=== PATIENT | female | born 1985 | race Caucasian/White ===

== ENCOUNTER → 2018-12-16 09:11 | Outpatient (CLI) | payer OTHER, SELFPAY ==
--- NOTE | 2018-12-16 09:18 | US_ITS ---
US thyroid HISTORY: ITS.REASON: FATIGUE,THYROID NODULE ORDERING PHYSICIAN: Andreea Mead MD PATIENT AGE: 33 years Comparison: None FINDINGS: The right lobe is 4.1 x 1.1 x 1.4 cm. There is a 2 mm hypoechoic nodule in the upper pole. This is nonspecific. There is some mild heterogeneous echogenicity of the right lobe. There is an 8 x 5 mm isoechoic nodule in the lower pole well-circumscribed. An additional 6 x 4 mm isoechoic nodule present in the mid polar region. The left lobe is 4.3 x 1.4 x 1.6 cm. There is a 1.6 x 0.9 cm isoechoic nodule with somewhat heterogeneous echogenicity in the mid polar region of the left lobe. The margins are well-circumscribed and hypoechoic. The isthmus is slightly thickened at 6 mm. IMPRESSION: There are bilateral thyroid nodules the largest in the mid polar region on the left at 1.6 x 0.9 cm. T RADS 3 mildly suspicious. Recommend 6 month follow-up.
--- NOTE | 2018-12-16 09:18 | FL_ITS ---
EXAM: Barium swallow/esophagram. INDICATION: ITS.REASON: DYSPHAGIA ORDERING PHYSICIAN: Andreea Mead MD PATIENT AGE: 33 years COMPARISON: None TECHNIQUE: In the upright position the patient was observed to swallow barium in both the AP and lateral view. The cervical esophagus was examined under fluoroscopy with images obtained. The patient was then placed prone in the right anterior oblique position and was observed to swallow barium with Valsalva technique . FLUOROSCOPY TIME: 37 seconds FINDINGS: There was no evidence of aspiration. There was normal peristalsis. No filling defects or mucosal abnormalities. No masses or strictures. No hiatal hernia. No reflux demonstrated during the exam. IMPRESSION: Negative barium swallow.
== END ==
PROVIDERS: PCP Emergency Medicine; Visit Provider Emergency Medicine
DX: R13.19 Other dysphagia (principal); R53.83 Other fatigue; E04.1 Nontoxic single thyroid nodule
CPT/HCPCS: 74220; 76536

== ENCOUNTER → 2019-03-04 12:58 | Outpatient (CLI) | payer OTHER, SELFPAY ==
--- NOTE | 2019-03-04 13:00 | US_ITS ---
PROCEDURE: US FNA THYROID CLINICAL INDICATION: Thyroid nodule, trouble swallowing, dominant nodule in the left COMPARISON: THY US thyroid from 12/16/2018 TECHNIQUE: Following obtaining informed consent, using aseptic technique and local anesthesia with buffered lidocaine, fine-needle aspiration was performed of the nodule of interest using sonographic guidance. 3 passes were made into the nodule with a 21-gauge needle. Specimen was given to cytology. FINDINGS: CYTOLOGY: Negative for malignancy, benign follicular nodule IMPRESSION: Uneventful ultrasound-guided fine needle aspiration of left lobe of the thyroid gland showing benign findings. The patient tolerated the procedure well without evidence of immediate complications and left the ultrasound suite in stable condition. Dictated by: Demetrius Blackman MD 03/14/2019 15:13 Electronically signed by Demetrius Blackman MD in [facility] 03/14/2019 15:13
== END ==
PROVIDERS: PCP Emergency Medicine; Visit Provider Otolaryngology
DX: E06.9 Thyroiditis, unspecified (principal)
CPT/HCPCS: 10005; 76942

== ENCOUNTER → 2021-01-26 11:49 | Outpatient (CLI) | payer OTHER, SELFPAY ==
--- NOTE | 2021-01-26 12:00 | XR_ITS ---
PROCEDURE: XR CHEST PORTABLE CLINICAL HISTORY: COVID OUTPATIENT COMPARISON: No exams were available for comparison FINDINGS: This is a poor inspiratory effort resulting in crowding of vascular markings at the lung bases. Cardiac size is likely normal considering the body habitus as this patient is rather obese. There are ill-defined opacities in the perihilar regions and peripheral lung dobbins likely representing pneumonic infiltrates and probably accentuated by the poor inspiration. There is no pleural fluid. IMPRESSION: Poor inspiration probable bilateral perihilar and lower lobe bronchi pneumonic infiltrates, suggest clinical correlation and follow-up PA and lateral chest with better inspiration for better overall evaluation. Dictated by: Dr. Adithya Hart MD 01/26/2021 12:45 Dr. Adithya Hart MD in [facility] 01/26/2021 12:45
[2021-01-26 12:51] LABS: Basophils % 0.5 % (0.1-2.0); Hemoglobin 14.7 g/dL (12.2-16.2); Lymphocytes # 1.1 K/mm3 (0.7-4.5); Lymphocytes % 25.6 % (10-50); Mean Corpuscular Hemoglobin 29.9 pg (27.0-31.2); Mean Corpuscular Volume 85.4 fl (81-99); Mean Platelet Volume 8.9 fl (7.4-10.4); Monocytes # 0.2 K/mm3 (0.1-1.0); Monocytes % 5.2 % (1.7-9.3); Neutrophils # 2.8 K/mm3 (1.8-7.8); Neutrophils % 68.6 % (37.0-80.0); Platelet Count 173 K/mm3 (142-424); Red Blood Count 4.92 M/mm3 (4.20-5.40); Red Cell Distribution Width 13.9 % (11.5-17.5); White Blood Count 4.1 K/mm3 (4.8-10.8)
[2021-01-26 12:55] LABS: Chloride 102 mmol/L (98-107)
[2021-01-26 12:56] LABS: Potassium 4.3 mmoL/L (3.5-5.1); Sodium 139 mmol/L (136-145)
[2021-01-26 12:58] LABS: Alanine Aminotransferase 73 U/L (12-78); Alkaline Phosphatase 66 U/L (38-126); Anion Gap 11.3 mEq/L (5-15); Aspartate Amino Transferase 72 U/L (14-36); Bilirubin,Total 0.6 mg/dl (0.2-1.3); Blood Urea Nitrogen 11 mg/dl (7-17); Carbon Dioxide 30 mmol/L (22.0-30.0); Estimated Glomerular Filt Rate 82 ml/min (>60); GFR (African American) 99 ML/MIN (>60)
[2021-01-26 12:59] LABS: Albumin Level 4.4 g/dl (3.5-5.0); Albumin/Globulin Ratio 1.4 (1.1-1.8); Calcium 8.6 mg/dl (8.4-10.2); Globulin 3.1 g/dL (1.3-3.2); Glucose 107 mg/dl (74-100); Total Protein,Serum 7.5 g/dl (6.3-8.2)
[2021-01-26 13:04] LABS: D-Dimer 0.61 ug/mL (0.0-0.5)
== END ==
PROVIDERS: Otolaryngology
DX: R06.00 Dyspnea, unspecified (principal); R00.0 Tachycardia, unspecified; U07.1 COVID-19
CPT/HCPCS: 36415; 71045; 80053; 85025; 85378

== ENCOUNTER → 2021-07-15 16:45 | Outpatient (CLI) | payer OTHER, SELFPAY ==
[2021-07-15 17:45] LABS: Basophils # 0.1 K/mm3 (0-0.2); Basophils % 0.9 % (0.1-2.0); Eosinophils # 0.2 K/mm3 (0.0-0.4); Eosinophils % 2.3 % (0.1-12.0); Hematocrit 47.1 % (37.0-47.0); Lymphocytes # 2.3 K/mm3 (0.7-4.5); Lymphocytes % 23.4 % (10-50); Mean Corpuscular HGB Conc 31.8 g/dL (31.8-35.4); Mean Corpuscular Hemoglobin 30.6 pg (27.0-31.2); Mean Corpuscular Volume 96.2 fl (81-99); Mean Platelet Volume 8.3 fl (7.4-10.4); Monocytes # 0.6 K/mm3 (0.1-1.0); Monocytes % 6.3 % (1.7-9.3); Neutrophils # 6.5 K/mm3 (1.8-7.8); Neutrophils % 67.1 % (37.0-80.0); Platelet Count 315 K/mm3 (142-424); Red Cell Distribution Width 13.1 % (11.5-17.5); White Blood Count 9.7 K/mm3 (4.8-10.8)
== END ==
PROVIDERS: Visit Provider Internal Medicine Interventional Cardiology
DX: E78.00 Pure hypercholesterolemia, unspecified (principal)
CPT/HCPCS: 36415; 85025

== ENCOUNTER 2022-05-02 19:28 | Emergency (ER) | payer SELFPAY ==
[2022-05-02] VITALS (8 sets, daily range): BP systolic 102–158; BP diastolic 53–94; PULSE 71–132; RESP 16–18; TEMP 36.6–37; O2SAT 96–100; BMI 36.6
--- NOTE | 2022-05-02 19:41 | ECG_ITS ---
APPROVED REPORT Exam: Resting ECG HR:110 bpm ECG Measurements Heart Rate 110 AXES WA 132 P 48 QRSd 92 QRS 76 QT 340 T 19 QTc 405 Conclusion SINUS TACHYCARDIA ABNORMAL RHYTHM ECG UNCONFIRMED REPORT Electronically signed by : Blanco Matthews MD 05/04/2022 21:11:46
--- NOTE | 2022-05-02 20:18 | CT_ITS ---
PROCEDURE INFORMATION: Exam: CT Head Without Contrast Exam date and time: 05/02/2022 9:06 PM Age: 36 years old Clinical indication: Patient HX: Seizure activity. TECHNIQUE: Imaging protocol: Computed tomography of the head without contrast. Radiation optimization: All CT scans at this facility use at least one of these dose optimization techniques: automated exposure control; mA and/or kV adjustment per patient size (includes targeted exams where dose is matched to clinical indication); or iterative reconstruction. COMPARISON: US FNA THYROID 03/04/2019 1:08 PM FINDINGS: Brain: No large territorial infarction. No hemorrhage. No mass effect or midline shift. Cerebral ventricles: No ventriculomegaly. Paranasal sinuses: No fluid levels. Mastoid air cells: Visualized mastoid air cells are well aerated. Bones/joints: No acute fracture. Soft tissues: No significant soft tissue abnormality. IMPRESSION: No acute intracranial abnormality.
[2022-05-02 20:36] LABS: Basophils # 0.1 K/mm3 (0-0.2); Basophils % 1.4 % (0.1-2.0); Eosinophils # 0.2 K/mm3 (0.0-0.4); Eosinophils % 1.5 % (0.1-12.0); Hematocrit 48.6 % (37.0-47.0); Lymphocytes # 3.2 K/mm3 (0.7-4.5); Lymphocytes % 31.5 % (10-50); Mean Corpuscular Hemoglobin 30.6 pg (27.0-31.2); Mean Corpuscular Volume 92.9 fl (81-99); Mean Platelet Volume 8.2 fl (7.4-10.4); Monocytes # 0.5 K/mm3 (0.1-1.0); Monocytes % 5.3 % (1.7-9.3); Neutrophils % 60.3 % (37.0-80.0); Platelet Count 325 K/mm3 (142-424); Red Blood Count 5.23 M/mm3 (4.20-5.40); Red Cell Distribution Width 13.1 % (11.5-17.5)
[2022-05-02 20:37] LABS: Potassium 3.8 mmoL/L (3.5-5.1); Sodium 139 mmol/L (136-145)
[2022-05-02 20:38] LABS: Chloride 100 mmol/L (98-107)
[2022-05-02 20:39] LABS: Alanine Aminotransferase 37 U/L (12-78); Aspartate Amino Transferase 40 U/L (14-36); Blood Urea Nitrogen 12 mg/dl (7-17); Creatinine Clearance Estimated 159 mL/min (50-200); Estimated Glomerular Filt Rate 95 ml/min (>60); GFR (African American) 115 ML/MIN (>60)
[2022-05-02 20:40] LABS: Albumin Level 4.8 g/dl (3.5-5.0); Albumin/Globulin Ratio 1.5 (1.1-1.8); Anion Gap 14.8 mEq/L (5-15); Carbon Dioxide 28 mmol/L (22.0-30.0); Globulin 3.1 g/dL (1.3-3.2); Total Protein,Serum 7.9 g/dl (6.3-8.2)
[2022-05-02 20:41] LABS: Alkaline Phosphatase 78 U/L (38-126); Bilirubin,Total 0.5 mg/dl (0.2-1.3); Calcium 9.4 mg/dl (8.4-10.2); Glucose 105 mg/dl (74-100)
[2022-05-02 20:43] LABS: Urine Pregnancy, HCG Qual. Negative (Negative)
[2022-05-02 20:51] LABS: Amphetamine/Metha Screen,Urine Negative ng/ml (<1000); Barbiturates Screen,Urine Negative ng/ml (<200)
[2022-05-02 20:52] LABS: Benzodiazepines Screen,Urine Negative ng/ml (<200); Cocaine Screen,Urine Negative ng/ml (<300)
[2022-05-02 20:53] LABS: Methadone Screen,Urine Negative ng/ml (<300)
[2022-05-02 20:54] LABS: Cannabinoid Screen,Urine Positive ng/ml (<50); Opiate Screen,Urine Negative ng/ml (<300)
[2022-05-02 20:55] LABS: Phencyclidine Screen,Urine Negative ng/ml (<25)
--- NOTE | 2022-05-02 21:25 | HMH.EDSEIZ ---
Discharge Plan Disposition Patient Disposition: Home, Self-Care Chief Complaint: Seizure Prescriptions Prescriptions: No Action No Known Home Medications Referrals Follow up/Referrals: Nitin Jerez MD [Primary Care Provider] - See instructions Clinical Impressions Clinical Impression: Generalized seizure Instructions Patient Instructions: DI for Seizure (Not Epilepsy/Seizure Disorder) Discharge ED Provider: Javed Ward Seizures HPI General Chief Complaint: Seizure Stated Complaint: seizure feels like head on fire Time Seen by Provider: 05/02/22 20:10 Mode of Arrival: Wheelchair Source of Information: Patient, Spouse and Medical Record Limitations: No Limitations Description of Symptoms (Recalled from ER Triage Doc. by RN): pt states 20 mins to arrival had a violent seizure and has several today. pt has history of seziure and see neurologist at [facility]. pt c/o chest heaviness, burning at the base of neck, and ACUNA History of Present Illness HPI Narrative: pt with acuna and has possible sz like activity and has seen neuro and stopped topamax - has pending eval - no fever/rash or trauma MD complaint: possible seizure Onset (ago): hour(s) Description of Episode: other (acuna and jerking ) Witnessed: yes - by bystander Trauma: No Seizure History: other (possible sz disorder ) Place: home Associated symptoms: denies other symptoms Treatments prior to arrival: none Related Data Home Medications Medication Instructions Recorded Confirmed No Known Home Medications 03/13/19 03/13/19 Allergies Allergy/AdvReac Type Severity Reaction Status Date / Time Penicillins Allergy Intermediate Rash Verified 03/13/19 16:03 PFSH PFS Social History Smoking Status: Never smoker alcohol intake: never substance use type: denies use current occupational status: employed Travel in the last 8 weeks: None household members: family housing: house ROS Obtained: Yes All systems reviewed & no additional complaints except as documented Physical Exam General General appearance: alert Head Head exam: normocephalic Eye Eye exam: Present PERRL and EOMI; Absent nystagmus ENT ENT exam: Present mucous membranes moist and other (no evid of tongue biting ) Neck Neck exam: Present trachea midline Respiratory Respiratory exam: Present normal lung sounds bilaterally Cardiovascular Cardiovascular exam: Present regular rate Abdominal Exam Abdominal exam: Present soft Extremities Exam Extremities exam: Present normal inspection Neurological Exam Neurological exam: Present alert, oriented X3 and CN II-XII intact; Absent motor sensory deficit Psychiatric Psychiatric exam: Present normal affect Skin Skin exam: Absent rash Medical Decision Making Medical Records Medical records reviewed: Yes I reviewed the patient's medical records. Ayad Inquiry Pt receiving controlled substance: No Vital Signs: 05/02/22 19:29 05/02/22 20:01 05/02/22 22:16 Temperature 98.6 F Temperature Source Oral Pulse Rate 83 87 Pulse Rate [Right] 132 H Respiratory Rate 16 18 18 Blood Pressure 131/78 107/63 L Blood Pressure [Right Arm] 158/94 H Blood Pressure Mean 99 77 Blood Pressure Mean [Right Arm] 115 02 Sat by Pulse Oximetry 100 100 96 05/02/22 22:30 05/02/22 23:02 Temperature Temperature Source Pulse Rate 80 71 Pulse Rate [Right] Respiratory Rate 18 18 Blood Pressure 112/56 L 106/53 L Blood Pressure [Right Arm] Blood Pressure Mean 70 61 Blood Pressure Mean [Right Arm] 02 Sat by Pulse Oximetry 96 96 Lab Data Lab results reviewed: Yes I reviewed the patient's lab results. Lab Results 05/02/22 19:53: WBC 10.0, RBC 5.23, Hgb 16.0, Hct 48.6 H, MCV 92.9, MCH 30.6, MCHC 33.0, RDW 13.1, Plt Count 325, MPV 8.2, Neut % (Auto) 60.3, Lymph % (Auto) 31.5, Sawyer % (Auto) 5.3, Eos % (Auto) 1.5, Baso % (Auto) 1.4, Neut # (Auto) 6.0, Lymph # (Auto) 3.2, Sawyer # (Auto) 0.5,
[2022-05-03 00:08] LABS: Microscopic, Urine URINE MICROSCOPIC (MICROSCOPIC)
[2022-05-03 00:25] LABS: Appearance,Urine Clear (Clear); Blood, Urine Negative (Negative); Color,Urine Yellow (Yellow); Glucose,Urine (UA) Negative (Negative); Ketones,Urine Negative (Negative); Nitrate,Urine Negative (Negative); Protein,Urine Negative (Negative); Specific Gravity, Urine 1.015 (1.005-1.030)
[2022-05-03 00:26] LABS: Bacteria,Urine Trace /lpf; Bilirubin,Urine Negative (Negative); Leukocyte Esterase,Urine Negative (Negative); RBC,Urine Occasional #/hpf (0-3); Urobilinogen,Urine 0.2 EU/dl (0.2)
== END 2022-05-03 00:28 | disposition home or self-care (01) ==
PROVIDERS: Emergency Provider Emergency Medicine; PCP Family Medicine
DX: R56.9 Unspecified convulsions (principal); Z88.0 Allergy status to penicillin; F12.90 Cannabis use, unspecified, uncomplicated
CPT/HCPCS: 70450; 80053; 80305; 81001; 81025; 83735; 85025; 93005; 99284

== ENCOUNTER 2023-11-05 21:13 | Emergency (ER) | payer MEDICAID, SELFPAY ==
[2023-11-05 21:14] VITALS: BP 165/97; PULSE 91; RESP 17; TEMP 36.8; O2SAT 99; BMI 36.6
--- OUTSIDE RECORDS SUMMARY | 2023-11-05 21:19 | XMS_ITS | Patient Health Record ---
Author Name Unknown Organization [facility] Address [address] [place] [id number] Support Name Relationship Address Phone LENNY ABAD Guarantor Unknown ALLERGIES Allergen (clinical drug ingredient) Drug/Non Drug Allergy documented on EMR Reaction Allergy Type Onset Date Status Penicillin hives Drug Allergy Active REASON FOR REFERRAL No Information MEDICATIONS Medication SIG (Take, Route, Frequency, Duration) Notes Start Date End Date Status Multivitamin - 1 tablet Orally Once a day Active Mirena Active Albuterol Sulfate HFA 108 (90 Base) MCG/ACT 1-2 puff as needed Inhalation every 4 hrs Active Probiotic - as directed Orally Active SOCIAL HISTORY Tobacco Use: Social History Observation Description Date Details (start date - stop date) Never Smoker NA - NA Sex Assigned At : Social History Observation Description Sex Assigned At Unknown Household Question Answer Notes Marital status: Number of adults in household: 2 Number of children in household: 3 Tobacco Use/Smoking Question Answer Notes Tobacco use: nonsmoker Additional Findings: Tobacco Non-User Aggressive non-smoker Alcohol Screen (Audit-C) Question Answer Notes Did you have a drink containing alcohol in the p ast year? 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 Metabolic Panel (14) 12/29/2020 Comp. Metabolic Panel (14) 01/26/2021 Ultrasound : Thyroid Sonography B-Scan 0 12/29/2020 Insurance Providers Payer Name Payer Address Payer Phone Subscriber Number Group Number Insured Name Patient Relationship to Insured Coverage Start Date Coverage End Date [employer] [address] [address] [place], [place] [id number] LENNY ABAD Self - patient is the insured MEDICAL (GENERAL) HISTORY Medical History History ICD Code thyroid nodule, non cancerous Surgical History Surgery Date(Month/Year) CARPAL TUNNEL SURGERY 2009 DELIVERY 2012 wisdom teeth extraction 2003
--- OUTSIDE RECORDS SUMMARY | 2023-11-05 21:19 | XMS_ITS | Patient Health Record ---
Author Name Unknown Organization [facility] Address [address] [place] [address] Care Team Providers Care Manager Brand Name Role Phone Martha Sanz Unavailable [phone] Tara Grey Unavailable [phone] Reason For Referral No Information Problems Problem Type SNOMED Code ICD Code Onset Dates Problem Status W/U Status Risk Notes Problem Surveillance of intrauterine device contraception (532833826) Checking of intrauterine device (Z30.431) 021 Active confirmed IUD surveillance Problem Removal of intrauterine contraceptive device (51692707) Awaiting removal of contraceptive intrauterine device (IUD) (Z30.432) 021 Active confirmed IUD removal Problem Gynecological examination normal (79551635485636 4) Cervical smear, as part of routine gynecological examination (Z01.419) 019 Active confirmed Annual without abnormal findings Problem Insertion of intrauterine contraceptive device (68510694) Encounter for initial insertion of intrauterine contraceptive device (Z30.430) 021 Active confirmed IUD insertion Vital Signs Heart Rate 87 /min 11/15/2022 Oximetry 96 % 11/15/2022 Blood pressure diastolic 72 mm Hg 11/15/2022 Height 62 in 11/15/2022 Blood pressure systolic 126 mm Hg 11/15/2022 Weight 207.2 lbs 11/15/2022 BMI 37.89 kg/m2 11/15/2022 Encounters Encounter Location Date Provider Diagnosis [facility] [address] [facility] [address] [place] [address] 11/15/2022 Tara Grey Encounter for IUD removal Z30.432 Assessments Encounter Date Diagnosis (ICD Code) Assessment Notes Treatment Notes Treatment Clinical Notes 11/15/2022 Encounter for IUD removal (ICD-10 - Z30.432) Plan Of Treatment No Information Medical (General) History Medical History History ICD Code abnormal paps HPV varicose veins yeast infections genital HSV Surgical History Surgery Date(Month/Year) C/S Carpal Tunnel Hospitalization History Reason Date(Month/Year) C/S
--- NOTE | 2023-11-05 21:25 | ECG_ITS ---
APPROVED REPORT Exam: Resting ECG HR:83 bpm ECG Measurements Heart Rate 83 AXES MI 153 P 38 QRSd 90 QRS 63 QT 371 T 32 QTc 410 Conclusion SINUS RHYTHM NORMAL ECG UNCONFIRMED REPORT Electronically signed by : NEW HOLGUIN, 11/06/2023 00:31:32
[2023-11-05 21:30] VITALS: BP 148/96; PULSE 85; RESP 20; O2SAT 98
[2023-11-05 22:00] VITALS: BP 155/88; PULSE 88; RESP 15; O2SAT 94
--- NOTE | 2023-11-05 22:21 | XR_ITS ---
PROCEDURE INFORMATION: Exam: XR Chest Exam date and time: 11/05/2023 10:21 PM Age: 38 years old Clinical indication: Pain; Other: Left arm; Additional info: Lt arm pain TECHNIQUE: Imaging protocol: Radiologic exam of the chest. Views: 2 views. COMPARISON: CR XR CHEST PORTABLE 01/26/2021 12:09 PM FINDINGS: Lungs: Normal. Pleural spaces: Normal. No pleural effusion. No pneumothorax. Heart/Mediastinum: Normal. No cardiomegaly. Bones/joints: Unremarkable. IMPRESSION: No acute findings.
[2023-11-05 22:28] LABS: Basophils # 0.1 K/mm3 (0-0.2); Basophils % 0.9 % (0.1-2.0); Eosinophils # 0.3 K/mm3 (0.0-0.4); Hematocrit 44.4 % (37.0-47.0); Hemoglobin 14.5 g/dL (12.2-16.2); Lymphocytes # 2.9 K/mm3 (0.7-4.5); Lymphocytes % 34.1 % (10-50); Mean Corpuscular HGB Conc 32.7 g/dL (31.8-35.4); Mean Corpuscular Hemoglobin 30.3 pg (27.0-31.2); Mean Corpuscular Volume 92.7 fl (81-99); Mean Platelet Volume 8.2 fl (7.4-10.4); Monocytes # 0.5 K/mm3 (0.1-1.0); Monocytes % 5.9 % (1.7-9.3); Neutrophils # 4.8 K/mm3 (1.8-7.8); Neutrophils % 56.1 % (37.0-80.0); Platelet Count 300 K/mm3 (142-424); Red Blood Count 4.79 M/mm3 (4.20-5.40); Red Cell Distribution Width 13.8 % (11.5-17.5); White Blood Count 8.5 K/mm3 (4.8-10.8)
[2023-11-05 22:32] LABS: Chloride 106 mmol/L (98-107)
[2023-11-05 22:33] LABS: Potassium 3.5 mmoL/L (3.5-5.1); Sodium 140 mmol/L (136-145)
[2023-11-05 22:35] LABS: Alanine Aminotransferase 48 U/L (12-78); Blood Urea Nitrogen 17 mg/dl (7-17); Creatinine Clearance Estimated 156 mL/min (50-200); Estimated Glomerular Filt Rate 94 ml/min (>60); GFR (African American) 113 ML/MIN (>60); Magnesium 1.9 mg/dl (1.6-2.3)
[2023-11-05 22:36] LABS: Albumin Level 4.4 g/dl (3.5-5.0); Albumin/Globulin Ratio 1.5 (1.1-1.8); Alkaline Phosphatase 73 U/L (38-126); Anion Gap 10.5 mEq/L (5-15); Aspartate Amino Transferase 41 U/L (14-36); Bilirubin,Total 0.5 mg/dl (0.2-1.3); Calcium 9.6 mg/dl (8.4-10.2); Carbon Dioxide 27 mmol/L (22.0-30.0); Globulin 2.9 g/dL (1.3-3.2); Glucose 111 mg/dl (74-100); Total Protein,Serum 7.3 g/dl (6.3-8.2)
[2023-11-05 22:50] LABS: Troponin I < 0.01 ng/ml (0.00-0.034)
--- NOTE | 2023-11-05 22:54 | PC.NURSE ---
Rounded on patient no complaints or needs at this time
[2023-11-05 23:00] VITALS: BP 143/87; RESP 16; O2SAT 98
--- NOTE | 2023-11-05 23:26 | XR_ITS ---
PROCEDURE INFORMATION: Exam: XR Left Shoulder Exam date and time: 11/05/2023 11:23 PM Age: 38 years old Clinical indication: Pain; Shoulder; Left; Additional info: Atraumatic anterior shoulder pain TECHNIQUE: Imaging protocol: Radiologic exam of the left shoulder. Views: 2 or more views. COMPARISON: CR XR CHEST 2V 11/05/2023 10:21 PM FINDINGS: Bones/joints: Normal. Soft tissues: Normal. IMPRESSION: No acute findings.
--- NOTE | 2023-11-05 23:27 | ED_ITS ---
Discharge Plan Disposition Patient Disposition: Home, Self-Care Prescriptions Prescriptions: New lidocaine 5 % adhesive patch,medicated 1 patch topical DAILY PRN (Reason: pain) Qty: 30 0RF Rx Instructions: leave on most painful area for up to 12 hrs Referrals Follow up/Referrals: Nitin Jerez MD [Primary Care Provider] - See instructions Activity Restrictions/Add. Instructions Additional Instructions/Restrictions: Please follow-up with your primary care provider. Please return to the emergency department if you develop any new or worsening symptoms or become concerned for your health. Please take Tylenol and ibuprofen as needed for pain. Please use lidocaine patches as needed. Clinical Impressions Clinical Impression: Acute pain of left shoulder Discharge ED Provider: Pedro Casiano Adult HPI General Chief complaint: Extremity Injury, Upper Stated complaint: Pain in left arm,no injury Time Seen by Provider: 11/05/23 23:13 Mode of Arrival: Ambulatory Source of Information: Patient Limitations: No Limitations Description of Symptoms (Recalled from ER Triage Doc. by RN): Patient reports pain between shoulder and collar bone that started about 830-900 this morning. Patient reports she has worked in her garden today, but reports no injury to her arm. Pain has increased throughout the day and patient reports that her hand feels swollen and has decreased sensation in the last 2-3 hours. Patient reports no other symptoms outside of her left arm and shoulder. History of Present Illness HPI narrative: 38-year-old female with no reported past medical history presents with multiple complaints. She reports that she woke up normal, around 8 AM while getting in and out of the car she noticed a twinge in her left shoulder. She reports pain then developed relatively quickly afterwards. It has been worsening. She reports pain is primarily with anterior movement/raising of the shoulder. She reports that she has had some radiating abnormal sensation in her left shoulder/arm diffusely. She reports that she has pain with movement but does not feel weak. She denies any history of immunocompromise, injection drug use, recent trauma, recent fever or infection. No history of prior surgery. She denies any chest pain or shortness of breath. She reports that her left hand feels swollen but she can tell that it does not look obviously swollen compared to the other side. Related Data Previous Rx's Medication Instructions Recorded lidocaine 5 % topical patch 1 patch topical DAILY PRN pain #30 11/06/23 ea Allergies Allergy/AdvReac Type Severity Reaction Status Date / Time Penicillins Allergy Intermediate Rash Verified 03/13/19 16:03 [facility] Disclaimer: The information contained in this section may have been updated after the patient was seen, as this information can be updated by other users. Social History Smoking Status: Never smoker alcohol intake: never substance use type: denies use current occupational status: employed Travel in the last 8 weeks: None household members: family housing: house ROS Obtained: Yes All systems reviewed & no additional complaints except as documented Physical Exam General General appearance: alert and in no apparent distress Head Head exam: atraumatic and normocephalic Eye Eye exam: Present normal appearance, PERRL and EOMI ENT ENT exam: Present normal oropharynx and normal external ear exam Neck Neck exam: Present normal inspection and full ROM Chest Chest inspection: Present normal inspection and symmetric chest wall rise; Absent tenderness Respiratory Respiratory exam: Present normal lung sounds bilaterally; Absent respiratory distress Cardiovascular Cardiovascular exam: Present regular rate and normal rhythm Abdominal Exam Abdominal exam: Present soft; Absent distention, tenderness or guarding Extremities Exam Extremities exam: Present normal inspection and other (Tenderness primarily over the left AC joint. No overlying cellulitis or swelling. Passive range of motion the shoulder is only painful when moving the arm anteriorly. normal distal perfusion, no swelling of the extremity, reports that she can feel her arm but it feels abnormal ) Back Exam Back exam: Present normal inspection; Absent tenderness Neurological Exam Neurological exam: Present alert and oriented X3; Absent motor sensory deficit Psychiatric Psychiatric exam: Present normal affect and normal mood Skin Skin exam: Present warm, dry and normal color Lymphatic Lymphatic Findings: no adenopathy Medical Decision Making Medical Records Medical records reviewed: Yes I reviewed the patient's medical records. Ayad Inquiry Pt receiving controlled substance: No Ayad was queried for this patient: No Vital Signs: 11/05/23 21:14 11/05/23 21:30 11/05/23 22:00 Temperature 98.2 F Temperature Source Oral Pulse Rate 85 88 Pulse Rate [Right Radial] 91 H Respiratory Rate 17 20 15 Blood Pressure 148/96 H 155/88 H Blood Pressure [Right Arm] 165/97 H Blood Pressure Mean [Right Arm] 119 Blood Pressure Source [Right Arm] Automatic Cuff Blood Pressure Position [Right Arm] Sitting 02 Sat by Pulse Oximetry 99 98 94 L Oxygen Delivery Method Room Air 11/05/23 23:00 11/05/23 23:30 Temperature Temperature Source Pulse Rate Pulse Rate [Right Radial] Respiratory Rate 16 17 Blood Pressure 143/87 H 154/105 H Blood Pressure [Right Arm] Blood Pressure Mean [Right Arm] Blood Pressure Source [Right Arm] Blood Pressure Position [Right Arm] 02 Sat by Pulse Oximetry 98 97 Oxygen Delivery Method Lab Data Lab results reviewed: Yes I reviewed the patient's lab results. Lab Results 11/05/23 21:30: WBC 8.5, RBC 4.79, Hgb 14.5, Hct 44.4, MCV 92.7, MCH 30.3, MCHC 32.7, RDW 13.8, Plt Count 300, MPV 8.2, Neut % (Auto) 56.1, Lymph % (Auto) 34.1, [place] % (Auto) 5.9, Eos % (Auto) 3.0, Baso % (Auto) 0.9, Neut # (Auto) 4.8, Lymph # (Auto) 2.9, [place] # (Auto) 0.5, Eos # (Auto) 0.3, Baso # (Auto) 0.1, Sodium 140, Potassium 3.5, Chloride 106, Carbon Dioxide 27, Anion Gap 10.5, BUN 17, Creatinine 0.70, Estimated Creat Clear 156, Estimated GFR 94, Est GFR ( Amer) 113, Glucose 111 H, Calcium 9.6, Magnesium 1.9, Total Bilirubin 0.5, AST 41 H, ALT 48, Alkaline Phosphatase 73, Troponin I < 0.01, Total Protein 7.3, Albumin 4.4, Globulin 2.9, Albumin/Globulin Ratio 1.5 11/05/23 21:30 11/05/23 21:30 Orders (Tests/Meds): ED MEDICATIONS Discontinued Medications Generic Name Dose Route Start Last Admin Trade Name Freq PRN Reason Stop Dose Admin Acetaminophen 1,000 mg 11/05/23 23:26 11/05/23 23:42 Acetaminophen 500mg Tab PO 11/05/23 23:27 1,000 mg ONCE ONE Administration Ketorolac Tromethamine 30 mg 11/05/23 23:26 11/05/23 23:42 Ketorolac 30mg/Ml Vial IV 11/05/23 23:27 30 mg ONCE ONE Administration Lidocaine 1 each 11/05/23 23:26 11/05/23 23:41 Lidocaine 5% Transdermal Patch TP 11/05/23 23:27 1 each ONCE ONE Administration ORDERS Category Date Time Status Shoulder XR left minimum 2 views [XR shoulder LT min 2V Exams 11/05/23 23:26 Completed ] Stat XR chest 2V Stat Exams 11/05/23 22:21 Completed Complete Blood Count Auto Diff Stat Lab 11/05/23 21:30 Completed Comprehensive Metabolic Panel Stat Lab 11/05/23 21:30 Completed MAG [Magnesium] Stat Lab 11/05/23 21:30 Completed Troponin I Q3H Lab 11/06/23 01:30 Ordered Troponin I Q3H Lab 11/06/23 04:30 Ordered Troponin I Stat Lab 11/05/23 21:30 Completed Medical Decision Narrative: 38-year-old female without significant past medical history presents with anterior left shoulder pain and some radiating abnormal sensation in the arm. History was obtained interactive discussion with patient. On arrival, patient is [afebrile, hemodynamically stable, satting appropriately, alert, oriented x4, GCS 15], moving all extremities spontaneously. Full physical exam performed and significant for findings as documented above Differential includes but is not limited to AC joint injury, rotator cuff injury, infection of the shoulder, DVT, arterial pathology, cervical radiculopathy,. Patient was given p.o. Tylenol, IV Toradol, lidocaine patch for symptomatic management and correction of underlying abnormalities. Workup initiated including radiographs of the chest and left shoulder, CBC CMP. On re-evaluation, patient [remains afebrile, HD stable.] Laboratory workup independently interpreted by me and significant for normal white count, otherwise nonactionable. Imaging independently interpreted by me and significant for no fracture or dislocation noted. See radiology read for full review of final results. Antibiotics, CT scan and joint aspiration was considered, but deemed unnecessary due to no fever, no overlying skin changes or underlying swelling, no fever, normal white count, no history of drug use or immunocompromise. Given patient history, exam and workup, patient's presentation most likely represents shoulder pain of uncertain etiology. Her presentation is not consistent with acute arterial injury, DVT, fracture, dislocation, infection, cervical radiculopathy. My best guess at this point is that patient has a AC strain or some sort of rotator cuff pathology given exacerbation of symptoms with range of motion. I had extensive and repeated discussion with patient regarding her presentation. I relayed to her that there is still diagnostic uncertainty and that she needs to monitor for development of new and/or worsening symptoms. Recommend she take Tylenol and ibuprofen and use lidocaine patches as needed for symptoms and recommend she follow-up with PCP or return to the ER with new concerns. Procedures Risk/Benefits of Procedure(s) Were Explained: Yes Critical Care Critical Care Time Critical Care Time: No
[2023-11-05 23:30] VITALS: BP 154/105; RESP 17; O2SAT 97
[2023-11-05] MEDS: LIDOCAINE 5% TRANSDERMAL PATCH 1 EACH TP (23:41)
[2023-11-05] MEDS: ACETAMINOPHEN 500MG TAB 1000 MG PO (23:42)
[2023-11-05] MEDS: KETOROLAC 30MG/ML VIAL 30 MG IV (23:42)
[2023-11-06 00:17] VITALS: BP 145/93; PULSE 83; RESP 15; TEMP 36.8; O2SAT 97
== END 2023-11-06 00:18 | disposition home or self-care (01) ==
PROVIDERS: Emergency Medicine; Emergency Provider Emergency Medicine; PCP Family Medicine
DX: M25.512 Pain in left shoulder (principal)
CPT/HCPCS: 71046; 73030; 80053; 83735; 84484; 85025; 93005; 96374; 99284

== ENCOUNTER 2023-11-28 11:00 | Outpatient (RCR) | payer MEDICAID, SELFPAY ==
--- NOTE | 2023-11-19 16:07 | HMH.OTOPEV ---
OT Inpatient Evaluation Rehab OT Outpatient Eval Start: 11/19/23 15:28 Freq: Status: Active Protocol: Document 11/19/23 15:28 MARLA (Rec: 11/19/23 15:40 [id number]) E-signed By Venecia Mendoza, OT Outpatient Therapy Subjective History Subjective History 38 year old female referred to skilled OP OT services for L shld pain. Patient stated that she has been having pain in the L shld for over 3 weeks with minimal relief. Patient reported lifting weights with L shld and noticed the pain. x -ray completed on 11/05/23 with no findings. f/u ~4 weeks for possbile MRI. New diagnosis of cancer in past 12 No months? Chief Complaint Pain,Weakness Symptom Type Ache Symptoms Relieved By Nothing Symptoms Aggravated By Physical Activity Prior Functional Limitations None Current Functional Limitations Reaching,Lifting,Housework, Dressing,Sleeping,Recreation Activity Symptom Description Constant and Continuous Level of pain today (0-10) 2 Pain scale - at its best (0-10) 2 Pain scale - at its worst (0-10) 9 Shoulder/Elbow Eval Shoulder Objective Measurements Shoulder MMT Left Shoulder Abduction Strength Grade 3 Fair Shoulder Extension Strength Grade 3 Fair Shoulder Flexion Strength Grade 3 Fair Shoulder Horizontal Abduction Strength 3 Fair Grade Shoulder Horizontal Adduction Strength 3 Fair Grade Infraspinatus/Teres Minor Strength Grade 3 Fair Shoulder External Rotation Strength 3 Fair Grade Shoulder Internal Rotation Strength 3 Fair Grade Elbow Objective Measurements QuickDASH Activities Please rate your ability to do the following activities in the last week by selecting the number below the appropriate response. 1. Open a tight or new jar. Moderate difficulty 2. Do heavy plc engineer (e.g., wash Moderate difficulty coelho, floors). 3. Carry a shopping bag or briefcase. Severe difficulty 4. Wash your back. Severe difficulty 5. Use a knife to cut food. No difficulty 6. Recreational activities in which you No difficulty take some force or impact through your arm, shoulder, or hand (e.g., golf, hammering, tennis, etc.). 7. During the past week, to what extent Quite a bit has your arm, shoulder or hand problem interfered with your normal social activities with family, friends, neighbors or groups? 8. During the past week, were you Very limited limited in your work or other regular daily activites as a result of your arm, shoulder or hand problem? 9. Arm, shoulder or hand pain. Moderate 10. Tingling (pins and needles) in your Mild arm, shoulder or hand. 11. During the past week, how much Mild difficulty difficulty have you had sleeping because of the pain in your arm, shoulder or hand? Quick DASH 31 OT Outpatient Assessment Impairments Problems/Impairments Impaired Range of Motion, Impaired Strength,Subjective C /O Pain Prognosis Rehab Potential Good Clinical Impression Consistent with Diagnosis Yes Short Term Goals Number of Weeks 2 Increase Strength Yes: Improve L UE shld strength to 3+ to 4-/5 throughout Decrease Subjective C/O Pain Yes: 7/10 pain at worst Patient to be Ind w/ Advanced HEP Yes: strengthening Improve Quick Dash Score Yes: 25 Mother Repairer Goals Number of Weeks 4 Increase Strength Yes: Improve L UE shld strength to 4-/5 to 4/5 throughout Decrease Subjective C/O Pain Yes: 5/10 pain at worst Patient to be Ind w/ Advanced HEP Yes: advance strengthening Improve Quick Dash Score Yes: 20 Outpatient Therapy Plan of Care Treatment Plan May Include Therapeutic Exercise Including Home Yes Exercise Program Manual Therapy Techniques Yes Therapeutic Activities to Return to Yes Previous Functional/Work Level Thermal Modalities Yes Electrical Stimulation Yes Ultrasound/Phonophoresis Yes Iontophoresis Yes Eval/Re-Eval Yes Aquatic Therapy Yes Frequency Times per week 2x/wk Duration Number of Weeks 4 weeks Addendums This patient is a candidate for social No or vocational rehab? Patient/Guardian verbally acknowledges Yes understanding of treatment program and consents to further treatment? Patient/Guardian verbally acknowledges Yes understanding of diagnosis, prognosis and goals for treatment? Eval Complexity OT Charge 91998 - Low Complexity PHYSICIAN CERTIFICATION: I certify the specified therapy services for Idalmis Frances are required, authorized, and reviewed every 30 days.
== END 2023-11-28 12:00 | disposition home or self-care (01) ==
LOC: OT 11:00
PROVIDERS: Visit Provider Orthopaedic Surgery
DX: M25.512 Pain in left shoulder (principal)
CPT/HCPCS: 97010; 97035; 97140; 97165; 97530

== ENCOUNTER 2023-12-19 09:54 | Outpatient (CLI) | payer MEDICAID, SELFPAY ==
--- NOTE | 2023-12-19 09:57 | FL_ITS ---
FINAL REPORT CLINICAL HISTORY: DYSPHAGIA FT: 1:14 DAP 824.07 50.63 MGY FINDINGS: ESOPHAGRAM HISTORY: . Dysphagia PROCEDURE: The patient ingested barium. Effervescent crystals were also administered. 17 fluoroscopic films were obtained. Fluoro time: 1 minute 14 seconds DAP: 824.07 uGy.m2 Radiation exposure in Reference air Kerma: 50.63 mGy. FINDINGS: No esophageal stricture is identified. There is a very small sliding-type hiatal hernia. No gastroesophageal reflux was demonstrated during the exam. No aspiration was demonstrated during the exam. A 13 mm barium tablet passes through the esophagus and into the stomach without delay. IMPRESSION: Small sliding-type hiatal hernia. Films reviewed , interpreted and dictated by Dr. Nieto. Transcribed by Dandy Tamayo PA-C. Reviewed, Interpreted and Dictated by Edi Nieto III, MD Transcribed by LESLEY Najera Authenticated and [facility]
[2023-12-19] MEDS: BARIUM SULFATE (E-Z-HD 340GM);135ML BOTTLE 135 ML PO (10:23)
[2023-12-19] MEDS: BARIUM SULFATE(LIQUID E-Z-PAQUE);355ML BOTTLE 355 ML PO (10:23)
[2023-12-19] MEDS: E-Z-GASII EFFERVESCENT GRANULES;1PK 1 EACH PO (10:23)
== END 2023-12-19 23:59 | disposition home or self-care (01) ==
LOC: RAD 09:54
PROVIDERS: PCP Internal Medicine Adolescent Medicine; Visit Provider Physician Assistant
DX: R13.10 Dysphagia, unspecified (principal)
CPT/HCPCS: 74220

== ENCOUNTER → 2023-12-31 20:15 | Outpatient (CLI) | payer MEDICAID, SELFPAY | PROVIDERS: PCP Physician Assistant; Visit Provider Physician Assistant | DX: G47.33 Obstructive sleep apnea (adult) (pediatric) (principal); G47.63 Sleep related bruxism; G47.10 Hypersomnia, unspecified; R06.83 Snoring; E66.9 Obesity, unspecified; Z68.36 Body mass index [BMI] 36.0-36.9, adult | CPT/HCPCS: 95811 ==

== ENCOUNTER 2024-02-25 07:35 | Outpatient (CLI) | payer MEDICAID, SELFPAY | END 2024-02-25 23:59 | disposition home or self-care (01) | PROVIDERS: PCP Physician Assistant; Visit Provider Physician Assistant | DX: R06.02 Shortness of breath (principal) | CPT/HCPCS: 94060; 94727; 94729 ==

== ENCOUNTER 2024-03-18 13:48 | Outpatient (CLI) | payer MEDICAID, SELFPAY ==
--- NOTE | 2024-03-18 13:49 | US_ITS ---
FINAL REPORT CLINICAL HISTORY: history of thyroid nodules COMPARISON: None FINDINGS: Sonographic images of the thyroid gland were obtained. The right thyroid lobe measures 47 mm. in length. The left thyroid lobe measures 47 mm. in length. The thyroid isthmus measures 7 mm. There is a heterogeneous echotexture. Multiple thyroid nodules are noted. The largest on the right measures 7 x 6 x 4 mm, solid and hypoechoic, TR 4 nodule. Largest on the left measures 13 x 13 x 9 mm, solid and isoechoic, TR 3 nodule. There are multiple other smaller nodules. IMPRESSION: Bilateral thyroid nodules as above. No follow-up required per TI-RADS criteria. Reviewed, Interpreted and Dictated by Edi Nieto III, MD Transcribed by Beverly Macdonald Authenticated and [facility]
[2024-03-18 16:18] LABS: Thyroid Stimulating Hormone 1.36 uIU/mL (0.465-4.68)
[2024-03-20 12:39] LABS: Thyroid Peroxidase Antibodies <9 IU/mL (0-34)
== END 2024-03-18 23:59 | disposition home or self-care (01) ==
LOC: RAD 13:49
PROVIDERS: PCP Physician Assistant; Visit Provider Nurse Practitioner
DX: E04.1 Nontoxic single thyroid nodule (principal)
CPT/HCPCS: 36415; 76536; 84439; 84443; 86376

== ENCOUNTER 2024-04-17 08:13 | Outpatient (CLI) | payer MEDICAID, SELFPAY ==
[2024-04-17 12:03] LABS: HCG,Quantitative 44351 mIU/ml (0-5.42)
[2024-04-18 12:14] LABS: Progesterone 11.9 ng/mL (.)
== END 2024-04-17 23:59 | disposition home or self-care (01) ==
LOC: LAB 08:14
PROVIDERS: PCP Physician Assistant; Visit Provider Obstetrics & Gynecology
DX: Z34.90 Encounter for supervision of normal pregnancy, unspecified, unspecified trimester (principal)
CPT/HCPCS: 36415; 84144; 84702

== ENCOUNTER 2024-04-24 18:03 | Outpatient (CLI) | payer MEDICAID, SELFPAY ==
[2024-04-28 00:08] LABS: Neisseria gonorrhoeae, NAA Negative (Negative)
== END 2024-04-24 23:59 | disposition home or self-care (01) ==
LOC: LAB.DROPOF 18:03
PROVIDERS: PCP Obstetrics & Gynecology; Visit Provider Obstetrics & Gynecology
DX: Z34.90 Encounter for supervision of normal pregnancy, unspecified, unspecified trimester (principal)
CPT/HCPCS: 87086; 87491; 87591

== ENCOUNTER 2024-05-06 08:07 | Outpatient (CLI) | payer MEDICAID, SELFPAY ==
[2024-05-06 08:48] LABS: Basophils # 0.1 K/mm3 (0-0.2); Basophils % 0.5 % (0.1-2.0); Eosinophils # 0.3 K/mm3 (0.0-0.4); Hematocrit 43.9 % (37.0-47.0); Hemoglobin 14.5 g/dL (12.2-16.2); Lymphocytes # 1.8 K/mm3 (0.7-4.5); Lymphocytes % 21.2 % (10-50); Mean Corpuscular HGB Conc 33.1 g/dL (31.8-35.4); Mean Corpuscular Hemoglobin 29.6 pg (27.0-31.2); Mean Corpuscular Volume 89.4 fl (81-99); Mean Platelet Volume 7.9 fl (7.4-10.4); Monocytes # 0.5 K/mm3 (0.1-1.0); Monocytes % 5.3 % (1.7-9.3); Platelet Count 291 K/mm3 (142-424); Red Blood Count 4.91 M/mm3 (4.20-5.40); Red Cell Distribution Width 13.7 % (11.5-17.5); White Blood Count 8.7 K/mm3 (4.8-10.8)
[2024-05-06 15:38] LABS: HIV (1&2) Antibody Rapid NONREACTIVE (NONREACTIVE)
[2024-05-07 08:25] LABS: HCV Ab Non Reactive (Non Reactive); Hepatitis B Surface Antigen Negative (Negative)
[2024-05-07 12:24] LABS: Rapid Plasma Reagin Ab Titer Non Reactive titer (NonRea<1:1)
== END 2024-05-06 23:59 | disposition home or self-care (01) ==
LOC: LAB 08:08
PROVIDERS: Visit Provider Obstetrics & Gynecology
DX: Z34.90 Encounter for supervision of normal pregnancy, unspecified, unspecified trimester (principal)
CPT/HCPCS: 36415; 85025; 86593; 86762; 86803; 86850; 87340; 87389

== ENCOUNTER 2024-05-08 07:52 | Outpatient (CLI) | payer MEDICAID, SELFPAY ==
--- NOTE | 2024-05-08 07:53 | US_ITS ---
PROCEDURE: US OB <= 14 WEEKS FETUS CLINICAL INDICATION: Viability/Dates for confirmation of COMPARISON: No exams were available for comparison FINDINGS: Transvaginal sonographic images of the pelvis were obtained. From her last menstrual period she is 9weeks 3days. An intrauterine gestational sac is present with a pole with a crown-rump length of 2.93cm This correlates to a gestational age of 9weeks 6days. DANIEL will remain 12/08/2024 heart tones are present with an FHR of 185bpm. Yolk sac is noted. The yolk sac measures 5.6mm. There is an anterior fibroid within the uterus that measures 3.0 cm x 2.6 cm x 3.2 cm. There is A scar seen. The right ovary is seen and appears normal. Seen transabdominally. The left ovary is seen and appears normal. There is a corpus luteum measuring 1.2 cm. There is no fluid in the cul-de-sac. IMPRESSION: 1. Viable fetus within the uterine cavity. Fetus measures 9 weeks 6 days. DANIEL will remain 12/08/2024. 2. Both ovaries are seen and appear normal. Within the left ovary is a corpus luteum. 3. There is a fibroid anteriorly that measures 3.2 cm. 4. No fluid in the cul-de-sac. Dictated by: Salvador Brito MD 05/08/2024 11:09 Salvador Brito MD in OV 05/08/2024 11:09
== END 2024-05-08 23:59 | disposition home or self-care (01) ==
LOC: RAD 07:53
PROVIDERS: PCP Physician Assistant; Visit Provider Obstetrics & Gynecology
DX: O36.80X0 Pregnancy with inconclusive fetal viability, not applicable or unspecified (principal)
CPT/HCPCS: 76801

== ENCOUNTER 2024-05-12 08:06 | Outpatient (CLI) | payer MEDICAID, SELFPAY ==
[2024-05-12 09:07] LABS: Total Volume,Urine 1700 mL (600-1600)
[2024-05-12 09:17] LABS: Total Protein 24 Hour,Urine 136 mg/24 hr (40-90)
== END 2024-05-12 23:59 | disposition home or self-care (01) ==
LOC: LAB.DROPOF 08:07
PROVIDERS: PCP Physician Assistant; Visit Provider Obstetrics & Gynecology
DX: Z34.90 Encounter for supervision of normal pregnancy, unspecified, unspecified trimester (principal)
CPT/HCPCS: 84155

== ENCOUNTER 2024-06-24 07:45 | Outpatient (CLI) | payer MEDICAID, SELFPAY ==
--- NOTE | 2024-06-24 07:47 | US_ITS ---
PROCEDURE: US OB FOLLOW UP CLINICAL INDICATION: 16 wk -Check Cervical Length-TRANSVAGINAL COMPARISON: No exams were available for comparison FINDINGS: Transabdominal sonographic images of the pelvis were obtained. The following parameters are obtained: From her established due date she is 16weeks 5days Viable fetus in the cephalic presentation with a posterior placenta grade 1. The cervix measures 5.04 cm There appears to be a fibroid posteriorly in the lower uterine segment. The placenta is overlying the fibroid. heart rate: 142bpm bpm. BPD: 16weeks 4days HC: 17weeks AC: 16weeks FL: 16weeks 4days HC/AC: 1.35 FL/BPD: 0.64 FL/AC: 0.22 Growth percentile: 20 Amniotic fluid: Appears normal No obvious anomalies evident. Three-vessel cord appears normal. IMPRESSION: 1. Viable fetus in the cephalic presentation with a posterior placenta grade 1. 2. The fluid is within normal limits. 3. The cervix measures 5.04 cm transabdominally. 4. There is a fibroid posteriorly that is in the lower uterine segment and the placenta seems to overlie the fibroid. 5. Very limited anatomical scan appears normal. 6. biometry is consistent with a dates. Dictated by: Salvador Brito MD 06/24/2024 09:19 Salvador Brito MD in OV 06/24/2024 09:19
--- NOTE | 2024-06-24 07:47 | US_ITS ---
PROCEDURE: US OB TRANSVAGINAL CLINICAL INDICATION: Check Cervical Lenth COMPARISON: US US OB <= 14 WEEKS FETUS from 05/08/2024 US US OB FOLLOW UP from 06/24/2024 FINDINGS: Transvaginal sonographic images of the pelvis were obtained. From her last menstrual period she is 16 weeks 5 days. Cervix is measured transvaginally and measures from 3.5 cm to 4.77 cm. The placenta is posterior and measures 1.56 cm from the internal cervical os. There appears to be a posterior fibroid but this also could be a contraction as well. IMPRESSION: 1. Transvaginally the cervix measures between 3.5 and 4.77 cm. 2. The placenta is posterior and low lying measuring 1.56 cm from the internal cervical os. 3. There appears to be a posterior fibroid but this could also be mistaken for a contraction. 4. Suggest repeat scan at 20 weeks for complete anatomy. Dictated by: Salvador Brito MD 06/24/2024 09:24 Salvador Brito MD in [facility] 06/24/2024 09:24
== END 2024-06-24 23:59 | disposition home or self-care (01) ==
LOC: RAD 07:47
PROVIDERS: PCP Physician Assistant; Referring Provider Obstetrics & Gynecology; Visit Provider Obstetrics & Gynecology
DX: O09.91 Supervision of high risk pregnancy, unspecified, first trimester (principal); O09.291 Supervision of pregnancy with other poor reproductive or obstetric history, first trimester; O10.911 Unspecified pre-existing hypertension complicating pregnancy, first trimester; Z36.86 Encounter for antenatal screening for cervical length; Z87.59 Personal history of other complications of pregnancy, childbirth and the puerperium; Z3A.16 16 weeks gestation of pregnancy
CPT/HCPCS: 76816; 76817

== ENCOUNTER 2024-06-24 19:33 | Emergency (ER) | payer MEDICAID, SELFPAY ==
[2024-06-24 19:34] VITALS: BP 155/88; PULSE 93; RESP 14; TEMP 36.8; O2SAT 100; BMI 40.2
--- NOTE | 2024-06-24 19:42 | ED_ITS ---
Discharge Plan Disposition Patient Disposition: Home, Self-Care Chief Complaint: OB/Uterine Contractions Prescriptions Prescriptions: No Action Classic 28 mg iron- 800 mcg tablet 1 tab PO DAILY omega-3 fatty acids-fish oil [Fish Oil] 360-1,200 mg capsule 1 cap PO DAILY vitamin B complex Tablet 1 tab PO DAILY aspirin 81 mg tablet,delayed release (DR/EC) 81 mg PO DAILY cholecalciferol (vitamin D3) 125 mcg (5,000 unit) capsule 10,000 unit PO DAILY Referrals Follow up/Referrals: Helen Womack PA [Primary Care Provider] - See instructions Activity Restrictions/Add. Instructions Additional Instructions/Restrictions: Call your family doctor to establish care for this visit to the emergency department and schedule follow-up within 48 hours to ensure improvement. If you have any worsening of your condition or any other concerning signs or symptoms, return to the emergency department or your primary care doctor for further evaluation. Continue following up with [employer] Clinical Impressions Clinical Impression: Abdominal cramping affecting Print Language Print Language: Finnish Discharge ED Provider: Beltran Suh General Adult HPI <LESLEY Luong - Last Filed: 06/24/24 19:43> General Chief complaint: OB/Uterine Contractions Stated complaint: 16 weeks cramping Time Seen by Provider: 06/24/24 19:36 Related Data Home Medications ?Medication ?Instructions ?Recorded ?Confirmed aspirin 81 mg tablet,delayed 81 mg PO DAILY 06/04/24 06/17/24 release cholecalciferol (vitamin D3) 125 10,000 unit PO DAILY 06/04/24 06/17/24 mcg (5,000 unit) capsule omega-3 fatty acids-fish oil 360 1 cap PO DAILY 06/04/24 06/17/24 mg-1,200 mg capsule (Fish Oil) vits no.126-ferrous fum 1 tab PO DAILY 06/04/24 06/17/24 28 mg iron-folic acid 800 mcg tablet (Classic ) vitamin B complex 1 tab PO DAILY 06/04/24 06/17/24 Allergies Allergy/AdvReac Type Severity Reaction Status Date / Time Penicillins Allergy Intermediate Rash Verified 06/17/24 08:31 <Beltran Suh MD - Last Filed: 06/24/24 21:17> History of Present Illness HPI narrative: Please note that above description of symptoms, in this electronic medical record under categorization of recalled from ER triage doctor by RN are reflective of an initial nursing assessment, however, is not reflective of my full history and physical exam that was personally taken and clarified. Consequentially, this preceding description of symptoms, which may include the patient's categorized chief complaint in the EMR, do not reflect my personal clinical impression, and the ultimate description of history of present illness and patient stated complaints should be deferred to this section of the note. Unless stated otherwise or congruent with this section of the note, additional signs, symptoms, or incongruence should be interpreted as inaccurate with my clinical impression. [facility] <LESLEY Luong - Last Filed: 06/24/24 19:43> [facility] Disclaimer: The information contained in this section may have been updated after the patient was seen, as this information can be updated by other users. Medical History (Updated 06/24/24 @ 21:17 by Beltran Suh MD) Breast cancer Hiatal hernia Choking in adult Dysphagia Multiple thyroid nodules Thyroid nodule Surgical History (Updated 06/17/24 @ 08:32 by MARINA Parker) H/O lumpectomy Hx of section H/O carpal tunnel repair Family History Other Diabetes Hypertension Social History Smoking Status: Never smoker alcohol intake: never substance use type: denies use current occupational status: employed Travel in the last 8 weeks: None household members: family housing: house Have you lived/traveled outside [place] in past 30 days?: No Contact w/someone who lives/traveled outside US past 30 days?: No Exposure to someone with infectious disease in past 14 days?: No Do you have a fever (greater than 100.4 F or 38 C)?: No Have you tested positive for COVID-19: No Exposed to someone with COVID-19 in past 14 days?: No Do you have a sore throat?: No Do you have a cough?: No Do you have any weakness?: No Do you have any diarrhea?: No Are you experiencing any unusual bleeding?: No Do you have any muscle aches/pain?: No Do you have any abdominal pain?: Yes Are you experiencing loss of taste or smell?: No Other Medical History Have you received the Pneumonia Vaccine: No <Beltran Suh MD - Last Filed: 06/24/24 21:17> ROS Obtained: Yes All systems reviewed & no additional complaints except as documented Physical Exam <Beltran Suh MD - Last Filed: 06/24/24 21:17> General General appearance: alert Head Head exam: atraumatic and normocephalic Eye Eye exam: Present normal appearance, PERRL and EOMI Neck Neck exam: Present normal inspection, full ROM and trachea midline Respiratory Respiratory exam: Absent respiratory distress, wheezes, stridor, accessory muscle use or prolonged expiratory phase Cardiovascular Cardiovascular exam: Present other (Pulses equal symmetric in upper and lower extremities) Abdominal Exam Abdominal exam: Present soft; Absent distention, tenderness or pulsatile mass Extremities Exam Extremities exam: Present edema (Minimal 1+ pitting) Neurological Exam Neurological exam: Present alert, oriented X3 and CN II-XII intact; Absent motor sensory deficit Skin Skin exam: Present warm and dry; Absent diaphoresis or erythema Medical Decision Making <LESLEY Luong - Last Filed: 06/24/24 19:43> Medical Records Screening: Per USPSTF and CDC recommendations, given the prevalence of disease in our region, it is our hospital?s policy to screen for HIV and viral Hepatitis for all patients aged 18 and over and those with ongoing risk factors. Vital Signs: 06/24/24 19:34 Temperature 98.3 F Temperature Source Oral Pulse Rate [Right Brachial] 93 H Respiratory Rate 14 Blood Pressure [Right Arm] 155/88 H Blood Pressure Mean [Right Arm] 110 Blood Pressure Source [Right Arm] Automatic Cuff Blood Pressure Position [Right Arm] Supine 02 Sat by Pulse Oximetry 100 Oxygen Delivery Method Room Air Lab Data Lab Results 06/24/24 19:39: Urine Color Yellow, Urine Appearance Clear, Urine pH 6.5, Ur Specific [place] 1.025, Urine Protein Negative, Urine Glucose (UA) Negative, Urine Ketones Negative, Urine Blood Negative, Urine Nitrate Negative, Urine Bilirubin Negative, Urine Urobilinogen 0.2, Ur Leukocyte Esterase Negative, Urine RBC 3-5, Urine WBC 3-5, Ur Squamous Epith Cells 3-5, Amorphous Sediment 2+, Urine Bacteria 1+, Urine Mucus 1+ 06/24/24 20:00: WBC 10.6, RBC 4.35, Hgb 13.1, Hct 38.2, MCV 87.8, MCH 30.1, MCHC 34.3, RDW 13.2, Plt Count 283, MPV 9.9, Neut % (Auto) 67.5, Lymph % (Auto) 21.3, [place] % (Auto) 8.5, Eos % (Auto) 1.9, Baso % (Auto) 0.3, Neut # (Auto) 7.1, Lymph # (Auto) 2.3, [place] # (Auto) 0.9, Eos # (Auto) 0.2, Baso # (Auto) 0.0, Sodium 132 L, Potassium 4.0, Chloride 107, Carbon Dioxide 22, Anion Gap 7.0, BUN 10, C reatinine 0.50 L, Estimated Creat Clear 238, Estimated GFR 137, Est GFR ( Amer) 166, Glucose 86, Calcium 9.3, Total Bilirubin 0.4, AST 35, ALT 26, Alkaline Phosphatase 59, Total Protein 6.9, Albumin 4.0, HCG, Quant 8586 H 06/24/24 20:00 06/24/24 20:00 Orders (Tests/Meds): ED MEDICATIONS Discontinued Medications Generic Name Dose Route Start Last Admin Trade Name Freq PRN Reason Stop Dose Admin Acetaminophen 1,000 mg 06/24/24 20:08 06/24/24 20:14 Acetaminophen 500mg Tab PO 06/24/24 20:09 500 mg ONCE ONE Administration ORDERS Category Date Time Status POCUS Point of Care (ER Only) Stat Exams 06/24/24 21:05 Ordered CBC w/Auto Diff [Complete Blood Count Auto Diff] Stat Lab 06/24/24 20:00 Completed CMP [Comprehensive Metabolic Panel] Stat Lab 06/24/24 20:00 Results HCG,Quantitative Stat Lab 06/24/24 20:00 Results UA [Urinalysis and Microscopic] Stat Lab 06/24/24 19:39 Completed <Beltran Suh MD - Last Filed: 06/24/24 21:17> Medical Records Medical records reviewed: Yes I reviewed the patient's medical records. Ayad Inquiry Pt receiving controlled substance: No Ayad was queried for this patient: No Vital Signs: 06/24/24 19:34 Temperature 98.3 F Temperature Source Oral Pulse Rate [Right Brachial] 93 H Respiratory Rate 14 Blood Pressure [Right Arm] 155/88 H Blood Pressure Mean [Right Arm] 110 Blood Pressure Source [Right Arm] Automatic Cuff Blood Pressure Position [Right Arm] Supine 02 Sat by Pulse Oximetry 100 Oxygen Delivery Method Room Air Lab Data Lab Results 06/24/24 19:39: Urine Color Yellow, Urine Appearance Clear, Urine pH 6.5, Ur Specific [place] 1.025, Urine Protein Negative, Urine Glucose (UA) Negative, Urine Ketones Negative, Urine Blood Negative, Urine Nitrate Negative, Urine Bilirubin Negative, Urine Urobilinogen 0.2, Ur Leukocyte Esterase Negative, Urine RBC 3-5, Urine WBC 3-5, Ur Squamous Epith Cells 3-5, Amorphous Sediment 2+, Urine Bacteria 1+, Urine Mucus 1+ 06/24/24 20:00: WBC 10.6, RBC 4.35, Hgb 13.1, Hct 38.2, MCV 87.8, MCH 30.1, MCHC 34.3, RDW 13.2, Plt Count 283, MPV 9.9, Neut % (Auto) 67.5, Lymph % (Auto) 21.3, [place] % (Auto) 8.5, Eos % (Auto) 1.9, Baso % (Auto) 0.3, Neut # (Auto) 7.1, Lymph # (Auto) 2.3, [place] # (Auto) 0.9, Eos # (Auto) 0.2, Baso # (Auto) 0.0, Sodium 132 L, Potassium 4.0, Chloride 107, Carbon Dioxide 22, Anion Gap 7.0, BUN 10, C reatinine 0.50 L, Estimated Creat Clear 238, Estimated GFR 137, Est GFR ( Amer) 166, Glucose 86, Calcium 9.3, Total Bilirubin 0.4, AST 35, ALT 26, Alkaline Phosphatase 59, Total Protein 6.9, Albumin 4.0, HCG, Quant 8586 H Orders (Tests/Meds): ED MEDICATIONS Discontinued Medications Generic Name Dose Route Start Last Admin Trade Name Freq PRN Reason Stop Dose Admin Acetaminophen 1,000 mg 06/24/24 20:08 06/24/24 20:14 Acetaminophen 500mg Tab PO 06/24/24 20:09 500 mg ONCE ONE Administration ORDERS Category Date Time Status POCUS Point of Care (ER Only) Stat Exams 06/24/24 21:05 Ordered CBC w/Auto Diff [Complete Blood Count Auto Diff] Stat Lab 06/24/24 20:00 Completed CMP [Comprehensive Metabolic Panel] Stat Lab 06/24/24 20:00 Results HCG,Quantitative Stat Lab 06/24/24 20:00 Results UA [Urinalysis and Microscopic] Stat Lab 06/24/24 19:39 Completed Medical Decision Narrative: 39-year-old female history of 2 previous presenting with abdominal cramping. She is currently 16 weeks . States that she started having abdominal cramping today, 06/24 after she had ultrasound for evaluating her cervix. No gushes of fluid, blood, discharge, etc., but she is having cramping that is just above her umbilicus traveling downward into her pelvis feeling like contractions. Still feeling good movement. History was obtained via conversation with patient. On arrival, patient hemodynamically stable, alert, oriented x4, appropriate, GCS 15, moving all extremities spontaneously, pupils equal and reactive to light. Full physical exam performed and significant for anxious being female no acute distress. She is moderately hypertensive, but well-appearing. 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 Abdomen soft, nontender, but she does have intermittent cramping pains subjectively. Differential includes labor, metabolic abnormality, endocrinologic abnormality, preeclampsia, help, among other. Patient placed on continuous cardiac monitoring and continuous pulse ox with initial blood pressure 155/88, heart rate 93, saturation 100% on room air. Independent interpretation of workup with nonactionable CBC or chemistry, hCG 8500. Urinalysis nonactionable. Bedside [id number] ultrasound performed, heart rate 152, good movements. Cervical ultrasound independently interpreted from today and cervix is closed, thick, high. On reevaluation, patient still resting at baseline states that she is having these intermittent pains versus contractions. I contacted [employer] on-call and they recommended acetaminophen, staying hydrated, following up in clinic. I feel this is appropriate. Given patient presentation, workup, history, this most likely represents abdominal pain during . Because patient at baseline without signs or symptoms of clinical decompensation, deemed appropriate for discharge. Results were relayed to patient who voiced understanding and were agreeable to outpatient management and follow up. I discussed my clinical impression with patient and answered all questions. At this time, the evidence for any other entities in the differential is insufficient to warrant any further testing or ED observation. This was explained as well. Advisory was given that persistent or worsening symptoms require further evaluation. I confirmed the understanding of this discussion. Biophysics Scientist disclaimer Much of this encounter note is an electronic aoc plans intelligence officer chief spoken language to printed text. Electronic aoc plans intelligence officer chief of the spoken language may permit errors. Although I have reviewed the note, some errors may still exist. Procedures <Beltran Suh MD - Last Filed: 06/24/24 21:17> Limited Ultrasound Indication:: Limited OB ultrasound Indication: , abdominal cramping Identified structures: -Uterus -Left adnexa -Right adnexa -Pouch of [place] Findings: Uterus: Definitive IUP with FHR 152 Right adnexa: -Normal Left adnexa: -Normal Cul de sac: -free fluid absent Impression: IUP with heart rate 152, normal ultrasound and posterior placenta Images were saved to permanent archive The study was technically adequate CPT Transabdominal: 16992-06 This study was performed by me, and I personally interpreted all images/videos. Based on my clinical judgement, these images were adequate and did not necessitate further imaging Critical Care <Beltran Suh MD - Last Filed: 06/24/24 21:17> Critical Care Time Critical Care Time: No
[2024-06-24 19:45] VITALS: BP 155/88; PULSE 98; O2SAT 100
[2024-06-24 20:00] VITALS: BP 149/85; PULSE 90; O2SAT 98
[2024-06-24 20:09] LABS: Microscopic, Urine URINE MICROSCOPIC (MICROSCOPIC)
[2024-06-24 20:13] LABS: Appearance,Urine CLEAR (Clear); Bilirubin,Urine Negative (Negative); Blood, Urine Negative (Negative); Color,Urine YELLOW (Yellow); Glucose,Urine (UA) Negative (Negative); Ketones,Urine Negative (Negative); Leukocyte Esterase,Urine Negative (Negative); Nitrate,Urine Negative (Negative); PH,Urine 6.5 (5.0-8.5); Protein,Urine Negative (Negative); Specific Gravity, Urine 1.025 (1.005-1.030); Urobilinogen,Urine 0.2 EU/dl (0.2)
[2024-06-24] MEDS: ACETAMINOPHEN 500MG TAB 1000 MG PO (20:14)
[2024-06-24 20:15] LABS: Chloride 107 mmol/L (98-107); Sodium 132 mmol/L (136-145)
[2024-06-24 20:18] LABS: Alanine Aminotransferase 26 U/L (12-78); Alkaline Phosphatase 59 U/L (38-126); Aspartate Amino Transferase 35 U/L (14-36); Bilirubin,Total 0.4 mg/dl (0.2-1.3); Blood Urea Nitrogen 10 mg/dl (7-17); Calcium 9.3 mg/dl (8.4-10.2); Carbon Dioxide 22 mmol/L (22.0-30.0); Creatinine Clearance Estimated 238 mL/min (50-200); Estimated Glomerular Filt Rate 137 ml/min (>60); GFR (African American) 166 ML/MIN (>60); Glucose 86 mg/dl (74-100); Total Protein,Serum 6.9 g/dl (6.3-8.2)
[2024-06-24 20:20] LABS: Hematocrit 38.2 % (37.0-47.0); Hemoglobin 13.1 g/dL (12.2-16.2); Mean Corpuscular HGB Conc 34.3 g/dL (31.8-35.4); Mean Corpuscular Hemoglobin 30.1 pg (27.0-31.2); Mean Corpuscular Volume 87.8 fl (81-99); Red Blood Count 4.35 M/mm3 (4.20-5.40); White Blood Count 10.6 K/mm3 (4.8-10.8)
[2024-06-24 20:21] LABS: Basophils % 0.3 % (0.1-2.0); Eosinophils % 1.9 % (0.1-12.0); Lymphocytes # 2.3 K/mm3 (0.7-4.5); Lymphocytes % 21.3 % (10-50); Mean Platelet Volume 9.9 fl (7.4-10.4); Monocytes # 0.9 K/mm3 (0.1-1.0); Monocytes % 8.5 % (1.7-9.3); Neutrophils # 7.1 K/mm3 (1.8-7.8); Neutrophils % 67.5 % (37.0-80.0); Platelet Count 283 K/mm3 (142-424); Red Cell Distribution Width 13.2 % (11.5-17.5)
[2024-06-24 20:22] LABS: Eosinophils # 0.2 K/mm3 (0.0-0.4)
[2024-06-24 20:30] VITALS: BP 151/92; PULSE 84; O2SAT 99
[2024-06-24 20:33] LABS: Bacteria,Urine 1+ /lpf; Mucus,Urine 1+ /lpf
[2024-06-24 20:34] LABS: Amorphous Sediment,Urine 2+ /lpf
[2024-06-24 20:35] LABS: HCG,Quantitative 8586 mIU/ml (0-5.42)
[2024-06-24 21:00] VITALS: BP 148/89; PULSE 79; O2SAT 100
[2024-06-24 21:18] LABS: Albumin/Globulin Ratio 1.4 (1.1-1.8); Globulin 2.9 g/dL (1.3-3.2)
[2024-06-24 21:33] VITALS: BP 147/90; PULSE 72; RESP 16; TEMP 36.6; O2SAT 98
== END 2024-06-24 21:53 | disposition home or self-care (01) ==
PROVIDERS: Emergency Provider Emergency Medicine; PCP Physician Assistant
DX: O26.899 Other specified pregnancy related conditions, unspecified trimester (principal); R10.9 Unspecified abdominal pain
CPT/HCPCS: 80053; 81001; 84702; 85025; 99283

== ENCOUNTER 2024-07-03 17:11 | Emergency (ER) | payer MEDICAID, SELFPAY ==
--- NOTE | 2024-07-03 17:25 | PC.NURSE ---
no needs at this time
[2024-07-03 17:30] LABS: Microscopic, Urine URINE MICROSCOPIC (MICROSCOPIC)
[2024-07-03 17:37] LABS: Bilirubin,Urine Negative (Negative); Blood, Urine Negative (Negative); Color,Urine YELLOW (Yellow); Glucose,Urine (UA) Negative (Negative); Ketones,Urine Negative (Negative); Leukocyte Esterase,Urine Negative (Negative); Nitrate,Urine Negative (Negative); Protein,Urine Negative (Negative)
[2024-07-03 17:41] LABS: Appearance,Urine Slightly Cloudy (Clear)
--- NOTE | 2024-07-03 18:12 | ED_ITS ---
<Statement entered by Claudia Castillo DO - 07/03/24 22:10> I was consulted by the STEFANY, and we discussed the complexity of the problems being addressed. I approved the treatment and management plan for this patient's care in the emergency department, thus performing a substantive portion of the medical decision making. Claudia Castillo DO Discharge Plan Disposition Patient Disposition: Home, Self-Care Condition: Good Prescriptions Prescriptions: New ondansetron 4 mg tablet,disintegrating 4 mg PO QID PRN (Reason: nausea and vomiting) Qty: 10 0RF No Action Classic 28 mg iron- 800 mcg tablet 1 tab PO DAILY omega-3 fatty acids-fish oil [Fish Oil] 360-1,200 mg capsule 1 cap PO DAILY vitamin B complex Tablet 1 tab PO DAILY aspirin 81 mg tablet,delayed release (DR/EC) 81 mg PO DAILY cholecalciferol (vitamin D3) 125 mcg (5,000 unit) capsule 10,000 unit PO DAILY Referrals Follow up/Referrals: Helen Womack PA [Primary Care Provider] - See instructions Activity Restrictions/Add. Instructions Additional Instructions/Restrictions: We discussed continue to push p.o. fluids. Take Tylenol for constitutional symptoms. Follow-up with your PCP if no improvement or worsening signs or symptoms or return to the ER as needed. Clinical Impressions Clinical Impression: Influenza A Print Language Print Language: Tunisian Discharge ED Provider: Claudia Castillo General Adult HPI General Chief complaint: Urogenital-Female Stated complaint: Urine [place] Time Seen by Provider: 07/03/24 18:12 History of Present Illness HPI narrative: Patient presents for evaluation of pink-tinged urine . Patient states that she began feeling actually ill with upper respiratory tract symptoms including fever myalgias malaise and dry cough. She denies any abdominal pain nausea or vomiting or diarrhea but noticed that her urine was pink-tinged today. She denies any abdominal cramping today she denies any vaginal discharge or bleeding. Related Data Home Medications ?Medication ?Instructions ?Recorded ?Confirmed aspirin 81 mg tablet,delayed 81 mg PO DAILY 06/04/24 06/17/24 release cholecalciferol (vitamin D3) 125 10,000 unit PO DAILY 06/04/24 06/17/24 mcg (5,000 unit) capsule omega-3 fatty acids-fish oil 360 1 cap PO DAILY 06/04/24 06/17/24 mg-1,200 mg capsule (Fish Oil) vits no.126-ferrous fum 1 tab PO DAILY 06/04/24 06/17/24 28 mg iron-folic acid 800 mcg tablet (Classic ) vitamin B complex 1 tab PO DAILY 06/04/24 06/17/24 Previous Rx's ?Medication ?Instructions ?Recorded ondansetron 4 mg disintegrating 4 mg PO QID PRN nausea and 07/03/24 tablet vomiting #10 tabs Allergies Allergy/AdvReac Type Severity Reaction Status Date / Time Penicillins Allergy Intermediate Rash Verified 06/17/24 08:31 [facility] Disclaimer: The information contained in this section may have been updated after the patient was seen, as this information can be updated by other users. Medical History (Updated 07/03/24 @ 20:04 by LESLEY Luong) Breast cancer Hiatal hernia Choking in adult Dysphagia Multiple thyroid nodules Thyroid nodule Surgical History (Updated 06/17/24 @ 08:32 by MARINA Parker) H/O lumpectomy Hx of section H/O carpal tunnel repair Family History Other Diabetes Hypertension Social History Smoking Status: Never smoker alcohol intake: never substance use type: denies use current occupational status: employed Travel in the last 8 weeks: None household members: family housing: house Have you lived/traveled outside US in past 30 days?: No Contact w/someone who lives/traveled outside US past 30 days?: No Exposure to someone with infectious disease in past 14 days?: No Do you have a fever (greater than 100.4 F or 38 C)?: No Have you tested positive for COVID-19: No Exposed to someone with COVID-19 in past 14 days?: No Do you have a sore throat?: No Do you have a cough?: No Do you have any weakness?: No Do you have any diarrhea?: No Are you experiencing any unusual bleeding?: No Do you have any muscle aches/pain?: No Do you have any abdominal pain?: No Are you experiencing loss of taste or smell?: No Other Medical History Have you received the Pneumonia Vaccine: No ROS Obtained: Yes Systems reviewed as appropriate & no additional complaints except as documented Physical Exam General General appearance: alert and in no apparent distress Eye Eye exam: Present EOMI Respiratory Respiratory exam: Present normal lung sounds bilaterally Cardiovascular Cardiovascular exam: Present regular rate Neurological Exam Neurological exam: Present alert and oriented X3 Medical Decision Making Medical Records Medical records reviewed: Yes I reviewed the patient's medical records. Screening: Per USPSTF and CDC recommendations, given the prevalence of disease in our region, it is our hospital?s policy to screen for HIV and viral Hepatitis for all patients aged 18 and over and those with ongoing risk factors. Ayad Inquiry Pt receiving controlled substance: No Vital Signs: 07/03/24 18:18 07/03/24 18:45 Temperature 98.1 F Temperature Source Oral Pulse Rate 93 H Pulse Rate [Bilateral Radial] 92 H Respiratory Rate 18 Blood Pressure 114/67 Blood Pressure [Right Arm] 123/75 Blood Pressure Mean [Right Arm] 91 02 Sat by Pulse Oximetry 99 98 Oxygen Delivery Method Room Air Room Air Lab Data Lab results reviewed: Yes I reviewed the patient's lab results. Lab Results 07/03/24 18:44: SARS-CoV-2 (PCR) Not detected, Influenza A Untype (PCR) Detected A, Influenza Type B (PCR) Not detected 07/03/24 : Urine Color Yellow, Urine Appearance Slightly cloudy, Urine pH 6.0, Ur Specific Drummond 1.010, Urine Protein Negative, Urine Glucose (UA) Negative, Urine Ketones Negative, Urine Blood Negative, Urine Nitrate Negative, Urine Bilirubin Negative, Urine Urobilinogen 2.0, Ur Leukocyte Esterase Negative, Urine RBC None, Urine WBC 3-5, Ur Squamous Epith Cells 3-5, Urine Bacteria Trace Orders (Tests/Meds): ED MEDICATIONS Discontinued Medications Generic Name Dose Route Start Last Admin Trade Name Freq PRN Reason Stop Dose Admin Ondansetron HCl 4 mg 07/03/24 18:32 07/03/24 18:41 Ondansetron 4mg Odt SL 07/03/24 18:33 4 mg ONCE ONE Administration ORDERS Category Date Time Status HCG Qualitative, Serum Stat Lab 07/03/24 19:53 Stop Req Rapid PCR Covid and Flu A/B Stat Lab 07/03/24 18:44 Completed UA [Urinalysis and Microscopic] Stat Lab 07/03/24 Completed Medical Decision Narrative: In summary patient is a 39-year-old female who presents to the emergency department for evaluation of pink-tinged urine and URI symptoms. Patient is hemodynamically stable upon arrival, afebrile. Zickel exam is remarkable for clear breath sounds no abdominal tenderness no suprapubic tenderness normal bowel sounds no CVA tenderness to percussion. Differential diagnosis includes URI versus UTI versus vaginitis and less likely but still possible kidney stone although patient has no other symptoms including frequency burning or urinary colic. Initial workup will be conducted with urinalysis hCG COVID and flu swab. Initial interventions was considered however patient has no specific complaints to treat currently so we will defer for now. Initial workup reviewed by me and her urinalysis is bland however her respiratory swabs are positive for influenza A.. Upon repeat evaluation patient did report improvement after administration of Zofran. Given this patient is appropriate for discharge with recommendations for symptomatic treatment, prescription sent for Zofran to her pharmacy and strict return precautions. Critical Care Critical Care Time Critical Care Time: No
[2024-07-03 18:18] VITALS: BP 123/75; PULSE 92; RESP 18; TEMP 36.7; O2SAT 99; BMI 29.2
[2024-07-03] MEDS: ONDANSETRON 4MG ODT 4 MG SL (18:41)
[2024-07-03 18:43] LABS: Bacteria,Urine Trace /lpf
[2024-07-03 18:45] VITALS: BP 114/67; PULSE 93; O2SAT 98
[2024-07-03 18:49] LABS: Coronavirus 19, PCR Not Detected (NotDetected); Influenza B, PCR Not Detected (NotDetected)
[2024-07-03 19:52] LABS: Influenza A, PCR Detected (NotDetected)
[2024-07-03 20:14] VITALS: BP 117/82; PULSE 83; RESP 20; TEMP 36.4; O2SAT 98
[2024-07-03 21:24] LABS: HCG Qualitative, Serum Positive (Negative)
== END 2024-07-03 20:15 | disposition home or self-care (01) ==
PROVIDERS: Physician Assistant; Emergency Provider Emergency Medicine; PCP Physician Assistant
DX: J10.1 Influenza due to other identified influenza virus with other respiratory manifestations (principal); R50.9 Fever, unspecified; M79.10 Myalgia, unspecified site; R05.9 Cough, unspecified
CPT/HCPCS: 81001; 84703; 87636; 99283; Q0162

== ENCOUNTER 2024-07-23 07:51 | Outpatient (CLI) | payer MEDICAID, SELFPAY ==
--- NOTE | 2024-07-23 07:52 | US_ITS ---
PROCEDURE: US OB /MATERNAL DETAIL CLINICAL INDICATION: 20 week+ Anatomy Scan-US OB Complete COMPARISON: US US OB <= 14 WEEKS FETUS from 05/08/2024 US US OB TRANSVAGINAL from 06/24/2024 FINDINGS: Transabdominal sonographic images of the pelvis were obtained. From her established due date she is 20 weeks 5 days. Single viable intrauterine gestation. Cephalic position. Placenta: Posteriorplacenta grade 1. There is an average amount of fluid. The cervix appears satisfactory. Closed and measuring 4.89 cm in length. Complete survey performed and was unremarkable on the submitted images as in PACS. No discrete anomalies identified on survey imaging by technologist. Active fetus. Three-vessel cord with satisfactory umbilical cord insertion. 4- chamber heart noted. Situs, aortic arch, LVOT, RVOT, three-vessel view appear normal. Survey of brain & ventricles Unremarkable. Cerebellum, thalamus, choroid plexus, cisterna magna appear normal. Face and neck survey unremarkable. Profile, nasion, lips and nose appeared normal. Diaphragm and chest views unremarkable. Abdomen: Both kidneys noted and unremarkable. Stomach and bladder noted and satisfactory. Spine: Survey of the spine satisfactory with no anomalies identified nor imaged. Cervical, thoracic, lower spine appear normal. Both arms and legs noted. Amniotic Fluid: Adequate. MVP 4.17 cm. Measurements: Average ultrasound age 20weeks 5days. Estimated due date by ultrasound age 0512/05/2024. Estimated weight 379g BPD = 20weeks 2days HC = 20weeks 2days AC = 20weeks 5days FL = 21weeks 2days Growth Percentile= 50 Heart Rate = 150bpm Cerebellum = 20weeks 3days Humerus = 20weeks 2days HC/AC is 1.15 FL/BPD is 0.75 FL/AC is 0.23 IMPRESSION: 1. Viable fetus in the cephalic presentation with posterior placenta grade 1. Somewhat difficult examination secondary to patient's body habitus. 2. The fluid is within normal limits with an MVP 4.17 cm. 3. Anatomical scan appears normal. 4. biometry is consistent with the dates. Dictated by: Salvador Brito MD 07/23/2024 10:42 Salvador Brito MD in [place] 07/23/2024 10:42
== END 2024-07-23 23:59 | disposition home or self-care (01) ==
LOC: RAD 07:52
PROVIDERS: PCP Physician Assistant; Visit Provider Obstetrics & Gynecology
DX: O09.92 Supervision of high risk pregnancy, unspecified, second trimester (principal); Z3A.20 20 weeks gestation of pregnancy; Z36.3 Encounter for antenatal screening for malformations
CPT/HCPCS: 76811

== ENCOUNTER 2024-08-26 01:14 | Outpatient (CLI) | payer MEDICAID, SELFPAY ==
[2024-08-26 01:18] VITALS: BP 143/75; PULSE 84; RESP 16; TEMP 36.8; BMI 42.0
[2024-08-26 01:20] VITALS: BMI 41.1
[2024-08-26 01:27] LABS: Microscopic, Urine URINE MICROSCOPIC (MICROSCOPIC)
[2024-08-26 01:28] LABS: Appearance,Urine CLEAR (Clear); Bilirubin,Urine Negative (Negative); Blood, Urine Negative (Negative); Color,Urine YELLOW (Yellow); Glucose,Urine (UA) Negative (Negative); Ketones,Urine Negative (Negative); Leukocyte Esterase,Urine Negative (Negative); Nitrate,Urine Negative (Negative); Protein,Urine Negative (Negative); Specific Gravity, Urine >= 1.030 (1.005-1.030)
[2024-08-26 01:36] LABS: Bacteria,Urine 1+ /lpf; Mucus,Urine Trace /lpf
[2024-08-26 01:51] LABS: Amphetamine/Metha Screen,Urine Negative ng/ml (<1000)
[2024-08-26 01:52] LABS: Barbiturates Screen,Urine Negative ng/ml (<200)
[2024-08-26 01:53] LABS: Benzodiazepines Screen,Urine Negative ng/ml (<200)
[2024-08-26 01:54] LABS: Cocaine Screen,Urine Negative ng/ml (<300); Methadone Screen,Urine Negative ng/ml (<300)
[2024-08-26 01:55] LABS: Cannabinoid Screen,Urine Negative ng/ml (<50)
[2024-08-26 01:56] LABS: Opiate Screen,Urine Negative ng/ml (<300)
[2024-08-26 01:57] LABS: Phencyclidine Screen,Urine Negative ng/ml (<25)
== END 2024-08-26 02:06 | disposition home or self-care (01) ==
LOC: OBOUT 01:15 → OB 01:16
PROVIDERS: PCP Obstetrics & Gynecology; Visit Provider Nurse Practitioner Obstetrics & Gynecology
DX: O36.8120 Decreased fetal movements, second trimester, not applicable or unspecified (principal); Z3A.25 25 weeks gestation of pregnancy
CPT/HCPCS: 80307; 81001; G0463

== ENCOUNTER 2024-09-17 07:56 | Outpatient (CLI) | payer MEDICAID, SELFPAY ==
[2024-09-17 09:25] LABS: Basophils % 0.1 % (0.1-2.0); Eosinophils # 0.2 K/mm3 (0.0-0.4); Eosinophils % 1.7 % (0.1-12.0); Hematocrit 37.2 % (37.0-47.0); Hemoglobin 12.3 g/dL (12.2-16.2); Lymphocytes # 1.7 K/mm3 (0.7-4.5); Mean Corpuscular HGB Conc 33.1 g/dL (31.8-35.4); Mean Corpuscular Hemoglobin 29.5 pg (27.0-31.2); Mean Corpuscular Volume 89.2 fl (81-99); Mean Platelet Volume 9.9 fl (7.4-10.4); Monocytes # 0.5 K/mm3 (0.1-1.0); Monocytes % 5.6 % (1.7-9.3); Neutrophils # 6.9 K/mm3 (1.8-7.8); Neutrophils % 73.2 % (37.0-80.0); Platelet Count 268 K/mm3 (142-424); Red Blood Count 4.17 M/mm3 (4.20-5.40); Red Cell Distribution Width 13.7 % (11.5-17.5); White Blood Count 9.4 K/mm3 (4.8-10.8)
[2024-09-17 09:40] LABS: Glucose 1 Hour 188 mg/dL (74-100)
[2024-09-17 14:59] LABS: RPR W/RFX Titers Nonreactive (Nonreactive)
== END 2024-09-17 23:59 | disposition home or self-care (01) ==
PROVIDERS: PCP Physician Assistant; Visit Provider Obstetrics & Gynecology
DX: O99.210 Obesity complicating pregnancy, unspecified trimester (principal); Z3A.28 28 weeks gestation of pregnancy
CPT/HCPCS: 36415; 82947; 85025; 86592

== ENCOUNTER 2024-09-19 08:06 | Outpatient (CLI) | payer MEDICAID, SELFPAY ==
[2024-09-19 08:39] LABS: Glucose,Fasting 92 mg/dl (74-100)
[2024-09-19 09:50] LABS: Glucose 1 Hour 169 mg/dL (74-100)
[2024-09-19 10:52] LABS: Glucose 2 Hour 141 mg/dL (74-100)
[2024-09-19 12:17] LABS: Glucose 3 Hour 98 mg/dL (74-100)
== END 2024-09-19 23:59 | disposition home or self-care (01) ==
LOC: LAB 08:07
PROVIDERS: PCP Physician Assistant; Visit Provider Obstetrics & Gynecology
DX: O99.210 Obesity complicating pregnancy, unspecified trimester (principal); E66.9 Obesity, unspecified; Z3A.28 28 weeks gestation of pregnancy
CPT/HCPCS: 36415; 82951

== ENCOUNTER 2024-09-25 20:10 | Outpatient (CLI) | payer MEDICAID, SELFPAY ==
[2024-09-25 20:15] VITALS: BP 133/69; PULSE 88; RESP 17; TEMP 36.7; O2SAT 98; BMI 42.2
[2024-09-25 20:20] VITALS: BMI 42.2
[2024-09-25 20:32] LABS: Microscopic, Urine URINE MICROSCOPIC (MICROSCOPIC)
[2024-09-25 20:34] LABS: Appearance,Urine CLEAR (Clear); Bilirubin,Urine Negative (Negative); Blood, Urine Negative (Negative); Color,Urine YELLOW (Yellow); Glucose,Urine (UA) Negative (Negative); Ketones,Urine Negative (Negative); Leukocyte Esterase,Urine Negative (Negative); Nitrate,Urine Negative (Negative); PH,Urine 6.5 (5.0-8.5); Protein,Urine Negative (Negative); Urobilinogen,Urine 0.2 EU/dl (0.2)
[2024-09-25 20:55] LABS: Amorphous Sediment,Urine 1+ /lpf; Bacteria,Urine 2+ /lpf; RBC,Urine Occasional #/hpf (0-3)
[2024-09-25] MEDS: LACTATED RINGERS 1000ML 1,000 ML 999 ML IV (21:09)
== END 2024-09-25 23:00 | disposition home or self-care (01) ==
LOC: OBOUT 20:12 → OB 20:14
PROVIDERS: PCP Physician Assistant; Visit Provider Nurse Practitioner Obstetrics & Gynecology
DX: O60.02 Preterm labor without delivery, second trimester (principal); Z3A.29 29 weeks gestation of pregnancy
CPT/HCPCS: 81001; 87086; G0463; J7120

== ENCOUNTER 2024-09-26 11:43 | Outpatient (CLI) | payer MEDICAID, SELFPAY ==
--- NOTE | 2024-09-26 11:46 | US_ITS ---
PROCEDURE: US OB FOLLOW UP CLINICAL INDICATION: LGA. Check cervix length, check placenta for abrup COMPARISON: US US OB <= 14 WEEKS FETUS from 05/08/2024 US US OB TRANSVAGINAL from 06/24/2024 US US OB FOLLOW UP from 06/24/2024 US US OB /MATERNAL DETAIL from 07/23/2024 US US TRANSVAGINAL from 09/26/2024 FINDINGS: Transabdominal sonographic images of the uterus were obtained. From her established due date she is 30weeks 0 days. The following parameters are obtained: Viable Fetus in the cephalic presentation with and anterior/lateral placenta grade 1. Careful scanning through the placenta reveals there is no evidence of an abruption today. There appears to be a contraction anteriorly. There is a large anterior fibroid measuring 8.3 cm x 4.2 cm x 6.2 cm. This was seen on her previous ultrasound. Measurements: heart Rate = 149bpm Amniotic fluid: Appears normal. No obvious anomalies evident.four-chamber heart, three-vessel cord appear normal. IMPRESSION: 1. Viable fetus in the cephalic presentation with an anterior lateral placenta grade 1. 2. The fluid appears to be within normal limits. 3. Careful scanning of the placenta reveals no evidence of abruption. 4. There is an 8.3 cm anterior fibroid on the uterus. 5. Limited anatomical scan appears normal. Dictated by: Salvador Brito MD 09/26/2024 21:33 Salvador Brito MD in [place] 09/26/2024 21:33
--- NOTE | 2024-09-26 11:47 | US_ITS ---
PROCEDURE: US TRANSVAGINAL CLINICAL INDICATION: Check cervial length COMPARISON: US US OB <= 14 WEEKS FETUS from 05/08/2024 US US OB TRANSVAGINAL from 06/24/2024 US US OB FOLLOW UP from 06/24/2024 US US OB /MATERNAL DETAIL from 07/23/2024 FINDINGS: Transvaginal sonographic images of the pelvis were obtained. From her established due date she is 30 weeks 0 days. Transvaginally the cervix measures cm 4.47cm-4.94 cm. There is no funneling of the cervix. The fetus is cephalic. IMPRESSION: 1. The cervix is measured transvaginally 4.47 cm-4.94 cm in length. 2. There is no funneling of the cervix. 3. The fetus is cephalic. Dictated by: Salvador Brito MD 09/26/2024 21:22 Salvador Brito MD in [place] 09/26/2024 21:22
== END 2024-09-26 23:59 | disposition home or self-care (01) ==
LOC: RAD 11:44
PROVIDERS: PCP Physician Assistant; Visit Provider Obstetrics & Gynecology
DX: Z36.86 Encounter for antenatal screening for cervical length (principal); O36.63X0 Maternal care for excessive fetal growth, third trimester, not applicable or unspecified; Z3A.30 30 weeks gestation of pregnancy
CPT/HCPCS: 76816; 76830

== ENCOUNTER 2024-09-29 13:47 | Outpatient (CLI) | payer MEDICAID, SELFPAY ==
[2024-09-29 14:23] VITALS: BMI 42.7
[2024-09-29 14:28] LABS: Microscopic, Urine URINE MICROSCOPIC (MICROSCOPIC)
[2024-09-29 14:37] VITALS: BP 143/80; PULSE 96; RESP 18; TEMP 36.8; O2SAT 100; BMI 42.7
[2024-09-29 14:39] LABS: Appearance,Urine CLEAR (Clear); Bilirubin,Urine Negative (Negative); Blood, Urine Negative (Negative); Color,Urine YELLOW (Yellow); Glucose,Urine (UA) Negative (Negative); Ketones,Urine Negative (Negative); Leukocyte Esterase,Urine Negative (Negative); Nitrate,Urine Negative (Negative); Protein,Urine Negative (Negative); Urobilinogen,Urine 0.2 EU/dl (0.2)
[2024-09-29 15:20] LABS: Specific Gravity, Urine 1.025 (1.005-1.030)
[2024-09-29 15:28] LABS: Bacteria,Urine Trace /lpf; RBC,Urine Occasional #/hpf (0-3)
== END 2024-09-29 15:39 | disposition home or self-care (01) ==
LOC: OBOUT 13:49 → OB 13:50
PROVIDERS: PCP Physician Assistant; Visit Provider Nurse Practitioner Obstetrics & Gynecology
DX: O26.53 Maternal hypotension syndrome, third trimester (principal); I95.89 Other hypotension
CPT/HCPCS: 81001; G0463

== ENCOUNTER 2024-10-07 10:38 | Outpatient (CLI) | payer MEDICAID, SELFPAY ==
[2024-10-07 11:27] LABS: Basophils % 0.1 % (0.1-2.0); Eosinophils # 0.1 K/mm3 (0.0-0.4); Eosinophils % 1.4 % (0.1-12.0); Hematocrit 38.8 % (37.0-47.0); Lymphocytes # 1.4 K/mm3 (0.7-4.5); Lymphocytes % 15.4 % (10-50); Mean Corpuscular HGB Conc 33.5 g/dL (31.8-35.4); Mean Corpuscular Hemoglobin 29.8 pg (27.0-31.2); Mean Platelet Volume 9.7 fl (7.4-10.4); Monocytes # 0.7 K/mm3 (0.1-1.0); Neutrophils # 6.7 K/mm3 (1.8-7.8); Neutrophils % 73.9 % (37.0-80.0); Platelet Count 269 K/mm3 (142-424); Red Blood Count 4.36 M/mm3 (4.20-5.40); Red Cell Distribution Width 13.7 % (11.5-17.5); White Blood Count 9.1 K/mm3 (4.8-10.8)
[2024-10-07 11:41] LABS: Activated Partial Thrombo Time 25.4 seconds (22.8-30.6); Fibrinogen 443 mg/dL (229.9-363.5); INR 0.86 (0.9-1.1); Prothrombin Time 9.8 seconds (10.1-12.5)
[2024-10-07 11:50] LABS: Albumin Level 3.9 g/dl (3.5-5.0); Chloride 105 mmol/L (98-107)
[2024-10-07 11:51] LABS: Potassium 4.2 mmoL/L (3.5-5.1); Sodium 135 mmol/L (136-145)
[2024-10-07 11:53] LABS: Alanine Aminotransferase 25 U/L (12-78); Aspartate Amino Transferase 25 U/L (14-36); Blood Urea Nitrogen 7 mg/dl (7-17); Estimated Glomerular Filt Rate 178 ml/min (>60); GFR (African American) 215 ML/MIN (>60)
[2024-10-07 11:54] LABS: Albumin/Globulin Ratio 1.8 (1.1-1.8); Alkaline Phosphatase 99 U/L (38-126); Anion Gap 11.2 mEq/L (5-15); Bilirubin,Total 0.3 mg/dl (0.2-1.3); Calcium 9.1 mg/dl (8.4-10.2); Carbon Dioxide 23 mmol/L (22.0-30.0); Globulin 2.2 g/dL (1.3-3.2); Glucose 111 mg/dl (74-100); Total Protein,Serum 6.1 g/dl (6.3-8.2)
[2024-10-07 12:30] LABS: Uric Acid 3.6 mg/dl (2.5-6.2)
== END 2024-10-07 23:59 | disposition home or self-care (01) ==
LOC: LAB 11:10
PROVIDERS: PCP Physician Assistant; Visit Provider Obstetrics & Gynecology
DX: O09.293 Supervision of pregnancy with other poor reproductive or obstetric history, third trimester (principal); Z3A.31 31 weeks gestation of pregnancy
CPT/HCPCS: 36415; 80053; 84550; 85025; 85384; 85610; 85730

== ENCOUNTER 2024-10-07 23:30 | Observation (INO) | payer MEDICAID, SELFPAY ==
[2024-10-07 17:12] VITALS: BMI 42.9
[2024-10-07 17:20] VITALS: BP 137/79; PULSE 97; RESP 18; TEMP 36.7; O2SAT 97; BMI 42.9
[2024-10-07 18:18] LABS: Lactate Dehydrogenase 168 U/L (313-618)
[2024-10-07 18:59] VITALS: BP 132/72
[2024-10-07] MEDS: MVI, ADULT NO.1 WITH VIT K 10 ML, THIAMINE HCL 100 MG, MAGNESIUM SULFATE 2 GM in LACTAT... 250 ML IV (19:59)
[2024-10-07 20:19] LABS: Creatinine,Urine Random 50 mg/dL (Not Estab.)
--- NOTE | 2024-10-08 07:21 | US_ITS ---
PROCEDURE: US OB BPP W/FET-MAT S/D CLINICAL INDICATION: GROWTH, BPP, PLACENTA EVAL COMPARISON: US US OB <= 14 WEEKS FETUS from 05/08/2024 US US OB TRANSVAGINAL from 06/24/2024 US US OB FOLLOW UP from 06/24/2024 US US OB /MATERNAL DETAIL from 07/23/2024 US US TRANSVAGINAL from 09/26/2024 US US OB FOLLOW UP from 09/26/2024 FINDINGS: Transabdominal sonographic images of the uterus were obtained. From her established due date she is 31weeks 5days. The following parameters are obtained: Viable Fetus in the cephalic presentation with an anterior laterally wrapped placenta grade 2. There is an anterior fibroid and the placenta is attached inferior to this. Average ultrasound age is 31weeks 5days Estimated weight 1,781g, 3 lb 15 oz The cervix measures 3.72 cm. Measurements: heart Rate = 143bpm BPD = 31weeks 1day, 22 percentile HC = 32weeks 0 days, 19 percentile AC = 31weeks 3days, 37 percent FL = 31weeks 6days, 38 percent HC/AC is 1.06 FL/BPD is 0.79 FL/AC is 0.22 32 percentile Amniotic fluid index: 6.59cm, MVP 5.83 cm Qualitative AFV:2 Breathing movements: 2 Gross Body Movements: 2 Tone: 2 Biophysical profile score: 8 Doppler evaluation of the umbilical artery: SD ratio: 2.59-3.07 Resistive index: 0.62 No obvious anomalies evident.Kidneys, bladder, stomach, three-vessel cord appear normal. IMPRESSION: 1. Viable fetus in the cephalic presentation with an anterior laterally wrapped placenta grade 2. There is an anterior fibroid and the distal placenta is attached inferior to this fibroid. 2. Fluid is within normal limits with amniotic fluid index 6.59 cm, MVP 5.83 cm. Although the SANDIE is somewhat low there subjectively appears to be adequate fluid. 3. Physical profile is 8/8 with good breathing movement and movement seen. 4. SD ratio is normal 2.59-3.07. 5. Limited anatomical scan appears normal. Dictated by: Salvador Brito MD 10/08/2024 16:58 Salvador Brito MD in [place] 10/08/2024 16:58
[2024-10-08] MEDS: ONDANSETRON 4MG/2ML VIAL 4 MG IV (07:42)
[2024-10-08] MEDS: ACETAMINOPHEN 500MG TAB 1000 MG PO (09:07)
[2024-10-08 09:09] VITALS: BP 140/70; PULSE 92; RESP 18; TEMP 36.8
[2024-10-08] MEDS: SENNA 8.6MG TABLET 8.6 MG PO (12:42)
[2024-10-08 16:00] VITALS: BP 128/59; PULSE 86; RESP 18
[2024-10-08 21:17] LABS: Total Protein 24 Hour,Urine 280 mg/24 hr (40-90); Total Volume,Urine 2800 mL (600-1600)
== END 2024-10-08 19:50 | disposition home or self-care (01) ==
LOC: OBOUT 23:30 → OB 23:30
PROVIDERS: Admitting Provider Obstetrics & Gynecology; PCP Physician Assistant; Visit Provider Obstetrics & Gynecology
DX: O60.03 Preterm labor without delivery, third trimester (principal); Z3A.31 31 weeks gestation of pregnancy
CPT/HCPCS: 59025; 76811; 76819; 76820; 82570; 83615; 84155; 84156; G0378; J2405; J3411; J7120

== ENCOUNTER 2024-10-09 10:58 | Outpatient (CLI) | payer MEDICAID, SELFPAY ==
[2024-10-09 11:20] VITALS: BMI 42.5
[2024-10-09 11:22] VITALS: BP 133/82; PULSE 84; RESP 18; TEMP 37; O2SAT 95; BMI 42.5
[2024-10-09] MEDS: BETAMETHASONE ACET/PHOS 6MG/ML 5ML MDV 12 MG IM (11:27)
[2024-10-09] MEDS: SUMAtriptan SUCCINATE 25MG TABLET 50 MG PO (11:28)
[2024-10-09] MEDS: BUTALB/ACETAMINOPHEN/CAFFEINE 50MG/325MG/40MG TAB 1 EACH PO (12:35)
--- NOTE | 2024-10-09 12:41 | EXP.HPDC ---
General Discharge date: 10/08/24 *Admission Date: 10/07/24 *Chief complaint: Headache *History of present illness: Patient was seen in the office on 10/07/2024 she had a reactive NST. She was having persistent contractions every other minute, per patient. NST is reactive and were not picking up contractions. She also endorses a persistent headache. After thorough discussion patient elected to go home. Later that afternoon she presented to labor and delivery with a persistent headache and contractions. Decision was made to ops her overnight and begin a 24-hour urine collection. Her [facility] labs are within normal limits. No contractions were detected on the monitor. Her urine protein to creatinine ratio was 0.36. At this time I called Druze who scheduled her for a appointment in the office in 2 weeks [facility] Disclaimer: The information contained in this section may have been updated after the patient was seen, as this information can be updated by other users. Medical History Breast cancer Hiatal hernia Choking in adult Dysphagia Multiple thyroid nodules Thyroid nodule Surgical History H/O lumpectomy Hx of section H/O carpal tunnel repair Family History Other Diabetes Hypertension Social History Smoking Status: Never smoker alcohol intake: never substance use type: denies use current occupational status: unemployed Travel in the last 8 weeks: None household members: family housing: house Other Medical History Have you received the Flu Vaccine for this season: No Have you received the Pneumonia Vaccine: No Review of Systems Review of Systems Review of systems (narrative): Review of Systems Constitutional: Denies fever, chills, and sweats Eyes: Denies vision change/ pain Respiratory: Denies cough and shortness of breath Cardiovascular: Denies chest pain and lightheadedness Gastrointestinal: Denies abdominal pain or contractions at discharge. Denies nausea, vomiting. Genitourinary: Denies dysuria and incontinence Musculoskeletal: Denies shoulder pain and back pain Neurological: Denies change in speech or headaches Exam Data for Last 24 hours Vital signs and Labs for Last 24 Hours: Temp Pulse Resp BP Pulse Ox O2 Del Method 98.6 F 84 18 133/82 95 Room Air 10/09/24 11:22 10/09/24 11:22 10/09/24 11:22 10/09/24 11:22 10/09/24 11:22 10/09/24 11:22 I & O for Last 24 hours: Intake & Output 10/06/24 10/07/24 10/08/24 10/09/24 23:59 23:59 23:59 23:59 Weight 248 lb Constitutional Constitutional: no acute distress and morbidly obese *Routine HEENT Exam Head: Present normocephalic Eye: Present EOMI and PERRL ENT: Present mucous membranes moist *Routine Neck Exam Neck: Present supple; Absent lymphadenopathy *Routine Respiratory Exam Respiratory: Present CTA bilaterally, normal respiratory effort, able to speak in complete sentences and symmetric chest movement; Absent diminished air movement *Routine Cardiovascular Exam Cardiovascular: Present RRR *Routine Abdominal Exam Abdominal: Present soft and normoactive bowel sounds; Absent tenderness *Routine Rectal Exam Rectal:: deferred *Routine Genitalia Exam Genitalia:: deferred *Routine Extremities Exam Extremities: Absent cyanosis, clubbing or edema Comments: DTRs appropriate *Routine Skin Exam Skin: Present warm; Absent rash *Routine Neurological Exam Neurological: Present alert and oriented X3 Meds Home Medications and Allergies Home Medications ?Medication ?Instructions ?Recorded ?Confirmed ?Type cholecalciferol (vitamin D3) 125 10,000 unit PO DAILY 06/04/24 10/09/24 History mcg (5,000 unit) capsule omega-3 fatty acids-fish oil 360 1 cap PO DAILY 06/04/24 10/09/24 History mg-1,200 mg capsule (Fish Oil) vits no.126-ferrous fum 1 tab PO DAILY 06/04/24 10/09/24 History 28 mg iron-folic acid 800 mcg tablet (Classic ) vitamin B complex 1 tab PO DAILY 06/04/24 10/09/24 History ondansetron 4 mg disintegrating 4 mg PO QID PRN nausea and 07/03/24 10/09/24 Rx tablet vomiting #10 tabs aspirin 81 mg tablet,delayed 162 mg PO DAILY 08/14/24 10/09/24 History release New Prescriptions to Start Prescriptions: Allergies Allergy/AdvReac Type Severity Reaction Status Date / Time Penicillins Allergy Intermediate Rash Verified 10/09/24 10:05 Hospital Course Hospital Course Hospital Course: Patient completed her 24-hour urine and it was 280 g of protein. Discussed that this did not meet the criteria for preeclampsia. At this time she did not have a headache and felt well. She declined steroids prior to discharge. All of her questions and concerns were addressed. I spent greater than 30 minutes setting and discussing the patient and significant other's questions and concerns. Both voiced understanding and desired discharge home Discharge Plan Disposition Patient Disposition: Home, Self-Care Patient Discharge Instructions Print Language: Luxembourger Providers Primary Care Provider: Helen Womack Attending Provider: Tara Griffin
== END 2024-10-09 13:10 | disposition home or self-care (01) ==
LOC: OBOUT 10:59 → OB 11:00
PROVIDERS: PCP Physician Assistant; Visit Provider Obstetrics & Gynecology
DX: O26.893 Other specified pregnancy related conditions, third trimester (principal); Z3A.31 31 weeks gestation of pregnancy; R51.9 Headache, unspecified
CPT/HCPCS: G0463; J0702

== ENCOUNTER 2024-10-09 13:11 | Emergency (ER) | payer MEDICAID, SELFPAY ==
[2024-10-09 13:25] VITALS: BP 148/91; PULSE 89; RESP 18; TEMP 35.5; O2SAT 96; BMI 45.3
[2024-10-09 14:00] VITALS: BP 176/89; PULSE 86; O2SAT 96
[2024-10-09] MEDS: MAGNESIUM SULFATE IN WATER 2 GM/50 ML PIGGYBACK IV (14:01)
[2024-10-09] MEDS: 0.9 % SODIUM CHLORIDE 1000ML 1,000 ML 999 ML IV (14:01)
--- NOTE | 2024-10-09 14:01 | HMH.EDGENADL ---
Discharge Plan Disposition Patient Disposition: Home, Self-Care Prescriptions Prescriptions: New metoclopramide HCl [Reglan] 10 mg tablet 10 mg PO Q6H PRN (Reason: nausea and vomiting) Qty: 14 0RF No Action Classic 28 mg iron- 800 mcg tablet 1 tab PO DAILY omega-3 fatty acids-fish oil [Fish Oil] 360-1,200 mg capsule 1 cap PO DAILY vitamin B complex Tablet 1 tab PO DAILY cholecalciferol (vitamin D3) 125 mcg (5,000 unit) capsule 10,000 unit PO DAILY aspirin 81 mg tablet,delayed release (DR/EC) 162 mg PO DAILY ondansetron 4 mg tablet,disintegrating 4 mg PO QID PRN (Reason: nausea and vomiting) Qty: 10 0RF Referrals Follow up/Referrals: Helen Womack PA [Primary Care Provider] - See instructions Activity Restrictions/Add. Instructions Additional Instructions/Restrictions: Call your family doctor to establish care for this visit to the emergency department and schedule follow-up within 48 hours to ensure improvement. If you have any worsening of your condition or any other concerning signs or symptoms, return to the emergency department or your primary care doctor for further evaluation. If you have severe, immediate onset headache associated with vomiting, vision changes, neck stiffness, passing out, return to the emergency department. If you have return of headache or migraine, take oral Reglan, oral Tylenol, oral magnesium, drink plenty of fluids and lay down and rest. Clinical Impressions Clinical Impression: Headache Print Language Print Language: Occitan Discharge ED Provider: Beltran Suh General Adult HPI General Chief complaint: Headache Stated complaint: Severe Headache Time Seen by Provider: 10/09/24 13:20 Mode of Arrival: Wheelchair Source of Information: Patient and Medical Record Description of Symptoms (Recalled from ER Triage Doc. by RN): c/o severe headache since this am,. reports that the pain is at the base of the back head with light sensitivity, nausea and some dizziness. LINDSAY have been daily for 2 weeks with this one more painful, was sent from OB after evaluation for eclampsia due to previous pregnancies and this issue. Reports that tylenol did help her headache some earlier. History of Present Illness HPI narrative: Please note that above description of symptoms, in this electronic medical record under categorization of recalled from ER triage doctor by RN are reflective of an initial nursing assessment, however, is not reflective of my full history and physical exam that was personally taken and clarified. Consequentially, this preceding description of symptoms, which may include the patient's categorized chief complaint in the EMR, do not reflect my personal clinical impression, and the ultimate description of history of present illness and patient stated complaints should be deferred to this section of the note. Unless stated otherwise or congruent with this section of the note, additional signs, symptoms, or incongruence should be interpreted as inaccurate with my clinical impression. Related Data Home Medications ?Medication ?Instructions ?Recorded ?Confirmed cholecalciferol (vitamin D3) 125 10,000 unit PO DAILY 06/04/24 10/09/24 mcg (5,000 unit) capsule omega-3 fatty acids-fish oil 360 1 cap PO DAILY 06/04/24 10/09/24 mg-1,200 mg capsule (Fish Oil) vits no.126-ferrous fum 1 tab PO DAILY 06/04/24 10/09/24 28 mg iron-folic acid 800 mcg tablet (Classic ) vitamin B complex 1 tab PO DAILY 06/04/24 10/09/24 aspirin 81 mg tablet,delayed 162 mg PO DAILY 08/14/24 10/09/24 release Previous Rx's ?Medication ?Instructions ?Recorded ondansetron 4 mg disintegrating 4 mg PO QID PRN nausea and 07/03/24 tablet vomiting #10 tabs metoclopramide HCl 10 mg tablet 10 mg PO Q6H PRN nausea and 10/09/24 (Reglan) vomiting #14 tabs Allergies Allergy/AdvReac Type Severity Reaction Status Date / Time Penicillins Allergy Intermediate Rash Verified 10/09/24 10:05 [facility] Disclaimer: The information contained in this section may have been updated after the patient was seen, as this information can be updated by other users. Medical History Breast cancer Hiatal hernia Choking in adult Dysphagia Multiple thyroid nodules Thyroid nodule Surgical History H/O lumpectomy Hx of section H/O carpal tunnel repair Family History Other Diabetes Hypertension Social History Smoking Status: Never smoker alcohol intake: never substance use type: denies use current occupational status: unemployed Travel in the last 8 weeks: None household members: family housing: house Have you lived/traveled outside US in past 30 days?: No Contact w/someone who lives/traveled outside US past 30 days?: No Exposure to someone with infectious disease in past 14 days?: No Do you have a fever (greater than 100.4 F or 38 C)?: No Have you tested positive for COVID-19: No Exposed to someone with COVID-19 in past 14 days?: No Do you have a sore throat?: No Do you have a cough?: No Do you have any weakness?: No Do you have any diarrhea?: No Are you experiencing any unusual bleeding?: No Do you have any muscle aches/pain?: No Do you have any abdominal pain?: No Are you experiencing loss of taste or smell?: No Other Medical History Have you received the Flu Vaccine for this season: No Have you received the Pneumonia Vaccine: No ROS Obtained: Yes All systems reviewed & no additional complaints except as documented Physical Exam General General appearance: alert Head Head exam: atraumatic and normocephalic Eye Eye exam: Present normal appearance, PERRL and EOMI Neck Neck exam: Present normal inspection, full ROM and trachea midline Respiratory Respiratory exam: Absent respiratory distress, wheezes, stridor, accessory muscle use or prolonged expiratory phase Cardiovascular Cardiovascular exam: Present other (Pulses equal symmetric in upper and lower extremities) Abdominal Exam Abdominal exam: Present soft; Absent distention, tenderness or pulsatile mass Extremities Exam Extremities exam: Absent edema Neurological Exam Neurological exam: Present alert, oriented X3 and CN II-XII intact; Absent motor sensory deficit Skin Skin exam: Present warm and dry; Absent diaphoresis or erythema Medical Decision Making Medical Records Medical records reviewed: Yes I reviewed the patient's medical records. Screening: Per USPSTF and CDC recommendations, given the prevalence of disease in our region, it is our hospital?s policy to screen for HIV and viral Hepatitis for all patients aged 18 and over and those with ongoing risk factors. Ayad Inquiry Pt receiving controlled substance: No Ayad was queried for this patient: No Vital Signs: 10/09/24 13:25 Temperature 96 F L Temperature Source Oral Pulse Rate [Left Radial] 89 Respiratory Rate 18 Blood Pressure [Right Arm] 148/91 H Blood Pressure Mean [Right Arm] 110 02 Sat by Pulse Oximetry 96 Oxygen Delivery Method Room Air Lab Data Lab Results 10/09/24 13:54: WBC 11.7 H D, RBC 4.56, Hgb 13.6, Hct 40.4, MCV 88.6, MCH 29.8, MCHC 33.7, RDW 13.7, Plt Count 253, MPV 9.8, Neut % (Auto) 86.6 H, Lymph % (Auto) 9.2 L, [place] % (Auto) 2.7, Eos % (Auto) 0.6, Baso % (Auto) 0.1, Neut # (Auto) 10.1 H, Lymph # (Auto) 1.1, [place] # (Auto) 0.3, Eos # (Auto) 0.1, Baso # (Auto) 0.0, Sodium 137, Potassium 3.9, Chloride 106, Carbon Dioxide 22, Anion Gap 12.9, BUN 7, Creatinine 0.40 L, Estimated Creat Clear 149, Estimated GFR 178, Est GFR ( Amer) 215, Glucose 135 H, Calcium 10.1, Total Bilirubin 0.5, AST 27, ALT 29, Alkaline Phosphatase 115, Total Protein 7.0, Albumin 3.9, Globulin 3.1, Albumin/Globulin Ratio 1.3 10/09/24 13:54 10/09/24 13:54 Orders (Tests/Meds): ED MEDICATIONS Discontinued Medications Generic Name Dose Route Start Last Admin Trade Name Freq PRN Reason Stop Dose Admin Sodium Chloride 1,000 mls @ 999 mls/hr 10/09/24 13:21 10/09/24 14:01 Sod Chlor 0.9% 1000ml Bag IV 10/09/24 14:21 999 mls/hr .Q1H1M ONE Administration Magnesium Sulfate 2 gm in 50 mls @ 50 mls/hr 10/09/24 13:21 10/09/24 14:01 Magnesium Sulfate 2gm/50ml Premix IV 10/09/24 14:20 50 mls/hr ONCE ONE Administration Metoclopramide HCl 10 mg 10/09/24 13:21 10/09/24 14:02 Metoclopramide Hcl 10mg/2ml Vial IVP 10/09/24 13:22 10 mg ONCE ONE Administration ORDERS Category Date Time Status CBC w/Auto Diff [Complete Blood Count Auto Diff] Stat Lab 10/09/24 13:54 Completed CMP [Comprehensive Metabolic Panel] Stat Lab 10/09/24 13:54 Completed Medical Decision Narrative: This is a 39-year-old female presenting with headache. She is currently 31 weeks , woke up today, 4/3 and felt okay, shortly after waking up, started having headache. She states it was initially not awful, but quickly ramped up to 10 out of 10. Was not thunderclap or immediate, acute onset. No vomiting, neurologic deficits, fevers, chills, neck stiffness, or any other concerns. She does not typically get headaches, however. States that she went to her [facility] today and was given Imitrex and Fioricet, these did not work. Also given steroid injection for development. Patient states her headache is currently 6 out of 10, does not radiate, photophobic and all over. History was obtained via conversation with patient. On arrival, patient hemodynamically stable, alert, oriented x4, appropriate, GCS 15, moving all extremities spontaneously, pupils equal and reactive to light. Full physical exam performed and significant for very clinically well-appearing female no acute distress. Sitting cool, dark room. Speaking in full sentences, opening eyes, and does not appear terribly uncomfortable. Neurologically intact grossly. Denies any vision changes. No evidence of facial swelling, range of motion of neck difficulties etc. differential includes migraine, headache, subarachnoid hemorrhage, cerebral DVT, among others. Patient placed on continuous cardiac monitoring and continuous pulse ox with initial blood pressure 148/91, heart rate 99, saturation 96% on room air. Patient was given IV fluids, IV magnesium, Reglan IV for symptomatic management and correction of underlying abnormalities. Workup independently interpreted and significant for nonactionable hematologic labs. CT head as well as CTV of the head and neck was considered. Shared decision making between myself and patient landed on patient trialing migraine cocktail prior to this given radiation effects possibly on fetus. On reevaluation after meds, patient actually snoring, needed to be woken up. Upon being woken up states that her headache is completely gone and she feels much better. Given this, I do not feel CT is deemed necessary at this time. Given patient presentation, workup, history, this most likely represents acute migraine disorder in . Because patient having recurrent headaches and migraines that she does not usually have outside of , Reglan was sent to pharmacy. Recommended patient take oral Reglan, oral Tylenol, oral magnesium, drink plenty of fluids and lay down and rest if headaches recur prior to return to family doctor or [facility]/emergency department. Close return precautions and thunderclap headache precautions were discussed, patient voiced understanding. Because patient at baseline without signs or symptoms of clinical decompensation, deemed appropriate for discharge. Results were relayed to patient who voiced understanding and were agreeable to outpatient management and follow up. I discussed my clinical impression with patient and answered all questions. At this time, the evidence for any other entities in the differential is insufficient to warrant any further testing or ED observation. This was explained as well. Advisory was given that persistent or worsening symptoms require further evaluation. I confirmed the understanding of this discussion. Office Aide disclaimer Much of this encounter note is an electronic surgery scheduler spoken language to printed text. Electronic surgery scheduler of the spoken language may permit errors. Although I have reviewed the note, some errors may still exist. Critical Care Critical Care Time Critical Care Time: No
[2024-10-09] MEDS: METOCLOPRAMIDE HCL 10MG/2ML VIAL 10 MG IVP (14:02)
[2024-10-09 14:05] LABS: Basophils % 0.1 % (0.1-2.0); Eosinophils # 0.1 K/mm3 (0.0-0.4); Eosinophils % 0.6 % (0.1-12.0); Hematocrit 40.4 % (37.0-47.0); Hemoglobin 13.6 g/dL (12.2-16.2); Lymphocytes # 1.1 K/mm3 (0.7-4.5); Lymphocytes % 9.2 % (10-50); Mean Corpuscular HGB Conc 33.7 g/dL (31.8-35.4); Mean Corpuscular Hemoglobin 29.8 pg (27.0-31.2); Mean Corpuscular Volume 88.6 fl (81-99); Mean Platelet Volume 9.8 fl (7.4-10.4); Monocytes # 0.3 K/mm3 (0.1-1.0); Monocytes % 2.7 % (1.7-9.3); Neutrophils # 10.1 K/mm3 (1.8-7.8); Neutrophils % 86.6 % (37.0-80.0); Platelet Count 253 K/mm3 (142-424); Red Blood Count 4.56 M/mm3 (4.20-5.40); Red Cell Distribution Width 13.7 % (11.5-17.5); White Blood Count 11.7 K/mm3 (4.8-10.8)
[2024-10-09 14:08] LABS: Albumin Level 3.9 g/dl (3.5-5.0); Chloride 106 mmol/L (98-107); Potassium 3.9 mmoL/L (3.5-5.1); Sodium 137 mmol/L (136-145)
[2024-10-09 14:11] LABS: Alanine Aminotransferase 29 U/L (12-78); Albumin/Globulin Ratio 1.3 (1.1-1.8); Alkaline Phosphatase 115 U/L (38-126); Anion Gap 12.9 mEq/L (5-15); Aspartate Amino Transferase 27 U/L (14-36); Bilirubin,Total 0.5 mg/dl (0.2-1.3); Blood Urea Nitrogen 7 mg/dl (7-17); Carbon Dioxide 22 mmol/L (22.0-30.0); Creatinine Clearance Estimated 149 mL/min (50-200); Estimated Glomerular Filt Rate 178 ml/min (>60); GFR (African American) 215 ML/MIN (>60); Globulin 3.1 g/dL (1.3-3.2)
[2024-10-09 14:12] LABS: Calcium 10.1 mg/dl (8.4-10.2); Glucose 135 mg/dl (74-100)
[2024-10-09 14:58] VITALS: BP 133/77; PULSE 88; RESP 19; TEMP 36.4; O2SAT 100
== END 2024-10-09 14:58 | disposition home or self-care (01) ==
PROVIDERS: Emergency Provider Emergency Medicine; PCP Physician Assistant
DX: R51.9 Headache, unspecified (principal); H53.149 Visual discomfort, unspecified; R11.0 Nausea; R42 Dizziness and giddiness
CPT/HCPCS: 80053; 85025; 96361; 96365; 96374; 99284; J2765; J3475; J7030

== ENCOUNTER 2024-10-10 13:35 | Outpatient (CLI) | payer MEDICAID, SELFPAY ==
[2024-10-10 13:50] VITALS: BMI 45.3
[2024-10-10] MEDS: BETAMETHASONE ACET/PHOS 6MG/ML 5ML MDV 12 MG IM (13:52)
[2024-10-10 13:57] VITALS: BP 125/69; PULSE 93; RESP 16; O2SAT 97; BMI 42.5
--- OUTSIDE RECORDS SUMMARY | 2024-10-16 19:39 | XMS_ITS | Data Portability ---
Author Organization [facility] Address [address] [place] [address] Care Team Providers Care Mailing Machine Assistant Name Role Phone REBECCA ANIA Primary Care Provider Assessment No assessment recorded. Plan of Treatment Reminders Order Date Submit Date Provider Last Modified By Organization Details Last Modified Time Details Appointments None recorded. Lab TSH, serum or plasma 2020 021 [email or web address] [facility], [address] [place] [address], [id number], 08:08:53 T3, total, serum 2020 021 [facility], [address] [place] [address], [id number], 08:08:54 T4, total, serum 2020 021 [email or web address] [facility], [address] [place] [address], [id number], 08:08:54 thyroid panel, serum 2020 021 [email or web address] [facility], [address] [place] [address], [id number], 08:08:54 GEORGES (antinuclea r antibodies) panel, serum 2020 021 SULY [facility], [address] [place] [address], [phone], 22:18:36 Referral None recorded. Procedures None recorded. Surgeries None recorded. Imaging None recorded. Medication Orders omeprazole 20 mg capsule,del ayed release 2020 021 [email or web address] [facility] [phone], [address], 15:17:05 Patient TargetsNo targets recorded. Patient Instructions Encounter Date Encounter Id Patient Instructions Last Modified By Organization Details Last Modified Time 05/10/2021 [id number] 1. Flexible laryngoscopy performed today - Full risks, complications, and benefits of operative versus non-operative intervention have been thoroughly discussed. Understanding was expressed, informed consent given, and we will proceed with the in office treatment plan. There were no questions for me at the end of the office visit. 2. Recommended taking TUMS at night. 3. RX: Omeprazole 20mg - take 1 tablet 30 minutes before morning meals 4. Thyroid ultrasound discussed and ordered. 5. EGD discussed and ordered. 6. TSH, T3, T4 and thyroid antibodies ordered. 7. Follow up visit with ultrasound, EGD and lab results or sooner if concerns arise. [facility] Not available 05/10/2021 09:27:49 06/16/2021 [id number] 1. Reviewed patients labwork, FNA and EGD biopsy. 2. Recommended the patient follow up with endocrinology; patient will set this up herself. 3. Follow up visit PRN or sooner if concerns arise. [facility] 06/16/2021 15:40:40 Reason for Referral None Reported. Results Created Date Observation Date Name Description Value Unit Range Abnormal Flag Note LastModifiedBy Organization Detail LastModifiedTime 05/26/20 21 05/26/2021 CYTOL OGY cytology SEE BELOW Depar tment of Patho logy Medic al Cytol ogy Repor t NAME: SARI SON, MAXINE IE PATH. :FC-2 33 Copie s to: JORGE ALBERTO BAGLEYR A SOURC E OF SPECI MEN: FINE NEEDL E ASPIR ATE, LEFT THYRO ID NODUL E/ US-DI RECTE D Volum e: 5 mL Color : Red Fixed : Y Blood y: N Clott ed: N Clear : Y Other : FIXED IN CYTOL YT 2 MONICA DE SLIDE S IN DQ 2 MONICA DE SLIDE S IN SPRAY FIXAT LISETH 3 PASSE S PERFO RMED - 2 PASSE S FOR SMEAR S, 1 PASS FOR AFIRM A CLINI ALL INFOR FAWN N: E04.1 SIZE AND LOCAT ION OF FALGUNI N: LEFT 1.3 X 1.1 X 1.8 cm DURAT ION OF FALGUNI N: ABOUT 7 YRS AGO PREVI OUS SIMIL AR LESIO NS: LONG HISTO RY OF NODUL ES OTHER PRIMA RY TUMOR S: NONE X-RAY RESUL TS: INCRE ASE IN SIZE FROM O/S IMAGE . HYPOE CHOIC WITH INTER NAL VASCU LARIT Y MEDIC ATION : NO THYRO ID MEDS PREVI OUS HISTO RY: NON SMOKE R, NO MALIG NANT HX FAMIL Y HISTO RY: THYRO ID DYSFU NCTIO N, BREAS T, CERVI ALL, BRAIN AND PROST ATE CANCE R, LEUKE DEYA AFIRM A COLLE CTED [id number] Diagn osis: Left thyro id nodul e, ultra sound direc moo fine needl e aspir ate, ThinP rep and smear s: Benig n (Ambika esda categ ory II). Benkonstantin n folli cular cells , collo id and lymph ocyte s are seen consi stent with chron ic thyro iditi s. Immed iate Evalu ation : Passe s #1-2: Adequ ate. Comme nt: All cytol ogic mater ial has been revie wed. MARQUEZ TALBOTL-P MD CASTRO Iwona d Out Date: 05/27 , 14:25 Page 1 of 1 Not Available [facility] [address] [facility], [place], [address], 05/27/2021 14:26:47 06/06/20 21 06/06/2021 SURGI ALL surgical SEE BELOW Depar tment of Patho logy Surgi all Patho logy Repor t NAME: SARI HARRIS, IE PATH. :ST-2 [id number] Copy to: Diagn osis: Esoph ageal biops y: -Esse ntial ly withi n ella l limit s. -No evide nce of activ e infla mmati on or react liseth epith elial fuentes es. SOURC E OF SPECI MEN: ESOPH AGEAL BIOPS Y CLINI ALL INFOR MATIO N: DYSPH AGIA Gross Descr iptio n: Recei serafin in forma liliane label ed with the patie nt's name and desig nated as esop hagea l biops y are two fragm ents of pale frye tissu e measu ring 0.4 cm each. Entir naomie submi tted in one casse tte. MT 06/06 11:34 AM Micro scopi c Descr iptio n: A micro scopi c exami natio n was perfo rmed with findi ngs as indic ated in the diagn osis. WAN MYERS MD Iwona d Out Date: 06/07 14:54 Page 1 of 1 Not Available [facility] [address] [place] [address], [phone], 06/07/2021 14:55:20 05/13/20 21 03/04/2019 fine needl e aspir ation , ultra sound guide d, thyro id (PROC ) No observ ation record ed. [email or web address] Not Available 2020 11:46:50 05/13/20 21 12/16/2018 FL, modif ied grecia nsah ow study No observ ation record ed. [email or web address] Not Available 2020 11:47:37 05/13/20 21 12/16/2018 US, thyro id No observ ation record ed. [email or web address] [facility] [address] [facility], [place], [address], 05/17/2021 11:48:32 05/26/20 21 05/26/2021 US thyro id nodul e fna only [facility] [address] [place] [address] Patien t Name: FRANCISCO JAVIER DYSON ON Patien t : 1984 Patien t 15 Orderi ng Provid er: ISIDORO Y V OSETIN SHELL EXAM DATE: 2020 EXAM: US THYROI D NODULE FNA ONLY SITE: Thyroi d nodule in the left lobe CLINIC AL INDICA TION: Size and sonogr aphic appear ance of the abnorm ality. OPERAT OR: Agatha Stone M.D. MRCP., FRCR. TECHNI QUE AND FINDIN GS: Prelim inary sonogr aphic examin ation showed a left lobe nodule . Inform ed writte n consen t was obtain ed. Under sonogr aphic guidan ce, asepti c techni que and local anesth etic, 3 passes were made with 27-gau ge hypode rmic needle s throug h this area. IMMEDI ATE COMPLI CATION S: None. DISPOS AL AND ADEQUA CY OF SPECIM EN: Specim ens were given to the Cytopa tholog ist on site. IMPRES KIKA: Uneven tful left lobe thyroi d nodule FNA. No FNA was perfor med on the right lobe nodule becaus e of its subcen timete r size and proxim ity to the right caroti d vessel s. Howeve r, follow -up of this nodule is strong ly sugges moo with ultras ound in one years time to ascert ain stabil ity. Interp reted By: Agatha Stone MD Electr onical ly Signed By: Agatha Stone MD on 2020 5:03 PM [facility] [address], [address], 06/08/2021 08:46:21 05/26/20 21 05/26/2021 US, neck[facility] [address] [place] [address] Patien t Name: FRANCISCO JAVIER DYSON ON Patien t : 1984 Patien t 15 Orderi ng Provid er: ISIDORO DUARTE SHELL EXAM DATE: 2020 EXAM: US ECHO THYROI D OR PAROTI D CLINIC AL INFORM ATION: Histor y of nodule s. TECHNI QUE: Multip le sonogr aphic images of the thyroi d gland were obtain ed. COMPAR MITCH: None. FINDIN GS: Isthmu s measur es 0.7 cm in thickn ess. Right lobe measur es 4.6 x 1.5 x 1.2 cm. Left lobe measur es 5 x 2.1 x 2 cm. The gland is normal in size and homoge neous in echote xture. Isthmu s is thicke tk but shows no nodule . In the right lobe, nodule s are seen. The domina nt nodule measur es 7 x 6 x 9 mm in width, height and length . It is locate d adjace nt to the caroti d bulb. The nodule is solid - 2; hypoec hoic - 2; wider than tall - 0; shows smooth margin - 0; and no echoge diomedes foci - 0. Total TI-RAD S POINTS = 4. ACR TI-RAD S Catego ry = TR4 - Modera tely suspic ious. In the left lobe, a nodule is seen. Measur ement = 1.3 x 1.1 x 1.8 cm in width, height and length . The nodule is solid - 2; hypoec hoic - 2; wider than tall - 0; shows ill-de fined margin - 0; and no echoge diomedes foci - 0. Total TI-RAD S POINTS = 4. ACR TI-RAD S Catego ry = TR4 - Modera tely suspic ious. IMPRES KIKA: Bilate ral thyroi d nodule s. Becaus e of its size, the left lobe nodule was subjec moo to ultras ound-g uided FNA. Please see separa te report . Interp reted By: Agatha Stone MD Electr onical ly Signed By: Agatha Stone MD on 2020 5:21 PM [facility] [address] [place], [address], 06/08/2021 08:46:20 Result Notes None recorded. Problems No Known Problems Procedures Surgical History Date Name Laterality Status Provider Name and Address Organization Details Recorded Time 05/10/20 21 Laryngoscopy Flex completed Kitty Matias [facility] 05/10/2021 09:25:22 07/09/19 13 section completed [facility] [place]/10/2021 08:32:02 07/09/19 10 Carpal tunnel surgery [place] [facility] [place]/10[place]2021 08:32:17 07/09/19 04 Oral Surgery completed Odalis Barbour [facility] 05/10/2021 08:32:27 Imaging Results Imaging Date Name Status LastModified by Organiz ation Details LastModified Time 03/04/2019 fine needle aspiration, ultrasound guided, thyroid (PROC) completed Information not available 05/17/2021 11:46:50 12/16/2018 FL, modified barium swallow study completed Information not available 05/17/2021 11:47:37 12/16/2018 US, thyroid completed [email or web address] [facility] [address], [place], [address], 05/17/2021 11:48:32 05/26/2021 US thyroid nodule fna only completed [facility] [address] [place], [address], 06/08/2021 08:46:21 05/26/2021 US, neck, soft tissue completed [facility] [address] [place], [address], 06/08/2021 08:46:20 Procedure Notes None recorded. Medical Equipment None Reported. Allergies Allergen ID Allergen Name Allergen Category Reaction Reaction Severity Criticality Documentation Date Start Date Code Code System Note Provider Name and Address Organization Details Recorded Time 300690 Product containin g penicilli n (product) medicatio n rash Not available Not available 05/10/2021 05860 8001 SNOMED Odalis mathis [facility] 08:31:01 Medications Name Sig Start Date Stop Date Status Note LastModified by Organization Details LastModified Time azithromycin 250 mg tablet 06/16 completed Not Available Not Available Not Available triamcinolon e acetonide 0.1 % topical cream 06/16 completed Not Available Not Available Not Available omeprazole 20 mg capsule,jade yed release take 1 tablet 30 minutes before morning meals 06/16 completed Not Available Not Available Not Available albuterol sulfate HFA 90 mcg/actuatio n aerosol inhaler 06/16 completed Not Available Not Available Not Available brompheniram ine-pseudoep hedrine-DM 2 mg-30 mg-10 mg/5 mL oral syrup 06/16 completed Not Available Not Available Not Available Vitals Date Recorded Body height Oxygen saturation Oxygen saturation in Arterial blood by Pulse oximetry Heart rate Body temperature Systolic blood pressure Diastolic blood pressure Provider Name and Address Organization Details Last Updated DateTime 160.02 cm 98 % 98 % 85 /min 98.4 [degF] 141 mm[Hg] 103 mm[Hg] Odalis Barbour [facility] 08:36:34 Date Recorded Body height Body mass index (BMI) Body weight Body temperature Heart rate Systolic blood pressure Diastolic blood pressure Provider Name and Address Organization Details Last Updated DateTime 160.02 cm 36.9 kg/m2 36819.3 1 g 98.7 [degF] 81 /min 137 mm[Hg] 86 mm[Hg] Tara Khan [facility] 15:20:57 Social History Question Answer Notes LastModified by Organizat ion Details LastModified Time Tobacco Smoking Status Never Smoker Odalis Barbour [facility] 05/10/2021 08:31:47 What Is Your Level Of Alcohol Consumption? None [email or web address] Information not available 05/10/2021 Do You Use Any Illicit Or Recreational Drugs? No Information not available 05/10/2021 Has Tobacco Cessation Counseling Been Provided? No [email or web address] Information not available 05/10/2021 Have You Recently Traveled Abroad? No Information not available 05/10/2021 Do You Or Have You Ever Used Any Other Forms Of Tobacco Or Nicotine? No [email or web address] Information not available 05/10/2021 Sex: Unknown Functional Status None recorded. Mental Status None recorded. Family History Relationship Description Onset Age of this Age Resolved Age Notes LastModified by Organization Details LastModified Time Mother Family history of malignant neoplasm [email or web address] Not available 2020 08:31:27 Father Hypertensive disorder abdi Not available 2020 08:31:37 Medical History Condition Response Depression N Cancer N Heart Problems N Bleeding Disorder N Asthma N Hepatitis N Anesthesia Complications N Diabetes N Heart Disease N Hypertension N Gynecological HistoryNo gynecological history recorded. Obstetrics History GPAL:G 0 P 0 0 0 0 Past Encounters Encounter ID Performer Location Encounter Start Date Encounter Closed Date Diagnosis/Indication Diagnosis SNOMED-CT Code Diagnosis ICD10 Code Diagnosis Note [id number] JESÚS POST MD [facility] [address] [place] [address] 05/10/2021 08:13:18 05/10/2021 10:21:22 Thyroid nodule 909726219 E04.1 Choking sensation 665046 009 R09.89 Difficulty swallowing 28 1004017 R13.10 Chronic hoarseness 20756 68459 105 R49.0 Weight gain 9876322 R63. 5 Laryngopha ryngeal reflux 256326938 K21.9 R > L Laryngeal spasm 81104714 2 J38.5 [id number] MARTHA ROJAS MD SURGERY SCHEDULE [address] [place] [address] 06/06/2021 07:10:09 06/06/2021 07:11:28 [id number] JESÚS POST MD [facility] [address] [place] [id number] 06/16/2021 15:06:03 06/16/2021 16:03:06 Thyroid nodule 585333044 E04.1 Choking sensation 541782 009 R09.89 Difficulty swallowing 28 9307073 R13.10 Chronic hoarseness 57246 57636 105 R49.0 Weight gain 0662824 R63. 5 Laryngopha ryngeal reflux 642563973 K21.9 R > L Laryngeal spasm 17174722 2 J38.5 Marylin thyroiditis 21 066740 E06.3 Health Concerns Section Related Observation LastModified by Organization Detai ls LastModified Time None Recorded Concern Status LastModified by Organization Details LastModified Time None Recorded Advance Directives Directive None Recorded Payers Encounter Date Sequence Insurance Name Policy Number Policy Yang Covered Member ID Yang Member ID Guarantor Name 05/10/2021 1 [employer] - OPEN ACCESS - NATIONAL (POS) Dk Frances [id number] Idalmis Frances 06/06/2021 1 [employer] - OPEN ACCESS - NATIONAL (POS) Dk Frances [id number] Idalmis Frances 06/16/2021 1 [employer] - OPEN ACCESS - NATIONAL (POS) Dk Frances [id number] Idalmis Frances Notes Date Note Type Note Provider Name and Address Organization Details Recorded Time 05/10/2021 text/html Idalmis is a 35 year old female who comes in today for consultation at the request of Ania SUTTON for an evaluation of a thyroid nodule. Idalmis complains of having pressure and grinding when she lifts her head and turns. She does have problems with choking and can choke even if she is not eating or drinking. She has been diagnosed with laryngeal spasms. She has noticed that she has issues with singing and she will completely lose her voice suddenly. She does have pain when she hits certain notes while singing. Her last thyroid ultrasound was in 2019 and showed a suspicious nodule measuring 1.6cm. She reports that she has had several biopsies done which were inconclusive and benign. Idalmis has noticed that she has had significant weight gain and hair loss in the last year. She had a barium swallow performed in 2019 which was normal. There is a family history of thyroid dysfunction with her grandmother and uncle. Additionally, her twin has an autoimmune disorder. JESÚS POST MD [address] [place] [address], [phone], [facility] 05/11/2021 13:22:07 06/16/2021 text/html Idalmis is a 36 year old female here today for a follow up of her FNA, esophageal biopsy and labwork. Idalmis's FNA and esophageal biopsy were both negative. Her GEORGES and thyroid antibodies were both elevated. She continues to have pain under her chin. There are times when she cramps up and she is not able to breathe well. She continues to lose hair and reports that she lost a toe nail a few weeks ago. JESÚS POST MD [address] [place] [address], [phone], [facility] 06/16/2021 17:00:04 OBGyn Episode No OBEpisode recorded.
== END 2024-10-10 14:00 | disposition home or self-care (01) ==
LOC: OBOUT 13:36 → OB 13:37
PROVIDERS: PCP Physician Assistant; Visit Provider Obstetrics & Gynecology
DX: O26.893 Other specified pregnancy related conditions, third trimester (principal); Z3A.32 32 weeks gestation of pregnancy
CPT/HCPCS: G0463; J0702

== ENCOUNTER 2024-10-17 15:12 | Outpatient (CLI) | payer MEDICAID, SELFPAY ==
--- NOTE | 2024-10-17 15:16 | US_ITS ---
PROCEDURE: US OB BIOPHYSICAL PROFILE CLINICAL INDICATION: Needs 10/17/24 for hx of preclampsia and AMA COMPARISON: US US OB /MATERNAL DETAIL from 07/23/2024 US US TRANSVAGINAL from 09/26/2024 US US OB FOLLOW UP from 09/26/2024 US US OB BPP W/FET-MAT S/D from 10/08/2024 FINDINGS: Transabdominal sonographic images of the uterus were obtained. From her established due date she is 33weeks 0 days. The following parameters are obtained: Viable Fetus in the cephalic presentation with a right laterally wrapped placenta grade 2. There appears to be an anterior fibroid measuring up to 9.1 cm in size. Is located adjacent to the placenta and more anterior. The cervix measures 3.08 cm Measurements: heart Rate = 160bpm Amniotic fluid index: 9.83cm, MVP 3.53 cm Qualitative AFV:2 Breathing movements: 2 Gross Body Movements: 2 Tone: 2 Biophysical profile score: 8 No obvious anomalies evident.Kidneys, profile, stomach, bladder, four-chamber heart, three-vessel cord appear normal. There appears to be unilateral dilation of the renal pelvis measuring 10.9 mm. Suggest follow-up. IMPRESSION: 1. Viable fetus in the cephalic presentation with a right laterally wrapped placenta grade 2. 2. There is an anterior fibroid measuring 9.1 cm. 3. The fluid is within normal limits with an amniotic fluid index 9.83 cm, MVP 3.53 cm. 4. Biophysical profile is 8/8 with good breathing movement and movement seen. 5. There is unilateral renal pelvis dilation measuring 10.9 mm and suggest follow-up with inside sales executive. 6. The rest of the limited anatomical scan appears normal. Dictated by: Salvador Brito MD 10/18/2024 09:53 Salvador Brito MD in [place] 10/18/2024 09:53
== END 2024-10-17 23:59 | disposition home or self-care (01) ==
LOC: RAD 15:12
PROVIDERS: PCP Physician Assistant; Visit Provider Obstetrics & Gynecology
DX: O09.293 Supervision of pregnancy with other poor reproductive or obstetric history, third trimester (principal); Z87.59 Personal history of other complications of pregnancy, childbirth and the puerperium; O10.913 Unspecified pre-existing hypertension complicating pregnancy, third trimester; Z3A.33 33 weeks gestation of pregnancy
CPT/HCPCS: 76819

== ENCOUNTER 2024-10-21 12:42 | Outpatient (CLI) | payer MEDICAID, SELFPAY ==
--- OUTSIDE RECORDS SUMMARY | 2024-10-21 12:44 | XMS_ITS | Data Portability ---
Author Organization [facility] Address [address] [facility] [address] [place] [address] Care Team Providers Care Alternative Energy Technician Name Role Phone REBECCA ANIA Primary Care Provider Assessment No assessment recorded. Plan of Treatment Reminders Order Date Submit Date Provider Last Modified By Organization Details Last Modified Time Details Appointments None recorded. Lab TSH, serum or plasma 2020 021 [facility], [address] [place] [address], [phone], 08:08:53 T3, total, serum 2020 021 [email or web address] [facility], [address] [place] [address], [address], 08:08:54 T4, total, serum 2020 021 [facility], [address] [place] [address], [phone], 08:08:54 thyroid panel, serum 2020 021 [email or web address] [facility], [address] [place] [address], [address], 08:08:54 GEORGES (antinuclea r antibodies) panel, serum 2020 021 SULY [facility], [address] [place] [address], [phone], 22:18:36 Referral None recorded. Procedures None recorded. Surgeries None recorded. Imaging None recorded. Medication Orders omeprazole 20 mg capsule,del ayed release 2020 021 asoper1 [facility] [phone], [address], 15:17:05 Patient TargetsNo targets recorded. Patient Instructions Encounter Date Encounter Id Patient Instructions Last Modified By Organization Details Last Modified Time 05/10/2021 [id number] 1. Flexible laryngoscopy performed today - Full [...] lab results or sooner if concerns arise. [facility] Not available 05/10/2021 09:27:49 06/16/2021 [id number] 1. Reviewed patients labwork, FNA and EGD biopsy. 2. Recommended the patient follow up with endocrinology; patient will set this up herself. 3. Follow up visit PRN or sooner if concerns arise. [facility] Not available 06/16/2021 15:40:40 Reason for [...] 14:25 Page 1 of 1 Not Available [facility] [address] [facility], [place], [address], 05/27/2021 14:26:47 06/06/20 21 06/06/2021 SURGI ALL [...] y are two fragm ents of pale frey tissu e measu ring 0.4 cm each. Entir naomie submi tted in one casse tte. [place] 06/06 11:34 AM Micro scopi c Descr iptio n: A micro scopi c exami natio n was perfo rmed with findi ngs as indic ated in the diagn osis. WAN MYERS MD Iwona d Out Date: 06/07 14:54 Page 1 of 1 Not Available [facility] [address] [place] [address], [phone], 06/07/2021 14:55:20 05/13/20 21 03/04/2019 fine needl e aspir ation , ultra sound guide d, thyro id (PROC ) No observ ation record ed. [email or web address] Not Available 2020 11:46:50 05/13/20 21 12/16/2018 FL, modif ied grecia nash ow study No observ ation record ed. [email or web address] Not Available 2020 11:47:37 05/13/20 21 12/16/2018 US, thyro id No observ ation record ed. [email or web address] [facility] [address] [facility], [place], [address], 05/17/2021 11:48:32 05/26/20 21 05/26/2021 US thyro id nodul e fna only [facility] [address] [place] [address] Patien t Name: FRANCISCO JAVIER DYSON ON [...] Agatha Stone MD on 2020 5:03 PM [facility] [address], [address], 06/08/2021 08:46:21 05/26/20 21 05/26/2021 [facility], [facility] [address] [place] [address] Patien t Name: FRANCISCO JAVIER DYSON ON [...] Agatha Stone MD on 2020 5:21 PM [facility] [address] [place], [address], 06/08/2021 08:46:20 Result Notes None recorded. Problems No Known Problems Procedures Surgical History Date Name Laterality Status Provider Name and Address Organization Details Recorded Time 05/10/20 21 Laryngoscopy Flex completed Kitty Matias [facility] 05/10/2021 09:25:22 07/09/[address] [facility] 05/10/2021 08:32:02 07/09/19 [address] surgery completed [facility] 05/10/2021 08:32:17 07/09/19 04 Oral Surgery completed Odalis Barbour [facility] 05/10/2021 08:32:27 Imaging Results Imaging Date Name Status LastModified by Organiz ation Details LastModified Time 03/04/2019 fine needle aspiration, ultrasound guided, thyroid (PROC) completed Information not available 05/17/2021 11:46:50 12/16/2018 FL, modified barium swallow study completed Information not available 05/17/2021 11:47:37 12/16/2018 US, thyroid completed [email or web address] [facility] [address], [place], [address], 05/17/2021 11:48:32 05/26/2021 US thyroid nodule fna only completed [facility] [address] [place], [address], 06/08/2021 08:46:21 05/26/2021 US, neck, soft tissue completed [facility] [address] [place], [address], 06/08/2021 08:46:20 Procedure Notes None recorded. Medical Equipment None Reported. Allergies Allergen ID Allergen Name Allergen Category Reaction Reaction Severity Criticality Documentation Date Start Date Code Code System Note Provider Name and Address Organization Details Recorded Time 748534 Product containin g penicilli n (product) medicatio n rash Not available Not available 05/10/2021 75967 8001 SNOMED Odalis mathis [facility] 08:31:01 Medications Name Sig Start Date Stop [...] [degF] 141 mm[Hg] 103 mm[Hg] Odalis Barbour [facility] 08:36:34 Date Recorded Body height Body mass index (BMI) Body weight Body temperature Heart rate Systolic blood pressure Diastolic blood pressure Provider Name and Address Organization Details Last Updated DateTime 160.02 cm 36.9 kg/m2 51198.3 1 g 98.7 [degF] 81 /min 137 mm[Hg] 86 mm[Hg] Tara Khan [facility] 15:20:57 Social History Question Answer Notes LastModified by Organizat ion Details LastModified Time Tobacco Smoking Status Never Smoker Odalis Barbour [facility] 05/10/2021 08:31:47 What Is Your Level Of Alcohol Consumption? None Information not available 05/10/2021 Do You Use Any Illicit Or Recreational Drugs? No [email or web address] Information not available 05/10/2021 Has Tobacco Cessation Counseling Been Provided? No [email or web address] Information not available 05/10/2021 Have You Recently Traveled Abroad? No [email or web address] Information not available 05/10/2021 Do You Or Have You Ever Used Any Other Forms Of Tobacco Or Nicotine? No [email or web address] Information not available 05/10/2021 Sex: Unknown Functional Status None recorded. Mental Status None recorded. Family History Relationship Description Onset Age of this Age Resolved Age Notes LastModified by Organization Details LastModified Time Mother Family history of malignant neoplasm [email or web address] Not available 2020 08:31:27 Father Hypertensive disorder abdi Not available 2020 08:31:37 Medical History Condition Response Diabetes N Heart Problems N Bleeding Disorder N Anesthesia Complications N Hepatitis N Heart Disease N Cancer N Hypertension N Asthma N Depression N Gynecological HistoryNo gynecological history recorded. Obstetrics History GPAL:G 0 P 0 0 0 0 Past Encounters Encounter ID Performer Location Encounter Start Date Encounter Closed Date Diagnosis/Indication Diagnosis SNOMED-CT Code Diagnosis ICD10 Code Diagnosis Note [id number] JESÚS POST MD [place] [facility] [address] [place] [address] 05/10/2021 08:13:18 05/10/2021 10:21:22 Thyroid nodule 195153936 E04.1 Choking sensation 827989 009 R09.89 Difficulty swallowing 28 8347856 R13.10 Chronic hoarseness 01632 23121 105 R49.0 Weight gain 4938079 R63. 5 Laryngopha ryngeal reflux 414278318 K21.9 R > L Laryngeal spasm 61533108 2 J38.5 [id number] MARTHA ROJAS MD SURGERY SCHEDULE [address] [place] [phone] 06/06/2021 07:10:09 06/06/2021 07:11:28 [id number] JESÚS POST MD [place] [facility] [address] [place] [phone] 06/16/2021 15:06:03 06/16/2021 16:03:06 Thyroid nodule 482087485 E04.1 Choking sensation 901556 009 R09.89 Difficulty swallowing 28 7110792 R13.10 Chronic hoarseness 39915 58348 105 R49.0 Weight gain 5298776 R63. 5 Laryngopha ryngeal reflux 944598570 K21.9 R > L Laryngeal spasm 00315485 2 J38.5 Marylin thyroiditis 21 136206 E06.3 Health Concerns Section Related Observation LastModified by Organization Detai ls LastModified Time None Recorded Concern Status LastModified by Organization Details LastModified Time None Recorded Advance Directives Directive None Recorded Payers Encounter Date Sequence Insurance Name Policy Number Policy Yang Covered Member ID Yang Member ID Guarantor Name 05/10/2021 1 [employer] - OPEN ACCESS - NATIONAL (POS) Dk Frances [id number] Idalmis Frances 06/06/2021 1 [employer] - OPEN ACCESS - NATIONAL (POS) Dk Frances [id number] Idalmis Frances 06/16/2021 1 [employer] - OPEN ACCESS - NATIONAL (POS) Dk Frances [id number] Idalmis Frances Notes Date Note Type Note [...] has an autoimmune disorder. JESÚS POST MD [address] [place] [address], [phone], [facility] 05/11/2021 13:22:07 06/16/2021 text/html Idalmis is a [...] a few weeks ago. JESÚS POST MD [address] [place] [address], [phone], [facility] 06/16/2021 17:00:04 OBGyn Episode No OBEpisode recorded.
--- NOTE | 2024-10-21 13:00 | US_ITS ---
PROCEDURE: US OB BIOPHYSICAL PROFILE CLINICAL INDICATION: LGA Needs 10/21/24 COMPARISON: US US OB TRANSVAGINAL from 06/24/2024 US US OB /MATERNAL DETAIL from 07/23/2024 US TRANSVAGINAL from 09/26/2024 US OB FOLLOW UP from 09/26/2024 US OB BPP W/FET-MAT S/D from 10/08/2024 US OB BIOPHYSICAL PROFILE from 10/17/2024 FINDINGS: Transabdominal sonographic images of the uterus were obtained. From her established due date she is 33weeks 4days. The following parameters are obtained: Viable Fetus in the cephalic presentation with an anterior placenta grade 2. The cervix measures 3.12 cm Measurements: heart Rate = 149bpm Amniotic fluid index: 9.13cm, MVP 5.56 cm Qualitative AFV:2 Breathing movements: 2 Gross Body Movements: 2 Tone: 2 Biophysical profile score: 8 No obvious anomalies evident.Kidneys, bladder, stomach, four-chamber heart, three-vessel cord appear normal. She has what appears to be a fibroid on the anterior uterus underlying the tip of the placenta. It measures 7.6 cm x 3.0 cm. It was seen at the beginning of the exam but was not apparent at the end of the exam. I suspect this may just be a uterine contraction. IMPRESSION: 1. Viable fetus in the cephalic presentation with an anterior placenta grade 2. 2. The fluid is within normal limits with an amniotic fluid index 9.13 cm, MVP 5.56 cm. 3. Biophysical profile is 8/8 with good breathing movement and movement seen. 4. Limited anatomical scan appears normal. 5. She had what appeared to be a fibroid at the start of the exam posterior to the placenta but this was not seen at the end of the exam and I suspect she may have just been having a uterine contraction. Dictated by: Salvador Brito MD 10/21/2024 15:54 Salvador Brito MD in [place] 10/21/2024 15:54
== END 2024-10-21 23:59 | disposition home or self-care (01) ==
LOC: RAD 12:43
PROVIDERS: PCP Physician Assistant; Visit Provider Obstetrics & Gynecology
DX: O36.63X0 Maternal care for excessive fetal growth, third trimester, not applicable or unspecified (principal); Z3A.33 33 weeks gestation of pregnancy
CPT/HCPCS: 76819

== ENCOUNTER 2024-10-28 13:24 | Outpatient (CLI) | payer MEDICAID, SELFPAY ==
--- NOTE | 2024-10-28 14:00 | US_ITS ---
PROCEDURE: US OB BIOPHYSICAL PROFILE CLINICAL INDICATION: Needs 10/28/24 for LGA COMPARISON: US US OB <= 14 WEEKS FETUS from 05/08/2024 US US OB TRANSVAGINAL from 06/24/2024 US OB FOLLOW UP from 06/24/2024 US OB /MATERNAL DETAIL from 07/23/2024 US OB FOLLOW UP from 09/26/2024 US OB BPP W/FET-MAT S/D from 10/08/2024 US OB BIOPHYSICAL PROFILE from 10/17/2024 US OB BIOPHYSICAL PROFILE from 10/21/2024 FINDINGS: Transabdominal sonographic images of the uterus were obtained. From her established due date she is 34weeks 4days. The following parameters are obtained: Viable Fetus in the cephalic presentation with a right lateral placenta grade 2. Fibroid is seen on the anterior uterine wall measuring up to 7 cm in size. Average ultrasound age is 33weeks 3days Estimated weight 2,049g, 4 lb 8 oz The cervix measures 3.44 cm Measurements: heart Rate = 147bpm BPD = 33weeks 4days, 21 percentile HC = 34weeks 1day, 9 percentile AC = 32weeks 2days, 4 percentile FL = 33weeks 2days, 11 percentile HC/AC is 1.09 FL/BPD is 0.77 FL/AC is 0.23 8 percentile Amniotic fluid index: 8.33cm, MVP 3.20 cm Qualitative AFV:2 Breathing movements: 2 Gross Body Movements: 2 Tone: 2 Biophysical profile score: 8 No obvious anomalies evident.Kidneys, profile, bladder, three-vessel cord appear normal. IMPRESSION: 1. Viable fetus in the cephalic presentation with a right lateral placenta grade 2. 2. There continues to be what appears to be a fibroid on the anterior uterine wall that measures up to 7 cm in size. 3. The fluid is within normal limits with an amniotic fluid index 8.33 cm, MVP 3.20 cm. 4. Biophysical profile is 8/8 with good breathing movement and movement seen. 5. There has been a falling off of the growth which is now 8th percentile. Previously the fetus was 32nd percentile. Would suggest continued close follow-up. 6. Limited anatomical scan appears normal. Dictated by: Salvador Brito MD 10/28/2024 19:57 Salvador Brito MD in [place] 10/28/2024 19:57
== END 2024-10-28 23:59 | disposition home or self-care (01) ==
LOC: RAD 13:25
PROVIDERS: PCP Obstetrics & Gynecology; Visit Provider Obstetrics & Gynecology
DX: O09.293 Supervision of pregnancy with other poor reproductive or obstetric history, third trimester (principal); O10.913 Unspecified pre-existing hypertension complicating pregnancy, third trimester; O99.213 Obesity complicating pregnancy, third trimester; Z98.891 History of uterine scar from previous surgery; Z87.59 Personal history of other complications of pregnancy, childbirth and the puerperium; Z3A.34 34 weeks gestation of pregnancy
CPT/HCPCS: 76816; 76819

== ENCOUNTER 2024-10-31 23:01 | Outpatient (CLI) | payer MEDICAID, SELFPAY ==
--- OUTSIDE RECORDS SUMMARY | 2024-10-31 23:04 | XMS_ITS | Data Portability ---
Author Organization [facility] Address [address] [facility] [address] [place] [address] Care Team Providers Care Stars Analytical Lead Name Role Phone ANIA FERNANDEZ Primary Care Provider Assessment No assessment recorded. Plan of Treatment Reminders Order Date Submit Date Provider Last Modified By Organization Details Last Modified Time Details Appointments None recorded. Lab TSH, serum or plasma 2020 021 [facility], [address] [place] [address], [address], 08:08:53 T3, total, serum 2020 021 [email or web address] [facility], [address] [place] [address], [address], 08:08:54 T4, total, serum 2020 021 [email or web address] [facility], [address] [place] [address], [address], 08:08:54 thyroid panel, serum 2020 021 [email or web address] [facility], [address] [place] [address], [address], 08:08:54 GEORGES (antinuclea r antibodies) panel, serum 2020 021 SULY [facility], [address] [place] [address], [address], 22:18:36 Referral None recorded. Procedures None recorded. Surgeries None recorded. Imaging None recorded. Medication Orders omeprazole 20 mg capsule,del ayed release 2020 021 asoper1 [facility] [phone], [address], 15:17:05 Patient TargetsNo targets recorded. Patient Instructions Encounter Date Encounter Id Patient Instructions Last Modified By Organization Details Last Modified Time 05/10/2021 [id number] 1. Flexible laryngoscopy performed today - Full [...] lab results or sooner if concerns arise. [facility] Not available 05/10/2021 09:27:49 06/16/2021 [id number] 1. Reviewed patients labwork, FNA and EGD biopsy. 2. Recommended the patient follow up with endocrinology; patient will set this up herself. 3. Follow up visit PRN or sooner if concerns arise. [facility] 06/16/2021 15:40:40 Reason for [...] 14:25 Page 1 of 1 Not Available [facility] [address] [facility], [place], [address], 05/27/2021 14:26:47 06/06/20 21 06/06/2021 SURGI ALL [...] 14:54 Page 1 of 1 Not Available [facility] [address] [place] [address], [address], 06/07/2021 14:55:20 05/13/20 21 03/04/2019 fine needl [...] [email or web address] [facility] [address] [facility], [place], [address], 05/17/2021 11:48:32 05/26/20 21 05/26/2021 US thyro id nodul e fna only [facility] [address] [place] [address] Patien t Name: FRANCISCO JAVIER DYSON ON [...] Agatha Stone MD on 2020 5:03 PM [facility] [address], [address], 06/08/2021 08:46:21 05/26/20 21 05/26/2021 [facility], [facility]u [facility] [address] [place] [address] Patien t Name: FRANCISCO JAVIER DYSON ON [...] Agatha Stone MD on 2020 5:21 PM [facility] [address] [place], [address], 06/08/2021 08:46:20 Result Notes None recorded. Problems No Known Problems Procedures Surgical History Date Name Laterality Status Provider Name and Address Organization Details Recorded Time 05/10/20 21 Laryngoscopy Flex completed Kitty Matias [facility] 05/10/2021 09:25:22 07/09/19 13 section completed [facility] 05/10/2021 08:32:02 07/09/19 10 Carpal tunnel surgery completed [facility] 05/10/2021 08:32:17 07/09/19 04 Oral Surgery completed Odalis Barbour [facility] 05/10/2021 08:32:27 Imaging Results Imaging Date Name Status LastModified by Organiz ation Details LastModified Time 03/04/2019 fine needle aspiration, ultrasound guided, thyroid (PROC) completed Information not available 05/17/2021 11:46:50 12/16/2018 [place], modified barium swallow study completed Information not available 05/17/2021 11:47:37 12/16/2018 US, thyroid completed [email or web address] [facility] [address], [place], [address], 05/17/2021 11:48:32 05/26/2021 US thyroid nodule fna only completed [facility] [address] [place], [address], 06/08/2021 08:46:21 05/26/2021 US, neck, soft tissue completed [facility] [address] [place], [address], 06/08/2021 08:46:20 Procedure Notes None recorded. Medical Equipment None Reported. Allergies Allergen ID Allergen Name Allergen Category Reaction Reaction Severity Criticality Documentation Date Start Date Code Code System Note Provider Name and Address Organization Details Recorded Time 954749 Product containin g penicilli n (product) medicatio n rash Not available Not available 05/10/2021 94918 8001 SNOMED Odalis mathis [facility] 08:31:01 Medications Name Sig Start Date Stop [...] [degF] 141 mm[Hg] 103 mm[Hg] Odalis Barbour [facility] 08:36:34 Date Recorded Body height Body mass index (BMI) Body weight Body temperature Heart rate Systolic blood pressure Diastolic blood pressure Provider Name and Address Organization Details Last Updated DateTime 160.02 cm 36.9 kg/m2 49098.3 1 g 98.7 [degF] 81 /min 137 mm[Hg] 86 mm[Hg] Tara Khan [facility] 15:20:57 Social History Question Answer Notes LastModified by Organizat ion Details LastModified Time Tobacco Smoking Status Never Smoker Odalis Barbour [facility] 05/10/2021 08:31:47 What Is Your Level Of Alcohol Consumption? None [email or web address] Information not available 05/10/2021 Do You Use Any Illicit Or Recreational Drugs? No Information not available 05/10/2021 Has Tobacco Cessation Counseling Been Provided? No Information not available 05/10/2021 Have You Recently Traveled Abroad? No [email or web address] Information not available 05/10/2021 Do You Or Have You Ever Used Any Other Forms Of Tobacco Or Nicotine? No [email or web address] Information not available 05/10/2021 Sex: Unknown Functional Status None recorded. Mental Status None recorded. Family History Relationship Description Onset Age of this Age Resolved Age Notes LastModified by Organization Details LastModified Time Mother Family history of malignant neoplasm [email or web address] Not available 2020 08:31:27 Father Hypertensive disorder abdi Not available 2020 08:31:37 Medical History Condition Response Heart Problems N Depression N Anesthesia Complications N Diabetes N Bleeding Disorder N Cancer N Asthma N Hepatitis N Heart Disease N Hypertension N Gynecological HistoryNo gynecological history recorded. Obstetrics History GPAL:G 0 P 0 0 0 0 Past Encounters Encounter ID Performer Location Encounter Start Date Encounter Closed Date Diagnosis/Indication Diagnosis SNOMED-CT Code Diagnosis ICD10 Code Diagnosis Note [id number] JESÚS POST MD [place] [facility] [address] [place] [address] 05/10/2021 08:13:18 05/10/2021 10:21:22 Thyroid nodule 242792347 E04.1 Choking sensation 035538 009 R09.89 Difficulty swallowing 28 3537589 R13.10 Chronic hoarseness 30605 00717 105 R49.0 Weight gain 1052385 R63. 5 Laryngopha ryngeal reflux 607071563 K21.9 R > L Laryngeal spasm 14926995 2 J38.5 [id number] MARTHA ROJAS MD SURGERY SCHEDULE [address] [place] [id number] 06/06/2021 07:10:09 06/06/2021 07:11:28 [id number] JESÚS PSOT MD [place] [facility] [address] [place] [id number] 06/16/2021 15:06:03 06/16/2021 16:03:06 Thyroid nodule 349332839 E04.1 Choking sensation 979402 009 R09.89 Difficulty swallowing 28 7993713 R13.10 Chronic hoarseness 13016 51097 105 R49.0 Weight gain 4133975 R63. 5 Laryngopha ryngeal reflux 557877291 K21.9 R > L Laryngeal spasm 20758260 2 J38.5 Marylin thyroiditis 21 300094 E06.3 Health Concerns Section Related Observation LastModified by Organization Detai ls LastModified Time None Recorded Concern Status LastModified by Organization Details LastModified Time None Recorded Advance Directives Directive None Recorded Payers Encounter Date Sequence Insurance Name Policy Number Policy Yang Covered Member ID Yang Member ID Guarantor Name 05/10/2021 1 [employer] - OPEN ACCESS - NATIONAL (POS) Dk Frances [id number] Idalmis Frances 06/06/2021 1 [employer] - OPEN ACCESS - NATIONAL (POS) Dk Frances [id number] Idalmis Frances 06/16/2021 1 [employer] - OPEN ACCESS - NATIONAL (POS) Dk Frances [id number] Idalmis rFances Notes Date Note Type Note Provider Name [...] has an autoimmune disorder. JESÚS POST MD [address] [place] [address], [phone], [facility] 05/11/2021 13:22:07 06/16/2021 text/html Idalmis is a [...] a few weeks ago. JESÚS POST MD [address] [place] [address], [phone], [facility] 06/16/2021 17:00:04 OBGyn Episode No OBEpisode recorded.
[2024-10-31 23:06] VITALS: BMI 42.9
[2024-10-31 23:10] VITALS: BP 142/79; PULSE 98; RESP 18; TEMP 36.6; O2SAT 96; BMI 42.9
[2024-10-31 23:15] LABS: Microscopic, Urine URINE MICROSCOPIC (MICROSCOPIC)
[2024-10-31 23:17] LABS: Appearance,Urine CLEAR (Clear); Bilirubin,Urine Negative (Negative); Blood, Urine Negative (Negative); Color,Urine YELLOW (Yellow); Glucose,Urine (UA) 1+ (Negative); Ketones,Urine TRACE (Negative); Leukocyte Esterase,Urine Negative (Negative); Nitrate,Urine Negative (Negative); Protein,Urine Negative (Negative); Specific Gravity, Urine >= 1.030 (1.005-1.030); Urobilinogen,Urine 0.2 EU/dl (0.2)
[2024-10-31 23:32] LABS: Bacteria,Urine Trace /lpf; WBC,Urine Occasional #/hpf (0-3)
[2024-10-31 23:48] VITALS: BP 138/78
== END 2024-11-01 00:09 | disposition home or self-care (01) ==
LOC: OBOUT 23:03 → OB 23:03
PROVIDERS: PCP Physician Assistant; Visit Provider Obstetrics & Gynecology
DX: O36.8130 Decreased fetal movements, third trimester, not applicable or unspecified (principal); Z3A.35 35 weeks gestation of pregnancy
CPT/HCPCS: 81001; G0463

== ENCOUNTER 2024-11-04 10:51 | Outpatient (CLI) | payer MEDICAID, SELFPAY ==
--- OUTSIDE RECORDS SUMMARY | 2024-11-04 10:55 | XMS_ITS | Data Portability ---
Author Organization [facility] [place] [facility] Address [address] [facility] [address] [place] [address] Care Team Providers Care Dental Scheduler Name Role Phone REBECCA ANIA Primary Care Provider Assessment No assessment recorded. Plan of Treatment Reminders Order Date Submit Date Provider Last Modified By Organization Details Last Modified Time Details Appointments None recorded. Lab TSH, serum or plasma 2020 021 [email or web address] [facility], [address] [place] [address], [id number], 08:08:53 T3, total, serum 2020 021 [email or web address] [facility], [address] [place] [address], [phone], 08:08:54 T4, total, serum 2020 021 [email or web address] [facility], [address] [place] [address], [id number], 08:08:54 thyroid panel, serum 2020 021 [email or web address] [facility], [address] [place] [address], [id number], 08:08:54 GEORGES (antinuclea r antibodies) panel, serum 2020 021 SULY [facility], [address] [place] [address], [id number], 22:18:36 Referral None recorded. Procedures None recorded. Surgeries None recorded. Imaging None recorded. Medication Orders omeprazole 20 mg capsule,del ayed release 2020 021 asoper1 [facility] [address], [address], 15:17:05 Patient TargetsNo targets recorded. Patient Instructions Encounter Date Encounter Id Patient Instructions Last Modified By Organization Details Last Modified Time 05/10/2021 [id number] 1. Flexible laryngoscopy performed today - Full [...] lab results or sooner if concerns arise. [facility] Not available 05/10/2021 09:27:49 06/16/2021 [id number] 1. Reviewed patients labwork, FNA and EGD biopsy. 2. Recommended the patient follow up with endocrinology; patient will set this up herself. 3. Follow up visit PRN or sooner if concerns arise. [facility] Not available 06/16/2021 15:40:40 Reason for Referral [...] 14:25 Page 1 of 1 Not Available [facility] [address] [facility], [place], [address], 05/27/2021 14:26:47 06/06/20 21 06/06/2021 SURGI ALL [...] 14:54 Page 1 of 1 Not Available [facility] [address] [place] [address], [phone], 06/07/2021 14:55:20 05/13/20 21 03/04/2019 fine needl [...] [email or web address] [address] [facility], [place], [address], 05/17/2021 11:48:32 05/26/20 21 05/26/2021 US thyro id nodul e fna only [facility] [address] [place] [address] Patien t Name: FRANCISCO JAVIER DYSON ON [...] Agatha Stone MD on 2020 5:03 PM [facility] [address], [address], 06/08/2021 08:46:21 05/26/20 21 05/26/2021 [facility] [address] [place] [address] Patien t Name: FRANCISCO JAVIER DYSON ON [...] Agatha Stone MD on 2020 5:21 PM [facility] [address] [place], [address], 06/08/2021 08:46:20 Result Notes None recorded. Problems No Known Problems Procedures Surgical History Date Name Laterality Status Provider Name and Address Organization Details Recorded Time 05/10/20 21 Laryngoscopy Flex completed Kitty Matias [facility] 05/10/2021 09:25:22 07/09/19 13 section completed [facility] 05/10/2021 08:32:02 07/09/19 10 Carpal tunnel surgery completed [facility] 05/10/2021 08:32:17 07/09/19 04 Oral Surgery completed Odalis Barbour [facility] 05/10/2021 08:32:27 Imaging Results Imaging Date Name Status LastModified by Organiz ation Details LastModified Time 03/04/2019 fine needle aspiration, ultrasound guided, thyroid (PROC) completed Information not available 05/17/2021 11:46:50 12/16/2018 [place], modified barium swallow study completed Information not available 05/17/2021 11:47:37 12/16/2018 US, thyroid completed [email or web address] [address], [place], [address], 05/17/2021 11:48:32 05/26/2021 US thyroid nodule fna only completed [facility] [address] [place], [address], 06/08/2021 08:46:21 05/26/2021 US, neck, soft tissue completed [facility] [address] [place], [address], 06/08/2021 08:46:20 Procedure Notes None recorded. Medical Equipment None Reported. Allergies Allergen ID Allergen Name Allergen Category Reaction Reaction Severity Criticality Documentation Date Start Date Code Code System Note Provider Name and Address Organization Details Recorded Time 108455 Product containin g penicilli n (product) medicatio n rash Not available Not available 05/10/2021 85995 8001 SNOMED Odalis mathis [facility] 08:31:01 Medications Name Sig Start Date [...] [degF] 141 mm[Hg] 103 mm[Hg] Odalis Barbour [facility] 08:36:34 Date Recorded Body height Body mass index (BMI) Body weight Body temperature Heart rate Systolic blood pressure Diastolic blood pressure Provider Name and Address Organization Details Last Updated DateTime 160.02 cm 36.9 kg/m2 92280.3 1 g 98.7 [degF] 81 /min 137 mm[Hg] 86 mm[Hg] Tara Khan [facility] 15:20:57 Social History Question Answer Notes LastModified by Organizat ion Details LastModified Time Tobacco Smoking Status Never Smoker Odalis Barbour [facility] 05/10/2021 08:31:47 What Is Your Level Of Alcohol Consumption? None [email or web address] Information not available 05/10/2021 Do You Use Any Illicit Or Recreational Drugs? No [email or web address] Information not available 05/10/2021 Has Tobacco Cessation Counseling Been Provided? No Information not available 05/10/2021 Have You Recently Traveled Abroad? No [email or web address] Information not available 05/10/2021 Do You Or Have You Ever Used Any Other Forms Of Tobacco Or Nicotine? No [email or web address] Information not available 05/10/2021 Sex: Unknown Functional Status None recorded. Mental Status None recorded. Family History Relationship Description Onset Age of this Age Resolved Age Notes LastModified by Organization Details LastModified Time Mother Family history of malignant neoplasm [email or web address] Not available 2020 08:31:27 Father Hypertensive disorder abdi Not available 2020 08:31:37 Medical History Condition Response Diabetes N Heart Problems N Bleeding Disorder N Anesthesia Complications N Hepatitis N Heart Disease N Cancer N Hypertension N Depression N Asthma N Gynecological HistoryNo gynecological history recorded. Obstetrics History GPAL:G 0 P 0 0 0 0 Past Encounters Encounter ID Performer Location Encounter Start Date Encounter Closed Date Diagnosis/Indication Diagnosis SNOMED-CT Code Diagnosis ICD10 Code Diagnosis Note [id number] JESÚS POST MD [facility] [address] [place] [address] 05/10/2021 08:13:18 05/10/2021 10:21:22 Thyroid nodule 585389760 E04.1 Choking sensation 034382 009 R09.89 Difficulty swallowing 28 5677226 R13.10 Chronic hoarseness 26054 60501 105 R49.0 Weight gain 0006792 R63. 5 Laryngopha ryngeal reflux 085981795 K21.9 R > L Laryngeal spasm 10701283 2 J38.5 [id number] MARTHA ROJAS MD SURGERY SCHEDULE [address] [place] [phone] 06/06/2021 07:10:09 06/06/2021 07:11:28 [id number] JESÚS POST MD [place] [facility] [address] [place] [address] 06/16/2021 15:06:03 06/16/2021 16:03:06 Thyroid nodule 562041859 E04.1 Choking sensation 838511 009 R09.89 Difficulty swallowing 28 0019286 R13.10 Chronic hoarseness 14735 05414 105 R49.0 Weight gain 3951632 R63. 5 Laryngopha ryngeal reflux 933698215 K21.9 R > L Laryngeal spasm 93885265 2 J38.5 Marylin thyroiditis 21 887480 E06.3 Health Concerns Section Related Observation LastModified by Organization Detai ls LastModified Time None Recorded Concern Status LastModified by Organization Details LastModified Time None Recorded Advance Directives Directive None Recorded Payers Encounter Date Sequence Insurance Name Policy Number Policy Yang Covered Member ID Yang Member ID Guarantor Name 05/10/2021 1 [employer] - OPEN ACCESS - NATIONAL (POS) Dk Frances [id number] Idalmis Frances 06/06/2021 1 [employer] - OPEN ACCESS - NATIONAL (POS) Dk Frances [id number] Idalmis Frances 06/16/2021 1 [employer] - OPEN ACCESS - NATIONAL (POS) Dk Frances [id number] Idalmis Frances Notes Date Note Type Note [...] has an autoimmune disorder. JESÚS POST MD [address] [place] [address], [phone], [facility] 05/11/2021 13:22:07 06/16/2021 text/html Idalmis is [...] a few weeks ago. JESÚS POST MD [address] [place] [address], [phone], [facility] 06/16/2021 17:00:04 OBGyn Episode No OBEpisode recorded.
[2024-11-04 10:59] VITALS: BMI 25.6
[2024-11-04 11:59] LABS: Microscopic, Urine URINE MICROSCOPIC (MICROSCOPIC)
[2024-11-04 12:17] LABS: Appearance,Urine CLEAR (Clear); Bilirubin,Urine Negative (Negative); Blood, Urine Negative (Negative); Color,Urine YELLOW (Yellow); Glucose,Urine (UA) Negative (Negative); Ketones,Urine Negative (Negative); Leukocyte Esterase,Urine Negative (Negative); Nitrate,Urine Negative (Negative); Protein,Urine Negative (Negative); Urobilinogen,Urine 0.2 EU/dl (0.2)
[2024-11-04 12:22] VITALS: BP 142/81; PULSE 93; RESP 18; TEMP 37.7; O2SAT 97; BMI 43.0
[2024-11-04 12:30] LABS: Basophils % 0.2 % (0.1-2.0); Eosinophils # 0.1 Kmm3 (0.0-0.4); Eosinophils % 1.2 % (0.1-12.0); Hematocrit 38.9 % (37.0-47.0); Lymphocytes # 1.6 K/mm3 (0.7-4.5); Lymphocytes % 17.2 % (10-50); Mean Corpuscular HGB Conc 33.4 g/dL (31.8-35.4); Mean Corpuscular Hemoglobin 29.5 pg (27.0-31.2); Mean Corpuscular Volume 88.2 fl (81-99); Mean Platelet Volume 9.6 fl (7.4-10.4); Monocytes # 0.7 K/mm3 (0.1-1.0); Monocytes % 7.8 % (1.7-9.3); Neutrophils # 6.9 K/mm3 (1.8-7.8); Neutrophils % 72.8 % (37.0-80.0); Nucleated Red Blood Cells # 0 10^3/uL; Nucleated Red Blood Cells % 0 %; Platelet Count 269 K/mm3 (142-424); Red Blood Count 4.41 M/mm3 (4.20-5.40); Red Cell Distribution Width 13.8 % (11.5-17.5); Red Cell Distribution Width-SD 44.5 fL; White Blood Count 9.5 K/mm3 (4.8-10.8)
[2024-11-04 12:30] LABS: Creatinine,Urine Random 44 mg/dL (Not Estab.)
[2024-11-04 12:36] LABS: Bacteria,Urine Trace /lpf; Squamous Epithelial Cell,Urine Occasional #/hpf (0-5)
[2024-11-04 12:36] LABS: Albumin Level 3.6 g/dl (3.5-5.0); Chloride 109 mmol/L (98-107); Potassium 3.7 mmoL/L (3.5-5.1); Sodium 137 mmol/L (136-145)
[2024-11-04 12:39] LABS: Alanine Aminotransferase 24 U/L (12-78); Albumin/Globulin Ratio 1.2 (1.1-1.8); Alkaline Phosphatase 134 U/L (38-126); Anion Gap 9.7 mEq/L (5-15); Aspartate Amino Transferase 23 U/L (14-36); Bilirubin,Total 0.2 mg/dl (0.2-1.3); Blood Urea Nitrogen 7 mg/dl (7-17); Carbon Dioxide 22 mmol/L (22.0-30.0); Creatinine Clearance Estimated 163 mL/min (50-200); Estimated Glomerular Filt Rate 178 ml/min (>60); GFR (African American) 215 ML/MIN (>60); Globulin 3.1 g/dL (1.3-3.2); Total Protein,Serum 6.7 g/dl (6.3-8.2)
[2024-11-04 12:40] LABS: Calcium 9.5 mg/dl (8.4-10.2); Glucose 91 mg/dl (74-100)
[2024-11-04 12:48] LABS: Uric Acid 3.2 mg/dl (2.5-6.2)
[2024-11-04 12:52] LABS: Activated Partial Thrombo Time 26.4 seconds (22.8-30.6); Fibrinogen 483 mg/dL (229.9-363.5); INR 0.89 (0.9-1.1); Prothrombin Time 10.1 seconds (10.1-12.5)
== END 2024-11-04 13:50 | disposition home or self-care (01) ==
LOC: OBOUT 10:53 → OB 10:53
PROVIDERS: Obstetrics & Gynecology; PCP Physician Assistant; Visit Provider Obstetrics & Gynecology
DX: O13.3 Gestational [pregnancy-induced] hypertension without significant proteinuria, third trimester (principal); Z3A.35 35 weeks gestation of pregnancy
CPT/HCPCS: 36415; 80053; 81001; 82570; 84156; 84550; 85025; 85384; 85610; 85730; G0463

== ENCOUNTER 2024-11-11 12:09 | Outpatient (CLI) | payer MEDICAID, SELFPAY ==
[2024-11-11 12:26] LABS: Basophils % 0.1 % (0.1-2.0); Eosinophils # 0.1 Kmm3 (0.0-0.4); Eosinophils % 1.1 % (0.1-12.0); Hematocrit 39.9 % (37.0-47.0); Hemoglobin 13.4 g/dL (12.2-16.2); Immature Granulocytes # 0.08 10^3uL; Immature Granulocytes % 0.8 %; Lymphocytes # 1.5 K/mm3 (0.7-4.5); Lymphocytes % 16.1 % (10-50); Mean Corpuscular HGB Conc 33.6 g/dL (31.8-35.4); Mean Corpuscular Hemoglobin 29.6 pg (27.0-31.2); Mean Corpuscular Volume 88.3 fl (81-99); Mean Platelet Volume 9.8 fl (7.4-10.4); Monocytes # 0.7 K/mm3 (0.1-1.0); Monocytes % 7.4 % (1.7-9.3); Neutrophils # 7.1 K/mm3 (1.8-7.8); Neutrophils % 74.5 % (37.0-80.0); Nucleated Red Blood Cells # 0 10^3/uL; Nucleated Red Blood Cells % 0 %; Platelet Count 272 K/mm3 (142-424); Red Blood Count 4.52 M/mm3 (4.20-5.40); Red Cell Distribution Width 13.9 % (11.5-17.5); White Blood Count 9.5 K/mm3 (4.8-10.8)
[2024-11-11 12:58] LABS: Activated Partial Thrombo Time 26.2 seconds (22.8-30.6); Fibrinogen 428 mg/dL (229.9-363.5); INR 0.86 (0.9-1.1); Prothrombin Time 9.8 seconds (10.1-12.5)
[2024-11-11 13:06] LABS: Alanine Aminotransferase 22 U/L (12-78); Anion Gap 7.2 mEq/L (5-15); Aspartate Amino Transferase 22 U/L (14-36); Blood Urea Nitrogen 5 mg/dl (7-17); Calcium 9.7 mg/dl (8.4-10.2); Carbon Dioxide 23 mmol/L (22.0-30.0); Chloride 107 mmol/L (98-107); Estimated Glomerular Filt Rate 178 ml/min (>60); GFR (African American) 215 ML/MIN (>60); Glucose 106 mg/dl (74-100); Potassium 4.2 mmoL/L (3.5-5.1); Sodium 133 mmol/L (136-145); Uric Acid 3.5 mg/dl (2.5-6.2)
[2024-11-11 13:07] LABS: Alanine Aminotransferase 22 U/L (12-78); Albumin Level 3.7 g/dl (3.5-5.0); Albumin/Globulin Ratio 1.4 (1.1-1.8); Alkaline Phosphatase 123 U/L (38-126); Anion Gap 7.2 mEq/L (5-15); Aspartate Amino Transferase 22 U/L (14-36); Bilirubin,Total 0.4 mg/dl (0.2-1.3); Blood Urea Nitrogen 5 mg/dl (7-17); Calcium 9.8 mg/dl (8.4-10.2); Carbon Dioxide 23 mmol/L (22.0-30.0); Chloride 108 mmol/L (98-107); Estimated Glomerular Filt Rate 178 ml/min (>60); GFR (African American) 215 ML/MIN (>60); Globulin 2.6 g/dL (1.3-3.2); Glucose 105 mg/dl (74-100); Potassium 4.2 mmoL/L (3.5-5.1); Sodium 134 mmol/L (136-145); Total Protein,Serum 6.3 g/dl (6.3-8.2)
== END 2024-11-11 23:59 | disposition home or self-care (01) ==
LOC: LAB 12:09
PROVIDERS: Obstetrics & Gynecology; PCP Physician Assistant; Visit Provider Obstetrics & Gynecology
DX: O10.912 Unspecified pre-existing hypertension complicating pregnancy, second trimester (principal); O09.292 Supervision of pregnancy with other poor reproductive or obstetric history, second trimester; G43.909 Migraine, unspecified, not intractable, without status migrainosus; Z3A.24 24 weeks gestation of pregnancy
CPT/HCPCS: 36415; 80048; 80053; 84450; 84460; 84550; 85025; 85384; 85610; 85730; 86403

== ENCOUNTER 2024-11-14 04:02 | Inpatient (IN) | payer MEDICAID, SELFPAY ==
[2024-11-14 04:05] VITALS: BMI 43.2
--- OUTSIDE RECORDS SUMMARY | 2024-11-14 04:05 | XMS_ITS | Data Portability ---
Author Organization [facility] [place] [facility] Address [address] [facility] [address] [place] [address] Care Team Providers Care Linesperson Name Role Phone ANIA FERNANDEZ Primary Care Provider [phone] Assessment No assessment recorded. Plan of Treatment Reminders Order Date Submit Date Provider Last Modified By Organization Details Last Modified Time Details Appointments None recorded. Lab TSH, serum or plasma 2020 021 [email or web address] [facility], [address] [place] [address], [address], 08:08:53 T3, total, serum 2020 021 [email or web address] [facility], [address] [place] [address], [address], 08:08:54 T4, total, serum 2020 021 [email or web address] [facility], [address] [place] [address], [address], 08:08:54 thyroid panel, serum 2020 021 [email or web address] [facility], [address] [place] [address], [address], 08:08:54 GEORGES (antinuclea r antibodies) panel, serum 2020 021 SULY [facility], [address] [place] [address], [phone], 22:18:36 Referral None recorded. Procedures None recorded. Surgeries None recorded. Imaging None recorded. Medication Orders omeprazole 20 mg capsule,del ayed release 2020 021 [email or web address] [facility] [address], [address], 15:17:05 Patient TargetsNo targets recorded. Patient Instructions Encounter Date Encounter Id Patient Instructions Last Modified By Organization Details Last Modified Time 05/10/2021 [id number] 1. Flexible laryngoscopy performed today - Full [...] lab results or sooner if concerns arise. [facility] Not available 05/10/2021 09:27:49 06/16/2021 [id number] 1. Reviewed patients labwork, FNA and EGD biopsy. 2. Recommended the patient follow up with endocrinology; patient will set this up herself. 3. Follow up visit PRN or sooner if concerns arise. [facility] Not available 06/16/2021 15:40:40 Reason for [...] 14:25 Page 1 of 1 Not Available [facility] [address] [facility], [place], [address], 05/27/2021 14:26:47 06/06/20 21 06/06/2021 SURGI ALL [...] 14:54 Page 1 of 1 Not Available [facility] [address] [place] [address], [address], 06/07/2021 14:55:20 05/13/20 21 03/04/2019 fine needl [...] [email or web address] [address] [facility], [place], [address], 05/17/2021 11:48:32 05/26/20 21 05/26/2021 US thyro id nodul e fna only [facility] [address] [place] [address] Patien t Name: FRANCISCO JAVIER DYSON ON [...] Agatha Stone MD on 2020 5:03 PM [facility] [address], [address], 06/08/2021 08:46:21 05/26/20 21 05/26/2021 [facility] [address] [place] [address] Patien t Name: FRANCISCO JAVIER DYSON ON [...] Agatha Stone MD on 2020 5:21 PM [facility] [address] [place], [address], 06/08/2021 08:46:20 Result Notes None recorded. Problems No Known Problems Procedures Surgical History Date Name Laterality Status Provider Name and Address Organization Details Recorded Time 05/10/20 21 Laryngoscopy Flex completed Kitty Matias [facility] 05/10/2021 09:25:22 07/09/19 13 section completed [facility] 05/10/2021 08:32:02 07/09/19 10 Carpal tunnel surgery completed [facility] 05/10/2021 08:32:17 07/09/19 04 Oral Surgery completed Odalis Barbour [facility] 05/10/2021 08:32:27 Imaging Results Imaging Date Name Status LastModified by Organiz ation Details LastModified Time 03/04/2019 fine needle aspiration, ultrasound guided, thyroid (PROC) completed Information not available 05/17/2021 11:46:50 12/16/2018 [place], modified barium swallow study completed Information not available 05/17/2021 11:47:37 12/16/2018 US, thyroid completed [facility] [address], [place], [address], 05/17/2021 11:48:32 05/26/2021 US thyroid nodule fna only completed [facility] [address] [place], [address], 06/08/2021 08:46:21 05/26/2021 US, neck, soft tissue completed [facility] [address] [place], [address], 06/08/2021 08:46:20 Procedure Notes None recorded. Medical Equipment None Reported. Allergies Allergen ID Allergen Name Allergen Category Reaction Reaction Severity Criticality Documentation Date Start Date Code Code System Note Provider Name and Address Organization Details Recorded Time 845793 Product containin g penicilli n (product) medicatio n rash Not available Not available 05/10/2021 96675 8001 SNOMED Odalis mathis [facility] 08:31:01 Medications Name Sig Start Date Stop [...] [degF] 141 mm[Hg] 103 mm[Hg] Odalis Barbour [facility] 08:36:34 Date Recorded Body height Body mass index (BMI) Body weight Body temperature Heart rate Systolic blood pressure Diastolic blood pressure Provider Name and Address Organization Details Last Updated DateTime 160.02 cm 36.9 kg/m2 72837.3 1 g 98.7 [degF] 81 /min 137 mm[Hg] 86 mm[Hg] Tara Khan [facility] 15:20:57 Social History Question Answer Notes LastModified by Organizat ion Details LastModified Time Tobacco Smoking Status Never Smoker Odalis Barbour [facility] 05/10/2021 08:31:47 What Is Your Level Of Alcohol Consumption? None [email or web address] Information not available 05/10/2021 Do You Use Any Illicit Or Recreational Drugs? No [email or web address] Information not available 05/10/2021 Has Tobacco Cessation Counseling Been Provided? No [email or web address] Information not available 05/10/2021 Have You Recently Traveled Abroad? No [email or web address] Information not available 05/10/2021 Do You Or Have You Ever Used Any Other Forms Of Tobacco Or Nicotine? No [email or web address] Information not available 05/10/2021 Sex: Unknown Functional Status None recorded. Mental Status None recorded. Family History Relationship Description Onset Age of this Age Resolved Age Notes LastModified by Organization Details LastModified Time Mother Family history of malignant neoplasm [email or web address] Not available 2020 08:31:27 Father Hypertensive disorder [...] SNOMED-CT Code Diagnosis ICD10 Code Diagnosis Note [id number] JESSÚ POST MD [place] [facility] [address] [place] [address] 05/10/2021 08:13:18 05/10/2021 10:21:22 Thyroid nodule 576514899 E04.1 Choking sensation 009403 009 R09.89 Difficulty swallowing 28 1458724 R13.10 Chronic hoarseness 12116 33887 105 R49.0 Weight gain 4239058 R63. 5 Laryngopha ryngeal reflux 528051149 K21.9 R > L Laryngeal spasm 37286762 2 J38.5 [id number] MARTHA ROJAS MD SURGERY SCHEDULE [address] [place] [address] 06/06/2021 07:10:09 06/06/2021 07:11:28 [id number] JESÚS POST MD [place] [facility] [address] [place] [address] 06/16/2021 15:06:03 06/16/2021 16:03:06 Thyroid nodule 834972593 E04.1 Choking sensation 514275 009 R09.89 Difficulty swallowing 28 6542271 R13.10 Chronic hoarseness 87695 00074 105 R49.0 Weight gain 2436957 R63. 5 Laryngopha ryngeal reflux 624048543 K21.9 R > L Laryngeal spasm 41068664 2 J38.5 Marylin thyroiditis 21 519004 E06.3 Health Concerns Section Related Observation LastModified by Organization Detai ls LastModified Time None Recorded Concern Status LastModified by Organization Details LastModified Time None Recorded Advance Directives Directive None Recorded Payers Insurance Date Sequence Insurance Name Policy Number Policy Yang Covered Member ID Yang Member ID Guarantor Name 06/22/2021 1 [employer] - OPEN ACCESS - NATIONAL (POS) Dk Frances [id number] Idalmis Frances Notes Date Note Type Note [...] has an autoimmune disorder. JESÚS POST MD [facility] [place], [address], [facility] 05/11/2021 13:22:07 06/16/2021 text/html Idalmis [...] a few weeks ago. JESÚS POST MD [facility] [place], [address], [facility] 06/16/2021 17:00:04 OBGyn Episode No OBEpisode recorded.
[2024-11-14 04:52] VITALS: BMI 95.3
[2024-11-14 05:04] LABS: Basophils % 0.1 % (0.1-2.0); Eosinophils # 0.1 Kmm3 (0.0-0.4); Eosinophils % 1.5 % (0.1-12.0); Hematocrit 36.1 % (37.0-47.0); Hemoglobin 12.1 g/dL (12.2-16.2); Immature Granulocytes # 0.07 10^3uL; Immature Granulocytes % 0.8 %; Lymphocytes # 1.8 K/mm3 (0.7-4.5); Lymphocytes % 19.4 % (10-50); Mean Corpuscular HGB Conc 33.5 g/dL (31.8-35.4); Mean Corpuscular Hemoglobin 29.5 pg (27.0-31.2); Mean Platelet Volume 10.1 fl (7.4-10.4); Monocytes % 10.7 % (1.7-9.3); Neutrophils # 6.1 K/mm3 (1.8-7.8); Neutrophils % 67.5 % (37.0-80.0); Nucleated Red Blood Cells # 0 10^3/uL; Nucleated Red Blood Cells % 0 %; Platelet Count 240 K/mm3 (142-424); Red Cell Distribution Width 13.8 % (11.5-17.5); Red Cell Distribution Width-SD 44.3 fL; White Blood Count 9.1 K/mm3 (4.8-10.8)
[2024-11-14 05:18] VITALS: BP 137/73; PULSE 86; RESP 18; TEMP 36.7; O2SAT 100
[2024-11-14 05:19] VITALS: BP 137/73; PULSE 86; RESP 18; TEMP 36.6; O2SAT 100
[2024-11-14 05:24] LABS: Alanine Aminotransferase 21 U/L (12-78); Albumin Level 3.5 g/dl (3.5-5.0); Albumin/Globulin Ratio 1.3 (1.1-1.8); Alkaline Phosphatase 129 U/L (38-126); Anion Gap 5.6 mEq/L (5-15); Aspartate Amino Transferase 22 U/L (14-36); Bilirubin,Total 0.3 mg/dl (0.2-1.3); Blood Urea Nitrogen 8 mg/dl (7-17); Calcium 8.8 mg/dl (8.4-10.2); Carbon Dioxide 23 mmol/L (22.0-30.0); Chloride 109 mmol/L (98-107); Creatinine Clearance Estimated 163 mL/min (50-200); Estimated Glomerular Filt Rate 178 ml/min (>60); GFR (African American) 215 ML/MIN (>60); Globulin 2.6 g/dL (1.3-3.2); Glucose 105 mg/dl (74-100); Potassium 3.6 mmoL/L (3.5-5.1); Sodium 134 mmol/L (136-145); Total Protein,Serum 6.1 g/dl (6.3-8.2)
[2024-11-14 06:56] LABS: Microscopic, Urine URINE MICROSCOPIC (MICROSCOPIC)
[2024-11-14 07:49] LABS: Appearance,Urine SL CLOUDY (Clear); Bilirubin,Urine Negative (Negative); Blood, Urine TRACE-I (Negative); Color,Urine YELLOW (Yellow); Glucose,Urine (UA) Negative (Negative); Ketones,Urine Negative (Negative); Leukocyte Esterase,Urine Negative (Negative); Nitrate,Urine Negative (Negative); Protein,Urine Negative (Negative); Specific Gravity, Urine >= 1.030 (1.005-1.030); Urobilinogen,Urine 0.2 EU/dl (0.2)
[2024-11-14] MEDS: OXYTOCIN/RINGERS LACTATE 30 UNITS/500 ML BAG IV (10:06)
[2024-11-14] MEDS: LACTATED RINGERS 1000ML 1,000 ML 500 ML IV (10:07)
[2024-11-14 10:13] LABS: WBC,Urine Occasional #/hpf (0-3)
[2024-11-14 10:14] LABS: Bacteria,Urine 2+ /lpf; Calcium Oxalate Crystals,Urine 1+ /lpf
--- NOTE | 2024-11-14 10:23 | P.HP_ITS ---
History of Present Illness *Admission Date: 11/14/24 *Reason for visit:: Induction *History of present illness: Idalmis Frances is a 39-year-old -0-0-3 at 37 weeks and 0 days gestation who presented to labor and delivery this morning with regular painful contractions and was noted to make slight cervical change. She has an DANIEL of 12/05/2024 based on 9-week ultrasound. She was scheduled for repeat delivery this morning but in light of contractions with some cervical change elected for a trial of labor. Her has been complicated by chronic hypertension, advanced maternal age, obesity, and intrauterine growth restriction. Most recent ultrasound showed that the growth restriction have resolved, see ultrasound report below. [facility] recommended a 37-week delivery and gave approval for trial of labor. See their notes scanned into the chart her blood pressure has been well-controlled without proteinuria. She has had some elevated pressures throughout but they have all resolved. Did she on any antihypertensive medication. On presentation patient endorsed good movement and denies any leakage of fluid or vaginal bleeding. OBHx: G3, P2 -G1: 2009. . delivery at 32 weeks gestation. Female infant. 4 pounds 3 ounces. Reports she went into labor at 28 weeks and 31 weeks gestation, received magnesium, was diagnosed with an abruption -G2: 2012. delivery. delivery of twin infants at 34 week s gestation after PPROM. 2 male infants weighing 5 pound 6 ounces and 5 pounds 10 ounces. With this reports she had mag toxicity and went into labor several times. Was placed on bedrest. Developed preeclampsia. Complicated by a spinal tap, received a blood patch -G3: Current . O+, antibody negative, rubella immune, hepatitis B negative, hepatitis C negative, RPR negative, HIV negative 1 hour GTT: 188 3-hour GTT: 92/169/141/98 Review of ultrasound/growth - Ultrasound on 11/06/2024 at 35 weeks and 6 days gestation, completed at [facility] Patient shows improved interval growth. Cephalic presentation with overall EFW in the 15th percentile and the AC at the 10th percentile. BPP: 8/8. Placenta is posterior. Reports patient is a reasonable candidate for TOLAC - Ultrasound on 10/28/2024 at 34 weeks and 4 days gestation, completed at [facility] Viable fetus in cephalic presentation with a right lateral grade 2 placenta. 7 cm fibroid noted in the anterior wall. EFW: 2049 g, 4 pounds 8 ounces. BPD: 21%, HC: 9%, AC: 4%, FL: 11%. 8th percentile. SANDIE appropriate. BPP: 02/13. - Ultrasound on 10/23/2024 at 33 weeks and 6 days gestation, completed at [facility] Viable fetus in cephalic presentation with a posterior placenta, three- vessel cord. Fibroid not mentioned. EFW: 1788 g, 14th percentile. BPD: 25%, HC: 4%, AC: 1%, FL: 4%. MVP: 4.7 cm. BPP: Normal PFSH PFSH Disclaimer: The information contained in this section may have been updated after the patient was seen, as this information can be updated by other users. Medical History Breast cancer Hiatal hernia Choking in adult Dysphagia Multiple thyroid nodules Thyroid nodule Surgical History H/O lumpectomy Hx of section H/O carpal tunnel repair Family History Other Diabetes Hypertension Social History Smoking Status: Never smoker alcohol intake: never substance use type: denies use current occupational status: unemployed Travel in the last 8 weeks?: None household members: family housing: house Have you lived/traveled outside US in past 30 days?: No Contact w/someone who lives/traveled outside US past 30 days?: No Exposure to someone with infectious disease in past 14 days?: No Do you have a fever (greater than 100.4 F or 38 C)?: No Have you tested positive for COVID-19?: No Exposed to someone with COVID-19 in past 14 days?: No Do you have a sore throat?: No Do you have a cough?: No Do you have any weakness?: No Do you have any diarrhea?: No Are you experiencing any unusual bleeding?: No Do you have any muscle aches/pain?: No Do you have any abdominal pain?: No Are you experiencing loss of taste or smell?: No Other Medical History Have you received the Flu Vaccine for this season: No Have you received the Pneumonia Vaccine: No Review of Systems Review of Systems Review of systems (narrative): Review of Systems Constitutional: Denies fever, chills, and sweats Eyes: Denies vision change/ pain Respiratory: Denies cough and shortness of breath Cardiovascular: Denies chest pain and lightheadedness Gastrointestinal: Admits abdominal pain with contractions. Denies nausea, vomiting. Genitourinary: Denies dysuria and incontinence Musculoskeletal: Denies shoulder pain and back pain Neurological: Denies change in speech or headaches Meds Home Medications and Allergies Home Medications ?Medication ?Instructions ?Recorded ?Confirmed ?Type cholecalciferol (vitamin D3) 125 10,000 unit PO DAILY 06/04/24 11/14/24 History mcg (5,000 unit) capsule omega-3 fatty acids-fish oil 360 1 cap PO DAILY 06/04/24 11/14/24 History mg-1,200 mg capsule (Fish Oil) vits no.126-ferrous fum 1 tab PO DAILY 06/04/24 11/14/24 History 28 mg iron-folic acid 800 mcg tablet (Classic ) aspirin 81 mg tablet,delayed 162 mg PO DAILY 08/14/24 11/14/24 History release magnesium 250 mg tablet 250 mg PO DAILY 11/14/24 11/14/24 History New Prescriptions to Start Prescriptions: Allergies Allergy/AdvReac Type Severity Reaction Status Date / Time Penicillins Allergy Intermediate Rash Verified 11/13/24 10:44 Exam Data for Last 24 hours Vital signs and Labs for Last 24 Hours: Temp Pulse Resp BP Pulse Ox O2 Del Method 98 F 86 18 137/73 100 Room Air 11/14/24 05:19 11/14/24 05:19 11/14/24 05:19 11/14/24 05:19 11/14/24 05:19 11/14/24 05:19 Laboratory Results - last 24 hr 11/14/24 04:44: WBC 9.1, RBC 4.10 L, Hgb 12.1 L, Hct 36.1 L, MCV 88.0, MCH 29.5, MCHC 33.5, RDW 13.8, Plt Count 240, MPV 10.1, Neut % (Auto) 67.5, Lymph % (Auto) 19.4, [place] % (Auto) 10.7 H, Eos % (Auto) 1.5, Baso % (Auto) 0.1, Neut # (Auto) 6.1, Lymph # (Auto) 1.8, [place] # (Auto) 1.0, Eos # (Auto) 0.1, Baso # (Auto) 0.0, Sodium 134 L, Potassium 3.6, Chloride 109 H, Carbon Dioxide 23, Anion Gap 5.6, BUN 8 D, Creatinine 0.40 L, Estimated Creat Clear 163, Estimated GFR 178, Est GFR ( Amer) 215, Glucose 105 H, Calcium 8.8, Total Bilirubin 0.3, AST 22, ALT 21, Alkaline Phosphatase 129 H, Total Protein 6.1 L, Albumin 3.5, Globulin 2.6, Albumin/Globulin Ratio 1.3, Blood Type O Positive, Antibody Screen Negative, Crossmatch (AHG) See Detail 11/14/24 05:30: Urine Color Yellow, Urine Appearance Sl cloudy, Urine pH 6.0, Ur Specific [place] >= 1.030, Urine Protein Negative, Urine Glucose (UA) Negative, Urine Ketones Negative, Urine Blood Trace-i, Urine Nitrate Negative, Urine Bilirubin Negative, Urine Urobilinogen 0.2, Ur Leukocyte Esterase Negative, Urine RBC 5-10, Urine WBC Occasional, Ur Squamous Epith Cells 3-5, Calcium Oxalate Crystal 1+, Urine Bacteria 2+ I & O for Last 24 hours: Intake & Output 11/11/24 11/12/24 11/13/24 11/14/24 23:59 23:59 23:59 23:59 Weight 555 lb 9.038 oz Narrative: General: patient is alert oriented in no acute distress and responds appropriately to questions. HEENT: NCAT, EOMI, moist mucous membranes, neck supple with full ROM Cardiovascular: RRR +S1/S2, no murmurs or rubs Pulmonary: Clear to auscultation bilaterally, nonlabored breathing, symmetric chest rise Abdominal: Gravid abdomen appropriate for gestation. No guarding, rebound, or tenderness noted. Extremities: trace edema, no tenderness or cyanosis noted Skin: Normal turgor, intact, warm. Negative for erythema, pallor, petechia, or lesions Neurologic: Negative for sensory or motor deficit Psychiatric: Normal affect, normal thought process, good judgment and insight, no depression or anxious mood appreciated. *Routine HEENT Exam Head: Present normocephalic and atraumatic Eye: Present EOMI, PERRL and normal accommodation; Absent conjunctival icterus, scleral injection, nystagmus or exophthalmos ENT: Present mucous membranes moist *Routine Respiratory Exam Respiratory: Present CTA bilaterally, normal respiratory effort, able to speak in complete sentences and symmetric chest movement; Absent accessory muscle use, decreased breath sounds, rales, respiratory distress, wheezes, distant breath sounds or diminished air movement *Routine Cardiovascular Exam Cardiovascular: Present RRR, Normal S1 and Normal S2; Absent murmur or gallop *Routine Abdominal Exam Abdominal: Present soft and normoactive bowel sounds; Absent tenderness, distended, rebound or guarding *Routine Rectal Exam Rectal:: deferred *Routine Genitalia Exam Genitalia:: normal female Assessment and Plan *Assessment and plan (1) Asymmetric IUGR affecting , antepartum: Status: Acute Category: Medical Code(s): O36.5990 - Maternal care for other known or suspected poor growth, unspecified trimester, not applicable or unspecified (2) Hx of section: Status: Acute Category: Surgical Code(s): Z98.891 - History of uterine scar from previous surgery (3) BMI greater than 30: Status: Chronic Category: Medical (4) : Status: Acute Qualifiers: Weeks of gestation: 24 weeks Qualified Code(s): Z3A.24 - 24 weeks gestation of Category: Medical Code(s): Z34.90 - Encounter for supervision of normal , unspecified, unspecified trimester (5) Migraine: Status: Acute Qualifiers: Migraine type: unspecified Intractability: intractable Category: Medical Code(s): G43.909 - Migraine, unspecified, not intractable, without status migrainosus (6) Obesity affecting : Status: Acute Category: Medical Code(s): O99.210 - Obesity complicating , unspecified trimester (7) History of placenta abruption: Status: Acute Category: Medical Code(s): Z87.59 - Personal history of other complications of , childbirth and the puerperium (8) Hx of pre-eclampsia in prior , currently : Status: Acute Category: Medical Code(s): O09.299 - Supervision of with other poor reproductive or obstetric history, unspecified trimester (9) Chronic hypertension affecting : Status: Acute Category: Medical Code(s): O10.919 - Unspecified pre-existing hypertension complicating , unspecified trimester (10) Advanced maternal age (AMA) in : Status: Acute Category: Medical (11) Hiatal hernia: Status: Acute Category: Medical Code(s): K44.9 - Diaphragmatic hernia without obstruction or gangrene (12) Encounter for trial of labor: Status: Acute Category: Medical Plan #History of delivery #37 weeks gestation - Admit to L&D for induction of labor - León balloon placed at 8 AM with 80 mL of sterile saline in the uterine balloon and 50 mL of sterile saline in the vaginal balloon. Will monitor and consider low-dose Pitocin in 2 to 3 hours - External FHR and TOCO monitor - Exam on admission: Fingertip/30/-3/soft/midposition - GBS unknown/ Blood type: O+ - Continue GBS prophylaxis with penicillin G [id number] - Hemoglobin: 12.1, Plt: 240 - Plan for epidural anesthesia - Anticipate vaginal delivery of infant: [place] gender #Chronic hypertension - PIH labs obtained - Monitor vitals closely - Most recent urine protein to creatinine ratio on 11/04/2024 was 0.2 - 24-hour urine collected on 10/07/2024: 280 #Advanced maternal age - Low risk , surprise gender #Obesity - BMI: 43 - Complicates all aspects of care #Trial of labor - The patient was counseled extensively on the risk of trial of labor. Specifically I discussed the risk of uterine rupture with induction which is what she would require at this point. I discussed that if this risk were to occur the infant mortality is high. I reviewed the risk of hemorrhage, blood transfusion, and surgical risk to include injury to the surrounding structures including but not limited to the bowel, bladder, ureters, and ovaries. I discussed the risk of hysterectomy. At multiple points during the we have reviewed the risk of extensively. I discussed that the safest delivery would be a successful followed by a scheduled repeat delivery. I discussed with her that the most risky route would be a long trial of labor that ended in delivery with an increased risk of surgical injury, hemorrhage, and and/or maternal . While the patient and I had discussed these several times in the office I extensively reviewed these risks with the patient and her this morning with nursing staff present. Nursing staff signed the consent form with the patient. Patient elected to proceed with trial of labor
[2024-11-14 10:48] LABS: RPR W/RFX Titers Nonreactive (Nonreactive)
--- NOTE | 2024-11-14 11:42 | P.PNANES_ITS ---
[facility] Disclaimer: The information contained in this section may have been updated after the patient was seen, as this information can be updated by other users. Medical History Breast cancer Hiatal hernia Choking in adult Dysphagia Multiple thyroid nodules Thyroid nodule Surgical History H/O lumpectomy Hx of section H/O carpal tunnel repair Family History Other Diabetes Hypertension Social History Smoking Status: Never smoker alcohol intake: never substance use type: denies use current occupational status: unemployed Travel in the last 8 weeks?: None household members: family housing: house Have you lived/traveled outside US in past 30 days?: No Contact w/someone who lives/traveled outside US past 30 days?: No Exposure to someone with infectious disease in past 14 days?: No Do you have a fever (greater than 100.4 F or 38 C)?: No Have you tested positive for COVID-19?: No Exposed to someone with COVID-19 in past 14 days?: No Do you have a sore throat?: No Do you have a cough?: No Do you have any weakness?: No Do you have any diarrhea?: No Are you experiencing any unusual bleeding?: No Do you have any muscle aches/pain?: No Do you have any abdominal pain?: No Are you experiencing loss of taste or smell?: No [facility] Anesthesia Checklist Patient Identification Patient Identification: Arm Band and Verbal (Name & ) Structural Data Admitted From: Home Planned Operative Procedure/s: STEPHANIE Consent for Planned Operative Procedure(s) Verified: Yes Verified Documents: Surgical Consent NPO Status Verified Time NPO: 00:00 Chart Verification Results Verified: CBC and BMP Additional verifications Patient : Yes Anesthesia Reactions: No Hx Blood Transfusions: No Blood Transfusion Reaction: No Airway Assessment Mallampati Score:: Class II C-Spine Mobility Assessed: No TMJ Mobility Assessed: No Dentition: Good Dentition Neurological Assessment Level of Consciousness: Awake, Alert and Appropriate Anesthesia Plan Anesthesia Risk discussed: Yes Anesthesia Plan: Verified ASA Class: II Anesthesia Type: Epidural
--- NOTE | 2024-11-14 13:09 | EXP.LABOR.NO ---
Labor Note Subjective: Date: 11/14/24 Time: 13:09 irregular contractions Objective: NST:: Reactive Contractions:: infrequent Cervical Dilation:: 4 Effacement:: 50% Station: -3 Membranes: intact Fetus: Monitoring?: Yes monitoring type:: External Assessment: Labor progressing?: Yes Plan: Anesthesia for epidural?: Yes Plan for ?: No Continue to monitor?: Yes Comment:: In patients room at bedside for >30 minutes fowllowing a 2 min decel to the 90s. following decel tachycardia noted. temp normal. Cervical ripening balloon removed and cervical exam as stated above. Pitocin is off. monitoring x1hour and then restart low dose pitocin. Will consider AROM and internals conmfortable iwth epidural.
[2024-11-14] MEDS: DEXTROSE 5%-LACTATED RINGERS 1,000 ML 125 ML IV ×2 (13:24→18:08)
[2024-11-14] MEDS: CEFAZOLIN SODIUM 2 GM in 0.9 % SODIUM CHLORIDE 100 ML IV (13:24)
--- NOTE | 2024-11-14 18:34 | EXP.LABOR.NO ---
Labor Note Subjective: Date: 11/14/24 Time: 18:34 irregular contractions Objective: NST:: Reactive Contractions:: every 2-3 minutes Cervical Dilation:: 4 Membranes: ruptured Fetus: Monitoring?: Yes monitoring type:: External Plan: Anesthesia for epidural?: Yes Comment:: Doing well No cervical change AROM completed successfully, clear fluid, tolerated well Epidural working well Category 1 tracing
--- NOTE | 2024-11-14 22:34 | EXP.LABOR.NO ---
Labor Note Subjective: Date: 11/14/24 Time: 22:34 irregular contractions Objective: Contractions:: every 2-3 minutes Cervical Dilation:: 4 Effacement:: 50% Membranes: ruptured Fetus: Monitoring?: Yes monitoring type:: External Assessment: Labor progressing?: No Plan: Anesthesia for epidural?: Yes Plan for ?: Yes Comment:: Cervical ripening balloon 8-12. 4 cm at removal Pitocin started around 10 AM AROM around 2 PM No cervical change noted at 10 PM. Patient with significant increase in her back pain and hip pain. Given no cervical change and increasing pain patient elects to proceed with repeat delivery Reviewed the risks benefits and alternatives to Repeat delivery. Discussed the risk of bleeding, infection injury to the surrounding structures. Patient consented to blood transfusion if medically necessary. Reviewed the rare risk of hysterectomy if bleeding is unable to be controlled. 2 units of blood, TXA, uterotonic's, and a jaded device will be taken to the OR. Discussed risk of infection, the patient has no allergies and will receive 3 g of Ancef preoperatively as well as 500 mg of IV azithromycin. She will have a vaginal prep. Reviewed the risk of injury to surrounding structures including the bowel, bladder, reproductive organs, and neurovascular bundles. Patient voiced understanding. Discussed the increased risk with prior surgery and scarring. Discussed the risk of VTE, anesthesia, and . Discussed that if complication occurred it could prolong surgery, require additional surgeries or require transfer to a tertiary care center. Patient and significant other voiced understanding desire to proceed
--- NOTE | 2024-11-15 00:13 | EXP.OP.NOTE ---
Date of procedure: 11/15/24 Pre-op Diagnosis:: 1. 37 weeks 1days gestation, [place] 2. Chronic hypertension 3. Hx of hemorrhage 4. History of placental abruption 5. History of delivery 6. GBS unknown 7. Attempted trial of labor 8. Intrauterine growth restriction 9. Obesity 10. Advanced maternal age Post-op Diagnosis:: 1. 37 weeks 1days gestation, [place] 2. Chronic hypertension 3. Hx of hemorrhage 4. History of placental abruption 5. History of delivery 6. GBS unknown 7. Attempted trial of labor 8. Intrauterine growth restriction 9. Obesity 10. Advanced maternal age Procedure performed:: Repeat Delivery Surgeon:: Tara Griffin DO Computer Programming Supervisor(s):: Edi Nelson MD SUGAR CHIPPER MACHINE OPERATOR:: Balaji Rivers ([place]) Anesthesia: epidural Estimated blood loss (mL): 350 Clinical Note:: Idalmis Frances presented this morning for an induction trial of labor after delivery. She had a cervical ripening balloon with Pitocin, followed by AROM. Induction started at 8 AM. When the balloon came out she was 4 cm and at 1030 she had not made any change. Decision was made to proceed with repeat delivery Operative findings:: 1. Live viable male : Undecided. Weight: 6pounds 5ounces. 2873g. Apgars 8 and 9 at 1 and 5 minutes respectively 2. Normal-appearing fallopian tubes and ovaries bilaterally 3. was positioned in the OP presentation with a nuchal cord Operative note:: Medications: 3 g of Ancef, 500mg IV Azithromycin Summary: Procedure explained in its entirety. The patient was counseled on the risks and benefits of section including bleeding, vascular injury, infection, and injury to the surrounding structures. Hemorrhage requiring life saving blood transfusion resulting in blood born viral infection or allergic reaction was explained and the patient consented to blood transfusion. Possible need for further operative measures prolonging recovery time and hospitalization reviewed to include hysterectomy. Procedure explained in its entirety and patient had no further questions. Consented to procedure. The patient was taken back to the operating room where adequate epidural anesthesia was obtained. Pneumatic compression stockings applied to lower extremities. Above antibiotics were administered for infection prophylaxis. She was placed in the dorsal supine position Urinary catheter was placed and found to be draining clear urine. The patient was prepped and draped in sterile fashion. Anesthesia was tested and and found to be adequate. A Pfannenstiel skin incision was made with the scalpel. Subcutaneous bleeding vessels were cauterized with the bovie. The incision was taken down to the fascia with the bovie. The fascia was knicked in the midline and sharply extended laterally. The superior aspect of the fascia was grasped with Melba clamps and the rectus muscle was taken down with the Bovie. The rectus muscle was sharply dissected from the midline with Mayos. This process was repeated inferiorly. The rectus muscles were in the midline, peritoneum was identified and entered bluntly. Sb O retractor was placed and the bladder was noted to be out of the operative field. A bladder flap was created with Metzenbaum scissors and [place] pickups. The lower uterine segment was easily identified, sharply incised, and entered bluntly with the surgeon's index finger. Incision was then extended in a superior and inferior fashion by blunt separation. Membranes were revealed clear fluid. The fetus was in cephalic OP presentation. The head was carefully elevated out of the pelvis. Fundal pressure was applied when head was brought into incision. The infants head was delivered without difficulty. The shoulder and body followed without complication. Delivery occurred at 2326. The mouth and nose were suctioned with a bulb. The umbilical cord was clamped and cut. Infant was taken to warmer for evaluation by the sheriff's sergeant. Cord blood was collected. The placenta was delivered via fundal massage. IV Pitocin was initiated. Inside of the uterus was gently cleared of blood and clots with lap sponge. The hysterotomy was closed with 0 Vicryl in a running locked fashion. The lower uterine segment was visualized and noted to be hemostatic. The posterior aspect of the uterus was cleared of blood clot with a damp lap sponge. The gutters were inspected bilaterally and cleared of blood and clots with lap sponges. The uterine incision was reinspected and hemostasis noted. Sb O retractor was removed. The peritoneum was reapproximated using a 2-0 Monocryl in a nonlocked running fashion. The fascia was closed in a running nonlocked fashion using 0 PDS x2 meeting right of midline. Fascia was noted as not having gaps or defects. The subcutaneous fat was closed with 2-0 Monocryl interrupted sutures x3. Skin was closed with the INSORB suture in a subcuticular fashion. Patient tolerated the procedure well and all counts were correct x3, per nursing. Patient will receive tap blocks and then be transported to the OB PACU for recovery and infant bonding. Condition: stable Disposition: PACU Specimens:: 1. Cord blood 2. Placenta Complications:: None
[2024-11-15] MEDS: OXYTOCIN/RINGERS LACTATE 30 UNITS/500 ML BAG 40 UNITS IV (00:40)
[2024-11-15] MEDS: CEFAZOLIN SODIUM 2 GM in 0.9 % SODIUM CHLORIDE 100 ML IV (01:09)
[2024-11-15] MEDS: KETOROLAC 30MG/ML VIAL 30 MG IV (01:10)
[2024-11-15] MEDS: ACETAMINOPHEN 500MG TAB 1000 MG PO ×3 (01:10→14:06)
--- NOTE | 2024-11-15 01:49 | EXP.ANES.I ---
[facility] Anesthesia Record Part I Anesthesia Record I Intake, IV Amount: 1,000 Hydration: Adequate Estimated blood loss (mL): 350 Urine output (mL): 500 Blood Products used (#): none Blood Pressure: 159/85 SaO2: 98 Pulse Rate: 90 Airway Patency: Patent Respiratory Rate: 16 Temperature: 98 F Patient is:: Awake and Stable Stable to PACU at:: 00:20
[2024-11-15 01:50] VITALS: BP 159/85; PULSE 90; RESP 16; TEMP 36.6; O2SAT 98
[2024-11-15] MEDS: SIMETHICONE 80MG CHEWABLE TABLET 160 MG PO ×3 (03:23→20:46)
[2024-11-15] MEDS: OXYCODONE 5MG IMMEDIATE RELEASE TABLET 5 MG PO ×4 (03:23→11:07)
[2024-11-15] MEDS: SENNA 8.6MG TABLET 8.6 MG PO ×3 (03:24→20:46)
[2024-11-15 07:56] VITALS: BP 134/81; PULSE 78; RESP 16; TEMP 36.7; O2SAT 96
--- NOTE | 2024-11-15 07:57 | P.PN_ITS ---
Subjective *Date: 11/15/24 *Time: 07:57 Interval history: Idalmis Frances is a G3, P4 day #1 following a RLTCS after trial of labor at 37 weeks and 1 days gestation. was complicated by CHTN, FRANKIE, obesity, prev CD, AMA, and a period of IUGR which resovled. Routine delivery and course. She is doing well, sitting up in bed. catheter has been removed but she has not voided yet -Reports pain is well-controlled -Reports she is tolerating p.o. without nausea or vomiting. -Reports her lochia is scant. -Partner plans for a vasectomy -She is breast-feeding her male infant -Denies chest pain shortness of breath or pain in her legs. No further complaints at this time. Exam Data for Last 24 hours Vital signs and Labs for Last 24 Hours: Temp Pulse Resp BP Pulse Ox O2 Del Method 98 F 90 16 159/85 H 100 Room Air 11/15/24 01:50 11/15/24 01:50 11/15/24 01:50 11/15/24 01:50 11/14/24 05:19 11/14/24 05:19 Laboratory Results - last 24 hr 11/14/24 04:44: RPR w/Rflx to Titer Nonreactive 11/14/24 05:30: Urine Color Yellow, Urine Appearance Sl cloudy, Urine pH 6.0, Ur Specific [place] >= 1.030, Urine Protein Negative, Urine Glucose (UA) Negative, Urine Ketones Negative, Urine Blood Trace-i, Urine Nitrate Negative, Urine Bilirubin Negative, Urine Urobilinogen 0.2, Ur Leukocyte Esterase Negative, Urine RBC 5-10, Urine WBC Occasional, Ur Squamous Epith Cells 3-5, Calcium Oxalate Crystal 1+, Urine Bacteria 2+ I & O for Last 24 hours: Intake & Output 11/12/24 11/13/24 11/14/24 11/15/24 23:59 23:59 23:59 23:59 Intake Total 1000 / 1000 Output Total 1400 / 1400 Balance -400 / -400 Weight 555 lb 9.038 oz Narrative: General: patient is alert oriented in no acute distress and responds appropriately to questions. Appears to be in minimal pain. Sitting up in the bed and doing well HEENT: NCAT, EOMI, moist mucous membranes, neck supple with full ROM Cardiovascular: RRR +S1/S2, no murmurs or rubs Pulmonary: Clear to auscultation bilaterally, nonlabored breathing, symmetric chest rise Abdominal: Fundus at the umbilicus, firm, and tenderness appropriate for the period. Extremities: trace edema, no tenderness or cyanosis noted Skin: Normal turgor, intact, warm. Negative for erythema, pallor, petechia, or lesions Neurologic: Negative for sensory or motor deficit Psychiatric: Normal affect, normal thought process, good judgment and insight, no depression or anxious mood appreciated. Assessment and Plan *Assessment and plan (1) Encounter for trial of labor: Status: Acute Category: Medical (2) Asymmetric IUGR affecting , antepartum: Status: Acute Category: Medical Code(s): O36.5990 - Maternal care for other known or suspected poor growth, unspecified trimester, not applicable or unspecified (3) Hx of section: Status: Acute Category: Surgical Code(s): Z98.891 - History of uterine scar from previous surgery (4) BMI greater than 30: Status: Chronic Category: Medical (5) Obesity affecting : Status: Acute Category: Medical Code(s): O99.210 - Obesity complicating , unspecified trimester (6) History of placenta abruption: Status: Acute Category: Medical Code(s): Z87.59 - Personal history of other complications of , childbirth and the puerperium (7) Hx of pre-eclampsia in prior , currently : Status: Acute Category: Medical Code(s): O09.299 - Supervision of with other poor reproductive or obstetric history, unspecified trimester (8) Chronic hypertension affecting : Status: Acute Category: Medical Code(s): O10.919 - Unspecified pre-existing hypertension complicating , unspecified trimester (9) Advanced maternal age (AMA) in : Status: Acute Category: Medical (10) delivery delivered: Status: Acute Category: Medical Code(s): O82 - Encounter for delivery without indication Plan Stable. POD#1 s/p RLTCS -Doing well. VSS. Serial lochia and fundal checks. -Continue with perineal ice packs for discomfort -Hemoglobin: 12.1--> pending -O+/antibody negative -, male -Contraception: Vasectomy -Follow-up 1-2 weeks for routine visit -Dispo: home in 1-3 days pending mother/ status #Chronic hypertension - PIH labs obtained - Monitor vitals closely - Most recent urine protein to creatinine ratio on 11/04/2024 was 0.2 - 24-hour urine collected on 10/07/2024: 280 - BP has remained stable #Advanced maternal age - Low risk infant, surprise gender #Obesity - BMI: 43 - Complicates all aspects of care
[2024-11-15] MEDS: IBUPROFEN 400 MG TABLET 800 MG PO ×2 (08:35→18:05)
[2024-11-15 08:57] LABS: Basophils % 0.1 % (0.1-2.0); Eosinophils % 0.1 % (0.1-12.0); Hematocrit 36.6 % (37.0-47.0); Hemoglobin 12.2 g/dL (12.2-16.2); Immature Granulocytes # 0.11 10^3uL; Immature Granulocytes % 0.7 %; Lymphocytes # 1.7 K/mm3 (0.7-4.5); Mean Corpuscular HGB Conc 33.3 g/dL (31.8-35.4); Mean Corpuscular Hemoglobin 30.1 pg (27.0-31.2); Mean Corpuscular Volume 90.4 fl (81-99); Mean Platelet Volume 10.4 fl (7.4-10.4); Monocytes # 0.8 K/mm3 (0.1-1.0); Monocytes % 5.1 % (1.7-9.3); Nucleated Red Blood Cells # 0 10^3/uL; Nucleated Red Blood Cells % 0 %; Platelet Count 236 K/mm3 (142-424); Red Blood Count 4.05 M/mm3 (4.20-5.40); Red Cell Distribution Width 13.8 % (11.5-17.5); Red Cell Distribution Width-SD 45.2 fL; White Blood Count 16.6 K/mm3 (4.8-10.8)
[2024-11-15 09:13] LABS: Alanine Aminotransferase 21 U/L (12-78); Albumin Level 3.1 g/dl (3.5-5.0); Albumin/Globulin Ratio 1.1 (1.1-1.8); Alkaline Phosphatase 119 U/L (38-126); Aspartate Amino Transferase 28 U/L (14-36); Bilirubin,Total 0.6 mg/dl (0.2-1.3); Blood Urea Nitrogen 4 mg/dl (7-17); Calcium 8.7 mg/dl (8.4-10.2); Carbon Dioxide 25 mmol/L (22.0-30.0); Chloride 107 mmol/L (98-107); Creatinine Clearance Estimated 130 mL/min (50-200); Estimated Glomerular Filt Rate 137 ml/min (>60); GFR (African American) 166 ML/MIN (>60); Globulin 2.7 g/dL (1.3-3.2); Glucose 97 mg/dl (74-100); Sodium 133 mmol/L (136-145); Total Protein,Serum 5.8 g/dl (6.3-8.2)
[2024-11-15] MEDS: OXYCODONE 5MG IMMEDIATE RELEASE TABLET 10 MG PO ×2 (11:07→14:52)
[2024-11-15] MEDS: MAGNESIUM OXIDE 400MG TABLET 400 MG PO (12:32)
[2024-11-15 13:31] VITALS: BP 131/75; PULSE 83; RESP 16; TEMP 36.7; O2SAT 96
[2024-11-15 15:17] LABS: Basophils % 0.2 % (0.1-2.0); Eosinophils # 0.1 Kmm3 (0.0-0.4); Eosinophils % 0.5 % (0.1-12.0); Hematocrit 37.3 % (37.0-47.0); Hemoglobin 12.4 g/dL (12.2-16.2); Immature Granulocytes % 0.7 %; Lymphocytes # 2.4 K/mm3 (0.7-4.5); Lymphocytes % 15.7 % (10-50); Mean Corpuscular HGB Conc 33.2 g/dL (31.8-35.4); Mean Corpuscular Hemoglobin 29.7 pg (27.0-31.2); Mean Corpuscular Volume 89.4 fl (81-99); Mean Platelet Volume 9.9 fl (7.4-10.4); Monocytes # 1.1 K/mm3 (0.1-1.0); Monocytes % 7.4 % (1.7-9.3); Neutrophils # 11.6 K/mm3 (1.8-7.8); Neutrophils % 75.5 % (37.0-80.0); Nucleated Red Blood Cells # 0 10^3/uL; Nucleated Red Blood Cells % 0 %; Platelet Count 245 K/mm3 (142-424); Red Blood Count 4.17 M/mm3 (4.20-5.40); Red Cell Distribution Width 14.1 % (11.5-17.5); Red Cell Distribution Width-SD 45.6 fL; White Blood Count 15.3 K/mm3 (4.8-10.8)
[2024-11-15] MEDS: GABAPENTIN 300MG CAPSULE 300 MG PO ×2 (15:18→22:01)
--- NOTE | 2024-11-15 15:56 | CT_ITS ---
PROCEDURE INFORMATION: Exam: CT Abdomen And Pelvis Without And With Contrast Exam date and time: 11/15/2024 4:26 PM Age: 39 years old Clinical indication: Abdominal pain; Additional info: Normal bs, normal wbc, normal h/h, post-op pain TECHNIQUE: Imaging protocol: Computed tomography of the abdomen and pelvis without and with contrast. Radiation optimization: All CT scans at this facility use at least one of these dose optimization techniques: automated exposure control; mA and/or kV adjustment per patient size (includes targeted exams where dose is matched to clinical indication); or iterative reconstruction. Contrast material: ISO 370; Contrast volume: 75 ml; Contrast route: INTRAVENOUS (IV); COMPARISON: US OB BIOPHYSICAL PROFILE 10/28/2024 1:50 PM FINDINGS: Lungs: Lung bases are clear. Liver: Normal. No mass. Gallbladder and biliary ducts: Normal. No calcified stones. No ductal dilation. Pancreas: Normal. No ductal dilation. Spleen: Normal. No splenomegaly. Adrenal glands: Normal. No mass. Kidneys and ureters: 11 mm indeterminate low-density lesion in the lateral midpole the right kidney. Kidneys and ureters otherwise unremarkable with no obstructing stones or uropathy. Stomach and bowel: Unremarkable. No obstruction. No mucosal thickening. Appendix: No evidence of appendicitis. Intraperitoneal space: Unremarkable. No free air. No significant fluid collection. Vasculature: Unremarkable. No abdominal aortic aneurysm. Lymph nodes: Unremarkable. No enlarged lymph nodes. Urinary bladder: Small amount of air noted in the bladder compatible with recent catheterization. Reproductive: Enlarged recent uterus. Air noted within the anterior lower uterine segment and the adjacent endometrial cavity compatible with recent . Considerable air noted within the anterior pelvic wall in the area of the consistent with the recent surgery. Bones/joints: Unremarkable. No acute fracture. Soft tissues: Unremarkable. IMPRESSION: 1. Enlarged uterus with recent changes. 2. Soft tissue air noted within the anterior lower pelvic wall tissues compatible with recent surgery. 3. 11 mm indeterminate low-density lesion in the lateral midpole the right kidney. Recommend non-emergent MRI without and with contrast or non-emergent CT without and with contrast. MRI is preferred for masses under 1.5 cm. COMMENTS: Consistent with the [employer]'s Incidental Findings Committee white paper (J Am Jose Radiol 2018): Any incidental renal lesion less than 1 cm or classified as too small to characterize, or any incidental cystic renal lesion characterized as simple-appearing, is likely benign. No follow-up imaging is recommended for these lesions per consensus recommendations based on imaging criteria.
[2024-11-15] MEDS: SODIUM CHLORIDE 0.9% 10ML SYR (RAD ONLY) 10 ML IV (16:30)
[2024-11-15] MEDS: IOPAMIDOL-370 (76%);100ML BOTTLE 75 ML IV (16:30)
[2024-11-15 16:50] VITALS: BP 150/79; PULSE 100; RESP 18; TEMP 36.7; O2SAT 96
[2024-11-15 17:27] VITALS: BMI 43.2
[2024-11-15] MEDS: PROMETHAZINE HCL 25MG/ML 1ML VIAL 12.5 MG IV (18:07)
[2024-11-15] MEDS: SODIUM CHLORIDE 0.9% 25ML BAG 25 ML IV (18:08)
[2024-11-15] MEDS: HYDROMORPHONE 2MG/ML SYRINGE 2 MG IV (18:09)
[2024-11-15] MEDS: PRENATAL MULTIVITAMIN W/IRON 1 EACH PO (20:46)
[2024-11-16] VITALS (20 sets, daily range): BP systolic 119–184; BP diastolic 59–84; PULSE 81–100; RESP 16–20; TEMP 36.5–36.9; O2SAT 93–99
[2024-11-16] MEDS: ACETAMINOPHEN 500MG TAB 1000 MG PO ×4 (01:45→23:33)
[2024-11-16] MEDS: IBUPROFEN 400 MG TABLET 800 MG PO ×3 (01:46→16:43)
[2024-11-16 08:01] LABS: Basophils % 0.2 % (0.1-2.0); Eosinophils # 0.2 Kmm3 (0.0-0.4); Eosinophils % 1.6 % (0.1-12.0); Hematocrit 31.7 % (37.0-47.0); Immature Granulocytes % 0.9 %; Lymphocytes # 1.9 K/mm3 (0.7-4.5); Lymphocytes % 16.7 % (10-50); Mean Corpuscular HGB Conc 32.5 g/dL (31.8-35.4); Mean Corpuscular Hemoglobin 30.1 pg (27.0-31.2); Mean Corpuscular Volume 92.7 fl (81-99); Mean Platelet Volume 10.2 fl (7.4-10.4); Monocytes # 1.2 K/mm3 (0.1-1.0); Monocytes % 10.6 % (1.7-9.3); Neutrophils # 7.8 K/mm3 (1.8-7.8); Nucleated Red Blood Cells # 0 10^3/uL; Nucleated Red Blood Cells % 0 %; Platelet Count 203 K/mm3 (142-424); Red Blood Count 3.42 M/mm3 (4.20-5.40); Red Cell Distribution Width 14.5 % (11.5-17.5); Red Cell Distribution Width-SD 48.7 fL; White Blood Count 11.1 K/mm3 (4.8-10.8)
[2024-11-16 08:23] LABS: Hemoglobin 10.4 g/dL (12.2-16.2)
[2024-11-16] MEDS: MAGNESIUM OXIDE 400MG TABLET 400 MG PO (08:45)
[2024-11-16] MEDS: GABAPENTIN 300MG CAPSULE 300 MG PO ×2 (08:45→21:28)
[2024-11-16] MEDS: ALUMINUM/MAGNESIUM/SIMETHICONE 30ML UDC 30 ML PO (09:07)
--- NOTE | 2024-11-16 12:38 | EXP.PN ---
Subjective *Date: 11/16/24 *Time: 12:38 Interval history: Idalmis Frances is a G3, P4 day #1 following a RLTCS at 37 weeks and 0 days gestation. was uncomplicated. Routine delivery and course. She is doing well, sitting up in bed, and visiting with family this morning. -Reports pain is well-controlled -Reports she is tolerating p.o. without nausea or vomiting. -Reports her lochia is scant. -undecided contraception -She is breast-feeding her male -Ambulating, voiding difficulty or dysuria. Denies chest pain shortness of breath or pain in her legs. No further complaints at this time. Exam Data for Last 24 hours Vital signs and Labs for Last 24 Hours: Temp Pulse Resp BP Pulse Ox O2 Del Method 98.5 F 96 H 18 142/75 H 96 Room Air 11/16/24 08:43 11/16/24 08:43 11/16/24 08:43 11/16/24 08:43 11/16/24 08:43 11/16/24 08:43 Laboratory Results - last 24 hr 11/15/24 15:09: WBC 15.3 H, RBC 4.17 L, Hgb 12.4, Hct 37.3, MCV 89.4, MCH 29.7, MCHC 33.2, RDW 14.1, Plt Count 245, MPV 9.9, Neut % (Auto) 75.5, Lymph % (Auto) 15.7, [place] % (Auto) 7.4, Eos % (Auto) 0.5, Baso % (Auto) 0.2, Neut # (Auto) 11.6 H, Lymph # (Auto) 2.4, [place] # (Auto) 1.1 H, Eos # (Auto) 0.1, Baso # (Auto) 0.0 11/16/24 07:42: WBC 11.1 H D, RBC 3.42 L, Hgb 10.4 L D, Hct 31.7 L, MCV 92.7, MCH 30.1, MCHC 32.5, RDW 14.5, Plt Count 203, MPV 10.2, Neut % (Auto) 70.0, Lymph % (Auto) 16.7, [place] % (Auto) 10.6 H, Eos % (Auto) 1.6, Baso % (Auto) 0.2, Neut # (Auto) 7.8, Lymph # (Auto) 1.9, [place] # (Auto) 1.2 H, Eos # (Auto) 0.2, Baso # (Auto) 0.0 I & O for Last 24 hours: Intake & Output 11/13/24 11/14/24 11/15/24 11/16/24 23:59 23:59 23:59 23:59 Intake Total 1000 / 1000 Output Total 1400 / 1400 Balance -400 / -400 Weight 555 lb 9.038 oz 252 lb Narrative: General: patient is alert oriented in no acute distress and responds appropriately to questions. Appears to be in minimal pain. Sitting up in the bed and doing well HEENT: NCAT, EOMI, moist mucous membranes, neck supple with full ROM Cardiovascular: RRR +S1/S2, no murmurs or rubs Pulmonary: Clear to auscultation bilaterally, nonlabored breathing, symmetric chest rise Abdominal: Fundus at the umbilicus, firm, and tenderness appropriate for the period. Extremities: trace edema, no tenderness or cyanosis noted Skin: Normal turgor, intact, warm. Negative for erythema, pallor, petechia, or lesions Neurologic: Negative for sensory or motor deficit Psychiatric: Normal affect, normal thought process, good judgment and insight, no depression or anxious mood appreciated. Assessment and Plan *Assessment and plan (1) delivery delivered: Status: Acute Category: Medical Code(s): O82 - Encounter for delivery without indication (2) Encounter for trial of labor: Status: Acute Category: Medical (3) Asymmetric IUGR affecting , antepartum: Status: Acute Category: Medical Code(s): O36.5990 - Maternal care for other known or suspected poor growth, unspecified trimester, not applicable or unspecified (4) Hx of section: Status: Acute Category: Surgical Code(s): Z98.891 - History of uterine scar from previous surgery (5) BMI greater than 30: Status: Chronic Category: Medical (6) : Status: Acute Qualifiers: Weeks of gestation: 24 weeks Qualified Code(s): Z3A.24 - 24 weeks gestation of Category: Medical Code(s): Z34.90 - Encounter for supervision of normal , unspecified, unspecified trimester (7) Obesity affecting : Status: Acute Category: Medical Code(s): O99.210 - Obesity complicating , unspecified trimester (8) History of placenta abruption: Status: Acute Category: Medical Code(s): Z87.59 - Personal history of other complications of , childbirth and the puerperium (9) Hx of pre-eclampsia in prior , currently : Status: Acute Category: Medical Code(s): O09.299 - Supervision of with other poor reproductive or obstetric history, unspecified trimester (10) Chronic hypertension affecting : Status: Acute Category: Medical Code(s): O10.919 - Unspecified pre-existing hypertension complicating , unspecified trimester (11) Advanced maternal age (AMA) in : Status: Acute Category: Medical Plan Stable. POD#1 s/p RLTCS -Doing well. VSS. Serial lochia and fundal checks. -Hemoglobin: 12.4--> 10.4 -O+/antibody negative -both breast and bottle feeding, male -Desires circumcision, consents signed and risks reviewed -Contraception: undecided -Follow-up 1 weeks for routine visit -Dispo: home in 1-3 days pending mother/infant status #Chronic hypertension - PIH labs obtained - Monitor vitals closely. BP has been well controlled - Most recent urine protein to creatinine ratio on 11/04/2024 was 0.2 - 24-hour urine collected on 10/07/2024: 280 #Advanced maternal age - Low risk infant, surprise gender #Obesity - BMI: 43 - Complicates all aspects of care
[2024-11-16] MEDS: ONDANSETRON 4MG ODT 4 MG SL (13:31)
[2024-11-16] MEDS: LABETALOL 5MG/ML 20ML MDV 20 MG IV (14:52)
[2024-11-16] MEDS: MAGNESIUM SULFATE IN WATER 4 GM/50 ML PIGGYBACK IV (14:58)
[2024-11-16] MEDS: LACTATED RINGERS 1000ML 1,000 ML 75 ML IV (14:58)
[2024-11-16 15:08] LABS: Basophils % 0.3 % (0.1-2.0); Eosinophils # 0.2 Kmm3 (0.0-0.4); Eosinophils % 1.4 % (0.1-12.0); Hematocrit 33.7 % (37.0-47.0); Immature Granulocytes # 0.09 10^3uL; Immature Granulocytes % 0.8 %; Lymphocytes % 17.8 % (10-50); Mean Corpuscular HGB Conc 32.6 g/dL (31.8-35.4); Mean Corpuscular Volume 91.8 fl (81-99); Mean Platelet Volume 10.1 fl (7.4-10.4); Monocytes # 0.9 K/mm3 (0.1-1.0); Monocytes % 7.9 % (1.7-9.3); Neutrophils # 7.9 K/mm3 (1.8-7.8); Neutrophils % 71.8 % (37.0-80.0); Nucleated Red Blood Cells # 0 10^3/uL; Nucleated Red Blood Cells % 0 %; Platelet Count 216 K/mm3 (142-424); Red Blood Count 3.67 M/mm3 (4.20-5.40); Red Cell Distribution Width 14.2 % (11.5-17.5); Red Cell Distribution Width-SD 47.8 fL
[2024-11-16 15:12] LABS: Albumin Level 3.2 g/dl (3.5-5.0); Chloride 108 mmol/L (98-107); Sodium 137 mmol/L (136-145)
[2024-11-16 15:13] LABS: Potassium 3.6 mmoL/L (3.5-5.1)
[2024-11-16 15:15] LABS: Anion Gap 7.6 mEq/L (5-15); Blood Urea Nitrogen 9 mg/dl (7-17); Carbon Dioxide 25 mmol/L (22.0-30.0); Creatinine Clearance Estimated 109 mL/min (50-200); Estimated Glomerular Filt Rate 111 ml/min (>60); GFR (African American) 135 ML/MIN (>60)
[2024-11-16 15:16] LABS: Alanine Aminotransferase 22 U/L (12-78); Albumin/Globulin Ratio 1.2 (1.1-1.8); Alkaline Phosphatase 101 U/L (38-126); Aspartate Amino Transferase 26 U/L (14-36); Bilirubin,Total 0.2 mg/dl (0.2-1.3); Calcium 8.6 mg/dl (8.4-10.2); Globulin 2.7 g/dL (1.3-3.2); Glucose 118 mg/dl (74-100); Total Protein,Serum 5.9 g/dl (6.3-8.2)
[2024-11-16] MEDS: MAGNESIUM SULFATE IN WATER 20 GM/500 ML IV.SOLN IV (15:23)
[2024-11-16] MEDS: OXYCODONE 5MG IMMEDIATE RELEASE TABLET 5 MG PO (16:43)
[2024-11-16] MEDS: PRENATAL MULTIVITAMIN W/IRON 1 EACH PO (16:43)
[2024-11-16] MEDS: SENNA 8.6MG TABLET 8.6 MG PO (16:44)
[2024-11-16 19:35] LABS: Magnesium 3.5 mg/dl (1.6-2.3)
[2024-11-16] MEDS: SIMETHICONE 80MG CHEWABLE TABLET 160 MG PO (23:42)
[2024-11-17] VITALS (21 sets, daily range): BP systolic 128–160; BP diastolic 60–82; PULSE 71–92; RESP 10–18; TEMP 36.6–37.2; O2SAT 95–99
[2024-11-17] MEDS: IBUPROFEN 400 MG TABLET 800 MG PO ×3 (00:47→16:21)
[2024-11-17] MEDS: OXYCODONE 5MG IMMEDIATE RELEASE TABLET 5 MG PO (03:07)
[2024-11-17] MEDS: MAGNESIUM SULFATE IN WATER 20 GM/500 ML IV.SOLN IV ×2 (03:10→08:58)
[2024-11-17 06:45] LABS: Microscopic, Urine URINE MICROSCOPIC (MICROSCOPIC)
[2024-11-17 07:02] LABS: Appearance,Urine SL CLOUDY (Clear); Bilirubin,Urine Negative (Negative); Blood, Urine 3+ (Negative); Color,Urine YELLOW (Yellow); Glucose,Urine (UA) Negative (Negative); Ketones,Urine Negative (Negative); Leukocyte Esterase,Urine Negative (Negative); Nitrate,Urine Negative (Negative); Protein,Urine TRACE (Negative); Specific Gravity, Urine >= 1.030 (1.005-1.030); Urobilinogen,Urine 0.2 EU/dl (0.2)
[2024-11-17] MEDS: ACETAMINOPHEN 500MG TAB 1000 MG PO ×3 (07:20→20:39)
[2024-11-17 07:50] LABS: Bacteria,Urine Trace /lpf; RBC,Urine 20-50 #/hpf (0-3)
[2024-11-17] MEDS: GABAPENTIN 300MG CAPSULE 300 MG PO ×2 (08:02→20:39)
[2024-11-17] MEDS: SIMETHICONE 80MG CHEWABLE TABLET 160 MG PO (08:05)
[2024-11-17] MEDS: SENNA 8.6MG TABLET 8.6 MG PO (08:05)
[2024-11-17] MEDS: MAGNESIUM OXIDE 400MG TABLET 400 MG PO (08:05)
[2024-11-17 08:26] LABS: Magnesium 4.1 mg/dl (1.6-2.3)
--- NOTE | 2024-11-17 11:05 | P.PN_ITS ---
Subjective *Date: 11/17/24 *Time: 11:05 Interval history: POD # 3 s/p RLTCS after TOLAC Feeling well overall. Pain controlled. Breast and formula feeding. Lochia is appropriate. She reports burning with urination. She is passing flatus and had a few BMs. Tolerating regular diet. Denies fever/chills, chest pain and shortness of breath. No headaches, vision changes, lightheadedness/dizziness. She admits to lower extremity swelling. No calf pain. She is on mag sulfate. Mag sulfate was started around 1600 11/16/24. Medical Exam Vital signs and Labs for Last 24 Hours: Vital Signs Temp Pulse Resp BP BP Pulse Ox O2 Del Method 11/17/24 10:14 88 16 144/66 H 95 Room Air 11/17/24 09:30 88 17 146/74 H 98 Room Air 11/17/24 08:00 98.5 F 92 H 17 144/69 H 98 Room Air 11/17/24 06:45 77 16 137/70 99 Room Air 11/17/24 05:47 98.3 F 81 16 135/70 99 Room Air 11/17/24 04:21 97.9 F 75 16 136/65 96 Room Air 11/17/24 03:43 74 18 150/82 H 99 Room Air 11/17/24 02:45 75 16 133/72 98 Room Air 11/17/24 01:55 79 18 128/60 98 Room Air 11/17/24 00:44 98.1 F 84 18 148/70 H 96 Room Air 11/16/24 23:36 83 18 138/68 96 Room Air 11/16/24 22:32 81 18 119/59 L 97 Room Air 11/16/24 21:20 83 16 145/78 H 99 Room Air 11/16/24 20:39 86 16 140/69 98 Room Air 11/16/24 19:36 97.7 F 93 H 16 145/71 H 99 Room Air 11/16/24 18:30 100 H 16 136/76 97 Room Air 11/16/24 17:35 96 H 18 148/77 H 98 Room Air 11/16/24 16:28 98.5 F 88 18 140/69 99 Room Air 11/16/24 15:23 93 H 20 141/74 H 94 L Room Air 11/16/24 15:22 141/74 H 11/16/24 15:18 92 H 16 150/78 H 93 L Room Air 11/16/24 15:13 88 16 147/81 H 94 L Room Air 11/16/24 15:08 88 20 140/75 98 Room Air 11/16/24 15:03 90 16 137/72 99 Room Air 11/16/24 14:58 90 16 144/75 H 11/16/24 14:52 168/82 H 11/16/24 14:40 168/62 H 11/16/24 14:33 171/84 H 11/16/24 14:17 184/83 H Intake and Output 11/16/24 11/17/24 11/17/24 23:59 07:59 15:59 Intake Total 556 / 556 Output Total 1050 / 1050 800 / 1250 450 / 1250 Balance -1050 / -1050 -800 / -694 106 / -694 Intake: Intake, Total IV Amount 556 / 556 Lactated Ringers 1000ML 1,000 389 / 389 ml @ 75 mls/hr IV .[id number] [facility] Rx#:[id number] Magnesium Sulfate in Water 20 167 / 167 gm In 500 ml @ 2 GM/HR 50 mls/ hr IV .Q10H [facility] Rx#:[id number] Output: Output, Urine Amount 1050 / 1050 800 / 1250 450 / 1250 Other: Number of Voids 1 Number of Unmeasured Voids 1 Laboratory Results - last 24 hr 11/14/24 04:44: Crossmatch (AHG) See Detail 11/16/24 15:00: WBC 11.0 H, RBC 3.67 L, Hgb 11.0 L, Hct 33.7 L, MCV 91.8, MCH 30.0, MCHC 32.6, RDW 14.2, Plt Count 216, MPV 10.1, Neut % (Auto) 71.8, Lymph % (Auto) 17.8, [place] % (Auto) 7.9, Eos % (Auto) 1.4, Baso % (Auto) 0.3, Neut # (Auto) 7.9 H, Lymph # (Auto) 2.0, [place] # (Auto) 0.9, Eos # (Auto) 0.2, Baso # (Auto) 0.0, Sodium 137, Potassium 3.6, Chloride 108 H, Carbon Dioxide 25, Anion Gap 7.6, BUN 9 D, Creatinine 0.60, Estimated Creat Clear 109, Estimated GFR 111, Est GFR ( Amer) 135, Glucose 118 H, Calcium 8.6, Total Bilirubin 0.2, AST 26, ALT 22, Alkaline Phosphatase 101, Total Protein 5.9 L, Albumin 3.2 L, Globulin 2.7, Albumin/Globulin Ratio 1.2 11/16/24 19:20: Magnesium 3.5 H 11/17/24 05:50: Urine Color Yellow, Urine Appearance Sl cloudy, Urine pH 6.0, Ur Specific [place] >= 1.030, Urine Protein Trace, Urine Glucose (UA) Negative, Urine Ketones Negative, Urine Blood 3+ A, Urine Nitrate Negative, Urine Bilirubin Negative, Urine Urobilinogen 0.2, Ur Leukocyte Esterase Negative, Urine RBC 20-50, Urine WBC 5-10, Ur Squamous Epith Cells 10-20, Urine Bacteria Trace 11/17/24 07:55: Magnesium 4.1 H D I & O for Labs for Last 24 Hours: Intake & Output 11/14/24 11/15/24 11/16/24 11/17/24 23:59 23:59 23:59 23:59 Intake Total 1000 / 1000 556 / 556 Output Total 1400 / 1400 1050 / 1050 1250 / 1250 Balance -400 / -400 -1050 / -1050 -694 / -694 Weight 555 lb 9.038 oz 252 lb Head: Present atraumatic and normocephalic ENT: Present mucous membranes moist Neck: Present normal inspection and full ROM Respiratory: Present CTA bilaterally and normal respiratory effort Cardiac: Present Reg Rate and Rhythm GI: Present soft and normal bowel sounds Comments:: Uterine fundus firm and below umbilicus, Pfannenstiel incision clean/dry/intact Rectal (female): Present deferred (female): Present deferred Extremities: Present full ROM and edema (+2 bilateral lower extremity edema); Absent calf tenderness Neuro: Present alert, awake and moves all extremities Assessment and Plan *Assessment and plan (1) delivery delivered: Status: Acute Category: Medical Code(s): O82 - Encounter for delivery without indication (2) Encounter for trial of labor: Status: Acute Category: Medical (3) Asymmetric IUGR affecting , antepartum: Status: Acute Category: Medical Code(s): O36.5990 - Maternal care for other known or suspected poor growth, unspecified trimester, not applicable or unspecified (4) Chronic hypertension affecting : Status: Acute Category: Medical Code(s): O10.919 - Unspecified pre-existing hypertension complicating , unspecified trimester (5) Hx of section: Status: Acute Category: Surgical Code(s): Z98.891 - History of uterine scar from previous surgery (6) Advanced maternal age (AMA) in : Status: Acute Category: Medical (7) Hx of pre-eclampsia in prior , currently : Status: Acute Category: Medical Code(s): O09.299 - Supervision of with other poor reproductive or obstetric history, unspecified trimester (8) BMI greater than 30: Status: Chronic Category: Medical Plan Continue routine /postop care Mag level subtherapeutic at 4.1 this AM. Increase mag sulfate to 3 gm/hr x 2 hours and repeat mag level Continue mag sulfate for 24 hours Monitor BP Plan d/c home tomorrow
[2024-11-17] MEDS: CALCIUM GLUCONATE 1000 MG IVP (11:23)
[2024-11-17 11:38] LABS: Magnesium 4.8 mg/dl (1.6-2.3)
[2024-11-17] MEDS: LABETALOL 100MG TABLET 100 MG PO ×2 (13:02→21:50)
[2024-11-17] MEDS: PRENATAL MULTIVITAMIN W/IRON 1 EACH PO (16:21)
--- NOTE | 2024-11-17 16:28 | EXP.ANES.II ---
[facility] Anesthesia Record Part II Anesthesia Record Part II Discharge Time: 00:50 Destination: Obstetric PACU nurse assessment reviewed?: Yes Patient Condition:: Good Anesthesia Complications:: None Swallowing reflex intact?: Yes Airway Patency: Patent Cyanosis?: No Blood Pressure: 134/81 SaO2: 96 Respiratory Rate: 16 Pulse Rate: 78 Temperature: 98.1 F Mental Status: Alert & Oriented Pain level:: 0 Nausea and/or vomitting:: None Intake, IV Amount: 0 Hydration: Adequate
[2024-11-17] MEDS: ALUMINUM/MAGNESIUM/SIMETHICONE 30ML UDC 30 ML PO (18:34)
[2024-11-17] MEDS: OXYCODONE 5MG IMMEDIATE RELEASE TABLET 10 MG PO (21:50)
[2024-11-18] MEDS: IBUPROFEN 400 MG TABLET 800 MG PO ×2 (00:11→08:45)
[2024-11-18] MEDS: ACETAMINOPHEN 500MG TAB 1000 MG PO ×2 (03:06→09:06)
[2024-11-18 03:48] VITALS: BP 147/78; PULSE 76; RESP 18; TEMP 36.9; O2SAT 98
[2024-11-18 08:44] VITALS: BP 143/72; PULSE 91; RESP 17; TEMP 36.6; O2SAT 95
[2024-11-18] MEDS: MAGNESIUM OXIDE 400MG TABLET 400 MG PO (08:45)
[2024-11-18] MEDS: GABAPENTIN 300MG CAPSULE 300 MG PO (08:45)
[2024-11-18] MEDS: LABETALOL 100MG TABLET 200 MG PO (09:56)
--- NOTE | 2024-11-18 11:42 | EXP.DC.SUM ---
General Admission date:: 11/14/24 Discharge date: 11/18/24 HPI HPI HPI: Idalmis Frances is a 39-year-old -0-0-3 at 37 weeks and 0 days gestation who presented to labor and delivery this morning with regular painful contractions and was noted to make slight cervical change. She has an DANIEL of 12/05/2024 based on 9-week ultrasound. She was scheduled for repeat delivery this morning but in light of contractions with some cervical change elected for a trial of labor. Her has been complicated by chronic hypertension, advanced maternal age, obesity, and intrauterine growth restriction. Most recent ultrasound showed that the growth restriction have resolved, see ultrasound report below. [facility] recommended a 37-week delivery and gave approval for trial of labor. See their notes scanned into the chart her blood pressure has been well-controlled without proteinuria. She has had some elevated pressures throughout but they have all resolved. Did she on any antihypertensive medication. On presentation patient endorsed good movement and denies any leakage of fluid or vaginal bleeding. OBHx: G3, P2 -G1: 2009. . delivery at 32 weeks gestation. Female infant. 4 pounds 3 ounces. Reports she went into labor at 28 weeks and 31 weeks gestation, received magnesium, was diagnosed with an abruption -G2: 2012. delivery. delivery of twin infants at 34 weeks gestation after PPROM. 2 male infants weighing 5 pound 6 ounces and 5 pounds 10 ounces. With this reports she had mag toxicity and went into labor several times. Was placed on bedrest. Developed preeclampsia. Complicated by a spinal tap, received a blood patch -G3: Current . O+, antibody negative, rubella immune, hepatitis B negative, hepatitis C negative, RPR negative, HIV negative 1 hour GTT: 188 3-hour GTT: 92/169/141/98 Review of ultrasound/growth - Ultrasound on 11/06/2024 at 35 weeks and 6 days gestation, completed at [facility] Patient shows improved interval growth. Cephalic presentation with overall EFW in the 15th percentile and the AC at the 10th percentile. BPP: 8/8. Placenta is posterior. Reports patient is a reasonable candidate for TOLAC - Ultrasound on 10/28/2024 at 34 weeks and 4 days gestation, completed at [facility] Viable fetus in cephalic presentation with a right lateral grade 2 placenta. 7 cm fibroid noted in the anterior wall. EFW: 2049 g, 4 pounds 8 ounces. BPD: 21%, HC: 9%, AC: 4%, FL: 11%. 8th percentile. SANDIE appropriate. BPP: 8/8. - Ultrasound on 10/23/2024 at 33 weeks and 6 days gestation, completed at [facility] Viable fetus in cephalic presentation with a posterior placenta, three-vessel cord. Fibroid not mentioned. EFW: 1788 g, 14th percentile. BPD: 25%, HC: 4%, AC: 1%, FL: 4%. MVP: 4.7 cm. BPP: Normal Hospital Course Hospital Course Hospital Course: Idalmis Frances is a 39-year-old postop day #4 from a repeat low-transverse delivery after attempted trial of labor. She had severe range blood pressures on postop day 2 and magnesium was started. On postop day 3 she had respiratory depression and difficulty breathing, magnesium was discontinued but mag level was noted to be therapeutic at 4.8. 24-hour magnesium course was not completed, discontinued 1 to 2 hours early. She was started on labetalol 100 mg twice daily at that time. She continued to have blood pressures at 130s to 150s over 70. Her labetalol was increased to 200 mg twice daily prior to discharge home on day 4. Her bleeding and pain have been appropriate. She is passing flatus and has had a bowel movement. She is breast and bottlefeeding. Her was complicated by chronic hypertension with superimposed preeclampsia, GBS unknown, attempted trial of labor, IUGR which resolved prior to delivery, obesity, advanced maternal age. She had a cervical ripening balloon followed by AROM and Pitocin. She made cervical dilation of 4 cm with the cervical ripening balloon but did not progress past this with approximately 12 hours of Pitocin and AROM. She had an uncomplicated repeat delivery. She delivered a live viable male , all of her on 11/14/2024 at 2326. Infant weighed 6 pounds 5 ounces, 2873 g. She had Apgars of 8/9 at 1 minute and 5 minutes. She has done well and has remained afebrile with her at her hospitalization. She is eating and drinking and ambulating. Her lochia is normal. She has O Rh+ blood, she is rubella immune and was group B streptococcus negative. She will be discharged home to follow-up with Dr. Griffin in 1 weeks time. She will continue with her vitamins. She has a prescription for Percocet and will continue these at home. She will take ibuprofen as well. She was given the usual instructions with respect to limiting her activity, driving and sexual activity. She was given instructions with respect to wound care. Her condition on discharge is stable and improved. Exam Data for Last 24 hours Vital signs and Labs for Last 24 Hours: Temp Pulse Resp BP Pulse Ox O2 Del Method 97.8 F 91 H 17 143/72 H 95 Room Air 11/18/24 08:44 11/18/24 08:44 11/18/24 08:44 11/18/24 08:44 11/18/24 08:44 11/18/24 08:44 Laboratory Results - last 24 hr 11/17/24 11:08: Magnesium 4.8 H D I & O for Last 24 hours: Intake & Output 11/15/24 11/16/24 11/17/24 11/18/24 23:59 23:59 23:59 23:59 Intake Total 1000 / 1000 556 / 556 Output Total 1400 / 1400 1050 / 1050 1850 / 1850 Balance -400 / -400 -1050 / -1050 -1294 / -1294 Weight 252 lb Narrative: General: patient is alert oriented in no acute distress and responds appropriately to questions. Appears to be in minimal pain. Sitting up in the bed and doing well HEENT: NCAT, EOMI, moist mucous membranes, neck supple with full ROM Cardiovascular: RRR +S1/S2, no murmurs or rubs Pulmonary: Clear to auscultation bilaterally, nonlabored breathing, symmetric chest rise Abdominal: Fundus at the umbilicus, firm, and tenderness appropriate for the period. Extremities: +2 pitting edema to the knees bilaterally. pitting abdominal edema as well, no tenderness or cyanosis noted Skin: Normal turgor, intact, warm. Negative for erythema, pallor, petechia, or lesions Neurologic: Negative for sensory or motor deficit Psychiatric: Normal affect, normal thought process, good judgment and insight. Pt is concerned for PPD, she is tearful on exam today Results Data Completed and Pending Labs on day of discharge: Labs from last 24 hours 11/17/24 11:08 Magnesium 4.8 H D DS: Diagnosis Discharge Diagnosis (1) delivery delivered: Status: Acute Code(s): O82 - Encounter for delivery without indication (2) Encounter for trial of labor: Status: Acute (3) Asymmetric IUGR affecting , antepartum: Status: Acute Code(s): O36.5990 - Maternal care for other known or suspected poor growth, unspecified trimester, not applicable or unspecified (4) Chronic hypertension affecting : Status: Acute Code(s): O10.919 - Unspecified pre-existing hypertension complicating , unspecified trimester (5) Hx of section: Status: Acute Code(s): Z98.891 - History of uterine scar from previous surgery (6) Advanced maternal age (AMA) in : Status: Acute (7) Hx of pre-eclampsia in prior , currently : Status: Acute Code(s): O09.299 - Supervision of with other poor reproductive or obstetric history, unspecified trimester (8) BMI greater than 30: Status: Chronic Meds Home Medications and Allergies Home Medications ?Medication ?Instructions ?Recorded ?Confirmed ?Type cholecalciferol (vitamin D3) 125 10,000 unit PO WEEKLY 06/04/24 11/15/24 History mcg (5,000 unit) capsule omega-3 fatty acids-fish oil 360 1 cap PO DAILY 06/04/24 11/14/24 History mg-1,200 mg capsule (Fish Oil) vits no.126-ferrous fum 1 tab PO DAILY 06/04/24 11/14/24 History 28 mg iron-folic acid 800 mcg tablet (Classic ) aspirin 81 mg tablet,delayed 162 mg PO DAILY 08/14/24 11/14/24 History release magnesium 250 mg tablet 250 mg PO DAILY 11/14/24 11/14/24 History acetaminophen 500 mg tablet 500 mg PO Q6H PRN fever or pain 11/18/24 Rx #30 tabs ibuprofen 800 mg tablet 800 mg PO Q8H PRN pain #60 tabs 11/18/24 Rx labetalol 200 mg tablet 200 mg PO BID #60 tabs 11/18/24 Rx oxycodone 5 mg tablet 5 mg PO Q8H PRN pain #20 tabs 11/18/24 Rx sennosides 8.6 mg tablet (Senna 8.6 mg PO BIDP PRN Constipation 11/18/24 Rx Lax) #60 tabs New Prescriptions to Start Prescriptions: acetaminophen Tara Griffin ibuprofen Tara Griffin labetalol Tara Griffin oxycodone Tara Griffin sennosides [Senna Lax] Tara Griffin Allergies Allergy/AdvReac Type Severity Reaction Status Date / Time Penicillins Allergy Intermediate Rash Verified 11/13/24 10:44 Discharge Plan Disposition Patient Disposition: Home, Self-Care Discharge Order Discharge Orders: Discharge Order (Routine); Ordered 11/18/24 Ordered By: Tara Griffin Follow up Plan Follow up with: Tara Griffin DO [Staff Physician] - 11/25/24 11:00 am Prescriptions/Medication Reconciliation: New labetalol 200 mg tablet 200 mg PO BID Qty: 60 1RF sennosides [Senna Lax] 8.6 mg Tablet 8.6 mg PO BIDP PRN (Reason: Constipation) Qty: 60 2RF ibuprofen 800 mg tablet 800 mg PO Q8H PRN (Reason: pain) Qty: 60 2RF acetaminophen 500 mg tablet 500 mg PO Q6H PRN (Reason: fever or pain) Qty: 30 3RF oxycodone 5 mg tablet 5 mg PO Q8H PRN (Reason: pain) Qty: 20 0RF Continued Classic 28 mg iron- 800 mcg tablet 1 tab PO DAILY omega-3 fatty acids-fish oil [Fish Oil] 360-1,200 mg capsule 1 cap PO DAILY cholecalciferol (vitamin D3) 125 mcg (5,000 unit) capsule 10,000 unit PO WEEKLY aspirin 81 mg tablet,delayed release (DR/EC) 162 mg PO DAILY magnesium 250 mg Tablet 250 mg PO DAILY Problem Reconciliation Problems Reviewed?: Yes Patient Discharge Instructions ACTIVITY: Continue current activity DIET: regular diet Additional Instructions: Congratulations on the delivery of your sweet baby boy. It is my privilege to be your doctor and I am so thankful I could be a part of your special day. Discharge: 1. Take 800 mg Ibuprofen every 8 hours as needed for pain. You can also take 500-1000mg of Tylenol in between doses, every 6-8 hours. Use prescription pain medicine for pain you feel in between 8 hour interval. -No driving while taking narcotic pain medications. In order to drive you should be able to slam on the brakes without significant abdominal pain. 2. Wean from prescription pain medicine first. Do not drive while taking it. 3. Prescription pain medicine can make you constipated. Colace can be taken 1-2 times per day as you need. Make sure to drink at least 8 cups of water per day. 4. Iron supplements can make you constipated. Colace can be taken 1-2 times per day as you need. You can take iron tablets every other day if constipation is too bad. 5. Nothing in the vagina for 6 weeks - no intercourse, douching, tampons. No tub baths or swimming pools 6. Do not lift greater than 15 pounds for 6 weeks, this is the equivalent of 2 gallons of milk. 7. Reasons to return to L&D or call On-Call doctor - fever (greater than 100.4) - heavy vaginal bleeding (soaking through 1 pad in less than 2 hours or passing clots that are egg sized) - vaginal discharge (malodorous and/or purulent) - bleeding or discharge from her incision - severe headaches, leg tenderness/edema, or any other symptoms that warrant immediate medical attention. 8. depression/blues - Normal to feel anxious/overwhelmed for first 2 weeks - Talk to your doctor if: anxiety lasts over 2 weeks, trouble bonding with baby, withdrawing from other family members, thoughts of harming yourself or others Blood pressure and preeclampsia instructions 1. Please take your blood pressure twice daily. 2. Please call if greater than 2 values are higher than: 150 systolic (the top number) or 100 diastolic (the bottom number). 3. Please go to the emergency room or labor and delivery triage if any value is higher than: 160 systolic (the top number) or 110 diastolic (the bottom number). 4. Please call if unrelenting headache (does not go away with rest or Tylenol or ibuprofen), changes in vision (spots, floaters, flashes of light), chest pain, shortness of breath, or right upper quadrant (liver) abdominal pain. Tara Griffin DO [facility] [phone] *Nothing in the Vagina for 6 weeks* *No strenuous activity* *No heavy lifting* *No tub baths until okay's by MD* Patient Instructions: Depression, Hemorrhage, DI for , DI for Pre-eclampsia, [facility] Post Discharge Instructions Print Language: Kittitian Providers Primary Care Provider: Helen Womack Admit Provider: Tara Griffin Attending Provider: Tara Griffin
== END 2024-11-18 13:50 | disposition home or self-care (01) | DRG 787 ==
PROVIDERS: Obstetrics & Gynecology; Admitting Provider Obstetrics & Gynecology; PCP Physician Assistant; Visit Provider Obstetrics & Gynecology
PROC: 10D00Z1 Extraction of Products of Conception, Low, Open Approach (ICD-10-PCS; CPT 59514; principal; 2024-11-14 07:30)
PROC: (CPT 59514; principal; 2024-11-15 10:50)
DX: O36.5930 Maternal care for other known or suspected poor fetal growth, third trimester, not applicable or unspecified (principal); O10.92 Unspecified pre-existing hypertension complicating childbirth; Z3A.37 37 weeks gestation of pregnancy; Z37.0 Single live birth; O66.41 Failed attempted vaginal birth after previous cesarean delivery; O34.211 Maternal care for low transverse scar from previous cesarean delivery; N85.8 Other specified noninflammatory disorders of uterus; O99.214 Obesity complicating childbirth; E66.9 Obesity, unspecified
CPT/HCPCS: 36415; 59025; 74178; 80053; 81001; 83735; 85025; 86592; 86850; 87086; 94761; G0283; J1100; J1171; J1885; J1920; J2405; J2550; J3010; J7120; Q0162; Q9967

== ENCOUNTER 2024-12-29 07:56 | Outpatient (CLI) | payer MEDICAID, SELFPAY ==
--- OUTSIDE RECORDS SUMMARY | 2024-03-27 06:30 | XMS_ITS ---
Author Organization [facility] Address [address] [facility] [address] [place] [address] Care Team Providers Care Archeologist Classical Name Role Phone Mp Sanza Unavailable [phone] Emperatriz Garcia Unavailable [phone] REASON FOR VISIT NOB Social History Sex Assigned At : Social History Observation Description Sex Assigned At Female Encounters Encounter Location Date Provider Diagnosis [facility] [facility] [address] [place] [address] 03/27/2024 Emperatriz Garcia Plan Of Treatment No Information Progress Notes * JENNIFFERIdalmis HARRIS PDOB:[birth year] (39 yo F)Acc No.[id number]:03/27/2024 Patient: Idalmis Aguirre Provider: Aaron Garcia CNM :1985 A ge:38 Y S ex:Female Date:03/27/2024 Address:[address] [place], [place] [id number] Subjective: * Chief Complaints: * N OB * Electronic signature of Jeanette Garcia CNM on 12/29/2024 at 08:01 AM EDT Sign off status: Pending Visit Status: C ANC-PNF (Cancelled Patient No Fault) * Provider: Aaron Garcia CNM Date: 0 03/27/2024 Generated for Printi ng/Faxing/eTransmitting on: 0 12/29/2024 08:01 AM EDT
--- OUTSIDE RECORDS SUMMARY | 2024-10-11 17:30 | XMS_ITS ---
Author Organization [facility] Address [address] [facility] [address] [place] [address] Care Team Providers Care Real Estate Portfolio Manager Name Role Phone Helen Nj Primary Care Provider HELEN NJ Unavailable Unavaila ble Migration, Provider Unavailable Unavailable Allergies Allergen (clinical drug ingredient) Drug/Non Drug Allergy documented on EMR Reaction Allergy Type Onset Date Status Penicillin rash Drug Allergy Active REASON FOR VISIT [facility] To [facility] Conversion Encounter Medications Medication SIG (Take, Route, Frequency, Duration) Notes Start Date End Date Status Gentamicin Sulfate 0.3 % 1 gtt in each e ye 4 times a day for 7 days 08/19/2024 Active Cetirizine HCl 10 MG 1 tab(s) orally at bedtime for 30 days 12/13/2023 Active Cefdinir 300 MG 1 cap(s) orally ever y 12 hours for 7 days 04/10/2024 Active Famotidine 20 MG 1 tab(s) orally 2 ti mes a day for 30 days 12/19/2023 Active Encounters Encounter Location Date Provider Diagnosis [facility] [address] [place] [address] 10/11/2024 Provider Migration Plan Of Treatment Medication Medication Name Sig Start Date Stop Date Notes Gentamicin Sulfate 0.3 % 1 gtt in each e ye 4 times a day for 7 days 08/19/2024 Cefdinir 300 MG 1 cap(s) orally ever y 12 hours for 7 days 04/10/2024 Progress Notes * Roberto Carlos ABADOB: [birth year] (39 yo F)Acc No.[id number]:10/11/2024 Patient: Idalmis ACOSTA Provider: Mounika Jones :1985 A ge:39 Y S ex:Female Date:10/11/2024 Address:[address] [place] [address] [place], [id number] Pcp:Helen Nj Subjective: * Chief Complaints: * 1 . [facility] To [facility] Conversion Encounter. * Medical History: * Medications: T aking Famotidine 20 MG Tablet 1 tab(s) orally 2 times a day , Taking Cetirizine HCl 10 MG Tablet 1 tab(s) orally at bedtime * Allergies: P enicillin: rash - Allergy. Objective: * Vitals: Assessment: Plan: * Treatment: * * Electronic signature of Prov ider Migration on 12/29/2024 at 08:01 AM EDT Sign off status: Pending * Provider: Mounika Jones Date: 0 10/11/2024 Generated for Hector hernandez/Aman/Nadeensmitting on: 12/29/2024 08:01 AM EDT
--- OUTSIDE RECORDS SUMMARY | 2024-12-26 11:20 | XMS_ITS ---
Author Organization [facility] Address [address] [place] [address] Care Team Providers Care Commercial Solar Sales Consultant Name Role Phone Helen Nj Primary Care Provider [phone] HELEN [place] Unavailable Unavaila ble REASON FOR VISIT breast MRI Encounters Encounter Location Date Provider Diagnosis [facility] [address] [place] [address] 12/26/2024 Helen Nj Breast mass, left N63.20 Assessments Encounter Date Diagnosis (ICD Code) Assessment Notes Treatment Notes Treatment Clinical Notes Section Notes 12/26/2024 Breast mass, left (ICD-10 - N63.20) Plan Of Treatment Pending Test Test Name Order Date MRI : Breast 12/26/2024 Mammogram : Diagnostic, Left 12/26/2024 Progress Notes * JENNIFFER, Roberto CarlosOB: [birth year] (39 yo F)Acc No.[id number]:12/26/2024 Patient: Idalmis ACOSTA :1985 A ge:39 Y S ex:Female Address:[address] [place] [address] [place], [place] [address] Subjective: * Chief Complaints: * b reast MRI * Medical History: * Surgical History: * Hospitalization/Major Diagno stic Procedure: * Medications: Objective: * Vitals: * Physical Examination: Assessment: * Assessment: 1. B reast mass, left - N63.20 Plan: * Treatment: * ?Imaging: Mammogram : Diagnostic, Left* * Procedure Codes: * * Date:
--- OUTSIDE RECORDS SUMMARY | 2024-12-29 07:59 | XMS_ITS | Data Portability ---
Author Organization [facility] Address [address] [place] [address] Care Team Providers Care Ready Mix Truck Driver Name Role Phone ANIA FERNANDEZ Primary Care Provider Assessment No assessment recorded. Plan of Treatment Reminders Order Date Submit Date Provider Last Modified By Organization Details Last Modified Time Details Appointments None recorded. Lab TSH, serum or plasma 2020 [email or web address] [facility], [address] [place] [address], [phone], 08:08:53 T3, total, serum 2020 021 [facility], [address] [place] [address], [phone], 08:08:54 T4, total, serum 2020 021 [email or web address] [facility], [address] [place] [address], [phone], 08:08:54 thyroid panel, serum 2020 021 [email or web address] [facility], [address] [place] [address], [address], 08:08:54 GEORGES (antinuclea r antibodies) panel, serum 2020 021 SULY [facility], [address] [place] [address], [address], 22:18:36 Referral None recorded. Procedures None recorded. Surgeries None recorded. Imaging None recorded. Medication Orders omeprazole 20 mg capsule,del ayed release 2020 021 [email or web address], [address], [address], 15:17:05 Patient TargetsNo targets recorded. Patient Instructions Encounter Date Encounter Id Patient Instructions Last Modified By Organization Details Last Modified Time 05/10/2021 [id number] 1. Flexible laryngoscopy performed today - Full [...] or sooner if concerns arise. [facility] Not available 05/10/2021 09:27:49 06/16/2021 [id number] 1. Reviewed patients labwork, FNA and EGD [...] al Cytol ogy Repor t NAME: SARI HARRIS, MAXINE IE PATH. :FC-2 33 Copie s to: JORGE ALBERTO VALLE A SOURC E OF SPECI MEN: FINE [...] 1.1 X 1.8 cm DURAT ION OF JONATHANIO N: ABOUT 7 YRS AGO PREVI OUS [...] Benig n (Ambika esda categ ory II). Benig n folli cular cells , collo id and lymph ocyte s are seen consi stent with chron ic thyro iditi s. Immed iate Evalu ation : Passe s #1-2: Adequ ate. Comme nt: All cytol ogic mater ial has been revie wed. MARQUEZ COTTON IEL-P MD CASTRO Iwona d Out Date: 05/27 , 14:25 Page 1 of 1 Not Available [facility] [address], [place], [address], 05/27/2021 14:26:47 06/06/20 21 06/06/2021 SURGI ALL surgical SEE BELOW Depar tment of Patho logy Surgi all Patho logy Repor t NAME: SARI HARRIS, MAXINE IE PATH. :ST-2 [id number] Copy to: [...] 1 of 1 Not Available [facility] [address] [place] [address], [phone], 06/07/2021 14:55:20 05/13/20 21 03/04/2019 fine needl [...] [email or web address] [address] [facility] [facility], [place], [address], 05/17/2021 11:48:32 05/26/20 21 05/26/2021 US thyro id nodul e fna only [address] [address] Patiiva t Name: FRANCISCO JAVIER DYSON ON Patiiva t : 1984 Patien t 15 Orderi [...] Stone MD on 2020 5:03 PM [facility] [address], [place], [address], 06/08/2021 08:46:21 05/26/20 21 05/26/2021 US, neck, soft tissu e [address] [place] [address] Patien t Name: FRANCISCO JAVIER DYSON ON Patien t : 1984 Patien t 15 Orderi ng Provid er: ISIDORO ELLERY EXAM DATE: 2020 EXAM: US ECHO THYROI [...] Stone MD on 2020 5:21 PM [facility] [address] [place], [address], 06/08/2021 08:46:20 Result Notes None recorded. Problems No Known Problems Procedures Surgical History Date Name Laterality Status Provider Name and Address Organization Details Recorded Time 05/10/20 21 Laryngoscopy Flex completed Kitty Matias [facility] 05/10/2021 09:25:22 07/09/19 13 section completed Odalis Barbour [facility] 05/10/2021 08:32:02 01/01/20 10 Carpal tunnel surgery completed Odalis Reichn [facility] 05/10/2021 08:32:17 07/09/19 04 Oral Surgery completed Odalis Reichn [facility] 05/10/2021 08:32:27 Imaging Results None recorded. Procedure Notes None recorded. Medical Equipment None Reported. Allergies Allergen ID Allergen Name Allergen Category Reaction Reaction Severity Criticality Documentation Date Start Date Code Code System Note Provider Name and Address Organization Details Recorded Time 910407 Product containin g penicilli n (product) medicatio n rash Not available Not available 05/10/2021 16750 8001 SNOMED Odalisphilly Barbour [facility] 08:31:01 Medications Name Sig [...] and Address Organization Details Last Updated DateTime 1 160.02 cm 98 % 98 % 85 /min 98.4 [degF] 141 mm[Hg] 103 mm[Hg] Odalis Barbour [facility] 08:36:34 Date Recorded Body height Body mass index (BMI) Body weight Body temperature Heart rate Systolic blood pressure Diastolic blood pressure Provider Name and Address Organization Details Last Updated DateTime 1 160.02 cm 36.9 kg/m2 30813.3 1 g 98.7 [degF] 81 /min 137 mm[Hg] 86 mm[Hg] Tara Khan [facility] 15:20:57 Social History Question Answer Notes LastModified by Organizat ion Details LastModified Time Tobacco Smoking Status Never Smoker Odalis Reichn [facility] 05/10/2021 08:31:47 Has Tobacco Cessation Counseling Been Provided? No [email or web address] Information not available 05/10/2021 Have You Recently Traveled Abroad? No [email or web address] Information not available 05/10/2021 Sex: Unknown Functional Status Question Answer Note LastModified by Organizat ion Details LastModified Time Do you use any illicit or recreational drugs? No [email or web address] Information not available 05/10/2021 Do you or have you ever used any other forms of tobacco or nicotine? No [email or web address] Information not available 05/10/2021 What is your level of alcohol consumption? None Information not available 05/10/2021 Mental Status None recorded. Family History Relationship Description Onset Age of this Age Resolved Age Notes LastModified by Organization Details LastModified Time Mother Family history of malignant neoplasm [email or web address] Not available 2020 08:31:27 Father Hypertensive disorder [email or web address] Not available 2020 08:31:37 Medical History Condition [...] SNOMED-CT Code Diagnosis ICD10 Code Diagnosis Note [id number] JESÚS POST MD [place] [facility] [address] [place] [address] 05/10/2021 08:13:18 05/10/2021 10:21:22 Thyroid nodule 802115723 E04.1 Choking sensation 060997 009 R09.89 Difficulty swallowing 28 6867527 R13.10 Chronic hoarseness 55308 62556 105 R49.0 Weight gain 5414621 R63. 5 Laryngopha ryngeal reflux 075427790 K21.9 R > L Laryngeal spasm 82906502 2 J38.5 [id number] MARTHA ROJAS MD SURGERY SCHEDULE [address] [place] [address] 06/06/2021 07:10:09 06/06/2021 07:11:28 [id number] JESÚS POST MD [place] [facility] [address] [place] [address] 06/16/2021 15:06:03 06/16/2021 16:03:06 Thyroid nodule 176942598 E04.1 Choking sensation 722594 009 R09.89 Difficulty swallowing 28 5181522 R13.10 Chronic hoarseness 18948 48424 105 R49.0 Weight gain 6681066 R63. 5 Laryngopha ryngeal reflux 926880715 K21.9 R > L Laryngeal spasm 88111936 2 J38.5 Marylin thyroiditis 21 483512 E06.3 Health Concerns Section Related Observation LastModified by Organization Detai ls LastModified Time None Recorded Concern Status LastModified by Organization Details LastModified Time None Recorded Advance Directives Directive None Recorded Payers Insurance Date Sequence Insurance Name Policy Number Policy Yang Covered Member ID Yang Member ID Guarantor Name 06/22/2021 1 [employer] (POS) Dk Frances [id number] Idalmis Frances Notes Date Note Type Note [...] Additionally, her twin has an autoimmune disorder. MD [address] [place], [address], [facility] 05/11/2021 13:22:07 06/16/2021 text/html Idalmis is [...] a toe nail a few weeks ago. [place] [address] [place], [address], [facility] 06/16/2021 17:00:04 OBGyn Episode No OBEpisode recorded.
--- NOTE | 2024-12-29 08:00 | MR_ITS ---
FINAL REPORT CLINICAL HISTORY: low density lesion in the right kidney 6 weeks post COMPARISON: CT of the abdomen and pelvis 11/15/2024 FINDINGS: MRI PELVIS WITH AND WITHOUT CONTRAST: The uterus is unremarkable, without evidence of adnexal mass. No pelvic fluid collections are identified. No enlarged lymph nodes are noted in the pelvis. The inguinal regions are unremarkable. There is minimal enhancement in the abdominal wall anteriorly that may reflect postoperative changes if the patient has undergone a recent section. The bone marrow signal is unremarkable. IMPRESSION: Unremarkable MRI of the pelvis with and without contrast. Reviewed, Interpreted and Dictated by Leighton Boyd MD Transcribed by Johana Magana Authenticated and [facility]
--- OUTSIDE RECORDS SUMMARY | 2024-12-29 08:00 | XMS_ITS | Encounter Summary ---
Author Organization [employer] Address [address] [place] [address] Care Team Providers Care Creative Engagement Director Name Role Phone Nitin Jerez MD Primary Care Provider [phone]- [phone] Encounter Details Date Type Department Care Team (Late st Contact Info) Description 07/29/2021 Transcribed Document [facility] [place] [facility] [place] [address] ProviderYamila MD [address] [place] [id number] Social History Tobacco Use Types Packs/Day Years Used Date Smoking Tobacco: Never Assessed Comments Unknown Sex and Gender Information Value Date Recorded Sex Assigned at Female 01/03/2022 9:01 PM CDT Legal Sex Female 9:01 PM CDT Gender Identity Female 01/03/2022 9:01 PM CDT Sexual Orientation Not on file documented as of this encounter Miscellaneous Notes * Cerner Conversion Note - Yamila ProviderMD - 07/29/2021 9:41 AM LITHOGRAPHIC GENERAL WORKER Nursing Discharge Summary Entered On: 07/29/2021 9:42 EST Performed On: 07/29/2021 9:41 EST by Madison Wynne Rn Discharge Documentation Discharge Date/Time : 07/29/2021 10:00 EST Patient Disposition, General : Discharge Discharge To : Home with ambulatory/outpatient follow-up Mode Of Departure, General Discharge : Ambulatory Accompanied By, Discharge : Spouse IV Discontinued : Yes Personal Belongings With Patient : Yes Pt's Own Supply of Medications Returned : No patient supply of medications to return Prescriptions Given to Patient : No Medications Given to Patient : No Discharge Instructions Reviewed With, Opportunity For Questions Given : Patient, Spouse Patient Education Completed : Yes Teaching Method : Explanation, Printed materials Teaching Evaluation : Verbalizes understanding Madison Wynne Rn - 07/29/2021 9:41 EST Electronically signed by Olimpia, [facility] Conversion Individual Pension Adviser Cerner at 10/24/2022 1:38 PM CDT documented in this encounter Plan of Treatment Not on file documented as of this encounter Visit Diagnoses Not on filedocumented in this encounter Care Teams Creative Engagement Director Relationship Specialty Start Date End Date Nitin Jerez MD [address] [place] [id number] PCP - General Family Medicine 10/06/22 documented as of this encounter
--- OUTSIDE RECORDS SUMMARY | 2024-12-29 08:00 | XMS_ITS | Encounter Summary ---
Author Organization [employer] Address [address] [facility] [place] [address] Care Team Providers Care Wash And Greaser Name Role Phone Nitin Jerez MD Primary Care Provider [phone]- [phone] Encounter Details Date Type Department Care Team (Late st Contact Info) Description 07/29/2021 Transcribed Document [facility] [place] [address] ProviderYamila MD [address] [place] [address] Social History Tobacco Use Types Packs/Day Years Used Date Smoking Tobacco: Never Assessed Comments Unknown Sex and Gender Information Value Date Recorded Sex Assigned at Female 01/03/2022 9:01 PM CDT Legal Sex Female 9:01 PM CDT Gender Identity Female 01/03/2022 9:01 PM CDT Sexual Orientation Not on file documented as of this encounter Miscellaneous Notes * Cerner Conversion Note - Historical ProviderMD - 07/29/2021 9:39 AM EXPLOSIVE ORDNANCE HANDLER Patient Education Materials Follows: It???s Cold and Flu Season ??? How are you protecting yourself? The start of each year is often met with the peak of cold and flu season. This year is no different except that we are facing the new strain of coronavirus, COVID-19, and the widespread media attention this public health outbreak is causing. It is understandable that many are feeling overwhelmed by the thought of catching coronavirus and are concerned about how to best care for ourselves and our loved ones during this challenging time. Take comfort in knowing there are simple things you can do each and every day to help ensure your health is protected. Scrub a dub! Wash your hands! As simple as this sounds, it truly is the most effective way to stop the spread of germs. Be sure to use soap, and to make sure you are being thorough enough, sing the ???Happy Birthday?? song which is just the right length to ensure a thorough cleaning of your hands. Wash all parts of your hands, including the ???webs?? between your fingers and thumbs. When without, use a squeeze! If you are unable to get to a sink for soap and water to thoroughly wash your hands, use hand cardiovascular technologist. While handwashing is best, hand cardiovascular technologist helps to reduce the spread of germs when you are out and about. Have hand cardiovascular technologist in several locations so you can always have some on hand ??? think about placing some bottles in your car, your purse, your suitcase, the diaper bag, or even in your coat pocket. Don???t rub, don???t touch! As tempting as it is to rub those scratchy eyes during allergy season or to rub a runny nose, don???t. In fact, if you can, try to avoid touching your face as much as possible, especially with unclean hands. Our eyes, nose, and mouth are easy access points for germs to enter our bodies. When in doubt, don???t go out! If you are feeling under the weather, stay home. If your child is feeling sick, keep them home. It is so important to not only rest when you are starting to get sick or are already under the weather, but also staying home and away from others helps to keep people from also getting sick. Don???t [place] It! Sneezing this time of year is part of life, especially if you suffer from allergies or do have the cold or flu. To help minimize the spread of germs from sneezing or coughing, use a Kleenex or your elbow to protect against rogue spray and to help keep your hands clean. And remember, most people will have a runny nose, coughs and sneezes these days either from seasonal allergies, the cold or the flu, but if you do feel ill or feel like you need some help to feel better, please contact your Primary Care Provider to determine the best course of treatment for you which may include home care for mild cases or making an appointment to be seen to address more moderate needs. To find a PCP near you, please visit [facility] [email or web address]. September 12, 2019 Neurology Syncope Syncope is when you pass out (faint) for a short time. It is caused by a sudden decrease in blood flow to the brain. Signs that you may be about to pass out include: ??? Feeling dizzy or light-headed. ??? Feeling sick to your stomach (nauseous). ??? Seeing all white or all black. ??? Having cold, clammy skin. If you pass out, get help right away. Call your local emergency services (911 in the [place] Do not drive yourself to the hospital. Follow these instructions at home: Watch for any changes in your symptoms. Take these actions to stay safe and help with your symptoms: Lifestyle ??? Do not drive, use machinery, or play sports until your doctor says it is okay. ??? Do not drink alcohol. ??? Do not use any products that contain nicotine or tobacco, such as cigarettes and e-cigarettes. If you need help quitting, ask your doctor. ??? Drink enough fluid to keep your pee (urine) pale yellow. General instructions ??? Take ewea-mbe-jdiccdo and prescription medicines only as told by your doctor. ??? If you are taking blood pressure or heart medicine, sit up and stand up slowly. Spend a few minutes getting ready to sit and then stand. This can help you feel less dizzy. ??? Have someone stay with you until you feel stable. ??? If you start to feel like you might pass out, lie down right away and raise (elevate) your feet above the level of your heart. Breathe deeply and steadily. Wait until all of the symptoms are gone. ??? Keep all follow-up visits as told by your doctor. This is important. Get help right away if: ??? You have a very bad headache. ??? You pass out once or more than once. ??? You have pain in your chest, belly, or back. ??? You have a very fast or uneven heartbeat (palpitations). ??? It hurts to breathe. ??? You are bleeding from your mouth or your bottom (rectum). ??? You have black or tarry poop (stool). ??? You have jerky movements that you cannot control (seizure). ??? You are confused. ??? You have trouble walking. ??? You are very weak. ??? You have vision problems. These symptoms may be an emergency. Do not wait to see if the symptoms will go away. Get medical help right away. Call your local emergency services (911 in the [place] Do not drive yourself to the hospital. Summary ??? Syncope is when you pass out (faint) for a short time. It is caused by a sudden decrease in blood flow to the brain. ??? Signs that you may be about to faint include feeling dizzy, light-headed, or sick to your stomach, seeing all white or all black, or having cold, clammy skin. ??? If you start to feel like you might pass out, lie down right away and raise (elevate) your feet above the level of your heart. Breathe deeply and steadily. Wait until all of the symptoms are gone. This information is not intended to replace advice given to you by your health care provider. Make sure you discuss any questions you have with your health care provider. Document Revised: 08/04/2020 Document Reviewed: 08/07/2018 [employer] Patient Education ? 2020 [employer]. Near-Syncope Near-syncope is when you suddenly get weak or dizzy, or you feel like you might pass out (faint). This may also be called presyncope. This is due to a lack of blood flow to the brain. During an episode of near-syncope, you may: ??? Feel dizzy, weak, or light-headed. ??? Feel sick to your stomach (nauseous). ??? See all white or all black. ??? See spots. ??? Have cold, clammy skin. This condition is caused by a sudden decrease in blood flow to the brain. This decrease can result from various causes, but most of those causes are not dangerous. However, near-syncope may be a sign of a serious medical problem, so it is important to seek medical care. Follow these instructions at home: Medicines ??? Take mlgt-rxo-cibkyzk and prescription medicines only as told by your doctor. ??? If you are taking blood pressure or heart medicine, get up slowly and spend many minutes getting ready to sit and then stand. This can help with dizziness. General instructions ??? Be aware of any changes in your symptoms. ??? Talk with your doctor about your symptoms. You may need to have testing to find the cause of your near-syncope. ??? If you start to feel like you might pass out, lie down right away. Raise (elevate) your feet above the level of your heart. Breathe deeply and steadily. Wait until all of the symptoms are gone. ??? Have someone stay with you until you feel stable. ??? Do not drive, use machinery, or play sports until your doctor says it is okay. ??? Drink enough fluid to keep your pee (urine) pale yellow. ??? Keep all follow-up visits as told by your doctor. This is important. Get help right away if you: ??? Have a seizure. ??? Have pain in your: ? Chest. ? Belly (abdomen). ? Back. ??? Faint once or more than once. ??? Have a very bad headache. ??? Are bleeding from your mouth or butt. ??? Have black or tarry poop (stool). ??? Have a very fast or uneven heartbeat (palpitations). ??? Are mixed up (confused). ??? Have trouble walking. ??? Are very weak. ??? Have trouble seeing. These symptoms may be an emergency. Do not wait to see if the symptoms will go away. Get medical help right away. Call your local emergency services (911 in the [place] Do not drive yourself to the hospital. Summary ??? Near-syncope is when you suddenly get weak or dizzy, or you feel like you might pass out (faint). ??? This condition is caused by a lack of blood flow to the brain. ??? Near-syncope may be a sign of a serious medical problem, so it is important to seek medical care. This information is not intended to replace advice given to you by your health care provider. Make sure you discuss any questions you have with your health care provider. Document Revised: 10/17/2019 Document Reviewed: 05/14/2019 Elsevier Patient Education ? 2020 [employer] Procedures Tilt Table Test A tilt table test is a test to find the cause of unexplained problems, such as: ??? Fainting. ??? Dizziness. ??? Falls. ??? A drop in blood pressure when standing up (orthostatic hypotension). For this test, you will be safely secured to a table that moves you from a lying position to an upright position. Your heart rhythm and blood pressure will be monitored during the test. During and for a short time after the test, it is normal to: ??? Feel light-headed or dizzy. ??? Faint. ??? Feel nauseous or vomit. ??? Have blurry vision. ??? Feel cold or clammy. Tell a health care provider about: ??? All medicines you are taking, including vitamins, herbs, eye drops, creams, and kpod-oqr-cjearka medicines. ??? Any surgeries you have had. ??? Any medical conditions you have or have had. ??? Whether you are or may be . What are the risks? Generally, this is a safe test with few risks or complications. A heart attack or stroke can occur in people with significant coronary or carotid artery stenosis, but this is very rare. What happens before the test? Follow instructions from your health care provider about eating or drinking restrictions. ??? Ask your health care provider about changing or stopping your regular medicines. This is especially important if you are taking diabetes medicines or blood thinners. ??? Let your primary health care provider know that you are having this test. ??? Plan to have someone take you home after the test. What happens during the test? You will lie down on a table. The table will have a footboard and safety straps to keep you in place. There are two parts to this test. ??? An IV will be inserted into one of your veins. ??? Your blood pressure, heart rate, breathing rate, and blood oxygen level will be monitored throughout the test. ??? Your heart rhythm will be monitored with a electrocardiograph (ECG). Part one of the test ??? You will be placed in an upright position by tilting the table. You will need to tell your health care provider right away if you feel dizzy or feel like you are going to faint. ??? If you feel dizzy, your blood pressure drops, or your heart rate drops, you will be placed in a flat or head-down position. ??? If your heart rate or blood pressure does not return to normal after that, you may be given medicine to help with symptoms of low blood pressure or a slow heart rate. The medicine may be given under your tongue or through the IV. Part two of the test ??? If you do not have symptoms when placed in an upright position, medicine may be given to cause your heart to beat faster and stronger. You may feel as if you are exercising. The medicine may be given under your tongue or through the IV. ??? You will be placed in an upright position again by tilting the table. Tell your health care provider right away if you feel dizzy or feel like you are going to faint. ??? If you feel dizzy, your blood pressure drops, or your heart rate drops, you will be placed in a flat or head-down position. ??? If your blood pressure does not drop after 15 minutes. The table will be lowered and the test is complete. This test may vary among health care providers and hospitals. What happens after the test? You will be monitored for up to an hour after the test is finished. ??? If you fainted or lost consciousness during the test, you may need to stay for additional testing. ??? Your health care provider will tell you when you can go home. ??? Do not drive yourself home if you fainted during the test. ??? It is up to you to get your test results. Ask your health care provider, or the department that is doing the test, when your results will be ready. Summary ??? A tilt table test is a test to find the cause of unexplained problems such as dizziness or fainting. ??? Follow instructions from your health care provider about eating or drinking restrictions before the test. ??? Follow instructions from your health care provider about changing or stopping your regular medicines. This is especially important if you are taking diabetes medicines or blood thinners. ??? Your blood pressure, heart rate, breathing rate, and blood oxygen level will be monitored throughout the test. ??? Plan to have someone take you home after the test. This information is not intended to replace advice given to you by your health care provider. Make sure you discuss any questions you have with your health care provider. Document Revised: 02/28/2019 Document Reviewed: 02/28/2019 [employer] Patient Education ? 2020 [place]. Electronically signed by Olimpia, [facility] Conversion Food Service Associate Cerner at 10/24/2022 1:23 PM CDT documented in this encounter Plan of Treatment Not on file documented as of this encounter Visit Diagnoses Not on filedocumented in this encounter Care Teams Wash And Greaser Relationship Specialty Start Date End Date Nitin Jerez MD [address] [place] [phone] PCP - General Family Medicine 10/06/22 documented as of this encounter
--- OUTSIDE RECORDS SUMMARY | 2024-12-29 08:00 | XMS_ITS | Encounter Summary ---
Author Organization [employer] Address [address] [place] [place] [address] Care Team Providers Care Gas Treater Name Role Phone Nitin Jerez MD Primary Care Provider [phone]- [phone] Encounter Details Date Type Department Care Team (Late st Contact Info) Description 08/03/2021 Transcribed Document [facility] [place] [facility] [place] [address] ProviderYamila MD [address] [place] [id number] Social History Tobacco Use Types Packs/Day [...] Cerner Conversion Note - Yamila ProviderMD - 08/03/2021 4:32 PM ORNAMENTAL IRONWORKING SUPERVISOR DATE OF SERVICE: 07/29/2021 DESCRIPTION OF PROCEDURE: The patient was brought to the tilt-table lab, where she was placed supine. Heart rate, blood pressure, and oxygen saturation were monitored. Blood pressure 148/75, heart rate 77, saturation 100%. After 30 minutes, blood pressure was 133/74, heart rate 71, and saturation 98%. The patient was placed at 70-degree tilt. Blood pressure was 133/86, heart rate 80, and saturation 100%. The patient was evaluated further for another 30 minutes and she remained stable. She was given sublingual nitroglycerin and the blood pressure, heart rate, and oxygen saturation remained stable. FINAL IMPRESSION: This study is negative for orthostatic, vasodepressor, and cardioinhibitory syncope. /[id number] Ronald Betancourt MD MAQ/AQ / MAQ / MODL /[id number] Electronically signed by Olimpia, [facility] Conversion Manufacturing Chief Engineer Cerner at 10/24/2022 1:31 PM CDT documented in this encounter Plan of Treatment Not on file documented as of this encounter Visit Diagnoses Not on filedocumented in this encounter Care Teams Gas Treater Relationship Specialty Start Date End Date Nitin Jerez MD [address] [place] [id number] PCP - General Family Medicine 10/06/22 documented as of this encounter
--- OUTSIDE RECORDS SUMMARY | 2024-12-29 08:01 | XMS_ITS | Clinical Summary ---
Author Organization [employer] [facility] [employer] Address [address] [place] [address] Care Team Providers Care Cobol Programmer Name Role Phone Nitin Jerez MD Primary Care Provider [phone] Allergies Active Allergy Reactions Criticality Noted Date Comments Cephalosporins Rash Low 02/17/2013 Penicillin Rash Low 06/26/2022 Medications multivitamin per tablet Take 1 tablet by mouth in the morning. Active Saccharomyces boulardii (FLORASTOR) 250 mg capsule Take 1 capsule (250 mg total) by mouth in the morning. 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 10/06/2022 Joint pain 06/26/2022 Leg pain, bilateral 06/26/2022 Seizure disorder, focal motor 06/26/2022 Goiter 06/26/2022 Thyroid nodule 06/26/2022 Chronic fatigue 10/15/2019 Class 1 obesity due to exces s calories without serious comorbidity with body mass index (BMI) of 31.0 to 31.9 in adult 10/15/2019 Other dysphagia 10/15/2019 Solitary thyroid nodule 10/15/2019 Thyroid antibody positive 10/15/2019 Goiter 10/15/2019 Slow transit constipation 06/24/2015 Thyroid cyst 02/15/2015 Globus sensation 05/14/2014 Anemia 01/23/2014 Family history of breast cancer in first degree relative 01/23/2014 History of cervical dysplasia 01/23/2014 Overview (09/27/2022): Per ISOTOPE TECHNOLOGIST Per ISOTOPE TECHNOLOGIST Neurological dysfunction 01/23/2014 Overview (09/27/2022): Gag and throat with noxious stimul Gag and throat with noxious stimul Plantar fasciitis, bilateral 01/23/2014 Bacterial vaginosis 12/31/2012 Overview (09/27/2022): 12/31: Flagyl HSV (herpes simplex virus) infection 12/31/2012 Overview (09/27/2022): Needs suppression at 36wks 01/22 admitted for labor, no obvious lesions on SSE Exam, acyclovir started Low grade squamous intraepit helial lesion (LGSIL) on cervicovaginal cytologic smear 12/31/2012 Overview (09/27/2022): 2013: LGSIL. Colpo at [place] nml. PP colpo with ECC and Bx pending (03/04) Immunizations Name Administration Dates Next Due Tdap 09/06/2021 Family History Medical History Relation Name Comments Heart disease Father Cancer Mother Diabetes Other Drug abuse Other Hyperlipidemia Other Relation Name Status Comments Father Mother Other Social History Tobacco Use Types Packs/Day Years Used Date Smoking Tobacco: Never Smokeless Tobacco: Never Tobacco Cessation:Counseling Given: Not Answered Interpersonal Safety Answer Date Record ed Family or friends hurt you Not on file 07/27 Family or friends insult you Not on file Family or friends threaten you Not on file 0 07/27/2023 Family or friends scream or curse at you Not on file 07/27/2023 Housing Stability Answer Date Recorded Living situation today Not on file Living situation problems Not on file 2023 Family and Community Support Answer Lalo e Recorded Help with Day to Day Activities Not on file 07/27/2023 Feeling Lonely or Isolated Not on file 07/27 Educational Attainment Answer Date Marcos rded Speak language other than [place] Timorese at home Not on file 07/27/2023 Want help with school or training Not on file 07/27/2023 Depression Answer Date Recorded PHQ-2 Risk Not on file 07/27/2023 Disabilities Answer Date Recorded Difficulty concentrating Not on file 024 Difficulty doing errands alone Not on file 0 07/27/2023 Substance Use Answer Date Recorded Used prescription meds for non-medical reasons N ot on file 07/27/2023 Used illegal drugs past 12 months Not on file 07/27/2023 Comments Unknown Sex and Gender Information Value Date Recorded Sex Assigned at Female 01/03/2022 9:01 PM CDT Legal Sex Female 9:01 PM CDT Gender Identity Female 01/03/2022 9:01 PM CDT Sexual Orientation Not on file Last Filed Vital Signs Vital Sign Reading Time Taken Comments Blood Pressure 129/83 10/08/2022 6:19 AM EDT Pulse 65 10/08/2022 6:19 AM EDT Temperature 36.9 C (98.4 F) 10/08/2022 6:30 AM EDT Respiratory Rate 16 10/07/2022 5:55 AM EDT Oxygen Saturation 95% 10/07/2022 5:55 AM EDT Inhaled Oxygen Concentration - - Weight 95.3 kg (210 lb) 09/27/2022 9:20 AM EDT Height 157.5 cm (5' 2 ) 09/27/2022 9:20 AM EDT Body Mass Index 38.41 09/27/2022 9:20 AM EDT Plan of Treatment Health Maintenance Due Date Last Done Comments Depression Screening (12+) 1997 HIV Screening 2000 Hepatitis C Screening 2003 Lipid Panel 2005 Pap Smear 2006 Tobacco Cessation Counseling and Screening (12+) 09/28/2023 09/27/2022 COVID-19 VACCINE (2023-2 5 season) 2024 Influenza Vaccine (Season Ended) 2025 DTAP/TDAP/TD VACCINES (2 - T d or Tdap) 09/07/2031 09/06/2021 Pneumococcal Vaccine: 0-49 Years Aged Out No longer eligible based on patient's age to complete this topic Insurance [place] [id number] [facility] MGD OOS Member Subscriber Plan / Payer (Ef fective for All Dates) Name:Idalmis Frances Relation to Subscriber:Self Name:Idalmis Frances Payer ID:[id number] Group ID:Not on file Type:Not on file Address: [facility] [address] [place] [address] Advance Directives For more information, please contact: [phone] * Full Code (Latest Code Status on File) Date Activated Date Inactivated Comments 10/06/2022 10:00 AM 10/08/2022 3:01 PM Care Teams Cobol Programmer Relationship Specialty Start Date End Date Nitin Jerez MD [address] [place] [address] PCP - General Family Medicine 10/06/22
--- OUTSIDE RECORDS SUMMARY | 2024-12-29 08:01 | XMS_ITS | Encounter Summary ---
Author Organization [facility] Address [address] [place] [address] Care Team Providers Care Client Customer Manager Name Role Phone Carolina Ahuja MD Primary Care Provider [phone] Encounter Details Date Type Department Care Team (Late st Contact Info) Description 06/01/2014 PAT Telephone [facility] Pre-Admit Testing [address] [place] [address] Jia Rhoades, RN Social History Tobacco Use Types Packs/Day Years Used Date Smoking Tobacco: Never Smokeless Tobacco: Never Comments:congrats, advised n ot to start Alcohol Use Standard Drinks/Week Comments Yes 0.8 (1 standard drink = 0.6 oz p ure alcohol) socially Comments Unknown Sex and Gender Information Value Date Recorded Sex Assigned at Not on file Legal Sex Female 11:39 PM EST Gender Identity Not on file Sexual Orientation Not on file documented as of this encounter Progress Notes * Jia Rhoades, RN - 06/01/2014 10:04 AM EST Attempted to contact patient. No answer. Message left at 10:04 AM on 06/01/2014. documented in this encounter Plan of Treatment Not on file documented as of this encounter Visit Diagnoses Not on filedocumented in this encounter Care Teams Client Customer Manager Relationship Specialty Start Date End Date Carolina Ahuja MD [address] [place] [address] PCP - General Family Medicine 05/19/14 documented as of this encounter
--- OUTSIDE RECORDS SUMMARY | 2024-12-29 08:01 | XMS_ITS | Patient Health Record ---
Author Organization [facility] [place] Address [address] [place] [address] Care Team Providers Care Production Control Supervisor Name Role Phone Martha Sanz Unavailable [phone] Bre Marroquin Unavailable [phone] Emperatriz Garcia Unavailable [phone] Allergies Allergen (clinical drug ingredient) Drug/Non Drug Allergy documented on EMR Reaction Allergy Type Onset Date Status PENICILLIN V POTASSIUM (PENICILLIN V POTASSIUM TAB Unspecified Drug Allergy 08/21/2018 Active Results Component Value Reference Range Flag Notes Pap w/HPV Reviewed date:04/02/2024 10:50:51 AM Interpretation:Pap normal, HPV negative Performing Lab: Notes/Report: [email or web address] Testing performed at: [WB] [address], [address], , Signal Helper: Juliana Coughlin MD Testing performed at: [=G] [address], [address], , Signal Helper: Juliana Coughlin MD Source.............Cervix;Endocervix No. of containers..01 ThinPrep Vial DIAGNOSIS: Comment N NEGATIVE FOR I NTRAEPITHELIAL LESION OR MALIGNANCY. Specimen adequacy: Comment N Satisf actory for evaluation. No endocervical component is identified. Clinician provided ICD10: Comment N Z01.419 Performed by: Comment N Ha Church, Repairer Recreational Vehicle (ASCP) . . N Note: Comment N The Pap smear is a screening test designed to aid in the detection of premalignant and malignant conditions of the uterine cervix. It is not a diagnostic procedure and should not be used as the sole means of detecting cervical cancer. Both false-positive and false-negative reports do occur. Test Methodology: Comment N This liquid based ThinPrep(R) pap test was screened with the use of an image guided system. HPV Aptima Negative Negative N This nucleic acid amplification test detects fourteen high- risk HPV types (16,18,31,33,35,39,45,51,52,56 ,58,59,66,68) without differentiation. HPV Genotype Reflex Comment N Crite ralf not met, HPV Genotype not performed. Lead Project Manager Report Reviewed date:03/27/2024 09:34:09 AM Interpretation: Performing Lab: Notes/Report: [facility] performed at: [WB] [facility], [address] [place], [address], , Signal Helper: Juliana Coughlin MD No. of containers..01 ThinPrep Vial DIAGNOSIS: Comment N SPECIMEN REJEC PAULA AND/OR NOT PROCESSED. Specimen adequacy: Comment N Specimen adequacy is not performed due to this being a problem specimen. TWO NAMES ON THIN PREP VIAL. RETURNING SAMPLE VIA FED EX FOR CORRECTION. ADVISED FATIMAH RAYO, 03/25/2024. Clinician provided ICD10: Comment N Z01.419 Performed by: Comment N Eben Love [facility] Specimen [address] [place] [address] . . N Reason For Referral No Information Social History Sex Assigned At : Social History Observation Description Sex Assigned At Female Problems Problem Type SNOMED Code ICD Code Onset Dates Problem Status W/U Status Risk Notes Problem Surveillance of intrauterine device contraception (313346054) Checking of intrauterine device (Z30.431) 021 Active confirmed IUD surveillance Problem Awaiting removal of contraceptive intrauterine device (IUD) (Z30.432) 021 Active confirmed IUD removal Problem Gynecological examination normal (10117754848423 4) Cervical smear, as part of routine gynecological examination (Z01.419) 019 Active confirmed Annual without abnormal findings Problem Insertion of intrauterine contraceptive device (97307633) Encounter for initial insertion of intrauterine contraceptive device (Z30.430) 021 Active confirmed IUD insertion Vital Signs Blood pressure diastolic 82 mm Hg 03/20/2024 Height 62 in 03/20/2024 Blood pressure systolic 130 mm Hg 03/20/2024 Weight 213.4 lbs 03/20/2024 BMI 39.03 kg/m2 03/20/2024 Encounters Encounter Location Date Provider Diagnosis [facility] [address] [place] [address] 03/28/2024 Bre Marroquin [facility] [address] [place] [address] 03/20/2024 Bre Marroquin Lead Project Manager exam without abnormal findings Z01.419 Assessments Encounter Date Diagnosis (ICD Code) Assessment Notes Treatment Notes Treatment Clinical Notes Section Notes 03/20/2024 Lead Project Manager exam without abnormal findings (ICD-10 - Z01.419) Normal annual exam Pap obtained BSE encouraged Follow up annual exam or PRN Plan Of Treatment No Information Insurance Providers Payer Name Payer Address Payer Phone Subscriber Number Group Number Insured Name Patient Relationship to Insured Coverage Start Date Coverage End Date [facility] Medicaid [address] [address] [place], [place] [id number] [phone] [id number] Idalmis Frances Self - patient is the insured Medical (General) History Medical History History ICD Code abnormal paps HPV varicose veins yeast infections genital HSV Breast Issues Autoimmune Disorder Surgical History Surgery Date(Month/Year) Carpal Tunnel C/S Thyroid Biopsy Breast Biopsy Hospitalization History Reason Date(Month/Year) C/S
--- OUTSIDE RECORDS SUMMARY | 2024-12-29 08:01 | XMS_ITS | Clinical Summary ---
Author Organization [facility] Address [address] [place] [address] Care Team Providers Care C Consultant Name Role Phone Carolina Ahuja MD Primary Care Provider [phone] Allergies Active Allergy Reactions Criticality Noted Date Comments Cephalosporins 06/24/2014 Penicillins Rash Low 01/23/2014 Avoid cephalosporins Medications levonorgestrel (MIRENA) 20 MCG/24HR IUD 1 each by Intrauterine route once. CHIP LOFT WORKER 4 Active lactobacillus (CULTURELLE) capsuleIndicati ons:Generalized abdominal pain Take 1 capsule by mouth daily 30 capsule 11 6 Active omeprazole (PRILOSEC) 10 MG delayed release capsule Take 40 mg by mouth daily Active Active Problems Problem Noted Date Diagnosed Date Slow transit constipation 06/24/2015 Thyroid cyst 02/15/2015 Globus sensation 05/14/2014 Family history of breast cancer in first degree relative 01/23/2014 History of cervical dysplasia- pos HPV 4 Overview (01/23/2014): Per OIL EXTRACTOR Plantar fasciitis, bilateral 01/23/2014 Anemia 01/23/2014 Neurological dysfunction 01/23/2014 Overview (01/23/2014): Gag and throat with noxious stimul Family History Medical History Relation Name Comments Heart Disease Father Cancer Maternal Aunt breast Cancer Maternal Uncle ? Cancer Mother breast Cancer Paternal Aunt cervical Cancer Paternal Grandfather prostat e Cancer Paternal Uncle brain Relation Name Status Comments Father Alive Maternal Aunt Maternal Uncle Mother Alive Paternal Aunt Paternal Grandfather Paternal Uncle Social History Tobacco Use Types Packs/Day Years Used Date Smoking Tobacco: Never Smokeless Tobacco: Never Tobacco Cessation:Counseling Given: Yes Comments:congrats, advised not to start Alcohol Use Standard Drinks/Week Comments Yes 0.8 (1 standard drink = 0.6 oz p ure alcohol) socially PHQ-2 Answer Date Recorded PHQ-2 Score 2 10/08/2018 Comments No Sex and Gender Information Value Date Recorded Sex Assigned at Not on file Legal Sex Female 11:39 PM EST Gender Identity Not on file Sexual Orientation Not on file Last Filed Vital Signs Vital Sign Reading Time Taken Comments Blood Pressure 113/66 11/26/2017 2:30 PM EDT Pulse 67 11/26/2017 2:30 PM EDT Temperature 36.9 C (98.5 F) 11/26/2017 2:11 PM EDT Respiratory Rate 16 11/26/2017 2:30 PM EDT Oxygen Saturation 100% 11/26/2017 2:30 PM EDT Inhaled Oxygen Concentration - - Weight 72.6 kg (160 lb) 11/26/2017 1:32 PM EDT Height 160 cm (5' 3 ) 11/26/2017 1:32 PM EDT Body Mass Index 28.34 11/26/2017 1:32 PM EDT Plan of Treatment Not on file Medical Devices Implanted Type Area Community Worker Device Identifier Shelf Expiration Date Model / Serial / Lot Iud Care Teams C Consultant Relationship Specialty Start Date End Date Carolina Ahuja MD [address] [place] [address] [address] [place] [address] PCP - General Family Medicine 05/19/14
--- OUTSIDE RECORDS SUMMARY | 2024-12-29 08:01 | XMS_ITS | Encounter Summary ---
Author Organization [facility] Address [address] [place] [address] Care Team Providers Care Polygraph Examiner Name Role Phone Carolina Ahuja MD Primary Care Provider [phone] Encounter Details Date Type Department Care Team (Late st Contact Info) Description 11/27/2017 FollowUp Telephone Encounter [facility] [address] [facility] [place] [address] Jordyn Love RN Social History Tobacco Use Types Packs/Day Years Used Date Smoking Tobacco: Never Smokeless Tobacco: Never Comments:congrats, advised n ot to start Alcohol Use Standard Drinks/Week Comments Yes 0.8 (1 standard drink = 0.6 oz p ure alcohol) socially Comments No Sex and Gender Information Value Date Recorded Sex Assigned at Not on file Legal Sex Female 11:39 PM EST Gender Identity Not on file Sexual Orientation Not on file documented as of this encounter Plan of Treatment Not on file documented as of this encounter Visit Diagnoses Not on filedocumented in this encounter Care Teams Polygraph Examiner Relationship Specialty Start Date End Date Carolina Ahuja MD [address] [facility] [address] [place] [address] PCP - General Family Medicine 05/19/14 documented as of this encounter
--- OUTSIDE RECORDS SUMMARY | 2024-12-29 08:01 | XMS_ITS | Encounter Summary ---
Author Organization [employer] [facility] [employer] Address [address] [place] [address] Care Team Providers Care Acupuncture Physician Name Role Phone Nitin Jerez MD Primary Care Provider [phone] Encounter Details Date Type Department Care Team (Late st Contact Info) Description 07/29/2021 Transcribed Document [facility] Family [place] [address] ProviderYamila MD [address] [place] [address] Social History Tobacco Use Types Packs/Day [...] Conversion Note - Historical ProviderMD - 07/29/2021 9:41 AM SENIOR SQL DATABASE DEVELOPER Stroke/Warfarin Instructions Entered On: 07/29/2021 9:41 EST Performed On: 07/29/2021 9:41 EST by Madison Wynne Rn Stroke/Warfarin Instructions Stroke/TIA Discharge Ins : N/A Warfarin Discharge Ins : N/A [place] Wynne Rn - 07/29/2021 9:41 EST Electronically signed by Olimpia [facility] Conversion Colliery Clerk Cerner at 10/24/2022 1:38 PM CDT documented in this encounter Plan of Treatment Not on file documented as of this encounter Visit Diagnoses Not on filedocumented in this encounter Care Teams Acupuncture Physician Relationship Specialty Start Date End Date Meri, Nitin H, MD [address] [place] [address] PCP - General Family Medicine 10/06/22 documented as of this encounter
--- OUTSIDE RECORDS SUMMARY | 2024-12-29 08:02 | XMS_ITS | Encounter Summary ---
Author Organization [employer] Address [address] [place] [address] Care Team Providers Care Stock Crane Operator Name Role Phone Nitin Jerez MD Primary Care Provider +1- [phone] Encounter Details Date Type Department Care Team (Late st Contact Info) Description 07/29/2021 Transcribed Document [facility] [place] Family Medicine [facility] [place] [address] ProviderYamila MD [address] [place] [address] Social History Tobacco Use Types Packs/Day [...] Conversion Note - Yamila ProviderMD - 07/29/2021 9:42 [place] [address] LENNY ABAD :1985 Visit Time:07/29/2021 Your Visit Summary Your Care Team Primary Care Physician - IQRA BAIN DR These Are Your Goals No qualifying data available. Discharge Vitals Temperature 36.1 ??C Respiratory Rate 20 Blood Pressure 135/76 What to do next Follow-Up Appointments Follow Up with GARRY BRUCE MD-CAR When Within 2 to 3 days Comments Call for follow up appointment Where: [address] [place] [address]- Medications Take your medications faithfully. Do NOT skip medication. Do NOT stop taking medications without the direction of a physician. Carry a list of your medications with you at all times, and take this medication list with you to your first follow up visit. Report any side effects. Avoid herbal remedies unless discussed with your physician. As part of your treatment plan, your physician may have prescribed a limited course of a controlled substance. This medication may be given to help people with moderate or severe pain or for other medical conditions, but there are risks involved with treatment. Common side effects may include nausea, constipation, drowsiness, sweating, itching, dry mouth, and rash. More serious side effects may include cognitive and motor impairment, like problems with thinking, concentrating, alertness, and movement (e.g. slowed reflexes), and driving and operating heavy machinery can be dangerous. It is important for you to talk to your physician if you have these side effects or questions. These controlled substances can produce physical dependence and be habit-forming if taken for an extended period of time, which means that the body has gotten used to them and may experience withdrawal symptoms if they are abruptly stopped. Withdrawal symptoms can include runny nose, sweating, goose bumps, diarrhea, abdominal cramping, rapid heartbeat, difficulty sleeping, and nervousness. Please dispose of unused and medications per your retail pharmacy guidance. Allergies penicillin (rash) Immunizations This Visit No Immunizations Found Education Materials Tilt Table Test A tilt table test [...] including vitamins, herbs, eye drops, creams, and giwn-pdo-hplinep medicines. ??? Any surgeries you have had. [...] provider. Document Revised: 02/28/2019 Document Reviewed: 02/28/2019 [employer] Patient Education ?? 2021 [employer]. Syncope Syncope is when you pass out [...] (urine) pale yellow. General instructions ??? Take zskv-vgz-xkscxtx and prescription medicines only as told by [...] provider. Document Revised: 08/04/2020 Document Reviewed: 08/07/2018 [employer] Patient Education ?? 2020 [employer]. Near-Syncope Near-syncope is when you suddenly get [...] these instructions at home: Medicines ??? Take plmn-bkr-xemhiux and prescription medicines only as told by [...] provider. Document Revised: 10/17/2019 Document Reviewed: 05/14/2019 [employer]pon Patient Education ?? 2020 [employer] It???s Cold and Flu Season ??? How [...] to thoroughly wash your hands, use hand gift shop clerk. While handwashing is best, hand gift shop clerk helps to reduce the spread of germs when you are out and about. Have hand gift shop clerk in several locations so you can always [...] keep people from also getting sick. Don???t Mohawk It! Sneezing this time of year is [...] visit HYPERLINK http://www.catholichealthinitiatives.org/ www.catholichealthinitiatives.org. September 12, 2019 Emergency Awareness and Preventative Care STROKE is an EMERGENCY Every Minute Counts Act FAST and Check for these signs: FACE Does the face look uneven? ARM Does one arm drift down? SPEECH Does their speech sound strange? TIME Call at any sign of stroke Stroke Risk Factors Atrial Fibrillation (irregular heartbeat) Diabetes Family history of stroke Heart Disease Heavy alcohol use High Blood Pressure High Cholesterol Physical inactivity and obesity Smoking Cigarette Smoking The facts are clear, cigarette smoking will shorten your life. Smoking can cause many illnesses along the way. As a healthcare provider, we recommend that you stop smoking. Assistance with quitting is available by contacting 4-104-XMVL-NOW. This is a free resource providing counseling, support, and referral. Or you may contact your personal physician. [employer] Suicide Prevention Lifeline: The National Suicide Prevention Lifeline is a national network of local crisis centers that provides free and confidential emotional support to people in suicidal crisis or emotional distress 24 hours a day, 7 days a week. Don't Wait! Stop a Heart Attack Before it Starts What is a heart attack? A heart attack is damage or to a part of the heart from severely decreased or lack of blood flow to the heart. Over time, arteries can become narrow from the buildup of fat and cholesterol, which is called plaque. The plaque can rupture causing a blood clot to form. When the blood clot forms, the artery can become severely narrowed or completely blocked, causing a heart attack. Heart attack is the leading cause of in the [place]. 85% of muscle damage occurs within the first 2 hours. Delay in the recognition of heart attack symptoms increases the chances of . Know the early symptoms of a heart attack: Nausea Feeling of fullness in chest Jaw Pain Pain that travels down one or both arms Fatigue/being tired Anxiety Back Pain Chest pressure, squeezing, or discomfort Shortness of breath Sweating, or a cold sweat Feeling of impending doom There are unusual signs of a heart attack, too! Women, the elderly, and diabetics may present with atypical symptoms: Fainting/dizziness Weakness Confusion Risk Factors for a Heart Attack Some heart disease risk factors, such as age and family history, cannot be changed. Others, like smoking and lack of exercise, can be changed. Smoking High Cholesterol High Blood Pressure Family History Obesity Age Gender (Males are at higher risk) Lack of Exercise Diabetes Diet Stress Excessive Alcohol Intake If you or someone you know is experiencing the signs and symptoms of a heart attack, DON???T DELAY. Call immediately and seek help. If someone collapses, perform CPR! Do not attempt to drive if you are having symptoms of heart attack. Hands-Only CPR Why Hands-Only CPR? Hands-Only CPR has been shown to be as effective as conventional CPR for cardiac arrests that occur outside of a hospital. Survival depends on immediately receiving CPR from someone nearby. How do you perform Hands-Only CPR? There are two easy steps: Call if you see a teen or adult collapse Push hard and fast in the center of the chest at a beat of 100 beats per minute. Save a life! 4 WAYS TO GET AHEAD OF SEPSIS SEPSIS is a MEDICAL EMERGENCY. Time matters! Infections put you and your family at risk for a life-threatening condition called sepsis. Sepsis is the body's extreme response to an infection. It is life-threatening, and without timely treatment, sepsis can rapidly lead to tissue damage, organ failure, and . Sepsis happens when an infection you already have-in your skin, lungs, urinary tract or somewhere else-triggers a chain reaction throughout your body. 1 PREVENT INFECTIONS Take good care of chronic conditions. Talk to your doctor about getting the recommended vaccines. 2 PRACTICE GOOD HYGIENE Wash your hands frequently. Keep cuts or open sores clean and covered until they are healed. 3 KNOW THE SYMPTOMS Confusion or disorientation Shortness of breath High heart rate Fever, shivering, or feeling very cold Extreme pain or discomfort Clammy or sweaty skin 4 ACT FAST Get medical care IMMEDIATELY if you suspect sepsis or if you have an infection that is not getting better or is getting worse. To learn more about sepsis and how to prevent infections, visit www.cdc.gov/sepsis. Test Results Laboratory or Other Results This Visit (last charted value for your 07/29/2021 visit) No Laboratory or Other Results This Visit Patient Name:LENNY ABAD I have received and understand this information and was given the opportunity to ask questions. Patient/Landscape Account Manager Name: Patient/Landscape Account Manager Signature: Relationship to Patient: Clinician/Hospital Landscape Account Manager Signature: Date: Electronically signed by Olimpia, [facility] Conversion Firewall Security Engineer Cerner at 10/24/2022 1:21 PM CDT documented in this encounter Plan of Treatment Not on file documented as of this encounter Visit Diagnoses Not on filedocumented in this encounter Care Teams Stock Crane Operator Relationship Specialty Start Date End Date Nitin Jerez MD [address] [place] [id number] PCP - General Family Medicine 10/06/22 documented as of this encounter
--- OUTSIDE RECORDS SUMMARY | 2024-12-29 08:02 | XMS_ITS | Encounter Summary ---
Author Organization [employer] Address [address] [place] [address] Care Team Providers Care Papeterie Table Assembler Name Role Phone Nitin Jerez MD Primary Care Provider +1- [phone] Encounter Details Date Type Department Care Team (Late st Contact Info) Description 07/12/2021 Transcribed Document [facility] [place] Family Medicine [facility] [place] [address] ProviderYamila MD [address] [place] [address] Social History Tobacco Use Types Packs/Day [...] Cerner Conversion Note - Historical ProviderMD - 07/12/2021 4:10 PM PHOTOGRAPHER AERIAL Broset Violence Assessment Entered On: 07/12/2021 16:27 EST Performed On: 07/12/2021 16:27 EST by MARQUEZ CASTANEDA RN Broset Violence Assessment Broset Violence Checklist of Symptoms : None Broset Violence Symptoms Subtotal : 0 Broset Violence Symptoms Indicator : Low risk (0) MARQUEZ CASTANEDA RN - 07/12/2021 16:27 EST Electronically signed by Olimpia [facility] Conversion Brickmason Supervisor Cerner at 10/24/2022 1:26 PM CDT documented in this encounter Plan of Treatment Not on file documented as of this encounter Visit Diagnoses Not on filedocumented in this encounter Care Teams Papeterie Table Assembler Relationship Specialty Start Date End Date Nitin Jerez MD [address] [place] [id number] PCP - General Family Medicine 10/06/22 documented as of this encounter
--- OUTSIDE RECORDS SUMMARY | 2024-12-29 08:02 | XMS_ITS | Encounter Summary ---
Author Organization [employer] Address [address] [place] [address] Care Team Providers Care Dental Laboratory Technician Apprentice Name Role Phone Nitin Jerez MD Primary Care Provider +1- [phone] Encounter Details Date Type Department Care Team (Late st Contact Info) Description 07/14/2021 Transcribed Document [facility] [place] [address] ProviderYamila MD [address] [place] [address] Social History Tobacco Use Types Packs/Day [...] Cerner Conversion Note - Historical ProviderMD - 07/14/2021 11:05 AM COGNOS LEAD CR Chest 1 Vw Portable Ordered: 07/12/2021 Modified Reason for Exam: dizziness 07/13/2021 10:23 07/14/2021 11:05 (LOLA CALDERÓN PA-C) Reviewed by Provider, No further action required documented in this encounter Plan of Treatment Not on file documented as of this encounter Visit Diagnoses Not on filedocumented in this encounter Care Teams Dental Laboratory Technician Apprentice Relationship Specialty Start Date End Date Nitin Jerez MD [address] [place] [id number] PCP - General Family Medicine 10/06/22 documented as of this encounter
--- OUTSIDE RECORDS SUMMARY | 2024-12-29 08:02 | XMS_ITS | Encounter Summary ---
Author Organization [employer] Address [address] [place] [address] Care Team Providers Care Proof Plate Maker Name Role Phone Nitin Jerez MD Primary Care Provider +1- [phone] Encounter Details Date Type Department Care Team (Late st Contact Info) Description 07/12/2021 Transcribed Document [facility] [place] [facility] [place] [address] ProviderYamila MD [address] [place] [address] Social History Tobacco Use Types Packs/Day [...] Cerner Conversion Note - Yamila ProviderMD - 07/12/2021 9:30 PM DIRECT SUPPORT PROFESSIONAL CAREGIVER ED Discharge Entered On: 07/12/2021 21:30 EST Performed On: 07/12/2021 21:30 EST by Melba Baptiste RN Discharge Process Patient Disposition : Discharge Personal Belongings With Patient : Yes Patient Education Completed : Yes Teaching Evaluation : Verbalizes understanding IV Discontinued : Yes Nursing Documentation Completed : Yes Melba Baptiste RN - 07/12/2021 21:30 EST ED Discharge Discharge To : Home with ambulatory/outpatient follow-up Mode Of Departure : Ambulatory Accompanied By : Spouse Discharge Instructions Reviewed With, Opportunity For Questions Given : Patient, Spouse Prescriptions Given to Patient : No Medications Given to Patient : No Adithya Baptistena, RN - 07/12/2021 21:30 EST Electronically signed by [facility], [facility] Conversion Technical Implementation Lead Cerner at 10/24/2022 1:31 PM CDT documented in this encounter Plan of Treatment Not on file documented as of this encounter Visit Diagnoses Not on filedocumented in this encounter Care Teams Proof Plate Maker Relationship Specialty Start Date End Date Nitin Jerez MD [address] [place] [id number] PCP - General Family Medicine 10/06/22 documented as of this encounter
--- OUTSIDE RECORDS SUMMARY | 2024-12-29 08:02 | XMS_ITS | Encounter Summary ---
Author Organization [employer] Address [address] [place] [id number] Care Team Providers Care Cattle Feeder Name Role Phone Nitin Jerez MD Primary Care Provider [phone] Encounter Details Date Type Department Care Team (Late st Contact Info) Description 07/12/[address] [facility] Medicine [facility] [place] [address] ProviderYamila MD [address] [place] [id number] Social History Tobacco Use Types Packs/Day [...] Conversion Note - Yamila ProviderMD - 07/12/2021 9:17 [place] [address] LENNY ABAD :1985 Visit Time:07/12/2021 Your Visit Summary Your Care Team Primary Provider: CAROLYN DONOHUE Secondary Provider: Your Diagnosis Dizziness Dizziness Near syncope Medical Information You may obtain a copy of your Emergency Department visit from Medical Records by calling the hospital phone number listed above and asking to be directed to the Medical Records Department. If you had special tests, such as EKG???s or X-rays, the interpretation of your tests given to you by the Emergency Department Physician is a preliminary report. Some fractures and illnesses fail to show up on preliminary tests. These will be reviewed again and we will call you if there are any new suggestions. If your symptoms continue notify your physician. After you leave, you should follow the instructions provided. What to do next Follow-Up Appointments Follow Up with ALHAJI DINH When Within 2 to 3 days Comments Call in the AM to follow-up with cardiology for your dizziness and near syncope Turn to ER for worsening of symptoms: Chest pain, fainting, shortness of breath Where: [address] [place], [place] [id number]- Business (1) Follow Up with IQRA BAIN When Within 2 to 3 days Allergies No Known Medication Allergies Immunizations This Visit No Immunizations Found Medications The home medications listed are only as accurate as the information you provided. Please continue taking all of your medications prescribed by your Primary Care Provider unless specifically told to change or discontinue the medication. Please direct any questions regarding your home medications to your Primary Care Provider. Take your medications faithfully. Do NOT skip [...] Please dispose of unused and medications per pharmacy guidance. Test Results Laboratory or Other Results This Visit (last charted value for your 07/12/2021 visit) Hematology 07/12/2021 4:29 PM WBC: 8.8 K/uL -- Normal range between ( 3.9 and 10.0 ) RBC: 5.05 Million/uL -- Normal range between ( 3.93 and 5.22 ) Hct: 46.3 % -- Normal range between ( 34.1 and 44.9 ) Hgb: 15.3 Gram/dL -- Normal range between ( 11.2 and 15.7 ) Platelet Count: 281 K/uL -- Normal range between ( 163 and 369 ) MCH: 30.3 pg -- Normal range between ( 25.6 and 32.2 ) MCHC: 33.0 Gram/dL -- Normal range between ( 32.3 and 36.5 ) MCV: 91.7 fL -- Normal range between ( 79.0 and 94.8 ) Slide Review: No Eos %: 1.8 % -- Normal range between ( 1.0 and 7.0 ) [place] #: 0.75 K/uL -- Normal range between ( 0.24 and 0.82 ) Eos #: 0.16 K/uL -- Normal range between ( 0.04 and 0.54 ) [place] %: 8.5 % -- Normal range between ( 4.7 and 12.5 ) Baso %: 0.5 % -- Normal range between ( 0.0 and 1.0 ) Baso #: 0.04 K/uL -- Normal range between ( 0.01 and 0.08 ) RDW: 12.5 % -- Normal range between ( 11.6 and 14.4 ) Neut %: 66.3 % -- Normal range between ( 34.0 and 71.0 ) Neut #: 5.85 K/uL -- Normal range between ( 1.56 and 6.13 ) Lymph %: 22.4 % -- Normal range between ( 19.3 and 53.0 ) Lymph #: 1.97 K/uL -- Normal range between ( 1.18 and 3.74 ) MPV: 9.5 fL -- Normal range between ( 9.4 and 12.4 ) IG#: 0 x10(3)/uL IG%: 0 % -- Normal range between ( 0 and 1 ) Urinalysis 07/12/2021 4:25 PM Urine Nitrite: Negative Urine Leukocyte Esterase: Negative Urine Appearance: Clear Urine Glucose Dipstick: Negative Urine Blood Dipstick: Negative Urine Urobilinogen Dipstick: 0.2 EU/dL -- Normal range between ( 0.2 and 1.0 ) Urine Protein Dipstick: Negative Urine Color: Yellow Urine Ketones Dipstick: Negative Urine pH Dipstick: *7.5 -- Normal range between ( 6.0 and 8.0 ) Urine Bilirubin Dipstick: Negative Urine Specific [place]: 1.006 -- Normal range between ( 1.005 and 1.030 ) Urine Type.: U CleanCatch Urine Culture if Indicated: Not Indicated General Chemistry 07/12/2021 4:29 PM Creatinine Level: 0.76 mg/dL -- Normal range between ( 0.55 and 1.02 ) Sodium Level: 140 mmol/L -- Normal range between ( 136 and 146 ) Potassium Level: 4.1 mmol/L -- Normal range between ( 3.5 and 5.1 ) Chloride Level: 106 mmol/L -- Normal range between ( 102 and 112 ) Carbon Dioxide Level: 27 mmol/L -- Normal range between ( 21 and 32 ) Anion Gap: 11 -- Normal range between ( 9 and 20 ) Bilirubin Total: 0.4 mg/dL -- Normal range between ( 0.2 and 1.3 ) A/G Ratio: 1.2 -- Normal range between ( 1.1 and 2.5 ) ALT: 41 Units/Liter -- Normal range between ( 12 and 78 ) AST: 18 Units/Liter -- Normal range between ( 5 and 37 ) Globulin: 3.6 Gram/dL -- Normal range between ( 1.5 and 4.5 ) Alk Phos: 71 Units/Liter -- Normal range between ( 27 and 136 ) Bun/Creatinine: 18.4 -- Normal range between ( 8.0 and 20.0 ) Calcium Level: 9.1 mg/dL -- Normal range between ( 8.5 and 10.1 ) eGFR : >60 mL/min/1.73m2 eGFR NonAfrican: >60 mL/min/1.73m2 Glucose Level: 98 mg/dL -- Normal range between ( 74 and 106 ) Blood Urea Nitrogen: 14 mg/dL -- Normal range between ( 7 and 22 ) Protein Total: 7.8 Gram/dL -- Normal range between ( 6.4 and 8.2 ) Albumin Level: 4.2 Gram/dL -- Normal range between ( 3.4 and 5.0 ) Glucose POC2: 95 mg/dL -- Normal range between ( 70 and 110 ) Cardiac Specific Markers 07/12/2021 4:29 PM Troponin I Ultra: <0.015 ng/mL -- Normal range between ( 0.015 and 0.045 ) Endocrinology 07/12/2021 4:25 PM HCG Urine Qualitative: Negative Toxicology 07/12/2021 4:25 PM UDS Amp: Negative UDS Lyric: Negative UDS Benzo: Negative UDS Mohini: Negative UDS Meth: Negative UDS Opi: Negative UDS Oxy: Negative UDS PCP: Negative UDS TCA: Negative UDS THC: Negative Buprenorphine Screen, Urine: Negative Propoxyphene, Urine: Negative UDS pH: 7.8 Education Materials Ambulatory Cardiac Monitoring An ambulatory deli worker is a small recording device that is used to detect abnormal heart rhythms (arrhythmias). Monitors are either connected by wires to flat, sticky disks (electrodes) attached to the chest, or with a single small adhesive patch applied to the chest. You may need to wear a monitor if you have had symptoms such as: ??? Fast or irregular heartbeats (palpitations). ??? Dizziness. ??? Fainting or light-headedness. ??? Unexplained weakness. ??? Shortness of breath. What are the risks? Generally, these devices are safe to use. However, it is possible that the skin under the electrodes will become irritated. Supplies needed: ??? A monitor. There are several types of monitors. Some common monitors include: ? Holter monitor. This records your heart rhythm continuously, usually for 24???48 hours. ? Event (episodic) monitor. This monitor has a symptoms button, and when pushed, it will begin recording. You need to activate this monitor to record when you have a heart-related symptom. ? Automatic detection monitor. This monitor will begin recording when it detects an abnormal heartbeat. ??? Electrodes, if needed. ??? Medical tape. ??? A clipper or shaver, if you have chest hair. How to prepare for monitoring Your health care provider will prepare your chest for the electrode placement and show you how to use the monitor. Make sure that you: ??? Do not apply lotions to your chest before monitoring. ??? Understand how to care for the monitor. ??? Understand how to send the information from the monitor to your health care provider. You may need a mobile phone to send information. ??? Understand how long you will be wearing your monitor. ??? Know how and when to return the monitor when the testing period is complete. How to use your deli worker ??? Follow directions about how long to wear the monitor. ??? Make sure the monitor is safely clipped to your clothing or in a location close to your body as recommended by your health care provider. ??? If your monitor has a symptoms button, press the button to an event as soon as you feel a heart-related symptom, such as: ? Dizziness. ? Weakness. ? Light-headedness. ? Palpitations. ? Thumping or pounding in your chest. ? Shortness of breath. ? Unexplained weakness. ??? Keep a diary of your activities, such as walking, doing chores, and taking medicine. If your monitor has a button, it is very important to note what you were doing when you pushed the button to record your symptoms. This will help your health care provider determine what might be contributing to your symptoms. ??? Send the recorded information as recommended by your health care provider. It may take some time for your health care provider to process the results. ??? Change the electrodes as told by your health care provider, or any time they stop sticking to your skin. You may need to use medical tape to keep them on. Follow these instructions at home Bathing ??? Ask your health care provider if you may take the monitor off in order to shower or bathe. ??? Do not take baths, swim, or use a hot tub until your health care provider approves. Ask your health care provider if you may take showers. You may only be allowed to take sponge baths. ??? If the monitor is not waterproof: ? Do not let it get wet. ? Cover it with a watertight covering when you take a bath or shower. Skin care ??? Keep your skin clean. ??? Do not put body lotion or moisturizer on your chest while using the monitor. ??? Try to put the electrodes in slightly different places on your chest to help prevent skin irritation. Follow directions from your health care provider about where to place the electrodes. ??? If you have chest hair, trim the hair where the electrodes are placed. General instructions ??? Change the batteries in the monitor as told by your health care provider. ??? Keep all follow-up visits as told by your health care provider. This is important. General recommendations ??? Keep electronic devices away from your monitor. These include: ? Tablets. ? MP3 players. ? Mobile phones. ??? While wearing your monitor you should avoid: ? Electric blankets. ? Electric razors. ? Electric toothbrushes. ? Microwave ovens. ? Magnets. ? Metal detectors. ??? Contact your health care provider if you have significant skin irritation from the monitor. Where to find more information ??? [place] [employer]: www.heart.org Get help right away if you: ??? Have chest pain. ??? Have shortness of breath or extreme difficulty breathing. ??? Develop a very fast heartbeat that does not get better. ??? Develop dizziness that does not go away. ??? Faint or constantly feel like you are about to faint. These symptoms may represent a serious problem that is an emergency. Do not wait to see if the symptoms will go away. Get medical help right away. Call your local emergency services (911 in the [place] Do not drive yourself to the hospital. Summary ??? An ambulatory deli worker is a small recording device that is used to detect abnormal heart rhythms (arrhythmias). ??? Make sure you understand how to send the information from the monitor to your health care provider. ??? Keep a journal of your activities, such as walking, doing chores, and taking medicine. If your monitor has a button, it is very important to note what you were doing when you pushed the button to record your symptoms. This will help your health care provider learn what might be causing your symptoms. This information is not intended to replace advice given to you by your health care provider. Make sure you discuss any questions you have with your health care provider. Document Revised: 04/21/2020 Document Reviewed: 04/21/2020 [employer] Patient Education ?? 2020 [employer]. Syncope Syncope refers to a condition in which a person temporarily loses consciousness. Syncope may also be called fainting or passing out. It is caused by a sudden decrease in blood flow to the brain. Even though most causes of syncope are not dangerous, syncope can be a sign of a serious medical problem. Your health care provider may do tests to find the reason why you are having syncope. Signs that you may be about to faint include: ??? Feeling dizzy or light-headed. ??? Feeling nauseous. ??? Seeing all white or all black in your field of vision. ??? Having cold, clammy skin. If you faint, get medical help right away. Call your local emergency services (911 in the [place] Do not drive yourself to the hospital. Follow these instructions at home: Pay attention to any changes in your symptoms. Take these actions to stay safe and to help relieve your symptoms: Lifestyle ??? Do not drive, use machinery, or play sports until your health care provider says it is okay. ??? Do not drink alcohol. ??? Do not use any products that contain nicotine or tobacco, such as cigarettes and e-cigarettes. If you need help quitting, ask your health care provider. ??? Drink enough fluid to keep your urine pale yellow. General instructions ??? Take kfmx-fqc-fmceaai and prescription medicines only as told by your health care provider. ??? If you are taking blood pressure or heart medicine, get up slowly and take several minutes to sit and then stand. This can reduce dizziness or light-headedness. ??? Have someone stay with you until you feel stable. ??? If you start to feel like you might faint, lie down right away and raise (elevate) your feet above the level of your heart. Breathe deeply and steadily. Wait until all the symptoms have passed. ??? Keep all follow-up visits as told by your health care provider. This is important. Get help right away if you: ??? Have a severe headache. ??? Faint once or repeatedly. ??? Have pain in your chest, abdomen, or back. ??? Have a very fast or irregular heartbeat (palpitations). ??? Have pain when you breathe. ??? Are bleeding from your mouth or rectum, or you have black or tarry stool. ??? Have a seizure. ??? Are confused. ??? Have trouble walking. ??? Have severe weakness. ??? Have vision problems. These symptoms may represent a serious problem that is an emergency. Do not wait to see if your symptoms will go away. Get medical help right away. Call your local emergency services (911 in the [place] Do not drive yourself to the hospital. Summary ??? Syncope refers to a condition in which a person temporarily loses consciousness. It is caused by a sudden decrease in blood flow to the brain. ??? Signs that you may be about to faint include dizziness, feeling light-headed, feeling nauseous, sudden vision changes, or cold, clammy skin. ??? Although most causes of syncope are not dangerous, syncope can be a sign of a serious medical problem. If you faint, get medical help right away. This information is not intended to replace advice given to you by your health care provider. Make sure you discuss any questions you have with your health care provider. Document Revised: 11/04/2020 Document Reviewed: 11/04/2020 [employer] Patient Education ?? 2020 [employer] Vertigo Vertigo is the feeling that you or your surroundings are moving when they are not. This feeling can come and go at any time. Vertigo often goes away on its own. Vertigo can be dangerous if it occurs while you are doing something that could endanger you or others, such as driving or operating machinery. Your health care provider will do tests to determine the cause of your vertigo. Tests will also help your health care provider decide how best to treat your condition. Follow these instructions at home: Eating and drinking ??? Drink enough fluid to keep your urine pale yellow. ??? Do not drink alcohol. Activity ??? Return to your normal activities as told by your health care provider. Ask your health care provider what activities are safe for you. ??? In the morning, first sit up on the side of the bed. When you feel okay, stand slowly while you hold onto something until you know that your balance is fine. ??? Move slowly. Avoid sudden body or head movements or certain positions, as told by your health care provider. ??? If you have trouble walking or keeping your balance, try using a cane for stability. If you feel dizzy or unstable, sit down right away. ??? Avoid doing any tasks that would cause danger to you or others if vertigo occurs. ??? Avoid bending down if you feel dizzy. Place items in your home so that they are easy for you to reach without leaning over. ??? Do not drive or use heavy machinery if you feel dizzy. General instructions ??? Take tksh-rco-npzfgmd and prescription medicines only as told by your health care provider. ??? Keep all follow-up visits as told by your health care provider. This is important. Contact a health care provider if: ??? Your medicines do not relieve your vertigo or they make it worse. ??? You have a fever. ??? Your condition gets worse or you develop new symptoms. ??? Your family or friends notice any behavioral changes. ??? Your nausea or vomiting gets worse. ??? You have numbness or a prickling and tingling sensation in part of your body. Get help right away if you: ??? Have difficulty moving or speaking. ??? Are always dizzy. ??? Faint. ??? Develop severe headaches. ??? Have weakness in your hands, arms, or legs. ??? Have changes in your hearing or vision. ??? Develop a stiff neck. ??? Develop sensitivity to light. Summary ??? Vertigo is the feeling that you or your surroundings are moving when they are not. ??? Your health care provider will do tests to determine the cause of your vertigo. ??? Follow instructions for home care. You may be told to avoid certain tasks, positions, or movements. ??? Contact a health care provider if your medicines do not relieve your symptoms, or if you have a fever, nausea, vomiting, or changes in behavior. ??? Get help right away if you have severe headaches or difficulty speaking, or you develop hearing or vision problems. This information is not intended to replace advice given to you by your health care provider. Make sure you discuss any questions you have with your health care provider. Document Revised: 05/19/2019 Document Reviewed: 05/19/2019 [employer] Patient Education ?? 2020 [employer]. Near-Syncope Near-syncope is when you suddenly feel like you might pass out (faint), but you do not actually lose consciousness. This may also be referred to as presyncope. During an episode of near-syncope, you may: ??? Feel dizzy, weak, or light-headed. ??? Feel nauseous. ??? See all white or all black in your field of vision, or see spots. ??? Have cold, clammy skin. This condition is caused by a sudden decrease in blood flow to the brain. This decrease can result from various causes, but most of those causes are not dangerous. However, near-syncope may be a sign of a serious medical problem, so it is important to seek medical care. Follow these instructions at home: Medicines ??? Take fung-bbd-wbajbrf and prescription medicines only as told by your health care provider. ??? If you are taking blood pressure or heart medicine, get up slowly and take several minutes to sit and then stand. This can reduce dizziness. General instructions ??? Pay attention to any changes in your symptoms. ??? Talk with your health care provider about your symptoms. You may need to have testing to understand the cause of your near-syncope. ??? If you start to feel like you might faint, lie down right away and raise (elevate) your feet above the level of your heart. Breathe deeply and steadily. Wait until all of the symptoms have passed. ??? Have someone stay with you until you feel stable. ??? Do not drive, use machinery, or play sports until your health care provider says it is okay. ??? Drink enough fluid to keep your urine pale yellow. ??? Keep all follow-up visits as told by your health care provider. This is important. Get help right away if you: ??? Have a seizure. ??? Have unusual pain in your chest, abdomen, or back. ??? Faint once or repeatedly. ??? Have a severe headache. ??? Are bleeding from your mouth or rectum, or you have black or tarry stool. ??? Have a very fast or irregular heartbeat (palpitations). ??? Are confused. ??? Have trouble walking. ??? Have severe weakness. ??? Have vision problems. These symptoms may represent a serious problem that is an emergency. Do not wait to see if your symptoms will go away. Get medical help right away. Call your local emergency services (911 in the [place] Do not drive yourself to the hospital. Summary ??? Near-syncope is when you suddenly feel like you might pass out (faint), but you do not actually lose consciousness. ??? This condition is caused by a sudden decrease in blood flow to the brain. This decrease can result from various causes, but most of those causes are not dangerous. ??? Near-syncope may be a sign of a serious medical problem, so it is important to seek medical care. This information is not intended to replace advice given to you by your health care provider. Make sure you discuss any questions you have with your health care provider. Document Revised: 10/17/2019 Document Reviewed: 05/14/2019 [employer] Patient Education ?? 2020 [employer]. Emergency Awareness and Preventative Care STROKE is [...] Assistance with quitting is available by contacting 5-122-UNSB-NOW. This is a free resource providing counseling, support, and referral. Or you may contact your personal physician. National Suicide Prevention Lifeline: The National Suicide Prevention [...] and how to prevent infections, visit www.cdc.gov/sepsis. The examination and treatment you have received in the Emergency Department has been done to provide an appropriate evaluation and stabilizing treatment on an emergency basis only. Given the limited resources, it is not meant to be a substitute for complete medical care. The follow-up doctor you named will receive a copy of your records and all test reports. IT IS IMPORTANT THAT YOU SCHEDULE A FOLLOW-UP APPOINTMENT AND ARE RE-EVALUATED. You should report any new complaints, symptoms, or remaining problems at that time. IT IS IMPOSSIBLE FOR THE EMERGENCY DEPARTMENT TO RECOGNIZE AND TREAT ALL ELEMENTS OF INJURY OR ILLNESS IN A SINGLE VISIT. If you have been referred to a specialist physician, it means that we believe you may have a condition that requires the expertise of a specialist. These physicians work in partnership with the hospital and have agreed to see referred patients in their office for further evaluation. KEEP IN MIND THAT THE SPECIALIST HAS HIS/HER OWN OFFICE POLICIES WHICH MAY REQUIRE PROPER INSURANCE OR PAYMENT UP FRONT BEFORE THE SPECIALIST WILL SEE YOU. It is your responsibility to call the specialist physician to make an appointment. We do not have the ability to refer patients to specialists/physicians that work with specific insurance companies. Please be advised that all financial charges or billing practices are determined by that practice, not the hospital. If your insurance company requires that you see a specialist from their approved list, it is your responsibility to contact your insurance company to make those arrangements. It is also your responsibility to follow any other requirements of your insurance company necessary to obtain coverage for claims submitted. We will bill your insurance; however, you are responsible today for any co-pay amounts. You will receive a separate bill for any services you may have received including: emergency, radiology, or pathology physicians. Patient Name:LENNY ABAD I have received this information and was given the opportunity to ask questions. Patient/Video Operator Name: Patient/Video Operator Signature: Relationship to Patient: Clinician/Hospital Video Operator Signature: Please Provide a Telephone Number Where You Can Be Reached: Is it Permissible To Leave a Message? Date: Electronically signed by Fortino Doan Conversion Audio Visual Equipment Rental Clerk Gab at 10/24/2022 1:24 PM CDT documented in this encounter Plan of Treatment Not on file documented as of this encounter Visit Diagnoses Not on filedocumented in this encounter Care Teams Cattle Feeder Relationship Specialty Start Date End Date Nitin Jerez MD [address] [place] [phone] PCP - General Family Medicine 10/06/22 documented as of this encounter
--- OUTSIDE RECORDS SUMMARY | 2024-12-29 08:02 | XMS_ITS | Encounter Summary ---
Author Organization [employer] Address [address] [place] [address] Care Team Providers Care Surgery Aid Name Role Phone Nitin Jerez MD Primary Care Provider +1- [phone] Encounter Details Date Type Department Care Team (Late st Contact Info) Description 07/12/2021 Transcribed Document [facility] [place] [facility] [place] [address] ProviderYamila MD [facility] [place] [address] Social History Tobacco Use Types [...] - Historical ProviderMD - 07/12/2021 4:10 PM [facility] ED Assessment Entered On: 07/12/2021 17:32 EST Performed On: 07/12/2021 17:29 EST by DOMENICO SUMMERS RN ED Quick Look Assessment Level of Consciousness : Alert, Awake Affect/Behavior : Appropriate, Calm, Cooperative Orientation : Oriented x 4 Skin Temperature : Warm Skin Description : Dry DOMENICO SUMMERS RN - 07/12/2021 17:29 EST ED General-Functional Assess Information Obtained From : Patient Communication Barrier : None Primary Language : Vincentian Any Spiritual/Cultural Needs or Requests : No Currently in Unsafe Situation : No DOMENICO SUMMERS RN - 07/12/2021 17:29 EST Social Habits Smoking Status : Never (less than 100 in lifetime; none in last 30 days) Smokeless Tobacco Status : Never Desires Tobacco Cessation Calc : 0 DOMENICO SUMMERS RN - 07/12/2021 17:29 EST Social History (As Of: 07/12/2021 17:32:13 EST) Tobacco: Never (less than 100 in lifetime) Smoking Status. Never Smokeless Tobacco Status. (Last Updated: 07/12/2021 17:30:21 EST by DOMENICO SUMMERS RN) Neurologic ASMT, ED Neurological Symptoms : Dizziness, Syncope Level of Consciousness : Drowsy Facial Symmetry : Symmetric Gait Assistance Level : Independent, complete [place] Coma Scale Link : Open GCS Current/Recent Head Injury : No DOMENICO SUMMERS RN - 07/12/2021 17:29 EST [place] Coma [place] Best Motor Response : Obey commands [place] Best Verbal Response : Oriented Patrick Eye Opening Response : Spontaneous Patrick Coma Score : 15 DOMENICO SUMMERS RN - 07/12/2021 17:29 EST Electronically signed by [facility], [facility] Conversion Orange Picking Supervisor Cerner at 10/24/2022 1:15 PM CDT documented in this encounter Plan of Treatment Not on file documented as of this encounter Visit Diagnoses Not on filedocumented in this encounter Care Teams Surgery Aid Relationship Specialty Start Date End Date Nitin Jerez MD [address] [place] [id number] PCP - General Family Medicine 10/06/22 documented as of this encounter
--- OUTSIDE RECORDS SUMMARY | 2024-12-29 08:02 | XMS_ITS | Encounter Summary ---
Author Organization [employer] Address [address] [place] [address] Care Team Providers Care Molding Technician Name Role Phone Nitin Jerez MD Primary Care Provider +1- [phone] Encounter Details Date Type Department Care Team (Late st Contact Info) Description 07/12/2021 Transcribed Document [facility] [place] [facility] [place] [address] ProviderYamila MD [address] [place] [address] Social History Tobacco Use Types Packs/Day [...] Conversion Note - Historical ProviderMD - 07/12/2021 9:29 PM TANK CAR INSPECTOR ED Event Note Entered On: 07/12/2021 21:29 EST Performed On: 07/12/2021 21:29 EST by Melba Baptiste RN ED Event Note ED Event Date/Time : 07/12/2021 21:29 EST ED Description of Event : Patient discharged with instructions to follow up with Direct Marketing Manager in the morning. NAD noted. IV dc'd before discharge. All of aptient belongings sent with patient. Patient verbalized understanding to all discharge instructions. Melba Baptiste RN - 07/12/2021 21:29 EST Electronically signed by [facility] Conversion Cow Washer Cerner at 10/24/2022 1:26 PM CDT documented in this encounter Plan of Treatment Not on file documented as of this encounter Visit Diagnoses Not on filedocumented in this encounter Care Teams Molding Technician Relationship Specialty Start Date End Date Nitin Jerez MD [address] [place] [phone] PCP - General Family Medicine 10/06/22 documented as of this encounter
--- OUTSIDE RECORDS SUMMARY | 2024-12-29 08:02 | XMS_ITS | Clinical Summary ---
Author Organization Healthcare Address [facility] [place] [address] [place] [address] Care Team Providers Care Customer Care Consultant Name Role Phone Unavailable Primary Care Provider Unavailabl e Social History Tobacco Use Types Packs/Day Years Used Date Smoking Tobacco: Never Assessed Comments Unknown Sex and Gender Information Value Date Recorded Sex Assigned at Not on file Legal Sex Female 3:56 PM EDT Gender Identity Not on file Sexual Orientation Not on file Plan of Treatment Health Maintenance Due Date Last Done Comments [facility]-Depression Screening 1985 [facility]-Infant/Child/Adol SDOH Screenings 1985 [facility]-Varicella Vaccines (1 of 2 - 13+ 2-dose series) 1998 HPV Vaccines (1 - 3-dose series) 2000 [facility]- SDOH Screenings 2003 [facility]-Adult SDOH Screenings 2003 [facility]-DTaP,Tdap,and Td Vaccine s (1 - Tdap) 2004 [facility]-Hepatitis B Vaccines (1 of 3 - 19+ 3-dose series) 2004 [facility]-Pap Smear 2006 [facility]-Cervical Cancer Screening 2015 [facility]-HPV/Cotest 2015 [id number] Vaccine (1 - 20 24-25 season) 2024 [facility]-Influenza Vaccine (Seaso n Ended) 2025 [facility]-Zoster Vaccines (1 of 2) 2035 [facility]-HIB Vaccines Aged Out No longer e ligible based on patient's age to complete this topic [facility]-Hepatitis A Vaccines Aged Out No longer eligible based on patient's age to complete this topic [facility]-IPV Vaccines Aged Out No longer e ligible based on patient's age to complete this topic [facility]-Pneumococcal Vaccine: Pediatrics (0 to 5 Years) and At-Risk Patients (6 to 49 Years) Aged Out No long er eligible based on patient's age to complete this topic [facility]-Rotavirus Vaccines Aged Out No lo nger eligible based on patient's age to complete this topic
--- OUTSIDE RECORDS SUMMARY | 2024-12-29 08:02 | XMS_ITS | Encounter Summary ---
Author Organization [employer] Address [address] [place] [address] Care Team Providers Care Police Academy Instructor Name Role Phone Nitin Jerez MD Primary Care Provider +1- [phone] Encounter Details Date Type Department Care Team (Late st Contact Info) Description 07/12/2021 Transcribed Document [facility] [place] Medicine [facility] [place] [address] ProviderYamila MD [address] [place] [address] Social History Tobacco Use Types Packs/Day [...] - Historical ProviderMD - 07/12/2021 4:10 PM TECHNOLOGY DIRECTOR ED Triage Entered On: 07/12/2021 16:27 EST Performed On: 07/12/2021 16:25 EST by MARQUEZ CASTANEDA, HYDROGEN POWER PLANT ENGINEER Triage Across the Room Chief Complaint : near syncope/dizziness starting one hour sloop captain. pt states that she was on a conference call and got very light headed and dizzy. Triage Date/Time : 07/12/2021 16:25 EST MARQUEZ CASTANEDA, RN - 07/12/2021 16:25 EST MARQUEZ CASTANEDA RN - 07/12/2021 16:25 EST DCP GENERIC CODE Tracking Group : [facility] ED [facility] MARQUEZ CASTANEDA RN - 07/12/2021 16:25 EST Tracking Acuity : 2 - Emergent SUMMERSEZEKIELDOMENICOSHERYL - 07/12/2021 17:17 EST Mode of Arrival : Stretcher Transported to ED by : Ambulance/ALS EMS Service : [facility] To Room Via : Stretcher Accompanied By : Unaccompanied ED Vital Signs : Document Height & Weight : Document ED Allergies : Document ED Reason for Visit : Document Tetanus Immunization : Unknown Film Mounter Needed : No MARQUEZ CASTANEDA RN - 07/12/2021 16:25 EST Infectious Disease History Does patient have symptoms of COVID-19? : No Has the Patient Been Tested for COVID-19 in the last 14 days? : No, Patient stated Does the Patient state known exposure to a COVID-19 positive case in the last 14 days? : No Patient Vaccinated for COVID-19 : Not vaccinated Does Patient want a COVID-19 Vaccine? : No MARQUEZ CASTANEDA RN - 07/12/2021 16:25 EST Infectious Disease Risk Screening Grid Cough < 2 wks of unknown origin : NO Cough > 2 weeks : NO Blood in Sputum : NO Fever or self-reported Fever : NO Rash of unknown origin : NO Headache : NO Stiff neck : NO Night Sweats : NO Unexplained Weight Loss : NO Diarrhea (3 episode per day) : NO MARQUEZ CASTANEDA RN - 07/12/2021 16:25 EST Physical contact outside [place] in the last 30 days : No Hospitalized in Foreign Country : No Infectious Disease History : Chicken pox/Shingles INF Disease TB Screening Calc : 0 INF Disease Recent Travel Calc : 0 MARQUEZ CASTANEDA RN - 07/12/2021 16:25 EST Vital Signs ED Temperature Source : Oral Temperature Mode : Fahrenheit MARQUEZ CASTANEDA RN - 07/12/2021 16:25 EST Allergy (As Of: 07/12/2021 16:27:29 EST) Allergies (Active) No Known Medication Allergies Estimated Onset Date: Unspecified ; Created By: MARQUEZ CASTANEDA RN; Reaction Status: Active ; Category: Drug ; Substance: No Known Medication Allergies ; Type: Allergy ; Updated By: MARQUEZ CASTANEDA RN; Reviewed Date: 07/12/2021 16:25 EST Diagnosis Control ED (As Of: 07/12/2021 16:29:54 EST) Diagnoses(Active) Dizziness Date: 07/12/2021 ; Diagnosis Type: Reason For Visit ; Confirmation: Complaint of ; Clinical Dx: Dizziness ; Classification: Medical ; Clinical Service: Emergency medicine ; Code: PNED ; Probability: 0 ; Diagnosis Code: [id number] ED Height and Weight Height Source : Stated Height Entry Format : Cedar Height, Feet : 5 ft(Converted to: 152 cm, 60 Inch) Height, Inches : 2 Inch(Converted to: 0 ft 2 Inch, 5.08 cm) Clinical Height : 157.48 cm Weight Source, ED : Critical estimated dosing weight Weight Entry Format : [place] Weight, Pounds : 200 lb Clinical Dosing Weight : 90.91 kg Body Surface Area (BSA) : 1.91 m2 Body Mass Index : 36.7 kg/m2 (HI) [place] Body Weight (IBW) : 49.73 kg MARQUEZ CASTANEDA RN - 07/12/2021 16:25 EST Patient/Family Film Mounter Communication Primary Language : Mongolian MARQUEZ CASTANEDA RN - 07/12/2021 16:25 EST Electronically signed by O[facility] Conversion Personal Lines Insurance Agent Cerner at 10/24/2022 1:30 PM CDT documented in this encounter Plan of Treatment Not on file documented as of this encounter Visit Diagnoses Not on filedocumented in this encounter Care Teams Police Academy Instructor Relationship Specialty Start Date End Date Nitin Jerez MD [address] [place] [phone] PCP - General Family Medicine 10/06/22 documented as of this encounter
--- OUTSIDE RECORDS SUMMARY | 2024-12-29 08:02 | XMS_ITS | Encounter Summary ---
Author Organization [employer] Address [address] [place] [address] Care Team Providers Care Financial Rep Name Role Phone Nitin Jerez MD Primary Care Provider +1- [phone] Encounter Details Date Type Department Care Team (Late st Contact Info) Description 07/29/2021 Transcribed Document [facility] [place] [facility] [place] [address] ProviderYamila MD [address] [place] [address] Social History Tobacco Use Types Packs/Day [...] Conversion Note - Yamila ProviderMD - 07/29/2021 7:55 AM MEDIA CONSULTANT Outpatient Visit History Entered On: 07/29/2021 8:04 EST Performed On: 07/29/2021 7:55 EST by MERVAT MATHUR RN Vital Measurements Temperature Source : Temporal artery scanning Temperature Mode : Fahrenheit Temperature, Fahrenheit : 96.9 Deg F Clinical Temperature, C : 36.1 Deg C Pulse Method : Non-Invasive BP Device Peripheral Pulse Rate : 75 bpm Respiratory Rate : 20 Breaths/Min Blood Pressure Location : Arm, right upper Blood Pressure Source : Non-Invasive BP Device Blood Pressure Position : Sitting Systolic Blood Pressure : 135 mmHg Diastolic Blood Pressure : 76 mmHg Oxygen Saturation : 98 % Oxygen Therapy Mode : Room air MERVAT MATHUR RN - 07/29/2021 7:55 EST Height and Weight, Clinical Dosing Height Source : Chart Height Entry Format : Edgar Height, Feet : 5 ft(Converted to: 152 cm, 60 Inch) Height, Inches : 2 Inch(Converted to: 0 ft 2 Inch, 5.08 cm) Clinical Height : 157.48 cm Weight Source : Standing scale Weight Entry Format : Edgar Clinical Dosing Weight : 90.91 kg Weight, Pounds : 200 lb Body Surface Area (BSA) : 1.91 m2 Body Mass Index : 36.7 kg/m2 (HI) [place] Body Weight : 50 kg MERVAT MATHUR RN - 07/29/2021 7:55 EST Quick Look Assessment Level of Consciousness : Alert Affect/Behavior : Anxious Orientation : Oriented x 4 Skin Temperature : Warm Skin Description : Normal for ethnicity MERVAT MATHUR RN - 07/29/2021 7:55 EST Health Histories Smoking Status : Never (less than 100 in lifetime; none in last 30 days) Smokeless Tobacco Status : Never MERVAT MATHUR RN - 07/29/2021 7:55 EST Social History (As Of: 07/29/2021 08:04:10 EST) Tobacco: Never (less than 100 in lifetime) Smoking Status. Never Smokeless Tobacco Status. (Last Updated: 07/12/2021 17:30:21 EST by DOMENICO SUMMERS RN) Alcohol: Alcohol Use History Yes. Date/Time of Last Drink: rarely. (Last Updated: 07/29/2021 08:02:23 EST by MERVAT MATHUR, SHERYL) Substance Abuse: Drug Use Hx: No. Use in Last 12 Months: No. (Last Updated: 07/29/2021 08:02:30 EST by MERVAT MATHUR RN) Infectious Disease History Does patient have symptoms of COVID-19? : No Has the Patient Been Tested for COVID-19 in the last 14 days? : No, Patient stated Does the Patient state known exposure to a COVID-19 positive case in the last 14 days? : No Patient Vaccinated for COVID-19 : Not vaccinated Does Patient want a COVID-19 Vaccine? : No MERVAT MATHUR RN - 07/29/2021 7:55 EST Infectious Disease Risk Screening Grid Cough < 2 wks of unknown origin : NO Cough > 2 weeks : NO Blood in Sputum : NO Fever or self-reported Fever : NO Rash of unknown origin : NO Headache : NO Stiff neck : NO Night Sweats : NO Unexplained Weight Loss : NO Diarrhea (3 episode per day) : NO MERVAT MATHUR RN - 07/29/2021 7:55 EST Physical contact outside [place] in the last 30 days : No Hospitalized in Foreign Country : No Infectious Disease History : Chicken pox/Shingles INF Disease TB Screening Calc : 0 INF Disease Recent Travel Calc : 0 MERVAT MATHUR RN - 07/29/2021 7:55 EST COVID19 PreProcedure Screening Is this an Emergent or Add on Procedure? : No Date PreProcedure COVID-19 test known? : No Has patient been isolated since the test : No Exposed to COVID19 symptoms since test? : No MERVAT MATHUR RN - 07/29/2021 7:55 EST Advance Directive Patient has Advance Directive *Q : No, patient refuses Advance Directive information MERVAT MATHUR RN - 07/29/2021 7:55 EST [place] Suicide Severity Rating Scale (C-SSRS) CSSRS Past Month Wish to be : No CSSRS Past Month Suicidal Thoughts : No CSSRS Lifetime Suicide Behavior : No Suicide Severity Rating Score : 0 Suicide Severity Rating : No Additional Care Required at this time MERVAT MATHUR RN - 07/29/2021 7:55 EST Psychosocial History Does Someone Depend on You for Care? : Yes Have Arrangements been Made? : Yes Do You Have a History of the Following? : Patient denies history Currently in Unsafe Situation : No MERVAT MATHUR RN - 07/29/2021 7:55 EST Fall Risk Scales ABCs Fall Injury Risk Identification : None [place] Hx Falls Immediate/Within 3 Months : No [place] Secondary Diagnosis : No [place]ET[place] Use of Ambulatory Aid : None [place] IV Therapy or IV Access : No [place] Gait/Transferring : Normal, bedrest, immobile [place] Mental Status : Oriented to own ability [place] Fall Risk Score : 0 AR[place]ET[place] Fall Scale Risk Level : 0-24 Low Risk [place] Fall Interventions : Adequate lighting, Call device within reach, Frequent orientation to call device, Frequent orientation to surroundings, Non-slip footwear, Personal items within reach, Room free of clutter/spills, Wheels locked, Wires/Cords secured MERVAT MATHUR RN - 07/29/2021 7:55 EST Pain Assessment Pain Assessment : Initial assessment Intensity : 0 MERVAT MATHUR RN - 07/29/2021 7:55 EST Electronically signed by Olimpia [facility] Conversion Sample Stitcher Cerner at 10/24/2022 1:12 PM CDT documented in this encounter Plan of Treatment Not on file documented as of this encounter Visit Diagnoses Not on filedocumented in this encounter Care Teams Financial Rep Relationship Specialty Start Date End Date Nitin Jerez MD [address] [place] [phone] PCP - General Family Medicine 10/06/22 documented as of this encounter
--- OUTSIDE RECORDS SUMMARY | 2024-12-29 08:02 | XMS_ITS | Referral Summary ---
Author Organization [employer] Address [address] [place] [address] Care Team Providers Care Save All Operator Name Role Phone Nitin Jerez MD Primary Care Provider +1- [phone] Allergies Active Allergy Reactions Criticality Noted Date [...] of cervical dysplasia 01/23/2014 Overview (09/27/2022): Per SINGLE RESOURCE BOSS Per SINGLE RESOURCE BOSS Neurological dysfunction 01/23/2014 Overview (09/27/2022): Gag and [...] 12/31/2012 Overview (09/27/2022): 2013: LGSIL. Colpo at [place] nml. PP colpo with ECC and Bx pending (03/04) Immunizations Name Administration Dates Next Due Tdap 09/06/2021 Social History Tobacco Use Types Packs/Day Years [...] Date Marcos rded Speak language other than Latvian at home Not on file 07/27/2023 Want [...] 09/27/2022 9:20 AM EDT Plan of Treatment [place] [address] [facility] Advance Directives For more information, please contact: [phone] * Full Code (Latest Code Status on File) Date Activated Date Inactivated Comments 10/06/2022 10:00 AM 10/08/2022 3:01 PM Care Teams Save All Operator Relationship Specialty Start Date End Date Nitin Jerez MD [address] [place] [phone] PCP - General Family Medicine 10/06/22
--- OUTSIDE RECORDS SUMMARY | 2024-12-29 08:02 | XMS_ITS | Patient Health Record ---
Author Organization [facility] PE D AURELIA Address [address] [facility] [address] [place] [address] Care Team Providers Care Kosher Butcher Name Role Phone Rosalva Nj Primary Care Provider ROSALVA NJ Unavailable Unavaila Caitie Neil Unavailable [phone] Rosalva Womack Unavailable [phone] Migration, Provider Unavailable Unavailable Allergies Allergen (clinical drug ingredient) Drug/Non Drug Allergy documented on EMR Reaction Allergy Type Onset Date Status Penicillin rash Drug Allergy Active Reason For Referral Reason Cpap and Dr. Rice - FRANKIE follow up care CPAP order sent to Estuardo Diagnosis 1 FRANKIE (obstructive sle ep apnea) (G47.33) Referral Organization [facility] PED A[facility]LIA Referring Provider First Name Rosalva Referring Provider Last Name Shanta Referring Provider Speciality Family Pra ctice Referred Organization [facility] Referred Address [address] [address] [facility], [facility] [place], Referred Provider Specialty Neurology General Notes Myrna Leo 2023 12:20:28 PM >CPAP sent to Estuardo, Referral sent to Dwayne Referral Priority Routine Reason Please arrange PFT t esting at [facility], history of SOA worsened by perfumes, ruling out asthma. Diagnosis 1 Shortness of breath (R06.02) Referral Organization [facility] Referring Provider First Name Rosalva Referring Provider Last Name Shanta Referring Provider Speciality Family Pra ctice General Notes Tarik Greenberg 01/2024 12:28:41 PM > faxed to [facility] and they will contact her to schedule Referral Priority Routine Reason Please refer to CHELITA Abbasi in [place] for choking when drinking water, only small sliding hiatal hernia on barium swallow, history of stricture requiring dilation, likely needs EGD with biopsy EoE testing. Also, please send Dr. Abbasi her barium swallow result. Diagnosis 1 Choking sensation (R 09.89) Referral Organization [facility] A[facility]LIA Referring Provider First Name Rosalva Referring Provider Last Name Shanta Referring Provider [facility] Notes Tarik Greenberg 12/2023 11:12:43 AM > faxed and they will call pt Referral Priority Routine Reason Please arrange mammo gram and US at [facility]. Discuss locations with patient. History of breast cancer in her Mom and Aunt. Diagnosis 1 Family history of br east cancer (Z80.3) Referral Organization [facility]IA Referring Provider First Name Rosalva Referring Provider Last Name Shanta Referring Provider [facility] Notes Tarik Greenberg 12/2023 11:20:03 AM > faxed and they will call pt to schedule Referral Priority Routine Reason Can you please gera salter appt with Sleep MD? Patient states she never got a call. Has FRANKIE. Patient needs consult appt scheduled Diagnosis 1 FRANKIE on CPAP (G47.33) Referral Organization [facility] A[facility]LIA Referring Provider First Name Rosalva Referring Provider Last Name Shanta Referring Provider [facility] Notes Tarik Greenberg 12/2023 11:11:47 AM >faxed again, they will call pt to schedule- NA when calling pt, Tarik Greenberg 02/18/2024 09:55:15 AM > spoke to pt and she still hasn't heard about appt. Resent Referral Priority Routine Reason Thyroid nodule- ENT Referral Organization [facility] AURELIA Referring Provider First Name Rsoalva Referring Provider Last Name Womack Referring Provider [facility] Notes Tarik Greenberg 08:47:09 AM > faxed and they will call her Referral Priority Routine Medications Medication SIG (Take, Route, Frequency, Duration) [...] a day for 30 days 12/19/2023 Active Social History Tobacco Use: Social History Observation Description Date Details (start date - stop date) Never Smoker NA - NA Smoking: Question Answer Notes Are you a: nonsmoker Problems Problem Type SNOMED Code ICD Code Onset Dates Problem Status W/U Status Risk Notes Problem 850345383 Seasonal allergi es (J30.2) Active confirmed Problem FRANKIE (obstructive sleep apnea) (G47.33) Active confirmed Problem 211770545 Severe obesity ( BMI >= 40) (E66.01) Active confirmed Problem 329093034780 Daytime somnolen ce (R40.0) Active confirmed Problem 97743383 Dysphagia, unspecified type (R13.10) Active confirmed Problem 96133361 FRANKIE on CPAP (G47.33) Active confirmed Problem 215361542 Gastroesophageal reflux disease, unspecified whether esophagitis present (K21.9) Active confirmed Vital Signs Heart Rate 74 /min 04/01/2024 Temperature 98.4 degrees Fahrenheit 04/01/2024 Blood pressure diastolic 84 mm Hg 04/01/2024 Height 62 in 04/01/2024 Blood pressure systolic 120 mm Hg 04/01/2024 Weight 211 lbs 04/01/2024 BMI 38.59 kg/m2 04/01/2024 Encounters Encounter Location Date Provider Diagnosis [facility] A[facility]LIA [address] [place] [address] 10/11/2024 Provider [facility] [address] [facility] [address] [place] [address] 02/11/2024 Rosalva Womack Gastroesophageal ref lux disease, unspecified whether esophagitis present K21.9 ; Shortness of breath R06.02 ; Seasonal allergies J30.2 ; Family history of breast cancer Z80.3 ; Choking sensation R09.89 ; Severe obesity (BMI >= 40) E66.01 ; Encounter for weight loss counseling Z71.3 ; History of thyroid nodule Z86.39 ; FRANKIE on CPAP G47.33 and Routine adult health maintenance Z00.00 [facility] [address] [place] [address] 03/05/2024 Rosalva Womack Folliculitis L73.9 [facility] [address] [place] [address] 04/01/2024 Caitie McNees Skin irritation R23. 8 [facility] [address] [place] [address] 12/26/2024 Rosalva Nj Breast mass, left N6 3.20 [facility] [address] [place] [address] 01/22/2024 Rosalva Womack [facility] [address] [facility] [address] [place] [address] 02/12/2024 Rosalva Womack Family history of br east cancer Z80.3 and Shortness of breath R06.02 [facility] [address] [place] [address] 03/05/2024 Rosalva Womack [facility] [address] [place] [address] 04/10/2024 Rosalva Nj [facility] [address] [facility] [address] [place] [address] 08/19/2024 Rosalva Nj Assessments Encounter Date Diagnosis (ICD Code) Assessment Notes Treatment Notes Treatment Clinical Notes Section Notes 02/11/2024 Shortness of breath (ICD-10 - R06.02) On associated with strong perfumes or swallowing liquids. Improves when she uses her father's Dulera inhaler. Normal barium swallow with small sliding hiatal hernia, will send to GI for EGD. With perfumes exacerbating do wonder if there is an element of asthma so will order PFT testing. Discouraged use of an inhaler not prescribed to her and discussed she must rinse her mouth and throat after use. I personally will review PFT results once final. 02/11/2024 Gastroesophageal reflux disease, unspecified whether esophagitis present (ICD-10 - K21.9) Discussed etiology of reflux. Start trial of H2 ronit as stated above. Avoid certain foods that exacerbate symptoms, such as caffeine and spicy foods. RTC if no improvement. Follow-up in in 4 weeks. 02/12/2024 Shortness of breath (ICD-10 - R06.02) 02/12/2024 Family history of breast cancer (ICD-10 - Z80.3) 03/05/2024 Folliculitis (ICD-10 - L73.9) Patient had a rash to N believes she has tolerated cephalospirin in the past. She agrees to try Cefdinir and will call if she has a reaction. She denies personal or in home family history of MRSA so will start with Cefdinir. Stressed importance for patient to call if no improvement in 24 hours or if her rash worsens and at that time we will broaden coverage to Clindamycin. Topical mupirocin ordered. Discussed pathogenesis of this low-grade skin infection, discussed etiologic agents in need for oral/topical therapy. Discussed signs or symptoms of spreading cellulitis and need to return to the office if this occurs. Patient voices understanding and agrees with the plan of care above. Patient discussed with Attending Dr. Matthews who agrees with the plan of care above. 04/01/2024 Skin irritation (ICD-10 - R23.8) Reassurance, sites are not infected. Irritation likely related to skin prep or bandage. Apply OTC hydrocortisone cream BID x 3 days. Return precautions discussed. 12/26/2024 Breast mass, left (ICD-10 - N63.20) 02/11/2024 Seasonal allergies (ICD-10 - J30.2) Discussed the etiology and expected course of seasonal allergies. Discussed the importance of allergen avoidance if possible. Discussed a variety of allergy medications including Antihistamine. Counseled on importance of compliance and how to take these medications. Patient and family voice understanding and are agreeable to the plan of care above. 02/11/2024 Family history of breast cancer (ICD-10 - Z80.3) Family history of breast and cervical cancer. Mom had breast at age 52. Will arrange breast mammogram and US at breast center. IF insurance approves will check BRCA 1 & 2 with family history of breast and cervical cancer. 02/11/2024 Choking sensation (ICD-10 - R09.89) Has been happening her whole life. Differential is reflux, asthma, EoE, esophageal spasms, vs other. Barium swallow showing small sliding hiatal hernia, no stricture. Have started H2RA for GERD but patient has not started medication so re-sent. Couseled on use. History of esophageal stricture s/p dilation years ago. Choking mostly with liquids and not so much with solid foods. Sometimes after smelling perfumes. Improves when she uses her father's Dulera inhaler. PFT testing above. Have placed GI referral to Dr. Abbasi. Likely needs EGD with biopsy. Follow-up in 4 weeks. 02/11/2024 Severe obesity (BMI >= 40) (ICD-10 - E66.01) Long discussion about current BMI, discussed current exercise and diet - and discussed healthy alternatives. Health benefits of weight loss and follow up goals discussed. Follow-up in 4 weeks or sooner if needed. 02/11/2024 Encounter for weight loss counseling (ICD-10 - Z71.3) Long discussion about current BMI, discussed current exercise and diet - and discussed healthy alternatives. Health benefits of weight loss and follow up goals discussed. Discussed medications for her to consider and will discuss again at 4 week follow-up. 02/11/2024 History of thyroid nodule (ICD-10 - Z86.39) Still waiting on records from PCP. Will review once sent to me. Patient reports history of thryoid nodule which was benign. No nodule palpated on exam today. 02/11/2024 FRANKIE on CPAP (ICD-10 - G47.33) Continue CPAP. Keep Sleep MD appt, have asked Tarik to follow this. 02/11/2024 Routine adult health maintenance (ICD-10 - Z00.00) Tdap up to date. Patient will call her BOBBIN COLLECTOR for pap, history of abnormal in the past so stressed importance of her to call for this appt. Mammogram referral placed as above with such strong history of breast and cervical cancer. No indications for early colon cancer screening. Plan Of Treatment Pending Test Test Name Order Date Mammogram : Bilateral 02/12/2024 Pulmonary Function Test- Complete 2023 Ultrasound : Breast, bilateral if indica moo 02/12/2024 MRI : Breast 12/26/2024 Mammogram : Diagnostic, Left 12/26/2024 MISCELLANEOUS LAB TEST 02/11/2024 Insurance Providers Payer Name Payer Address Payer Phone Subscriber Number Group Number Insured Name Patient Relationship to Insured Coverage Start Date Coverage End Date [employer] [address] [address] [place] [address] [id number] Idalmis Frances Self - patient is the insured Medical (General) History Surgical History Surgery Date(Month/Year) carpal tunnel release c- section Hospitalization History Reason Date(Month/Year) EEG [facility] December 2022, no seiz ure activity. child
--- OUTSIDE RECORDS SUMMARY | 2024-12-29 08:02 | XMS_ITS | Encounter Summary ---
Author Organization [employer] [facility] [employer] Address [address] [place] [address] Care Team Providers Care Embedded Firmware Engineer Name Role Phone Nitin Jerez MD Primary Care Provider [phone]- [phone] Encounter Details Date Type Department Care Team (Late st Contact Info) Description 07/12/2021 Transcribed Document [facility] Family Medicine [facility], [facility] [place] [address] ProviderYamila MD [address] [place] [address] Social History Tobacco Use Types Packs/Day [...] - Historical ProviderMD - 07/12/2021 4:10 PM PULP MILL OPERATOR [place] Suicide Severity Rating Scale (C-SSRS) Entered On: 07/12/2021 16:27 EST Performed On: 07/12/2021 16:27 EST by MARQUEZ CASTANEDA RN [place] Suicide Severity Rating Scale (C-SSRS) CSSRS Past Month Wish to be : No CSSRS Past Month Suicidal Thoughts : No CSSRS Lifetime Suicide Behavior : No Suicide Severity Rating Score : 0 Suicide Severity Rating : No Additional Care Required at this time Thoughts of Harming/Killing Others : No MARQUEZ CASTANEDA RN - 07/12/2021 16:27 EST Electronically signed by Olimpia [facility] Conversion It Support Analyst Cerner at 10/24/2022 1:21 PM CDT documented in this encounter Plan of Treatment Not on file documented as of this encounter Visit Diagnoses Not on filedocumented in this encounter Care Teams Embedded Firmware Engineer Relationship Specialty Start Date End Date Nitin Jerze MD [address] [place] [id number] PCP - General Family Medicine 10/06/22 documented as of this encounter
--- OUTSIDE RECORDS SUMMARY | 2024-12-29 08:02 | XMS_ITS | Encounter Summary ---
Author Organization [employer] [facility] [employer] Address [address] [place] [address] Care Team Providers Care Supervisor Sheet Manufacturing Name Role Phone Nitin Jerez MD Primary Care Provider [phone]- [phone] Encounter Details Date Type Department Care Team (Late st Contact Info) Description 07/12/[address] [facility] [address] [place] [address] Cruz Mcpherson MD [address] [place] [address] Dept[place] [address] Social History Tobacco Use Types Packs/Day Years Used Date Smoking Tobacco: Never Assessed Comments Unknown Sex and Gender Information Value Date Recorded Sex Assigned at Female 01/03/2022 9:01 PM CDT Legal Sex Female 9:01 PM CDT Gender Identity Female 01/03/2022 9:01 PM CDT Sexual Orientation Not on file documented as of this encounter Miscellaneous Notes * Cerner Conversion Note - Cruz Mcpherson MD - 07/12/2021 9:33 PM EST Patient: LENNY ABAD Age: 36 years Sex: Female : 1985 Associated Diagnoses: Near syncope; Dizziness Author: CAROLYN DONOHUE APRN Basic Information Time seen: Date & time 07/12/2021 19:00:00. History source: Patient, significant other. Arrival mode: Private vehicle. History limitation: None. Additional information: Chief Complaint from Nursing Triage Note : Chief Complaint 07/12/2021 16:25 EST Chief Complaint near syncope/dizziness starting one hour investigation division captain. pt states that she was on a conference call and got very light headed and dizzy. . History of Present Illness The patient presents with dizziness. The onset was 1 days ago. The course/duration of symptoms is fluctuating in intensity. The character of symptoms is lightheaded. The degree at present is minimal. There are exacerbating factors including changing position and standing. The relieving factor is lying down. Risk factors consist of none. Prior episodes: none. Therapy today: none. Associated symptoms: altered sensation bilateral. Review of Systems Constitutional symptoms: No fever, no chills, no decreased activity. Skin symptoms: No rash, Eye symptoms: Vision unchanged. ENMT symptoms: No sore throat, Respiratory symptoms: No shortness of breath, no cough. Cardiovascular symptoms: No chest pain, no syncope. Gastrointestinal symptoms: No abdominal pain, no vomiting, no diarrhea. Genitourinary symptoms: No dysuria, Musculoskeletal symptoms: No back pain, Neurologic symptoms: Dizziness, no headache, no altered level of consciousness. Psychiatric symptoms: No anxiety, Endocrine symptoms: No polyuria, Hematologic/Lymphatic symptoms: Bleeding tendency negative, Allergy/immunologic symptoms: No recurrent infections, Health Status Allergies: Allergic Reactions (All) No Known Medication Allergies. Medications: (Selected) Inpatient Medications Ordered Sodium Chloride 0.9% bolus: 1,000 mL, 1,000 mL/Hr, IV Piggyback, 1-Time. Immunizations: Per nurse's notes. Menstrual history: Per nurse's notes. Past Medical/ Family/ Social History Medical history Reviewed as documented in chart. Surgical history: No active procedure history items have been selected or recorded., Reviewed as documented in chart. Family history: No family history items have been selected or recorded., Reviewed as documented in chart. Social history: Social & Psychosocial Habits Tobacco 07/12/2021 Smoking Status Never (less than 100 in l Smokeless Tobacco Status Never , Reviewed as documented in chart. Problem list: No qualifying data available , per nurse's notes. Physical Examination Vital Signs Vital Signs/Vital Measures 07/12/2021 19:32 EST Systolic Blood Pressure, Supine 145 mmHg Diastolic Blood Pressure, Supine 80 mmHg Pulse Supine 90 bpm Systolic Blood Pressure, Sitting 160 mmHg Diastolic Blood Pressure, Sitting 103 mmHg Pulse Sitting 87 bpm Systolic Blood Pressure, Standing 148 mmHg Diastolic Blood Pressure, Standing 96 mmHg Pulse Standing 97 bpm 07/12/2021 16:28 EST Temperature Source Oral Temperature Mode Fahrenheit Temperature, Fahrenheit 97.8 Deg F 07/12/2021 16:25 EST Temperature Source Oral Temperature Mode Fahrenheit 07/12/2021 16:00 EST Systolic Blood Pressure 157 mmHg HI Diastolic Blood Pressure 92 mmHg HI Peripheral Pulse Rate 83 bpm Respiratory Rate 18 Breaths/Min Oxygen Saturation 100 % Oxygen Therapy Mode Room air . Measurements 07/12/2021 16:25 EST Height Source Stated Height Entry Format [place] Height/Length, [place] (ft) 5 ft Height/Length [place] 2 Inch CLINICALHEIGHT 157.48 cm [place] Body Weight 49.73 kg Weight Source, ED Critical estimated dosing weight Weight Entry Format [place] Weight [place] lb 200 lb CLINICALWEIGHT 90.91 kg Body Surface Area (BSA) 1.91 m2 Body Mass Index 36.7 kg/m2 HI . Oxygen Saturation 07/12/2021 16:00 EST Oxygen Saturation 100 % . General: Alert, no acute distress. Skin: Warm. Head: Normocephalic. Neck: Supple. Eye: Sclera: not icteric. Ears, nose, mouth and throat: Oral mucosa moist. Cardiovascular: Regular rate and rhythm, No murmur, Normal peripheral perfusion, No edema. Respiratory: Lungs are clear to auscultation, respirations are non-labored, breath sounds are equal. Chest wall: No tenderness. Back: Nontender. Gastrointestinal: Soft, Nontender, Non distended, Normal bowel sounds. Neurological: Alert and oriented to person, place, time, and situation, No focal neurological deficit observed, normal sensory observed, normal motor observed, normal speech observed, normal coordination observed. Lymphatics: No lymphadenopathy. Psychiatric: Cooperative. Medical Decision Making Differential Diagnosis: Dizziness, vertigo, syncope, dysrhythmia, transient ischemic attack. Rationale: HEART SCORE:1 !. HX: High Suspicion=2, Mod=1 Low=0 EKG: Significant ST Depression=[address]=1, Normal=0 Age: >65=2 45-65=1, <45=0 Risk Factors: High Chol, HTN, DM, Smoking, FHx, Obesity >=3 =2 1-2= 1 0=0 Troponin: 3 x Normal=2 1-3 x Normal=1 Normal=0 Low Risk' 0-3 Mod: 4-6 High >7, PERC Score=0 Age => 50 HR =.100 O2 Sat <95% Prior DVT/PE Surg./ Trauma within 4 weeks Hemoptysis Hormone Rx Unilateral Leg Swelling. Electrocardiogram: Time 07/12/2021 16:34:00, rate 84, normal sinus rhythm, No ST changes, normal MD & QRS intervals, EKG was also reviewed by ER physician. Results review: Lab results : Lab Results 07/12/2021 16:29 EST Sodium Level 140 mmol/L Potassium Level 4.1 mmol/L Chloride Level 106 mmol/L Carbon Dioxide Level 27 mmol/L Anion Gap 11 Glucose Level 98 mg/dL Blood Urea Nitrogen 14 mg/dL Creatinine Level 0.76 mg/dL eGFR >60 mL/min/1.73m2 eGFR NonAfrican >60 mL/min/1.73m2 Bun/Creatinine 18.4 Calcium Level 9.1 mg/dL Protein Total 7.8 Gram/dL Albumin Level 4.2 Gram/dL Globulin 3.6 Gram/dL A/G Ratio 1.2 Bilirubin Total 0.4 mg/dL Alk Phos 71 Units/Liter AST 18 Units/Liter ALT 41 Units/Liter Glucose POC2 95 mg/dL Troponin I Ultra <0.015 ng/mL WBC 8.8 K/uL RBC 5.05 Million/uL Hgb 15.3 Gram/dL Hct 46.3 % HI MCV 91.7 fL MCH 30.3 pg MCHC 33.0 Gram/dL Platelet Count 281 K/uL MPV 9.5 fL RDW 12.5 % Neut % 66.3 % Neut # 5.85 K/uL Lymph % 22.4 % Lymph # 1.97 K/uL [place] % 8.5 % [place] # 0.75 K/uL Eos % 1.8 % Eos # 0.16 K/uL Baso % 0.5 % Baso # 0.04 K/uL Slide Review No IG# 0 x10(3)/uL IG% 0 % 07/12/2021 16:25 EST Urine Type. U CleanCatch Urine Color Yellow Urine Appearance Clear Urine Specific [place] 1.006 Urine pH Dipstick *7.5 Urine Leukocyte Esterase Negative Urine Nitrite Negative Urine Protein Dipstick Negative Urine Glucose Dipstick Negative Urine Ketones Dipstick Negative Urine Urobilinogen Dipstick 0.2 EU/dL Urine Bilirubin Dipstick Negative Urine Blood Dipstick Negative Urine Culture if Indicated Not Indicated HCG Urine Qualitative Negative UDS pH 7.8 NA UDS Amp Negative UDS Lyric Negative UDS Benzo Negative UDS Mohini Negative UDS Meth Negative UDS Opi Negative UDS Oxy Negative UDS PCP Negative UDS TCA Negative UDS THC Negative Buprenorphine Screen, Urine Negative Propoxyphene, Urine Negative . Radiology results: X-ray, emergency physician interpretation: Possible cardiomegaly. Reexamination/ Reevaluation Time: 07/12/2021 21:12:00 . Notes: Discussed with patient diagnostic test results, differential diagnosis of the symptoms, treatment plan treatment plan, in detail adviseds, advised follow-up with primary care physician for further evaluation and management, also give patient specific instruction to return to the emergency department, if symptoms worsens. Patient was reevaluated by Dr. Garza with bedside cardiac ultrasound, Dr. Garza recommends close follow-up with cardiology strict return precautions to ER Impression and Plan Diagnosis Near syncope - Discharge, Medical Dizziness - Discharge, Medical Plan Condition: Stable. Disposition: Discharged Admit/Transfer/Discharge: Discharge (Order): Start: 07/12/2021 21:14 EST, Discharge to: Home. Patient was given the following educational materials: Near-Syncope, Vertigo, Syncope, Ambulatory Cardiac Monitoring. Follow up with: IQRA BAIN Within 2 to 3 days; ALHAJI DINH Within 2 to 3 days Call in the AM to follow-up with cardiology for your dizziness and near syncope Turn to ER for worsening of symptoms: Chest pain, fainting, shortness of breath. Counseled: Patient, Family, Regarding diagnosis, Regarding diagnostic results, Regarding treatment plan, Regarding prescription, Patient indicated understanding of instructions. documented in this encounter Plan of Treatment Not on file documented as of this encounter Visit Diagnoses Not on filedocumented in this encounter Care Teams Supervisor Sheet Manufacturing Relationship Specialty Start Date End Date Nitin Jerez MD [address] [place] [phone] PCP - General Family Medicine 10/06/22 documented as of this encounter
--- OUTSIDE RECORDS SUMMARY | 2024-12-29 08:02 | XMS_ITS | Encounter Summary ---
Author Organization [employer] Address [address] [place] [address] Care Team Providers Care Escape Wheel Tooth Cutter Name Role Phone Nitin Jerez MD Primary Care Provider [phone]- [phone] Encounter Details Date Type Department Care Team (Late st Contact Info) Description 07/12/2021 Transcribed Document [facility] [place] [facility] [place] [address] ProviderYamila MD [address] [place] [address] Social History Tobacco Use Types [...] Conversion Note - Historical ProviderMD - 07/12/2021 9:13 PM VENDING TECHNICIAN Electronically signed by [facility], [facility] Conversion Physical Security Manager Cerner at 10/24/2022 1:13 PM CDT documented in this encounter Plan of Treatment Not on file documented as of this encounter Visit Diagnoses Not on filedocumented in this encounter Care Teams Escape Wheel Tooth Cutter Relationship Specialty Start Date End Date Nitin Jerez MD [address] [place] [address] PCP - General Family Medicine 10/06/22 documented as of this encounter
--- NOTE | 2024-12-29 09:00 | MR_ITS ---
FINAL REPORT CLINICAL HISTORY: f/u after CT for kidney lesion 6 weeks post COMPARISON: CT of the abdomen and pelvis 11/15/2024 FINDINGS: Multiplanar MR imaging of the abdomen was performed without and with contrast. Images of the liver reveal no evidence of mass. There is no evidence of biliary ductal dilatation. The gallbladder has an unremarkable appearance. There is an oval hypointense lesion measuring up to 12 mm in size in the mid right kidney, without enhancement, consistent with a simple cyst, also seen on the prior CT of 11/15/2024. There is also a 3 mm cyst in the medial right kidney. The left kidney is normal in appearance. The remaining solid organs are unremarkable. The gallbladder is unremarkable in appearance. No abnormal fluid collection is seen. No abnormal contrast enhancement is seen on the postcontrast images. IMPRESSION: Two right renal cysts are present, as seen on the prior CT of 11/15/2024, that do not enhance after contrast administration and are consistent in appearance with benign simple renal cysts. Otherwise unremarkable MRI of the abdomen with and without contrast. Reviewed, Interpreted and Dictated by Leighton Boyd MD Transcribed by Johana Magana Authenticated and [facility]
[2024-12-29] MEDS: GADOTERIDOL INJ 20ML SYRINGE 17 ML IV (09:53)
[2024-12-29] MEDS: 0.9 % SODIUM CHLORIDE 50 ML VIAL IV (09:53)
[2024-12-29] MEDS: SODIUM CHLORIDE 0.9% 10ML SYR (RAD ONLY) 10 ML IV (09:53)
== END 2024-12-29 23:59 | disposition home or self-care (01) ==
LOC: RAD 07:57
PROVIDERS: PCP Physician Assistant; Visit Provider Obstetrics & Gynecology
DX: Q61.02 Congenital multiple renal cysts (principal)
CPT/HCPCS: 72197; 74183; A9576

== ENCOUNTER 2025-01-14 09:44 | Outpatient (CLI) | payer MEDICAID, SELFPAY ==
--- OUTSIDE RECORDS SUMMARY | 2013-08-19 10:00 | XMS_ITS | Continuity of Care Document ---
Author Organization [facility] Address [address] [place] [address] Phone Care Team Providers Care Commissioner Of Officials Name Role Phone Unavailable Unavailable Unavailable Procedures Procedure Date Unlisted Ophthalmological Service Or Pro cedure Advance Directives Directive Yes / No Effective Date File Name No Information Encounters Encounter Description Practice Location Reason(s) For Visit Diagnoses Date Provider Providers Copied on Encounter [facility] , [address] [place], [address], [place] tel:[phone] [facility] CONJUNCTIVAL HEMORRHAGE 4 No Information Referring Provider: No Ref Doc No Referring Doc. Family History Family Member Type Diagnosis Age At Onset No Information Payers Payer name Insurance type Covered alliance party ID Authoriza tion(s) Self Pay 09 Social History Type Description Quantity Date Captured Comments Sex Female Smoking Status No Information Chief Complaint And Reason For Visit No Information Reason For Referral Reason For Referral No Information History Of Present Illness Encounter Date Complaint History Of Prese nt Illness No Information Functional Status Date Functional Assessmen t No Information Instructions Date Instruction Additional Infor mation No Information Assessments Type Assessment Date No Information Patient Care Teams Name Effective Dates (start - stop) Status Members No Information
--- OUTSIDE RECORDS SUMMARY | 2024-03-27 06:30 | XMS_ITS ---
Author Organization [facility] Address [address] [facility] [address] [place] [address] Care Team Providers Care Guest Experience Captain Name Role Phone Mp Sanza Unavailable [phone] Emperatriz Garcia Unavailable [phone] REASON FOR VISIT NOB Social History Sex Assigned At : Social History Observation Description Sex Assigned At Female Encounters Encounter Location Date Provider Diagnosis [facility] [address] [facility] [address] [place] [address] 03/27/2024 Emperatriz Garcia Plan Of Treatment No Information Progress Notes * Idalmis ABAD PDOB:[birth year] (39 yo F)Acc No.[id number]:03/27/2024 Patient: Idalmis Aguirre Provider: Aaron Garcia CNM :1985 A ge:38 Y S ex:Female Date:03/27/2024 Address:[address] [place], [place] [id number] Subjective: * Chief Complaints: * N OB * Electronic signature of Jeanette Garcia CNM on 01/14/2025 at 09:57 AM EDT Sign off status: Pending Visit Status: C ANC-PNF (Cancelled Patient No Fault) * Provider: Aaron Garcia CNM Date: 03/27/2024 Generated for Printi ng/Faxing/eTransmitting on: 0 01/14/2025 09:57 AM EDT
--- OUTSIDE RECORDS SUMMARY | 2024-10-11 17:30 | XMS_ITS ---
Author Organization [facility] Address [address] [facility] [address] [place] [address] Care Team Providers Care Hospitality Specialist Name Role Phone Helen Nj Primary Care Provider HELEN NJ Unavailable Unavaila ble Migration, Provider Unavailable Unavailable Allergies Allergen (clinical drug ingredient) Drug/Non Drug Allergy documented on EMR Reaction Allergy Type Onset Date Status Penicillin rash Drug Allergy Active REASON FOR VISIT [facility] To [facility] Conversion Encounter Medications Medication SIG (Take, [address] [place] [address] 10/11/2024 Provider Migration Plan Of Treatment Medication Medication Name Sig Start Date Stop Date Notes Gentamicin Sulfate 0.3 % 1 gtt in each e ye 4 times a day; Duration: 7 days 08/19/2024 Cefdinir 300 MG 1 cap(s) orally ever y 12 hours; Duration: 7 days 04/10/2024 Progress Notes * Roberto Carlos ABADOB: [birth year] (39 yo F)Acc No.[id number]:10/11/2024 Patient: Idalmis ACOSTA Provider: Mounika Jones :1985 A ge:39 Y S ex:Female Date:10/11/2024 Address:[address] [place] [address] [place], [id number] Pcp:Helen Nj Subjective: * Chief Complaints: * [...] Electronic signature of Prov ider Migration on 01/14/2025 at 09:57 AM EDT Sign off status: Pending * Provider: Mounika Jones Date: 0 10/11/2024 Generated for Hector hernandez/Aman/Dalyitting on: 0 01/14/2025 09:57 AM EDT
--- OUTSIDE RECORDS SUMMARY | 2024-12-26 11:20 | XMS_ITS ---
Author Organization [facility] Address [address] [place] [address] Care Team Providers Care Occupational Health Physician Name Role Phone Helen Nj Primary Care Provider HELEN [place] Unavailable Unavaila ble REASON FOR VISIT breast MRI Encounters Encounter Location Date Provider Diagnosis [facility] [address] [place] [address] 12/26/2024 Helen Nj Breast mass, left N63.20 Assessments Encounter Date Diagnosis (ICD Code) Assessment Notes Treatment Notes Treatment Clinical Notes Section Notes 12/26/2024 Breast mass, left (ICD-10 - N63.20) Plan Of Treatment Pending Test Test Name Order Date MRI : Breast 12/26/2024 Mammogram : Diagnostic, Left 12/26/2024 Progress Notes * JENNIFFER, Roberto CarlosOB: [birth year] (39 yo F)Acc No.[id number]:12/26/2024 Patient: Idalmis ACOSTA :1985 A ge:39 Y S ex:Female Address:[address] [place] [address] [place], [place] [address] Subjective: * Chief Complaints: * b reast MRI * Medical History: * Surgical History: * Hospitalization/Major Diagno stic Procedure: * Medications: Objective: * Vitals: * Physical Examination: Assessment: * Assessment: 1. B reast mass, left - N63.20 Plan: * Treatment: * ?Imaging: Mammogram : Diagnostic, Left* * Procedure Codes: * true * Date: Generated for Hector hernandez/Aman/Miguel Angel on: 0 01/14/2025 09:57 AM EDT
--- OUTSIDE RECORDS SUMMARY | 2025-01-14 09:57 | XMS_ITS | Clinical Summary ---
Author Organization [employer] ([place], [place], [place], [place]) Address [address] [place] [address] Care Team Providers Care Commercial Real Estate Assistant Name Role Phone Nitin Jerez MD Primary Care Provider +1- [phone] Allergies Active Allergy Reactions Criticality Noted Date [...] of cervical dysplasia 01/23/2014 Overview (09/27/2022): Per COMMUNICATIONS TOWER CLIMBER Per COMMUNICATIONS TOWER CLIMBER Neurological dysfunction 01/23/2014 Overview (09/27/2022): Gag and [...] 12/31/2012 Overview (09/27/2022): 2013: LGSIL. Colpo at [place] nml. PP colpo with ECC and Bx pending (03/04) Immunizations Name Administration Dates Next Due Tdap 09/06/2021 Family History Medical History Relation Name Comments Heart disease Father Cancer Mother Diabetes Other Drug abuse Other Hyperlipidemia Other Relation Name Status Comments Father Mother Other Social History Tobacco Use Types Packs/Day Years Used Date Smoking Tobacco: Never Smokeless Tobacco: Never Tobacco Cessation:Counseling Given: Not Answered Family and Community Support Answer Lalo e Recorded Help with Day to Day Activities Not on file 07/27/2023 Feeling Lonely or Isolated Not on file 07/27 Educational Attainment Answer Date Marcos rded Speak language other than Pakistani at home Not on file 07/27/2023 Want help with school or training Not on file 07/27/2023 Substance Use Answer Date Recorded Used [...] and Screening (12+) 09/28/2023 09/27/2022 COVID-19 VACCINE ( - 2023-2 5 season) 2024 Influenza Vaccine (#1) 2025 DTAP/TDAP/TD VACCINES (2 - T d or Tdap) 09/07/2031 09/06/2021 Pneumococcal Vaccine: 0-49 Years Aged Out No longer eligible based on patient's age to [place] [address] [place] [address] [facility] Advance Directives For more information, please contact: [phone] * Full Code (Latest Code Status on File) Date Activated Date Inactivated Comments 10/06/2022 10:00 AM 10/08/2022 3:01 PM Care Teams Commercial Real Estate Assistant Relationship Specialty Start Date End Date Nitin Jerez MD [address] [place] [address] PCP - General Family Medicine 10/06/22
--- OUTSIDE RECORDS SUMMARY | 2025-01-14 09:57 | XMS_ITS | Encounter Summary ---
Author Organization [employer] ([place], [place], [place], [place]) Address [address] [place] [address] Care Team Providers Care Medical Pathology Teacher Name Role Phone Ntiin Jerez MD Primary Care Provider +1- [phone] Encounter Details Date Type Department Care Team (Late st Contact Info) Description 07/29/2021 Transcribed Document [facility] [place] [address] [place] [address] ProviderYamila MD [address] [place] [address] Social History Tobacco Use Types Packs/Day Years Used Date Smoking Tobacco: Never Assessed Family and Community Support Answer Lalo e Recorded Help with Day to Day Activities Not on file 07/27/2023 Feeling Lonely or Isolated Not on file 07/27 Educational Attainment Answer Date Marcos rded Speak language other than Sudanese at home Not on file 07/27/2023 Want [...] PM CDT Sexual Orientation Not on file COVID-19 Exposure Response Date Recorded In the last 10 days, have yo u been in contact with someone who was confirmed or suspected to have Coronavirus/COVID-19? No / Unsure 10/06/2022 10:39 AM EDT documented as of this encounter Miscellaneous Notes * Cerner Conversion Note - Historical Provider, - 07/29/2021 9:41 AM LOCAL SALES ASSOCIATE Nursing Discharge Summary Entered On: 07/29/2021 9:42 [...] 07/29/2021 9:41 EST Electronically signed by Olimpia [facility] Conversion Clinical Radiologist Cerner at 10/24/2022 1:38 PM CDT documented in this encounter Plan of Treatment Not on file documented as of this encounter Visit Diagnoses Not on filedocumented in this encounter Care Teams Medical Pathology Teacher Relationship Specialty Start Date End Date Nitin Jerez MD [address] [place] [phone] PCP - General Family Medicine 10/06/22 documented as of this encounter
--- OUTSIDE RECORDS SUMMARY | 2025-01-14 09:57 | XMS_ITS | Encounter Summary ---
Author Organization [employer] ([place], [place], [place], [place]) Address [address] [place] [address] Care Team Providers Care Diamond Sander Name Role Phone Nitin Jerez MD Primary Care Provider [phone]- [phone] Encounter Details Date Type Department Care Team (Late st Contact Info) Description 07/29/2021 Transcribed Document [facility] [place] Family Medicine [address] [place] [address] ProviderYamila MD [address] [place] [address] Social History Tobacco Use Types Packs/Day Years Used Date Smoking Tobacco: Never Assessed Family and Community Support Answer Lalo e Recorded Help with Day to Day Activities Not on file 07/27/2023 Feeling Lonely or Isolated Not on file 07/27 Educational Attainment Answer Date Marcos rded Speak language other than Gabonese at home Not on file 07/27/2023 Want [...] Conversion Note - Historical Provider, - 07/29/2021 9:39 AM PLAYER SERVICES REPRESENTATIVE Patient Education Materials Follows: It???s Cold and [...] to thoroughly wash your hands, use hand picking supervisor. While handwashing is best, hand picking supervisor helps to reduce the spread of germs when you are out and about. Have hand picking supervisor in several locations so you can always [...] keep people from also getting sick. Don???t [place] It! Sneezing this time of year is [...] a PCP near you, please visit [facility] [email or web address]. September 12, 2019 Neurology Syncope Syncope is [...] (urine) pale yellow. General instructions ??? Take hnxx-gcm-ukxkjzb and prescription medicines only as told by [...] provider. Document Revised: 08/04/2020 Document Reviewed: 08/07/2018 Elsevier Patient Education ? 2020 [employer] Near-Syncope Near-syncope is when you suddenly get [...] these instructions at home: Medicines ??? Take obyi-qma-zzmvott and prescription medicines only as told by [...] provider. Document Revised: 10/17/2019 Document Reviewed: 05/14/2019 [employer] Patient Education ? 2020 [employer] Procedures Tilt Table Test A tilt [...] including vitamins, herbs, eye drops, creams, and fgwc-ekh-fxjkhet medicines. ??? Any surgeries you have had. [...] provider. Document Revised: 02/28/2019 Document Reviewed: 02/28/2019 [employer] Patient Education ? 2020 [employer]. documented in this encounter Plan of Treatment Not on file documented as of this encounter Visit Diagnoses Not on filedocumented in this encounter Care Teams Diamond Sander Relationship Specialty Start Date End Date Nitin Jerez MD [address] [place] [id number] PCP - General Family Medicine 10/06/22 documented as of this encounter
--- OUTSIDE RECORDS SUMMARY | 2025-01-14 09:57 | XMS_ITS | Patient Health Record ---
Author Organization [facility] Address [address] [facility] [address] [place] [address] Care Team Providers Care Superintendent Communications Name Role Phone Martha Sanz Unavailable [phone] Bre Marroquin Unavailable [phone] Emperatriz Garcia Unavailable [phone] Allergies Allergen (clinical drug ingredient) Drug/Non Drug Allergy documented on EMR Reaction Allergy Type Onset Date Status PENICILLIN V POTASSIUM (PENICILLIN V POTASSIUM TAB Unspecified Drug Allergy 08/21/2018 Active Results Component Value Reference Range Flag Notes Pap w/HPV Reviewed date:04/02/2024 10:50:51 AM Interpretation:Pap normal, HPV negative Performing Lab: Notes/Report: [facility] Testing performed at: [WB] [address], [address], , Director Of Category Management: Juliana Coughlin MD Testing performed at: [=G] [address], [address], , Director Of Category Management: Juliana Coughlin MD Source.............Cervix;Endocervix No. of containers..01 ThinPrep Vial DIAGNOSIS: Comment N NEGATIVE FOR I NTRAEPITHELIAL LESION OR MALIGNANCY. Specimen adequacy: Comment N Satisf actory for evaluation. No endocervical component is identified. Clinician provided ICD10: Comment N Z01.419 Performed by: Comment N Ha Church, Aircraft Motor Mechanic (ASCP) . . N Note: Comment N [...] ralf not met, HPV Genotype not performed. Agricultural Produce Sorter Report Reviewed date:03/27/2024 09:34:09 AM Interpretation: Performing Lab: Notes/Report: [facility] performed at: [WB] [facility], [address] [place], [address], , Director Of Category Management: Juliana Coughlin MD No. of containers..01 ThinPrep Vial DIAGNOSIS: Comment N SPECIMEN REJEC PAULA AND/OR NOT PROCESSED. Specimen adequacy: Comment N Specimen adequacy is not performed due to this being a problem specimen. TWO NAMES ON THIN PREP VIAL. RETURNING SAMPLE VIA FED EX FOR CORRECTION. ADVISED FATIMAH RAYO, 03/25/2024. Clinician provided ICD10: Comment N Z01.419 Performed by: Comment N Eben Love [facility] Cytology-Problem Specimen [address] [place] [address] . . N Reason For Referral No Information Social History Sex Assigned At : Social History Observation Description Sex Assigned At Female Problems Problem Type SNOMED Code ICD Code Onset Dates Problem Status W/U Status Risk Notes Problem Surveillance of intrauterine device contraception (974900371) Checking of intrauterine device (Z30.431) 021 Active confirmed IUD surveillance Problem Awaiting removal of contraceptive intrauterine device (IUD) (Z30.432) 021 Active confirmed IUD removal Problem Gynecological examination normal (62444010527437 4) Cervical smear, as part of routine gynecological examination (Z01.419) 019 Active confirmed Annual without abnormal findings Problem Insertion of intrauterine contraceptive device (38220313) Encounter for initial insertion of intrauterine contraceptive device (Z30.430) 021 Active confirmed IUD insertion Vital Signs Blood pressure diastolic 82 mm Hg 03/20/2024 Height 62 in 03/20/2024 Blood pressure systolic 130 mm Hg 03/20/2024 Weight 213.4 lbs 03/20/2024 BMI 39.03 kg/m2 03/20/2024 Encounters Encounter Location Date Provider Diagnosis [facility] [address] [place] [address] 03/28/2024 Bre Marroquin [facility] [address] [place] [address] 03/20/2024 Bre Marroquin Agricultural Produce Sorter exam without abnormal findings Z01.419 Assessments Encounter Date Diagnosis (ICD Code) Assessment Notes Treatment Notes Treatment Clinical Notes Section Notes 03/20/2024 Agricultural Produce Sorter exam without abnormal findings (ICD-10 - Z01.419) Normal annual exam Pap obtained BSE encouraged Follow up annual exam or PRN Plan Of Treatment No Information Insurance Providers Payer Name Payer Address Payer Phone Subscriber Number Group Number Insured Name Patient Relationship to Insured Coverage Start Date Coverage End Date [facility] Medicaid [address] [address] [place], [place] [id number] [phone] [id number] Idalmis Frances Self - patient is the insured Medical (General) History Medical History History ICD Code abnormal paps HPV varicose veins yeast infections genital HSV Breast Issues Autoimmune Disorder Surgical History Surgery Date(Month/Year) Carpal Tunnel C/S Thyroid Biopsy Breast Biopsy Hospitalization History Reason Date(Month/Year) C/S
--- OUTSIDE RECORDS SUMMARY | 2025-01-14 09:57 | XMS_ITS | Clinical Summary ---
Author Organization [facility] Address [address] [place] [address] Care Team Providers Care Cotton Program Technician Name Role Phone Carolina Ahuja MD Primary Care Provider [phone] Allergies Active Allergy Reactions Criticality Noted Date Comments Cephalosporins 06/24/2014 Penicillins Rash Low 01/23/2014 Avoid cephalosporins Medications levonorgestrel (MIRENA) 20 MCG/24HR IUD 1 each by Intrauterine route once. CARTRIDGE LOADER 4 Active lactobacillus (CULTURELLE) capsuleIndicati ons:Generalized abdominal [...] dysplasia- pos HPV 4 Overview (01/23/2014): Per ASSISTANT CORPORATE CONTROLLER Plantar fasciitis, bilateral 01/23/2014 Anemia 01/23/2014 Neurological [...] on file Medical Devices Implanted Type Area Estimating Engineer Device Identifier Shelf Expiration Date Model / Serial / Lot Iud Care Teams Cotton Program Technician Relationship Specialty Start Date End Date Carolina Ahuja MD [address] [place] [address] [address] [place] [address] PCP - General Family Medicine 05/19/14
--- OUTSIDE RECORDS SUMMARY | 2025-01-14 09:57 | XMS_ITS | Encounter Summary ---
Author Organization [employer] ([place], [place], [place], [place]) Address [address] [place] [address] Care Team Providers Care Head Soft Sugar Operator Name Role Phone Nitin Jerez MD Primary Care Provider [phone]- [phone] Encounter Details Date Type Department Care Team (Late st Contact Info) Description 07/29/2021 Transcribed Document [facility] [place] Family Medicine [address] [place] [address] ProviderYamila MD [address] [place] [address] Social History Tobacco Use Types [...] - Historical Provider, - 07/29/2021 9:41 AM CUSTOM DECORATING CONSULTANT Stroke/Warfarin Instructions Entered On: 07/29/2021 9:41 EST Performed On: 07/29/2021 9:41 EST by Madison Wynne Rn Stroke/Warfarin Instructions Stroke/TIA Discharge Ins : N/A Warfarin Discharge Ins : N/A Madison Wynne Rn - 07/29/2021 9:41 EST Electronically signed by Olimpia [facility] Conversion Rd Scientist Cerner at 10/24/2022 1:38 PM CDT documented in this encounter Plan of Treatment Not on file documented as of this encounter Visit Diagnoses Not on filedocumented in this encounter Care Teams Head Soft Sugar Operator Relationship Specialty Start Date End Date Nitin Jerez MD [address] [place] [id number] PCP - General Family Medicine 10/06/22 documented as of this encounter
--- OUTSIDE RECORDS SUMMARY | 2025-01-14 09:57 | XMS_ITS | Encounter Summary ---
Author Organization [facility] Address [address] [place] [address] Care Team Providers Care Rhic Systems Safety Engineer Name Role Phone Carolina Ahuja MD Primary Care Provider [phone] Encounter Details Date Type Department Care Team (Late st Contact Info) Description 06/01/2014 PAT Telephone [facility] [place] Pre-Admit Testing [address] [place] [address] Jia Rhoades, RN Social History Tobacco Use [...] on filedocumented in this encounter Care Teams Rhic Systems Safety Engineer Relationship Specialty Start Date End Date Carolina Ahuja MD [address] [facility] [address] [place] [address] PCP - General Family Medicine 05/19/14 documented as of this encounter
--- OUTSIDE RECORDS SUMMARY | 2025-01-14 09:57 | XMS_ITS | Encounter Summary ---
Author Organization [employer] ([place], [place], [place], [place]) Address [address] [place] [address] Care Team Providers Care Clay Digger Name Role Phone Nitin Jerez MD Primary Care Provider [phone]- [phone] Encounter Details Date Type Department Care Team (Late st Contact Info) Description 08/03/[address] [facility] [place] Family Medicine [address] [place] [address] ProviderYamila MD [address] [place] [address] Social History Tobacco Use Types Packs/Day Years Used Date Smoking Tobacco: Never Assessed Family and Community Support Answer Lalo e Recorded Help with Day to Day Activities Not on file 07/27/2023 Feeling Lonely or Isolated Not on file 07/27 Educational Attainment Answer Date Marcos rded Speak language other than Lao at home Not on file 07/27/2023 Want [...] Cerner Conversion Note - Historical Provider, - 08/03/2021 4:32 PM MANAGER WEB APPLICATION DATE OF SERVICE: 07/29/2021 DESCRIPTION OF PROCEDURE: [...] negative for orthostatic, vasodepressor, and cardioinhibitory syncope. /[id number] Ronald Betancourt MD MAQ/AQ / MAQ / MODL /[id number] Electronically signed by Olimpia [facility] Conversion Wood Cabinet Finisher Cerner at 10/24/2022 1:31 PM CDT documented in this encounter Plan of Treatment Not on file documented as of this encounter Visit Diagnoses Not on filedocumented in this encounter Care Teams Clay Digger Relationship Specialty Start Date End Date Nitin Jerez MD [address] [place] [phone] PCP - General Family Medicine 10/06/22 documented as of this encounter
--- OUTSIDE RECORDS SUMMARY | 2025-01-14 09:58 | XMS_ITS | Patient Health Record ---
Author Organization [facility] PE D AURELIA Address [address] [facility] [address] [place] [address] Care Team Providers Care Auto Rental Clerk Name Role Phone Rosalva Nj Primary Care Provider ROSALVA NJ Unavailable Unavaila Caitie Neil Unavailable [phone] Rosalva Womack Unavailable [phone] Migration, Provider Unavailable Unavailable Allergies Allergen (clinical drug ingredient) Drug/Non Drug Allergy documented on EMR Reaction Allergy Type Onset Date Status Penicillin rash Drug Allergy Active Reason For Referral Reason Cpap and Dr. Rice - FRANKIE follow up care CPAP order sent to [facility] Diagnosis 1 FRANKIE (obstructive sle ep apnea) (G47.33) Referral Organization [facility] PED AURELIA Referring Provider First Name Rosalva Referring Provider Last Name Shanta Referring Provider Speciality Family Pra ctice Referred Organization [facility] Referred Address [address] [facility], [facility], Referred Provider Specialty Neurology General Notes Myrna Leo 2023 12:20:28 PM >CPAP sent to [facility], Referral sent to Dwayne Referral Priority Routine Reason Please arrange PFT t esting at [facility], history of SOA worsened by perfumes, ruling out asthma. Diagnosis 1 Shortness of breath (R06.02) Referral Organization [facility] PED AURELIA Referring Provider First Name Rosalva Referring Provider Last Name Shanta Referring Provider Speciality Family Pra ctice General Notes Tarik Greenberg 01/2024 12:28:41 PM > faxed to [facility] and they will contact her to schedule Referral Priority Routine Reason Please refer to CHELITA Abbasi in [place] for choking when drinking water, only small sliding hiatal hernia on barium swallow, history of stricture requiring dilation, likely needs EGD with biopsy EoE testing. Also, please send Dr. Abbasi her barium swallow result. Diagnosis 1 Choking sensation (R 09.89) Referral Organization [facility] AURELIA Referring Provider First Name Rosalva Referring Provider Last Name Shanta Referring Provider Count includes the [facility] Notes Tarik Greenberg 12/2023 11:12:43 AM > faxed and they will call pt Referral Priority Routine Reason Please arrange mammo gram and US at [facility]. Discuss locations with patient. History of breast cancer in her Mom and Aunt. Diagnosis 1 Family history of br east cancer (Z80.3) Referral Organization [facility] AURELIA Referring Provider First Name Rosalva Referring Provider Last Name Shanta Referring Provider Count includes the [facility] Notes Tarik Greenberg 12/2023 11:20:03 AM > faxed and they will call pt to schedule Referral Priority Routine Reason Can you please gera salter appt with Sleep MD? Patient states she never got a call. Has FRANKIE. Patient needs consult appt scheduled Diagnosis 1 FRANKIE on CPAP (G47.33) Referral Organization [facility] AURELIA Referring Provider First Name Rosalva Referring Provider Last Name Shanta Referring Provider Count includes the [facility] Notes Tarik Greenberg 12/2023 11:11:47 AM >faxed again, they will call pt to schedule- NA when calling pt, Tarik Greenberg 02/18/2024 09:55:15 AM > spoke to pt and she still hasn't heard about appt. Resent Referral Priority Routine Reason Thyroid nodule- ENT Referral Organization [facility] AURELIA Referring Provider First Name Rosalva Referring Provider Last Name Womack Referring Provider Count includes the [facility] Notes Tarik Greenberg 08:47:09 AM > [...] a day; Duration: 30 days 12/19/2023 Active Social History Tobacco Use: Social History Observation Description Date Details (start date - stop date) Never Smoker NA - NA Smoking: Question Answer Notes Are you a: nonsmoker Problems Problem Type SNOMED Code ICD Code Onset Dates Problem Status W/U Status Risk Notes Problem Seasonal allergy (059524042) Seasonal allergies (J30.2) Active confirmed Problem Obstructive sleep apnea syndrome (89680663) FRANKIE (obstructive sleep apnea) (G47.33) Active confirmed Problem Morbid obesity (295682067) Severe obesity (BMI >= 40) (E66.01) Active confirmed Problem Daytime somnolence (266991239513) Daytime somnolence (R40.0) Active confirmed Problem Dysphagia (98049341) Dysphagia, unspecified type (R13.10) Active confirmed Problem Obstructive sleep apnea syndrome (99954391) FRANKIE on CPAP (G47.33) Active confirmed Problem Gastroesophageal reflux disease (246718001) Gastroesophageal reflux disease, unspecified whether esophagitis present (K21.9) Active confirmed Vital Signs Heart Rate 74 /min 04/01/2024 Temperature 98.4 degrees Fahrenheit 04/01/2024 Blood pressure diastolic 84 mm Hg 04/01/2024 Height 62 in 04/01/2024 Blood pressure systolic 120 mm Hg 04/01/2024 Weight 211 lbs 04/01/2024 BMI 38.59 kg/m2 04/01/2024 Encounters Encounter Location Date Provider Diagnosis [facility] AURELIA [address] [place], [place] [address] 10/11/2024 Provider Migration [facility] [address] [facility] [address] [place] [address] 02/11/2024 Rosalva Womack Gastroesophageal ref lux disease, unspecified whether esophagitis present K21.9 ; Shortness of breath R06.02 ; Seasonal allergies J30.2 ; Family history of breast cancer Z80.3 ; Choking sensation R09.89 ; Severe obesity (BMI >= 40) E66.01 ; Encounter for weight loss counseling Z71.3 ; History of thyroid nodule Z86.39 ; FRANKIE on CPAP G47.33 and Routine adult health maintenance Z00.00 [facility] AURELIA [address] [place] [address] 03/05/2024 Rosalva Womack Folliculitis L73.9 [facility] A[facility] [address] [place] [address] 04/01/2024 Caitie McNees Skin irritation R23. 8 [facility] A[facility] [address] [place] [address] 01/22/2024 Rosalva Womack [facility] [place] [address] [facility] [address] [place] [address] 02/12/2024 Rosalva Womack Family history of br east cancer Z80.3 and Shortness of breath R06.02 [facility] A[facility]IA [address] [place] [address] 03/05/2024 Rosalva Womack [facility] A[facility] [address] [place] [address] 04/10/2024 Rosalva Nj [facility] [place] [address] [facility] [address] [place] [address] 08/19/2024 Rosalva Nj [facility] A[facility] [address] [place] [address] 12/26/2024 Rosalva Nj Breast mass, left N6 3.20 Assessments Encounter Date Diagnosis (ICD Code) Assessment [...] - L73.9) Patient had a rash to [facility] believes she has tolerated cephalospirin in the [...] Will arrange breast mammogram and US at [facility]. IF insurance approves will check BRCA 1 [...] up to date. Patient will call her PUBLIC RELATIONS SUPERVISOR for pap, history of abnormal in the [...] Insured Coverage Start Date Coverage End Date [employer] [address] [address] [place] [address] [id number] Idalmis Frances Self - patient is the insured Medical (General) History Surgical History Surgery Date(Month/Year) carpal tunnel release c- section Hospitalization History Reason Date(Month/Year) EEG [facility] December 2022, no seiz ure activity. child
--- OUTSIDE RECORDS SUMMARY | 2025-01-14 09:58 | XMS_ITS | Encounter Summary ---
Author Organization [employer] ([place], [place], [place], [place]) Address [address] [place] [address] Care Team Providers Care Continuous Improvement Director Name Role Phone Nitin Jerez MD Primary Care Provider +1- [phone] Encounter Details Date Type Department Care Team (Late st Contact Info) Description 07/12/2021 Transcribed Document [facility] Family Medicine [address] [place] [address] ProviderYamila MD [address] [place] [address] Social History Tobacco Use Types [...] Conversion Note - Yamila ProviderMD - 07/12/2021 4:10 PM MEDICAL LAB SPECIALIST ED Assessment Entered On: 07/12/2021 17:32 EST [...] Communication Barrier : None Primary Language : Albanian Any Spiritual/Cultural Needs or Requests : No [...] Symmetric Gait Assistance Level : Independent, complete [place] Coma Scale Link : Open GCS Current/Recent Head Injury : No DOMENICO SUMMERS RN - 07/12/2021 17:29 EST [place] Coma [place] Best Motor Response : Obey commands [place] Best Verbal Response : Oriented Patrick Eye Opening Response : Spontaneous [place] Coma Score : 15 DOMENICO SUMMERS RN - 07/12/2021 17:29 EST Electronically signed by Olimpia, [facility] Conversion Day Light Relief Operator Cerner at 10/24/2022 1:15 PM CDT documented in this encounter Plan of Treatment Not on file documented as of this encounter Visit Diagnoses Not on filedocumented in this encounter Care Teams Continuous Improvement Director Relationship Specialty Start Date End Date Nitin Jerez MD [address] [place] [address] PCP - General Family Medicine 10/06/22 documented as of this encounter
--- OUTSIDE RECORDS SUMMARY | 2025-01-14 09:58 | XMS_ITS | Encounter Summary ---
Author Organization [employer] ([place]) Address [address] [place] [address] Care Team Providers Care Celery Cutter Name Role Phone Nitin Jerez MD Primary Care Provider +1- [phone] Encounter Details Date Type Department Care Team (Late st Contact Info) Description 07/12/2021 Transcribed Document [facility] [place] [address] ProviderYamila MD [address] [place] [address] Social History Tobacco Use Types [...] Conversion Note - Yamila ProviderMD - 07/12/2021 9:29 PM CNA HHA ED Event Note Entered On: 07/12/2021 21:29 EST Performed On: 07/12/2021 21:29 EST by Melba Baptiste RN ED Event Note ED Event Date/Time : 07/12/2021 21:29 EST ED Description of Event : Patient discharged with instructions to follow up with Pre School Manager in the morning. NAD noted. IV dc'd before discharge. All of aptient belongings sent with patient. Patient verbalized understanding to all discharge instructions. Melba Baptiste RN - 07/12/2021 21:29 EST documented in this encounter Plan of Treatment Not on file documented as of this encounter Visit Diagnoses Not on filedocumented in this encounter Care Teams Celery Cutter Relationship Specialty Start Date End Date Nitin Jerez MD [address] [place] [id number] PCP - General Family Medicine 10/06/22 documented as of this encounter
--- OUTSIDE RECORDS SUMMARY | 2025-01-14 09:58 | XMS_ITS | Encounter Summary ---
Author Organization [facility] Address [address] [place] [address] Care Team Providers Care Fireworks Inspector Name Role Phone Carolina Ahuja MD Primary Care Provider [phone] Encounter Details Date Type Department Care Team (Late st Contact Info) Description 11/27/2017 FollowUp Telephone Encounter [facility] [address] [facility] [place] [address] Jordyn Love RN Social History Tobacco Use [...] on filedocumented in this encounter Care Teams Fireworks Inspector Relationship Specialty Start Date End Date Carolina Ahuja MD [address] [facility] [address] [place] [address] PCP - General Family Medicine 05/19/14 documented as of this encounter
--- OUTSIDE RECORDS SUMMARY | 2025-01-14 09:58 | XMS_ITS | Referral Summary ---
Author Organization [employer] ([place]) Address [address] [place] [address] Care Team Providers Care Systematic Theology Professor Name Role Phone Nitin Jerez MD Primary Care Provider +1- [phone] Allergies Active Allergy Reactions Criticality Noted Date [...] of cervical dysplasia 01/23/2014 Overview (09/27/2022): Per OIL PIPE INSPECTOR Per OIL PIPE INSPECTOR Neurological dysfunction 01/23/2014 Overview (09/27/2022): Gag and [...] 12/31/2012 Overview (09/27/2022): 2013: LGSIL. Colpo at [place] [facility]. PP colpo with ECC and Bx [...] Date Marcos rded Speak language other than Citizen [place] at home Not on file 07/27/2023 Want [...] Plan of Treatment Not on file Insurance [place] [id number] [facility] Advance Directives For more information, please contact: [phone] * Full Code (Latest Code Status on File) Date Activated Date Inactivated Comments 10/06/2022 10:00 AM 10/08/2022 3:01 PM Care Teams Systematic Theology Professor Relationship Specialty Start Date End Date Nitin Jerez MD [address] [place] [address] PCP - General Family Medicine 10/06/22
--- OUTSIDE RECORDS SUMMARY | 2025-01-14 09:58 | XMS_ITS | Encounter Summary ---
Author Organization [employer] ([place]) Address [address] [place] [address] Care Team Providers Care Brush Washer Name Role Phone Nitin Jerez MD Primary Care Provider [phone]- [phone] Encounter Details Date Type Department Care Team (Late st Contact Info) Description 07/14/2021 Transcribed Document [facility] Family Medicine [facility] [place] [address] ProviderYamila MD [address] [place] [address] Social History Tobacco Use Types [...] - Historical ProviderMD - 07/14/2021 11:05 AM VENEER MEASURER CR Chest 1 Vw Portable Ordered: 07/12/2021 Modified Reason for Exam: dizziness 07/13/2021 10:23 07/14/2021 11:05 (LOLA CALDERÓN PA-C) Reviewed by Provider, No further action required documented in this encounter Plan of Treatment Not on file documented as of this encounter Visit Diagnoses Not on filedocumented in this encounter Care Teams Brush Washer Relationship Specialty Start Date End Date Nitin Jerez MD [address] [place] [address] PCP - General Family Medicine 10/06/22 documented as of this encounter
--- OUTSIDE RECORDS SUMMARY | 2025-01-14 09:58 | XMS_ITS | Encounter Summary ---
Author Organization [employer] ([place]) Address [address] [place] [address] Care Team Providers Care Automotive Exhaust Emissions Technician Name Role Phone Nitin Jerez MD Primary Care Provider [phone]- [phone] Encounter Details Date Type Department Care Team (Late st Contact Info) Description 07/29/2021 Transcribed Document [facility] Family Medicine [address] [place] [address] ProviderYamila MD [address] [place] [address] Social History Tobacco Use Types Packs/Day Years Used Date Smoking Tobacco: Never Assessed Family and Community Support Answer Lalo e Recorded Help with Day to Day Activities Not on file 07/27/2023 Feeling Lonely or Isolated Not on file 07/27 Educational Attainment Answer Date Marcos rded Speak language other than American at home Not on file 07/27/2023 Want [...] Conversion Note - Historical Provider, - 07/29/2021 7:55 AM RESIDENT DIRECTOR Outpatient Visit History Entered On: 07/29/2021 8:04 [...] Source : Chart Height Entry Format : [place]wood Height, Feet : 5 ft(Converted to: 152 cm, 60 Inch) Height, Inches : 2 Inch(Converted to: 0 ft 2 Inch, 5.08 cm) Clinical Height : 157.48 cm Weight Source : Standing scale Weight Entry Format : Redwood Clinical Dosing Weight : 90.91 kg Weight, Pounds : 200 lb Body Surface Area (BSA) : 1.91 m2 Body Mass Index : 36.7 kg/m2 (HI) [place] Body Weight : 50 kg MERVAT MATHUR [...] (Last Updated: 07/29/2021 08:02:23 EST by MERVAT MATHUR RN) Substance Abuse: Drug Use Hx: No. Use [...] MERVAT MATHUR RN - 07/29/2021 7:55 EST [place] Suicide Severity Rating Scale (C-SSRS) CSSRS Past [...] Scale Risk Level : 0-24 Low Risk [place] Fall Interventions : Adequate lighting, Call device within reach, Frequent orientation to call device, Frequent orientation to surroundings, Non-slip footwear, Personal items within reach, Room free of clutter/spills, Wheels locked, Wires/Cords secured MERVAT MATHUR RN - 07/29/2021 7:55 EST Pain Assessment Pain Assessment : Initial assessment Intensity : 0 MERVAT MATHUR RN - 07/29/2021 7:55 EST documented in this encounter Plan of Treatment Not on file documented as of this encounter Visit Diagnoses Not on filedocumented in this encounter Care Teams Automotive Exhaust Emissions Technician Relationship Specialty Start Date End Date Nitin Jerez MD [address] [place] [address] PCP - General Family Medicine 10/06/22 documented as of this encounter
--- OUTSIDE RECORDS SUMMARY | 2025-01-14 09:58 | XMS_ITS | Encounter Summary ---
Author Organization [employer] ([place]) Address [address] [place] [address] Care Team Providers Care Front Desk Auxiliary Name Role Phone Nitin Jerez MD Primary Care Provider [phone]- [phone] Encounter Details Date Type Department Care Team (Late st Contact Info) Description 07/12/2021 Transcribed Document [facility] [place] [facility] [place] [address] ProviderYamila MD [address] [place] [address] Social History Tobacco Use Types Packs/Day Years Used Date Smoking Tobacco: Never Assessed Comments Unknown Sex and Gender Information Value Date Recorded Sex Assigned at Female 01/03/2022 9:01 PM CDT Legal Sex Female 9:01 PM CDT Gender Identity Female 01/03/2022 9:01 PM CDT Sexual Orientation Not on file documented as of this encounter Miscellaneous Notes * Cerner Conversion Note - Yamila George MD - 07/12/2021 9:30 PM TITLE INSPECTOR ED Discharge Entered On: 07/12/2021 21:30 EST [...] No Medications Given to Patient : No Melba Baptiste, RN - 07/12/2021 21:30 EST Electronically signed by Olimpia, [facility] Conversion Business Programmer Cerner at 10/24/2022 1:31 PM CDT documented in this encounter Plan of Treatment Not on file documented as of this encounter Visit Diagnoses Not on filedocumented in this encounter Care Teams Front Desk Auxiliary Relationship Specialty Start Date End Date Nitin Jerez MD [address] [place] [address] PCP - General Family Medicine 10/06/22 documented as of this encounter
--- OUTSIDE RECORDS SUMMARY | 2025-01-14 09:58 | XMS_ITS | Encounter Summary ---
Author Organization [employer] ([place]) Address [address] [place] [address] Care Team Providers Care Do All Operator Name Role Phone Nitin Jerez MD Primary Care Provider +1- [phone] Encounter Details Date Type Department Care Team (Late st Contact Info) Description 07/12/2021 Transcribed Document [facility] Family Medicine [place] [address] ProviderYamila MD [address] [place] [address] Social History Tobacco Use Types [...] - Historical ProviderMD - 07/12/2021 9:13 PM HEAVY FORGING MACHINE OPERATOR Electronically signed by [facility] Conversion [employer] Cerner at 10/24/2022 1:13 PM CDT documented in this encounter Plan of Treatment Not on file documented as of this encounter Visit Diagnoses Not on filedocumented in this encounter Care Teams Do All Operator Relationship Specialty Start Date End Date Nitin Jerez MD [address] [place] [address] PCP - General Family Medicine 10/06/22 documented as of this encounter
--- OUTSIDE RECORDS SUMMARY | 2025-01-14 09:58 | XMS_ITS | Encounter Summary ---
Author Organization [employer] ([place]) Address [address] [place] [address] Care Team Providers Care Developing Machine Tender Name Role Phone Nitin Jerez MD Primary Care Provider +1- [phone] Encounter Details Date Type Department Care Team (Late st Contact Info) Description 07/12/2021 Transcribed Document [facility] [place] [address] [place] [address] ProviderYamila MD [address] [place] [address] Social History Tobacco Use Types [...] - Yamila ProviderMD - 07/12/2021 4:10 PM MANAGER HOSPITALITY ED Triage Entered On: 07/12/2021 16:27 EST Performed On: 07/12/2021 16:25 EST by MARQUEZ CASTANEDA, CREATIVE SERVICES SPECIALIST Triage Across the Room Chief Complaint : near syncope/dizziness starting one hour sea captain. pt states that she was on a conference call and got very light headed and dizzy. Triage Date/Time : 07/12/2021 16:25 EST MARQUEZ CASTANEDA, RN - 07/12/2021 16:25 EST MARQUEZ CASTANEDA RN - 07/12/2021 16:25 EST DCP GENERIC CODE Tracking Group : [facility] ED East MARQUEZ CASTANEDA RN - 07/12/2021 16:25 EST Tracking Acuity : 2 - Emergent DOMENICO SUMMERSSHERYL - 07/12/2021 17:17 EST Mode of Arrival : Stretcher Transported to ED by : Ambulance/ALS EMS Service : [facility] To Room Via : Stretcher Accompanied By : Unaccompanied ED Vital Signs : Document Height & Weight : Document ED Allergies : Document ED Reason for Visit : Document Tetanus Immunization : Unknown Human Resources Assistant Needed : No MARQUEZ CASTANEDA RN - [...] PNED ; Probability: 0 ; Diagnosis Code: [id number] ED Height and Weight Height Source : Stated Height Entry Format : Crisp Height, Feet : 5 ft(Converted to: 152 cm, 60 Inch) Height, Inches : 2 Inch(Converted to: 0 ft 2 Inch, 5.08 cm) Clinical Height : 157.48 cm Weight Source, ED : Critical estimated dosing weight Weight Entry Format : Crisp Weight, Pounds : 200 lb Clinical Dosing Weight : 90.91 kg Body Surface Area (BSA) : 1.91 m2 Body Mass Index : 36.7 kg/m2 (HI) [place] Body Weight (IBW) : 49.73 kg MARQUEZ CASTANEDA RN - 07/12/2021 16:25 EST Patient/Family Human Resources Assistant Communication Primary Language : Macedonian MARQUEZ CASTANEDA RN - 07/12/2021 16:25 EST documented in this encounter Plan of Treatment Not on file documented as of this encounter Visit Diagnoses Not on filedocumented in this encounter Care Teams Developing Machine Tender Relationship Specialty Start Date End Date Nitin Jerez MD [address] [place] [address] PCP - General Family Medicine 10/06/22 documented as of this encounter
--- OUTSIDE RECORDS SUMMARY | 2025-01-14 09:58 | XMS_ITS | Encounter Summary ---
Author Organization [employer] ([place], [place], [place], [place]) Address [address] [place] [address] Care Team Providers Care Air Brush Decorator Name Role Phone Nitin Jerez MD Primary Care Provider +1- [phone] Encounter Details Date Type Department Care Team (Late st Contact Info) Description 07/12/2021 Transcribed Document [facility] Radiology [address] [place] [address] Cruz Mcpherson MD [address] [place] [address] Dept[place] [address] Social History Tobacco Use Types Packs/Day Years [...] Chief Complaint near syncope/dizziness starting one hour quantometer operator. pt states that she was on a [...] EST Height Source Stated Height Entry Format Leslie Height/Length, BULGARIAN (ft) 5 ft Height/Length BULGARIAN 2 Inch CLINICALHEIGHT 157.48 cm [place] Body Weight 49.73 kg Weight Source, ED Critical estimated dosing weight Weight Entry Format Leslie Weight Danish lb 200 lb CLINICALWEIGHT 90.91 kg Body [...] normal sinus rhythm, No ST changes, normal [place] & QRS intervals, EKG was also reviewed [...] % 22.4 % Lymph # 1.97 K/uL [place] % 8.5 % [place] # 0.75 K/uL Eos % 1.8 % Eos # 0.16 K/uL Baso % 0.5 % Baso # 0.04 K/uL Slide Review No IG# 0 x10(3)/uL IG% 0 % 07/12/2021 16:25 EST Urine Type. U CleanCatch Urine Color Yellow Urine Appearance Clear Urine Specific [place] 1.006 Urine pH Dipstick *7.5 Urine Leukocyte [...] on filedocumented in this encounter Care Teams Air Brush Decorator Relationship Specialty Start Date End Date Nitin Jerez MD [address] [place] [address] PCP - General Family Medicine 10/06/22 documented as of this encounter
--- OUTSIDE RECORDS SUMMARY | 2025-01-14 09:58 | XMS_ITS | Encounter Summary ---
Author Organization [employer] ([place], [place], [place], [place]) Address [address] [place] [address] Care Team Providers Care Business Process Analyst Name Role Phone Nitin Jerez MD Primary Care Provider +1- [phone] Encounter Details Date Type Department Care Team (Late st Contact Info) Description 07/29/2021 Transcribed Document [facility] [place] Family Medicine [address] [place] [address] ProviderYamila MD [address] [place] [address] Social History Tobacco Use Types Packs/Day Years Used Date Smoking Tobacco: Never Assessed Family and Community Support Answer Lalo e Recorded Help with Day to Day Activities Not on file 07/27/2023 Feeling Lonely or Isolated Not on file 07/27 Educational Attainment Answer Date Marcos rded Speak language other than Armenian at home Not on file 07/27/2023 Want [...] Conversion Note - Historical Provider, - 07/29/2021 9:42 AM CASE MANAGER SPECIALIST [facility] [address] [place] [address] LENNY ABAD :1985 Visit Time:07/29/2021 Your Visit Summary Your Care Team Primary Care Physician - IQRA BAIN DR These Are Your Goals No qualifying data available. Discharge Vitals Temperature 36.1 ??C Respiratory Rate 20 Blood Pressure 135/76 What to do next Follow-Up Appointments Follow Up with GARRY BRUCE MD-CAR When Within 2 to 3 days Comments Call for follow up appointment Where: [address] [place] [id number]- Medications Take your medications faithfully. Do NOT [...] including vitamins, herbs, eye drops, creams, and qsqa-tpz-bwaxnmb medicines. ??? Any surgeries you have had. [...] provider. Document Revised: 02/28/2019 Document Reviewed: 02/28/2019 ElseNextDigest Patient Education ?? 2020 [employer] Syncope Syncope is when you pass out [...] (urine) pale yellow. General instructions ??? Take fywm-nuf-pwdrfle and prescription medicines only as told by [...] provider. Document Revised: 08/04/2020 Document Reviewed: 08/07/2018 [employer] Patient Education ?? 2020 [employer] Near-Syncope Near-syncope is when you suddenly [...] these instructions at home: Medicines ??? Take wjqk-jwz-nwuvwzu and prescription medicines only as told by [...] provider. Document Revised: 10/17/2019 Document Reviewed: 05/14/2019 [employer] Patient Education ?? 2020 [employer] - [place]. It???s Cold and Flu Season ??? How [...] to thoroughly wash your hands, use hand marketing business analyst. While handwashing is best, hand marketing business analyst helps to reduce the spread of germs when you are out and about. Have hand marketing business analyst in several locations so you can always [...] keep people from also getting sick. Don???t [place] It! Sneezing this time of year is [...] Assistance with quitting is available by contacting 5-781-JCLI-NOW. This is a free resource providing counseling, [...] was given the opportunity to ask questions. Patient/Manager Enrollment Name: Patient/Manager Enrollment Signature: Relationship to Patient: Clinician/Hospital Manager Enrollment Signature: Date: documented in this encounter Plan of Treatment Not on file documented as of this encounter Visit Diagnoses Not on filedocumented in this encounter Care Teams Business Process Analyst Relationship Specialty Start Date End Date Nitin Jerez MD [address] [place] [id number] PCP - General Family Medicine 10/06/22 documented as of this encounter
--- OUTSIDE RECORDS SUMMARY | 2025-01-14 09:58 | XMS_ITS | Encounter Summary ---
Author Organization [employer] ([place], [place], [place], [place]) Address [address] [place] [address] Care Team Providers Care Geophysical Computer Name Role Phone Nitin Jerez MD Primary Care Provider +1- [phone] Encounter Details Date Type Department Care Team (Late st Contact Info) Description 07/12/2021 Transcribed Document [facility] [place] [facility] [address] ProviderYamila MD [address] [place] [address] Social History Tobacco Use Types [...] - Yamila ProviderMD - 07/12/2021 9:17 PM SHOCK ABSORPTION FLOOR LAYER [place] [id number] IDALMIS ABAD :1985 Visit Time:07/12/2021 Your Visit Summary [...] pain, fainting, shortness of breath Where: [address] [place] [id number]- Business (1) Follow Up with IQRA BAIN [...] range between ( 1.0 and 7.0 ) [place] #: 0.75 K/uL -- Normal range between ( 0.24 and 0.82 ) [place] #: 0.16 K/uL -- Normal range between ( 0.04 and 0.54 ) [place] %: 8.5 % -- Normal range between [...] ) Urine Bilirubin Dipstick: Negative Urine Specific [place]: 1.006 -- Normal range between ( 1.005 [...] Education Materials Ambulatory Cardiac Monitoring An ambulatory hvac controls technician is a small recording device that is [...] period is complete. How to use your hvac controls technician ??? Follow directions about how long to [...] monitor. Where to find more information ??? [place] [employer]: www.heart.org Get help right away [...] to the hospital. Summary ??? An ambulatory hvac controls technician is a small recording device that is [...] provider. Document Revised: 04/21/2020 Document Reviewed: 04/21/2020 ElsePhysiq Patient Education ?? 2020 [employer] Syncope Syncope refers to a condition in [...] urine pale yellow. General instructions ??? Take qwng-znv-zqmfcrn and prescription medicines only as told by [...] provider. Document Revised: 11/04/2020 Document Reviewed: 11/04/2020 ElsePhysiq Patient Education ?? 2020 [employer] Vertigo Vertigo is the feeling that [...] you feel dizzy. General instructions ??? Take rcch-lwb-rwomwra and prescription medicines only as told by [...] provider. Document Revised: 05/19/2019 Document Reviewed: 05/19/2019 Elsevier Patient Education ?? 2021 [employer] Near-Syncope Near-syncope is when you suddenly feel [...] these instructions at home: Medicines ??? Take wumg-jah-sblllrm and prescription medicines only as told by [...] provider. Document Revised: 10/17/2019 Document Reviewed: 05/14/2019 [employer] Patient Education ?? 2020 [employer] Emergency Awareness and Preventative Care STROKE is [...] Assistance with quitting is available by contacting 7-162-PFRY-NOW. This is a free resource providing counseling, [...] including: emergency, radiology, or pathology physicians. Patient Name:IDALMIS ABAD I have received this information and was given the opportunity to ask questions. Patient/Garage Construction Equipment Mechanic Name: Patient/Garage Construction Equipment Mechanic Signature: Relationship to Patient: Clinician/Hospital Garage Construction Equipment Mechanic Signature: Please Provide a Telephone Number Where You Can Be Reached: Is it Permissible To Leave a Message? Date: Electronically signed by Olimpia [facility] Conversion Academic Director Cerner at 10/24/2022 1:24 PM CDT documented in this encounter Plan of Treatment Not on file documented as of this encounter Visit Diagnoses Not on filedocumented in this encounter Care Teams Geophysical Computer Relationship Specialty Start Date End Date Nitin Jerez MD [address] [place] [id number] PCP - General Family Medicine 10/06/22 documented as of this encounter
--- OUTSIDE RECORDS SUMMARY | 2025-01-14 09:58 | XMS_ITS | Clinical Summary ---
Author Organization [facility] Address [address] [place] [address] Care Team Providers Care Advertising Sales Consultant Name Role Phone Unavailable Primary Care [...] Date Last Done Comments [facility]-Depression Screening 1985 [facility]-/Child/Adol SDOH Screenings 1985 [facility]-Varicella Vaccines (1 of 2 - 13+ 2-dose series) 1998 HPV Vaccines (1 - 3-dose series) 2000 [facility]- SDOH Screenings 2003 [facility]-Adult SDOH Screenings 2003 [facility]-DTaP,Tdap,and Td Vaccine s (1 - Tdap) 2004 [facility]-Hepatitis B Vaccines (1 of 3 - 19+ 3-dose series) 2004 [facility]-Pap Smear 2006 [facility]-Cervical Cancer Screening 2015 [facility]-HPV/Cotest 2015 XMX-GTXAN-02 Vaccine (1 - 20 24-25 season) 2024 [facility]-Influenza Vaccine (#1) 2025 [facility]-Zoster Vaccines (1 of 2) 2035 [...]
--- OUTSIDE RECORDS SUMMARY | 2025-01-14 09:58 | XMS_ITS | Encounter Summary ---
Author Organization [employer] ([place], [place], [place], [place]) Address [address] [place] [address] Care Team Providers Care Emotional Support Teacher Name Role Phone Nitin Jerez MD Primary Care Provider +1- [phone] Encounter Details Date Type Department Care Team (Late st Contact Info) Description 07/12/2021 Transcribed Document [facility] [place] Family Medicine [address] [place] [address] ProviderYamila MD [address] [place] [address] Social History Tobacco Use Types [...] - Yamila ProviderMD - 07/12/2021 4:10 PM LOADING CHECKER [place] Suicide Severity Rating Scale (C-SSRS) Entered On: 07/12/2021 16:27 EST Performed On: 07/12/2021 16:27 EST by MARQUEZ CASTANEDA RN [place] Suicide Severity Rating Scale (C-SSRS) CSSRS Past Month Wish to be : No CSSRS Past Month Suicidal Thoughts : No CSSRS Lifetime Suicide Behavior : No Suicide Severity Rating Score : 0 Suicide Severity Rating : No Additional Care Required at this time Thoughts of Harming/Killing Others : No MARQUEZ CASTANEDA RN - 07/12/2021 16:27 EST Electronically signed by Olimpia [facility] Conversion Manager Specialty Cerner at 10/24/2022 1:21 PM CDT documented in this encounter Plan of Treatment Not on file documented as of this encounter Visit Diagnoses Not on filedocumented in this encounter Care Teams Emotional Support Teacher Relationship Specialty Start Date End Date Nitin Jerez MD [address] [place] [id number] PCP - General Family Medicine 10/06/22 documented as of this encounter
--- OUTSIDE RECORDS SUMMARY | 2025-01-14 09:58 | XMS_ITS | Encounter Summary ---
Author Organization [employer] ([place], [place], [place], [place]) Address [address] [place] [address] Care Team Providers Care Land Lease Information Clerk Name Role Phone Nitin Jerez MD Primary Care Provider +1- [phone] Encounter Details Date Type Department Care Team (Late st Contact Info) Description 07/12/2021 Transcribed Document [facility] Family Medicine [address] [place] [address] ProviderYamila MD [address] [place] [address] Social History Tobacco Use Types [...] - Historical ProviderMD - 07/12/2021 4:10 PM WARP CHANGER [place] Violence Assessment Entered On: 07/12/2021 16:27 EST Performed On: 07/12/2021 16:27 EST by MARQUEZ CASTANEDA, RN [place] Violence Assessment [place] Violence Checklist of Symptoms : None [place] Violence Symptoms Subtotal : 0 [place] Violence Symptoms Indicator : Low risk (0) MARQUEZ CASTANEDA RN - 07/12/2021 16:27 EST Electronically signed by Olimpia [facility] Conversion Senior Business Consultant Cerner at 10/24/2022 1:26 PM CDT documented in this encounter Plan of Treatment Not on file documented as of this encounter Visit Diagnoses Not on filedocumented in this encounter Care Teams Land Lease Information Clerk Relationship Specialty Start Date End Date Nitin Jerez MD [address] [place] [phone] PCP - General Family Medicine 10/06/22 documented as of this encounter
--- NOTE | 2025-01-14 11:59 | PC.NURSE ---
Infant may have possible tethered oral ties, will have peds make a referral. Mother provided a nipple shield and football hold positioning used to get the to latch. Infant successfully latched and nursed for roughly 10 mins. fussy at the breast. Mom reports she is only getting 1oz between both breast for a 24hr period. Pt provided information on increasing milk supply, will follow-up next week to assess the latch.
== END 2025-01-14 11:00 | disposition home or self-care (01) ==
LOC: OBOUT 09:47
PROVIDERS: PCP Physician Assistant; Visit Provider Obstetrics & Gynecology
DX: Z39.1 Encounter for care and examination of lactating mother (principal)

== ENCOUNTER → 2025-02-17 14:33 | Outpatient (REF) | payer SELFPAY ==
[2025-02-17 14:54] LABS: COC Drug Screen Collection Only
[2025-02-18 11:12] LABS: Hep A Ab, Total Negative (Negative)
[2025-02-19 08:14] LABS: Measles Antibodies, IgG >300.0 AU/mL (Immune >16.4); Mumps Abs, IgG 24.8 AU/mL (Immune >10.9); Rubella Antibodies, IgG 10.20 index (Immune >0.99)
== END ==
LOC: LAB 14:33
CPT/HCPCS: 36415; 86480; 86706; 86708; 86735; 86762; 86765; 86787

== ENCOUNTER 2025-03-06 08:01 | Outpatient (CLI) | payer MEDICAID, SELFPAY ==
--- OUTSIDE RECORDS SUMMARY | 2024-03-27 06:30 | XMS_ITS ---
Author Organization [facility] Address [address] [facility] [address] [place] [address] Care Team Providers Care Telecom Specialist Name Role Phone Mp Sanza Unavailable [phone] Emperatriz Garcia Unavailable [phone] REASON FOR VISIT NOB Social History Sex Assigned At : Social History Observation Description Sex Assigned At Female Encounters Encounter Location Date Provider Diagnosis [facility] [facility] [address] [place] [address] 03/27/2024 Emperatriz Garcia Plan Of Treatment No Information Progress Notes * JENNIFFERIdalmis HARRIS PDOB:[birth year] (39 yo F)Acc No.[id number]:03/27/2024 Patient: Idalmis Aguirre Provider: Aaron Garcia CNM :1985 A ge:38 Y S ex:Female Date:03/27/2024 Address:[address] [place], [place] [id number] Subjective: * Chief Complaints: * N OB * Electronic signature of Jeanette Garcia CNM on 03/06/2025 at 08:10 AM EDT Sign off status: Pending Visit Status: C ANC-PNF (Cancelled Patient No Fault) * Provider: Aaron Garcia CNM Date: 03/27/2024 Generated for Printi ng/Faxing/eTransmitting on: 0 03/06/2025 08:10 AM EDT
--- OUTSIDE RECORDS SUMMARY | 2024-10-11 17:30 | XMS_ITS ---
Author Organization [facility] Address [address] [facility] [address] [place] [address] Care Team Providers Care Tube Pusher Name Role Phone Helen Nj Primary Care Provider HELEN NJ Unavailable Unavaila ble Migration, Provider Unavailable Unavailable Allergies Allergen (clinical drug ingredient) Drug/Non Drug Allergy documented on EMR Reaction Allergy Type Onset Date Status Penicillin rash Drug Allergy Active REASON FOR VISIT [facility] To [facility] Conversion Encounter Medications Medication SIG (Take, Route, [address] [place] [address] 10/11/2024 Provider Migration Plan Of Treatment Medication Medication Name Sig Start Date Stop Date Notes Gentamicin Sulfate 0.3 % 1 gtt in each e ye 4 times a day; Duration: 7 days 08/19/2024 Cefdinir 300 MG 1 cap(s) orally ever y 12 hours; Duration: 7 days 04/10/2024 Progress Notes * Roberto Carlos ABADOB: [birth year] (39 yo F)Acc No.[id number]:10/11/2024 Patient: Idalmis ACOSTA Provider: Mounika Jones :1985 A ge:39 Y S ex:Female Date:10/11/2024 Address:[address] [place] [address] [place], [id number] Pcp:Helen Nj Subjective: * Chief Complaints: * [...] Electronic signature of Prov ider Migration on 03/06/2025 at 08:11 AM EDT Sign off status: Pending * Provider: Mounika Jones Date: 0 10/11/2024 Generated for Hector hernandez/Aman/Dalyitting on: 0 03/06/2025 08:11 AM EDT
--- OUTSIDE RECORDS SUMMARY | 2025-01-21 10:17 | XMS_ITS | Encounter Summary ---
Author Organization [facility] Address [address] [place] [address] Care Team Providers Care Associate Attorney Name Role Phone Helen Womack Primary Care Provider [phone] Reason for Referral * MRI/CAT/PET Scan (Routine) - Closed Specialty Diagnoses / Procedures Referred By Michelleac yuan Referred To Contact Radiology Diagnoses Mass of left breast, unspecified quadrant Procedures MRI Breast Bilateral Screening With & Without Contrast Helen Nj, DAVE [address] [place], [place] [id number] Phone: tel: fax: Referral ID Status Reason Start Date Expiration Date Visits Re quested Visits Authorized Closed 12/29/2024 03/30/2026 1 1 Reason for Visit * MRI/CAT/PET Scan (Routine) - Closed Specialty Diagnoses / Procedures Referred By Sofi bolden Referred To Contact Radiology Diagnoses Mass of left breast, unspecified quadrant Procedures MRI Breast Bilateral Screening With & Without Contrast Helen Nj, DAVE [address] [place] [address] Phone: tel: fax: Referral ID Status Reason Start Date Expiration Date Visits Re quested Visits Authorized Closed 12/29/2024 03/30/2026 1 1 Encounter Details Date Type Department Care Team (Latest Contact Info) Description 01/21/2025 10:17 AM EDT - 01/21/2025 11:59 PM EDT Hospital Encounter [facility] [place] [address] [place] [address] Ondina Helen Miriam, CAR WIPER [address] [place] [address] Mass of left breast, unspecified quadrant Discharge Disposition: Home or Self Care Social History Tobacco Use Types Packs/Day Years Used Date Smoking Tobacco: Never Smokeless Tobacco: Never Alcohol Use Standard Drinks/Week Comments Never 0 (1 standard drink = 0.6 oz pur e alcohol) AUDIT-C Answer Date Recorded Q1: How often do you have a drink containing alc ohol? Never 10/15/2019 Average Number of Drinks Not on file 020 Frequency of Binge Drinking Not on file 02/2020 Abuse Screen Answer Date Recorded Feels Unsafe at Home or Work/School no 06/10/2024 Feels Threatened by Someone no 09/2023 Does Anyone Try to Keep You From Having Contact with Others or Doing Things Outside Your Home? no 06/10/2024 Physical Signs of Abuse Present no 06/10/2024 Housing Stability Answer Date Recorded Current Living Arrangements home 09/2023 Potentially Unsafe Housing Conditions Not on allan e 06/10/2024 Disabilities Answer Date Recorded Difficulty Concentrating, Remembering or Making Decisions no 06/10/2024 Difficulty Managing Errands Independently no 06/10/2024 Education Answer Date Recorded Help with school or training? Not on file Preferred Language Wallisian 06/04/2024 Comments No Sex and Gender Information Value Date Recorded Sex Assigned at Not on file Legal Sex Female 1:41 PM EDT Gender Identity Not on file Sexual Orientation Not on file documented as of this encounter Medications at Time of Discharge CHOLINE PO Take 350 mg by mouth Daily. Ergocalciferol (VITAMIN D2 PO) Take 1 tablet by mouth Daily. Magnesium Glycinate 100 MG capsule Take 500 mg by mouth 3 times a day. Methylcobalamin (C70-VUVXOI PO) Take 1 tablet by mouth Daily. [place]-3 Fatty Acids (fish oil) 1000 MG capsule capsule Take 1 capsule by mouth Daily With Breakfast. Vit-Fe Fumarate-FA ( -1) 27-1 MG tablet tablet Take by mouth Daily. Turmeric 500 MG capsule Take by mouth. documented as of this encounter Plan of Treatment Not on file documented as of this encounter Procedures Procedure Name Priority Date/Time Associated Diagnosis Comments MRI BREAST BILATERAL SCREENING W WO CONTRAST Routine 01/21/2025 12:16 PM EDT Mass of left breast, unspecified quadrant documented in this encounter Results * MRI Breast Bilateral Screening With & Without Contrast (01/21/2025 12:16 PM EDT) Anatomical Region Laterality Modality Breast Bilateral Magnetic Resonan ce 01/24/2025 10:4 0 AM EDT Impressions 01/24/2025 10:42 AM EDT BI-RADS 2, benign findings. RECOMMENDATIONS: Per the diagnostic report of 12/19/2024, it was recommended at that time that the patient undergo a 6-month follow-up left diagnostic mammogram. Consider annual screening breast MRI. BI-RADS CATEGORY: BI-RADS 2, benign findings. 01/24/2025 10:[address] Rob Alex MD on Narrative 01/24/2025 10:42 AM EDT BILATERAL BREAST MRI HISTORY: 39-year-old female with a family history of breast cancer in her mother at age 52 and maternal aunt at age 56. History of in the left breast excisional biopsy in 2023. High risk. 28.6% lifetime risk per [place]. Screening exam. TECHNIQUE: MRI was performed on a 1.5 Stacie magnet utilizing an 8 channel Sentinelle breast coil. Pre-contrast spin-echo T1 weighted and T2 weighted sequences were obtained in the axial plane. Routine dynamic images were performed following the administration of 20 ml of Multihance contrast. Four postcontrast runs were obtained. No contrast complications occurred. Delayed high resolution post contrast T1 weighted sagittal images were also obtained. A CAD system ([employer]) was utilized for data analysis. COMPARISON: Diagnostic mammogram and left breast ultrasound dated 12/19/2024. FINDINGS: Contrast is noted in the heart and great vessels. Heterogeneous breast tissue is noted bilaterally. Moderate background parenchymal enhancement is noted bilaterally. No suspicious masslike or jvt-nbzz-gvqr enhancement is noted in the right breast. No suspicious masslike nor vvj-zsza-tuwk enhancement is noted in the left breast. Post excisional biopsy changes are noted in the left breast. Additionally, signal void artifact is noted in the upper outer quadrant of the left breast, posterior one third depth, consistent with a biopsy tissue marker. No suspicious axillary nor internal mammary adenopathy is noted bilaterally. Helen Nj APRN IM MRI ORDERABLES F inal Result documented in this encounter Visit Diagnoses Diagnosis Mass of left breast, unspecified quadrant documented in this encounter Administered Medications Inactive Administered Medications - up to 3 most recent administrations Medication Order MAR Action Action Date Dose Rate Site gadobenate dimeglumine (MULTIHANCE) injection 20 mL 20 mL, Intravenous, Once in Imaging, On Sun01/21/25 at 1230, For 1 dose, Vesicant; admin as rapid bolus; flush with 5 mL NS after admin or 20 mL for renal or aortoiliofemoral vasculature Given 01/21/2025 12:16 PM EDT 20 mL documented in this encounter Care Teams Associate Attorney Relationship Specialty Start Date End Date Helen Womack PA [address] [facility] [address] [facility] [address] [address] [place] [address] PCP - General Physician Custody Officer 02/28/24 documented as of this encounter
--- OUTSIDE RECORDS SUMMARY | 2025-03-06 08:06 | XMS_ITS | Encounter Summary ---
Author Organization [employer] ([place], [place], [place], [place]) Address [address] [place] [address] Care Team Providers Care Large Sheetfed Press Operator Name Role Phone Nitin Jerez MD Primary Care Provider +1- [phone] Encounter Details Date Type Department Care Team (Late st Contact Info) Description 08/03/2021 Transcribed Document [facility] [place] Family Medicine [address] [place] [address] ProviderYamila MD [address] [place] [address] Social History Tobacco Use Types Packs/Day Years Used Date Smoking Tobacco: Never Assessed Family and Community Support Answer Lalo e Recorded Help with Day to Day Activities Not on file 07/27/2023 Feeling Lonely or Isolated Not on file 07/27 Educational Attainment Answer Date Marcos rded Speak language other than Ukrainian at home Not on file 07/27/2023 Want [...] - Historical Provider, - 08/03/2021 4:32 PM HOSPITAL CORPSMAN DATE OF SERVICE: 07/29/2021 DESCRIPTION OF PROCEDURE: [...] negative for orthostatic, vasodepressor, and cardioinhibitory syncope. /[id number] Ronald Betancourt MD MAQ/AQ / MAQ / MODL /[id number] Electronically signed by Olimpia [facility] Conversion Call Or Contact Centre Manager Cerner at 10/24/2022 1:31 PM CDT documented in this encounter Plan of Treatment Not on file documented as of this encounter Visit Diagnoses Not on filedocumented in this encounter Care Teams Large Sheetfed Press Operator Relationship Specialty Start Date End Date Nitin Jerez MD [address] [place] [phone] PCP - General Family Medicine 10/06/22 documented as of this encounter
--- OUTSIDE RECORDS SUMMARY | 2025-03-06 08:06 | XMS_ITS | Encounter Summary ---
Author Organization [employer] ([place], [place], [place], [place]) Address [address] [place] [address] Care Team Providers Care Assistant Secretary Name Role Phone Nitin Jerez MD Primary Care Provider +1- [phone] Encounter Details Date Type Department Care Team (Late st Contact Info) Description 07/29/2021 Transcribed Document [facility] [place] Family Medicine [address] [place] [address] ProviderYamila MD [address] [place] [address] Social History Tobacco Use Types Packs/Day Years Used Date Smoking Tobacco: Never Assessed Family and Community Support Answer Lalo e Recorded Help with Day to Day Activities Not on file 07/27/2023 Feeling Lonely or Isolated Not on file 07/27 Educational Attainment Answer Date Marcos rded Speak language other than Liberian at home Not on file 07/27/2023 Want [...] - Historical Provider, - 07/29/2021 9:41 AM EMPLOYMENT SECURITY OFFICER Stroke/Warfarin Instructions Entered On: 07/29/2021 9:41 EST Performed On: 07/29/2021 9:41 EST by Madison Wynne Rn Stroke/Warfarin Instructions Stroke/TIA Discharge Ins : N/A Warfarin Discharge Ins : N/A Madison Wynne Rn - 07/29/2021 9:41 EST Electronically signed by Olimpia [facility] Conversion Dry Mixer Cerner at 10/24/2022 1:38 PM CDT documented in this encounter Plan of Treatment Not on file documented as of this encounter Visit Diagnoses Not on filedocumented in this encounter Care Teams Assistant Secretary Relationship Specialty Start Date End Date Nitin Jerez MD [address] [place] [id number] PCP - General Family Medicine 10/06/22 documented as of this encounter
--- OUTSIDE RECORDS SUMMARY | 2025-03-06 08:06 | XMS_ITS | Encounter Summary ---
Author Organization [employer] ([place], [place], [place], [place]) Address [address] [place] [address] Care Team Providers Care Wireless Team Member Name Role Phone Nitin Jerez MD Primary Care Provider +1- [phone] Encounter Details Date Type Department Care Team (Late st Contact Info) Description 07/29/2021 Transcribed Document [facility] [place] Family Medicine [address] [place] [address] ProviderYamila MD [address] [place] [address] Social History Tobacco Use Types Packs/Day Years Used Date Smoking Tobacco: Never Assessed Family and Community Support Answer Lalo e Recorded Help with Day to Day Activities Not on file 07/27/2023 Feeling Lonely or Isolated Not on file 07/27 Educational Attainment Answer Date Marcos rded Speak language other than Argentine at home Not on file 07/27/2023 Want [...] - Historical Provider, - 07/29/2021 9:41 AM SILVER SOLUTION MIXER Nursing Discharge Summary Entered On: 07/29/2021 9:42 [...] 07/29/2021 9:41 EST Electronically signed by Olimpia [facility] Conversion Medical Laboratory Technical Officer Cerner at 10/24/2022 1:38 PM CDT documented in this encounter Plan of Treatment Not on file documented as of this encounter Visit Diagnoses Not on filedocumented in this encounter Care Teams Wireless Team Member Relationship Specialty Start Date End Date Nitin Jerez MD [address] [place] [phone] PCP - General Family Medicine 10/06/22 documented as of this encounter
--- OUTSIDE RECORDS SUMMARY | 2025-03-06 08:06 | XMS_ITS | Encounter Summary ---
Author Organization [employer] ([place], [place], [place], [place]) Address [address] [place] [address] Care Team Providers Care Kitchen Steward Name Role Phone Nitin Jerez MD Primary Care Provider [phone] Encounter Details Date Type Department Care Team (Late st Contact Info) Description 07/29/2021 Transcribed Document [facility] [facility] [address] [place] [address] ProviderYamila MD [address] [place] [address] Social History Tobacco Use Types Packs/Day Years Used Date Smoking Tobacco: Never Assessed Family and Community Support Answer Lalo e Recorded Help with Day to Day Activities Not on file 07/27/2023 Feeling Lonely or Isolated Not on file 07/27 Educational Attainment Answer Date Marcos rded Speak language other than Nigerian at home Not on file 07/27/2023 Want [...] - Historical Provider, - 07/29/2021 9:39 AM VETERANS SERVICE REPRESENTATIVE Patient Education Materials Follows: It???s Cold [...] to thoroughly wash your hands, use hand inspector machine parts. While handwashing is best, hand inspector machine parts helps to reduce the spread of germs when you are out and about. Have hand inspector machine parts in several locations so you can always [...] keep people from also getting sick. Don???t [place] It! Sneezing this time of year is [...] a PCP near you, please visit [facility] [email or web address]. September 12, 2019 Neurology Syncope Syncope [...] (urine) pale yellow. General instructions ??? Take uvdg-pxr-fmcwrsw and prescription medicines only as told by [...] Reviewed: 08/07/2018 Elsevier Patient Education ? 2020 [employer] Near-Syncope Near-syncope is when you suddenly [...] these instructions at home: Medicines ??? Take gthj-xuy-gcwguar and prescription medicines only as told by [...] provider. Document Revised: 10/17/2019 Document Reviewed: 05/14/2019 [employer] Patient Education ? 2020 [employer] Procedures Tilt Table Test A tilt [...] including vitamins, herbs, eye drops, creams, and dqfs-wxc-kwaozjs medicines. ??? Any surgeries you have had. [...] provider. Document Revised: 02/28/2019 Document Reviewed: 02/28/2019 [employer] Patient Education ? 2020 [employer]. documented in this encounter Plan of Treatment Not on file documented as of this encounter Visit Diagnoses Not on filedocumented in this encounter Care Teams Kitchen Steward Relationship Specialty Start Date End Date Nitin Jerez MD [address] [place] [id number] PCP - General Family Medicine 10/06/22 documented as of this encounter
--- OUTSIDE RECORDS SUMMARY | 2025-03-06 08:07 | XMS_ITS | Encounter Summary ---
Author Organization [facility] Address [address], [address] [place] [address] Care Team Providers Care Bee Robber Name Role Phone Carolina Ahuja MD Primary Care Provider [phone] Encounter Details Date Type Department Care Team (Late st Contact Info) Description 06/01/2014 PAT Telephone [facility] Pre-Admit Testing [address] [place] [address] Jia Rhoades, RN Social History Tobacco Use [...] on filedocumented in this encounter Care Teams Bee Robber Relationship Specialty Start Date End Date Carolina Ahuja MD [address] [place] [address] [address] [place] [address] PCP - General Family Medicine 05/19/14 documented as of this encounter
--- OUTSIDE RECORDS SUMMARY | 2025-03-06 08:07 | XMS_ITS | Clinical Summary ---
Author Organization [employer] ([place], [place], [place], [place]) Address [address] [place] [address] Care Team Providers Care Hypo Dipper Name Role Phone Nitin Jerez MD Primary Care Provider [phone] Allergies Active Allergy Reactions Criticality Noted Date [...] of cervical dysplasia 01/23/2014 Overview (09/27/2022): Per CORPORATE ACCOUNT EXECUTIVE Per CORPORATE ACCOUNT EXECUTIVE Neurological dysfunction 01/23/2014 Overview (09/27/2022): Gag and [...] 12/31/2012 Overview (09/27/2022): 2013: LGSIL. Colpo at [facility] nml. PP colpo with ECC and Bx [...] Date Marcos rded Speak language other than Ugandan at home Not on file 07/27/2023 Want [...] [place] [address] [facility] Member Subscriber Plan / Payer (Ef fective for All Dates) Name:Idalmis Frances Relation to Subscriber:Self Name:Idalmis Frances Payer ID:[id number] Group ID:Not on file Type:Not on file Address: [facility] [address] [place] [address] Advance Directives For more information, please contact: [phone] * Full Code (Latest Code Status on File) Date Activated Date Inactivated Comments 10/06/2022 10:00 AM 10/08/2022 3:01 PM Care Teams Hypo Dipper Relationship Specialty Start Date End Date Nitin Jerez MD [address] [place] [address] PCP - General Family Medicine 10/06/22
--- OUTSIDE RECORDS SUMMARY | 2025-03-06 08:08 | XMS_ITS | Encounter Summary ---
Author Organization [facility] Address [address] [place] [address] Care Team Providers Care Compressed Gas Equipment Mechanic Name Role Phone Helen Womack Primary Care Provider [phone] Encounter Details Date Type Department Care Team (Latest Contact Info) Description 01/21/2025 Travel Social History Tobacco Use Types Packs/Day Years [...] or training? Not on file Preferred Language Finnish 06/04/2024 Comments No Sex and Gender Information Value Date Recorded Sex Assigned at Not on file Legal Sex Female 1:41 PM EDT Gender Identity Not on file Sexual Orientation Not on file documented as of this encounter Plan of Treatment Not on file documented as of this encounter Visit Diagnoses Not on filedocumented in this encounter Care Teams Compressed Gas Equipment Mechanic Relationship Specialty Start Date End Date Helen Womack PA [address] [facility] [address] [place] [address] PCP - General Physician Grinder Mill Operator 02/28/24 documented as of this encounter
--- OUTSIDE RECORDS SUMMARY | 2025-03-06 08:08 | XMS_ITS | Clinical Summary ---
Author Organization [facility] Address [address], [address] [place] [address] Care Team Providers Care Waiter/Waitress Economy Class Name Role Phone Carolina Ahuja MD Primary Care Provider [phone] Allergies Active Allergy Reactions Criticality Noted Date Comments Cephalosporins 06/24/2014 Penicillins Rash Low 01/23/2014 Avoid cephalosporins Medications levonorgestrel (MIRENA) 20 MCG/24HR IUD 1 each by Intrauterine route once. CONE RUNNER 4 Active lactobacillus (CULTURELLE) capsuleIndicati ons:Generalized abdominal [...] dysplasia- pos HPV 4 Overview (01/23/2014): Per WEB UI SOFTWARE ENGINEER Plantar fasciitis, bilateral 01/23/2014 Anemia 01/23/2014 Neurological [...] on file Medical Devices Implanted Type Area Prosthetic Dentist Device Identifier Shelf Expiration Date Model / Serial / Lot Iud Care Teams Waiter/Waitress Economy Class Relationship Specialty Start Date End Date Carolina Ahuja MD [address] [place] [address] [address] [place] [address] PCP - General Family Medicine 05/19/14
--- OUTSIDE RECORDS SUMMARY | 2025-03-06 08:11 | XMS_ITS | Patient Health Record ---
Author Organization [facility] Address [address] [facility] [facility] [address] [place] [address] Care Team Providers Care Analytics Lead Name Role Phone Martha Sanz Unavailable [phone] Bre Marroquin Unavailable [phone] Emperatriz Garcia Unavailable [phone] Allergies Allergen (clinical drug ingredient) Drug/Non Drug Allergy documented on EMR Reaction Allergy Type Onset Date Status PENICILLIN V POTASSIUM (PENICILLIN V POTASSIUM TAB Unspecified Drug Allergy 08/21/2018 Active Results Component Value Reference Range Flag Notes Iv Technician Report Reviewed date:03/27/2024 09:34:09 AM Interpretation: Performing Lab: Notes/Report: indico Testing performed at: [WB] [facility], [address] [place] [address] [place], [address], , Brand Advocate: Juliana Coughlin MD No. of containers..01 ThinPrep Vial DIAGNOSIS: Comment N SPECIMEN REJEC PAULA AND/OR NOT PROCESSED. Specimen adequacy: Comment N Specimen adequacy is not performed due to this being a problem TWO NAMES ON THIN PREP VIAL. RETURNING SAMPLE VIA FED EX FOR specimen. CORRECTION. ADVISED FATIMAH RAYO, 03/25/2024. Clinician provided ICD10: Comment N Z01.419 Performed by: Cindy Lovell Cytology-Problem Specimen Eben Love [address] [place] [address] [place] [address] . . N Pap w/HPV Reviewed date:04/02/2024 10:50:51 AM Interpretation:Pap normal, HPV negative Performing Lab: Notes/Report: indico Testing performed at: [WB] [facility], [address] [place], [address], , Brand Advocate: Juliana Coughlin MD Testing performed at: [=G] [facility], [address] [facility] [place], [address], , Brand Advocate: Juliana Coughlin MD Source.............Cervix;Endocervix No. of containers..01 ThinPrep Vial DIAGNOSIS: Comment N NEGATIVE FOR I NTRAEPITHELIAL LESION OR MALIGNANCY. Specimen adequacy: Comment N Satisf actory for evaluation. No endocervical component is identified. Clinician provided ICD10: Comment N Z01.419 Performed by: Comment N Ha Church, Missile Pad Mechanic (ASCP) . . N Note: Comment N The Pap smear is a screening test designed to aid in the cancer. Both false-positive and false-negative reports do should not be used as the sole means of detecting cervical uterine cervix. It is not a diagnostic procedure and occur. detection of premalignant and malignant conditions of the Test Methodology: Comment N This liquid based ThinPrep(R) pap test was screened with the use of an image guided system. HPV Aptima Negative Negative N risk HPV types (16,18,31,33,35,39,45,51,52,56 ,58,59,66,68) without differentiation. This nucleic acid amplification test detects fourteen high- HPV Genotype Reflex Comment N Crite ralf not met, HPV Genotype not performed. Reason For Referral No Information Social History Sex Assigned At : Social History Observation Description Sex Assigned At Female Problems Problem Type SNOMED Code ICD Code Onset Dates Problem Status W/U Status Risk Notes Problem Surveillance of intrauterine device contraception (666879872) Checking of intrauterine device (Z30.431) 021 Active confirmed IUD surveillance Problem Awaiting removal of contraceptive intrauterine device (IUD) (Z30.432) 021 Active confirmed IUD removal Problem Gynecological examination normal (02023871294102 4) Cervical smear, as part of routine gynecological examination (Z01.419) 019 Active confirmed Annual without abnormal findings Problem Insertion of intrauterine contraceptive device (85372491) Encounter for initial insertion of intrauterine contraceptive device (Z30.430) 021 Active confirmed IUD insertion Vital Signs Blood pressure diastolic 82 mm Hg 03/20/2024 Height 62 in 03/20/2024 Blood pressure systolic 130 mm Hg 03/20/2024 Weight 213.4 lbs 03/20/2024 BMI 39.03 kg/m2 03/20/2024 Encounters Encounter Location Date Provider Diagnosis [facility] [address] [place] [address] 03/28/2024 Bre Marroquin [facility] [address] [place] [address] 03/20/2024 Bre Marroquin Iv Technician exam without abnormal findings Z01.419 Assessments Encounter Date Diagnosis (ICD Code) Assessment Notes Treatment Notes Treatment Clinical Notes Section Notes 03/20/2024 Iv Technician exam without abnormal findings (ICD-10 - Z01.419) Normal annual exam Pap obtained BSE encouraged Follow up annual exam or PRN Plan Of Treatment No Information Insurance Providers Payer Name Payer Address Payer Phone Subscriber Number Group Number Insured Name Patient Relationship to Insured Coverage Start Date Coverage End Date [facility] Medicaid [address] [address] [place], [place] [id number] [phone] [id number] Idalmis Frances Self - patient is the insured Medical (General) History Medical History History ICD Code abnormal paps HPV varicose veins yeast infections genital HSV Breast Issues Autoimmune Disorder Surgical History Surgery Date(Month/Year) Carpal Tunnel C/S Thyroid Biopsy Breast Biopsy Hospitalization History Reason Date(Month/Year) C/S
--- OUTSIDE RECORDS SUMMARY | 2025-03-06 08:12 | XMS_ITS | Encounter Summary ---
Author Organization [facility] Address [address] [place] [address] Care Team Providers Care Book Critic Name Role Phone Carolina Ahuja MD Primary Care Provider Encounter Details Date Type Department Care Team (Late st Contact Info) Description 11/27/2017 FollowUp Telephone Encounter [facility] [address] [facility], [address] [place] [address] Jordyn Love RN Social History Tobacco Use [...] on filedocumented in this encounter Care Teams Book Critic Relationship Specialty Start Date End Date Carolina Ahuja MD [address] [place] [address] PCP - General Family Medicine 05/19/14 documented as of this encounter
--- OUTSIDE RECORDS SUMMARY | 2025-03-06 08:13 | XMS_ITS | Patient Health Record ---
Author Organization [facility] Address [address] [place] [address] Care Team Providers Care Bridge Maintenance Worker Name Role Phone Helen Nj Primary Care Provider [phone] [place] Unavailable Unavaila ble Caitie Jimenez Unavailable [phone] Migration, Provider Unavailable Unavailable Allergies Allergen (clinical drug ingredient) Drug/Non Drug Allergy documented on EMR Reaction Allergy Type Onset Date Status Penicillin rash Drug Allergy Active Reason For Referral Reason Thyroid nodule- ENT Referral Organization [facility] Referring Provider First Name Helen Referring Provider Last Name Shanta Referring Provider Speciality Family [facility] General Notes Tarik Greenberg 08:47:09 AM > faxed [...] Problem Status W/U Status Risk Notes Problem Information temporarily unavailable Seasonal allergies (J30.2) Active confirmed Problem Information temporarily unavailable FRANKIE (obstructive sleep apnea) (G47.33) Active confirmed Problem Information temporarily unavailable Severe obesity (BMI >= 40) (E66.01) Active confirmed Problem Information temporarily unavailable Daytime somnolence (R40.0) Active confirmed Problem Information temporarily unavailable Dysphagia, unspecified type (R13.10) Active confirmed Problem Information temporarily unavailable FRANKIE on CPAP (G47.33) Active confirmed Problem Information temporarily unavailable Gastroesophageal reflux disease, unspecified whether esophagitis present (K21.9) Active confirmed Vital Signs Heart Rate 74 /min 04/01/2024 Temperature 98.4 degrees Fahrenheit 04/01/2024 Blood pressure diastolic 84 mm Hg 04/01/2024 Height 62 in 04/01/2024 Blood pressure systolic 120 mm Hg 04/01/2024 Weight 211 lbs 04/01/2024 BMI 38.59 kg/m2 04/01/2024 Encounters Encounter Location Date Provider Diagnosis [facility] [address] [facility] [address] [place] [address] 10/11/2024 Provider Migration [facility] [address] [facility] [address] [place] [address] 04/01/2024 Caitie McNees Skin irritation R23.8 [facility] [address] [facility] [address] [place] [address] 04/10/2024 Helen Nj [facility] [address] [address] 08/19/2024 Helen Kempence [facility] [address] [facility] [address] [place] [address] 12/26/2024 Helen Nj Breast mass, left N63.20 Assessments Encounter Date Diagnosis (ICD Code) Assessment Notes Treatment Notes Treatment Clinical Notes Section Notes 04/01/2024 Skin irritation (ICD-10 - R23.8) Reassurance, [...] Coverage End Date [employer] [address] [address] [place] [address] [phone] [id number] Idalmis Frances Self - patient is the insured Medical (General) History Surgical History Surgery Date(Month/Year) carpal tunnel release c- section Hospitalization History Reason Date(Month/Year) EEG [facility] December 2022, no seiz ure activity. child
--- OUTSIDE RECORDS SUMMARY | 2025-03-06 08:13 | XMS_ITS | Encounter Summary ---
Author Organization [employer] ([place], [place], [place], [place]) Address [address] [place] [address] Care Team Providers Care Flight Operations Manager Name Role Phone Nitin Jerez MD Primary Care Provider [phone] Encounter Details Date Type Department Care Team (Late st Contact Info) Description 07/12/2021 Transcribed Document [facility] Radiology [address] [place] [address] Cruz Mcpherson MD [address] [place] [address] Dept. 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 pt states that she was on a [...] EST Height Source Stated Height Entry Format Forrest Height/Length, TRINIDADIAN (ft) 5 ft Height/Length TRINIDADIAN 2 Inch CLINICALHEIGHT 157.48 cm [place] Body Weight 49.73 kg Weight Source, ED Critical estimated dosing weight Weight Entry Format Forrest Weight Yemeni lb 200 lb CLINICALWEIGHT 90.91 [...] normal sinus rhythm, No ST changes, normal MI & QRS intervals, EKG was also reviewed [...] % 22.4 % Lymph # 1.97 K/uL Mclean % 8.5 % Mclean # 0.75 K/uL Eos % 1.8 % Eos # 0.16 K/uL Baso % 0.5 % Baso # 0.04 K/uL Slide Review No IG# 0 x10(3)/uL IG% 0 % 07/12/2021 16:25 EST Urine Type. U CleanCatch Urine Color Yellow Urine Appearance Clear Urine Specific [place] 1.006 Urine pH Dipstick *7.5 Urine Leukocyte [...] on filedocumented in this encounter Care Teams Flight Operations Manager Relationship Specialty Start Date End Date Nitin Jerez MD [address] [place] [address] PCP - General Family Medicine 10/06/22 documented as of this encounter
--- OUTSIDE RECORDS SUMMARY | 2025-03-06 08:13 | XMS_ITS | Clinical Summary ---
Author Organization [facility] Address [address] [place] [address] Care Team Providers Care Airplane Designer Name Role Phone Helen Womack Primary Care Provider [phone] Allergies Active Allergy Reactions Criticality Noted Date Comments Cephalexin Rash Low 02/17/2013 noted Cephalosporins Rash Low 02/17/2013 Penicillins Hives,Itching,Rash Low 01/23/2014 Avoid cephalosporins Medications Vit-Fe Fumarate-FA ( 27-1) 27-1 MG tablet tablet Take by mouth Daily. Active Ergocalciferol (VITAMIN D2 PO) Take 1 tablet by mouth Daily. Active Methylcobalamin (R74-MMYUMJ PO) Take 1 tablet by mouth Daily. Active CHOLINE PO Take 350 mg by mouth Daily. Active Magnesium Glycinate 100 MG capsule Take 500 mg by mouth 3 times a day. Active [place]-3 Fatty Acids (fish oil) 1000 MG capsule capsule Take 1 capsule by mouth Daily With Breakfast. Active Turmeric 500 MG capsule Take by mouth. Active Active Problems Problem Noted Date Diagnosed Date Antepartum multigravida of advanced maternal age 0511/06/2024 Assessment & Plan (11/06/2024 10:17 AM EDT): S/p low risk NIPT. S/p normal anatomic survey. Growth today is consistent with dates, with AC at the 10th percentile. History of delivery affecting 11/06/2024 Assessment & Plan (11/06/2024 10:42 AM EDT): History of vaginal delivery followed by delivery secondary to twins and preeclampsia. History of pre-eclampsia in prior , currently 11/06/2024 Assessment & Plan (11/06/2024 10:43 AM EDT): BP within normal limits today. No si/sx's or preeclampsia. History of delivery, currently 11/06/2024 Desires (vaginal after ) tria l 11/06/2024 Assessment & Plan (11/06/2024 10:40 AM EDT): Patient with history of a vaginal delivery at 32wks followed by a for twins complicated by preeclampsia. Patient desires a TOLAC. Baby today measures better than previously noted with overall growth at the 15th percentile and AC at the 10th percentile. There is normal amniotic fluid, BPP, and UA Dopplers. Patient is a reasonable candidate for TOLAC and baby should tolerate as well as any other. Agree with plan for IOL at 37wks. Chronic hypertension affecting 025 Assessment & Plan (11/06/2024 10:29 AM EDT): BP today 131/68. Patient is not requiring any anti-hypertensive medications. Her baseline preeclampsia work-up was normal. Assessment & Plan (10/23/2024 11:55 AM EDT): Patient with diagnosis of chronic hypertension. Patient not currently on antihypertensive medication. First blood pressure today 142/69 and on repeat was 126/54. No reason to make medication change at this time. Patient does have a history of preeclampsia. We discussed careful return precautions regarding preeclampsia symptoms IUGR (intrauterine growth re striction) affecting care of mother, third trimester, fetus 1 10/23/2024 Assessment & Plan (11/06/2024 10:44 AM EDT): Growth appears improved today with overall weight in the 15th percentile for gestational age and AC at the 10th percentile. This is not consistent with IUGR. Amniotic fluid, BPP, and UA Dopplers are all reassuring. Assessment & Plan (10/23/2024 11:57 AM EDT): Growth today reveals overall EFW at 14%ile, though AC at 1%ile giving diagnosis of growth restriction. Reassuringly the amniotic fluid and umbilical artery cord Doppler are both normal today. There are various etiologies for growth restriction including: Infection, genetic factors such as aneuploidy, placental abnormalities, constitutional, and maternal vascular/autoimmune disease. No sonographic markers for infection were seen today. No congenital anomalies were seen today however anatomic survey limited secondary to advanced gestation. Patient has previously low risk NIPT. We discussed how management of growth restriction is essentially the same regardless of etiology with close monitoring. Plan for follow up in 2 weeks. We discussed potential improvement with increased nutrition, decreased activity and smoking cessation. We discussed careful return precautions regarding decreased movement. Recommend twice-weekly testing in your office (1 being BPP, SANDIE, umbilical artery Dopplers). Given degree of growth restriction and multiple comorbidities would recommend delivery at 37 weeks Other dysphagia 10/15/2019 Thyroid antibody positive 10/15/2019 Goiter 10/15/2019 Solitary thyroid nodule 10/15/2019 Chronic fatigue 10/15/2019 Class 1 obesity due to exces s calories without serious comorbidity with body mass index (BMI) of 31.0 to 31.9 in adult 10/15/2019 Globus sensation 05/14/2014 History of cervical dysplasia 01/23/2014 Overview (10/15/2019): Per CONTENT MANAGER Neurological dysfunction 01/23/2014 Overview (10/15/2019): Gag and throat with noxious stimul Encounters Date Type Department Care Team Description 01/21/2025 10:17 AM EDT - 01/21/2025 11:59 PM EDT Hospital Encounter [facility] [place] [address] [place] [address] Helen Nj APRN Mass of left breast, unspecified quadrant Discharge Disposition: Home or Self Care 01/21/2025 Travel 12/19/2024 10:43 AM EDT - 12/19/2024 11:59 PM EDT Hospital Encounter [facility] [address] [place] [id number] Breast lump on left side at 3 o'clock position Discharge Disposition: Home or Self Care 12/19/2024 8:56 AM EDT - 12/19/2024 11:59 PM EDT Hospital Encounter [facility] [address] [place] [id number] Breast lump on left side at 3 o'clock position Discharge Disposition: Home or Self Care 12/19/2024 Travel from Last 3 Months Family History Medical History Relation Name Comments Breast cancer Maternal Aunt 1 Ovarian cancer Maternal Aunt 2 70's Thyroid disease Maternal Grandmother Cancer Maternal Uncle Breast cancer Mother Relation Name Status Comments Maternal Aunt 1 breast Maternal Aunt 2 cervical Maternal Grandmother Maternal Uncle brain Mother Social History Tobacco Use Types Packs/Day Years [...] or training? Not on file Preferred Language Nepali 06/04/2024 Comments No Sex and Gender Information Value Date Recorded Sex Assigned at Not on file Legal Sex Female 1:41 PM EDT Gender Identity Not on file Sexual Orientation Not on file Last Filed Vital Signs Vital Sign Reading Time Taken Comments Blood Pressure 131/68 11/06/2024 9:24 AM EDT Pulse 75 06/10/2024 12:00 PM EST Temperature 36.9 C (98.4 F) 06/10/2024 11:45 AM EST Respiratory Rate 16 06/10/2024 11:45 AM EST Oxygen Saturation 100% 06/10/2024 12:00 PM EST Inhaled Oxygen Concentration - - Weight 114 kg (251 lb) 01/21/2025 10:30 AM EDT Height 160 cm (5' 3 ) 01/21/2025 10:30 AM EDT Body Mass Index 44.46 01/21/2025 10:30 AM EDT Plan of Treatment Health Maintenance Due Date Last Done Comments Annual Gynecologic Pelvic an d Breast Exam 1985 PAP SMEAR 2006 ANNUAL PHYSICAL 10/15/2019 HEPATITIS C SCREENING 10/15/2019 COVID-19 Vaccine (2023-2 5 season) 2024 INFLUENZA VACCINE 04/08/2025 TDAP/TD VACCINES (3 - Td or Tdap) 09/26/2034 09/26/2024, 09/06/2021 Pneumococcal Vaccine 0-49 Aged Out No longer eligible based on patient's age to complete this topic Procedures Procedure Name Priority Date/Time Associated Diagnosis Comments MRI BREAST BILATERAL SCREENING W WO CONTRAST Routine 01/21/2025 12:16 PM EDT Mass of left breast, unspecified quadrant US BREAST LEFT LIMITED Routine 11:26 AM EDT Breast lump on left side at 3 o'clock position MAMMO DIAGNOSTIC DIGITAL TOMOSYNTHESIS LEFT W CAD Routine 12/19/2024 10:48 AM EDT Breast lump on left side at 3 o'clock position from Last 3 Months Results * MRI Breast Bilateral Screening With [...] images were also obtained. A CAD system ([employer]) was utilized for data analysis. COMPARISON: Diagnostic mammogram and left breast ultrasound dated 12/19/2024. FINDINGS: Contrast is noted in the heart and great vessels. Heterogeneous breast tissue is noted bilaterally. Moderate background parenchymal enhancement is noted bilaterally. No suspicious masslike or mmd-wpmu-vngw enhancement is noted in the right breast. No suspicious masslike nor swn-majd-flew enhancement is noted in the left breast. Post excisional biopsy changes are noted in the left breast. Additionally, signal void artifact is noted in the upper outer quadrant of the left breast, posterior one third depth, consistent with a biopsy tissue marker. No suspicious axillary nor internal mammary adenopathy is noted bilaterally. Helen Pineda Ondina DAVE IMG MRI ORDERABLES F inal Result * US Breast Left Limited (12/19/2024 11:26 AM EDT) Anatomical Region Laterality Modality Breast Left Ultrasound 12/19/2024 11:3 1 AM EDT Addenda Addendum by Amy Torres MD on 12/23/2024 8:10 AM EDT Correction: Patient should return in February 2025 for bilateral diagnostic mammography using 2D 3D technique. 12/23/2024 8:[address] Amy Torres MD on Impressions 12/19/2024 11:33 AM EDT BI-RADS 3 probable benign findings left breast. Interval increase in intramammary lymph nodes may be related to current breast-feeding. RECOMMENDATION: 1. 6-month follow-up diagnostic left mammogram 2. Genetic counseling 3. High risk screening breast MRI. Results and recommendations were discussed by myself to the patient at the conclusion of the ultrasound. The standard false-negative rate of mammography is between 10% and 25%. Complex patterns or increased breast density will markedly elevate the false-negative rate of mammography. A results letter, in lay terminology, will be given to the patient at the conclusion of the exam. _ Physician Order Diagnostic 6 Month follow up Mammogram with Breast Ultrasound if needed. Diagnosis: Abnormal Mammogram follow-up 12/19/2024 11:[address] Amy Torres MD on Narrative 12/19/2024 11:33 AM EDT EXAMINATION:MAMMO DIAGNOSTIC DIGITAL TOMOSYNTHESIS LEFT W CAD-, US BREAST LEFT LIMITED- HISTORY: 39-year-old female with a family history of breast cancer in her mother diagnosed at 52 maternal aunt diagnosed at 56 and a family history of ovarian cancer maternal aunt diagnosed in her 70s. The patient has not yet had genetic counseling. According to the [place] risk assessment model her lifetime risk of breast cancer is 28.59% which indicates that the patient is high risk by this model. 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 The patient is and has been breast-feeding 4 months. TECHNIQUE: Combination 2D 3D standard views of both breast combination 2D 3D left CC and left MLO spot compression views combination 2D 3D left 90 degree lateral view and targeted left breast ultrasound COMPARISON: Prior mammograms of the left breast dating back to the patient's baseline study of 02/28/2024 FINDINGS: The breasts are heterogeneously dense, which may obscure small masses. Changes consistent with left excisional biopsy are now present. No suspicious microcalcifications or areas of architectural distortion are identified. There is been interval increase in size of 2 oval masses with fatty geremias in the upper outer quadrant of the left breast posteriorly in keeping with intramammary lymph nodes. Targeted ultrasound was performed demonstrating mild increase in size of nodular cortical thickening of 2 oval hypoechoic masses with fatty hilum at 2:00. us Amy Torres MD IMG US ORDERABLES Edited Re sult - Final * Mammo Diagnostic Digital Tomosynthesis Left With CAD (12/19/2024 10:48 AM EDT) Anatomical Region Laterality Modality Breast Left Mammography 12/19/2024 11:3 1 AM EDT Addenda Addendum by Amy Torres MD on 12/23/2024 8:10 AM EDT Correction: Patient should return in February 2025 for bilateral diagnostic mammography using 2D 3D technique. 12/23/2024 8:[address] Amy Torres MD on Impressions 12/19/2024 11:33 AM EDT BI-RADS 3 probable benign findings left breast. Interval increase in intramammary lymph nodes may be related to current breast-feeding. RECOMMENDATION: 1. 6-month follow-up diagnostic left mammogram 2. Genetic counseling 3. High risk screening breast MRI. Results and recommendations were discussed by myself to the patient at the conclusion of the ultrasound. The standard false-negative rate of mammography is between 10% and 25%. Complex patterns or increased breast density will markedly elevate the false-negative rate of mammography. A results letter, in lay terminology, will be given to the patient at the conclusion of the exam. _ Physician Order Diagnostic 6 Month follow up Mammogram with Breast Ultrasound if needed. Diagnosis: Abnormal Mammogram follow-up 12/19/2024 11:[address] Amy Torres MD on Narrative 12/19/2024 11:33 AM EDT EXAMINATION:MAMMO DIAGNOSTIC DIGITAL TOMOSYNTHESIS LEFT W CAD-, US BREAST LEFT LIMITED- HISTORY: 39-year-old female with a family history of breast cancer in her mother diagnosed at 52 maternal aunt diagnosed at 56 and a family history of ovarian cancer maternal aunt diagnosed in her 70s. The patient has not yet had genetic counseling. According to the [place] risk assessment model her lifetime risk of breast cancer is 28.59% which indicates that the patient is high risk by this model. 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 The patient is and has been breast-feeding 4 months. TECHNIQUE: Combination 2D 3D standard views of both breast combination 2D 3D left CC and left MLO spot compression views combination 2D 3D left 90 degree lateral view and targeted left breast ultrasound COMPARISON: Prior mammograms of the left breast dating back to the patient's baseline study of 02/28/2024 FINDINGS: The breasts are heterogeneously dense, which may obscure small masses. Changes consistent with left excisional biopsy are now present. No suspicious microcalcifications or areas of architectural distortion are identified. There is been interval increase in size of 2 oval masses with fatty geremias in the upper outer quadrant of the left breast posteriorly in keeping with intramammary lymph nodes. Targeted ultrasound was performed demonstrating mild increase in size of nodular cortical thickening of 2 oval hypoechoic masses with fatty hilum at 2:00. us Kishore Bassett MD IMG MAMMOGRAPHY ORDERABLE S Edited Result - Final from Last 3 Months Insurance [place] [id number] [employer] [place] Care Teams Airplane Designer Relationship Specialty Start Date End Date Helen Womack PA [address] [place] [address] PCP - General Physician Hardware Test Engineer 02/28/24
--- OUTSIDE RECORDS SUMMARY | 2025-03-06 08:13 | XMS_ITS | Encounter Summary ---
Author Organization [employer] ([place], [place], [place], [place]) Address [address] [place] [address] Care Team Providers Care Automated Cutting Machine Operator Name Role Phone Nitin Jerez MD Primary Care Provider [phone] Encounter Details Date Type Department Care Team (Late st Contact Info) Description 07/12/2021 Transcribed Document [facility] Family Medicine [address] [place] [address] ProviderYamila MD [address] [place] [address] Social History Tobacco Use Types [...] - Yamila ProviderMD - 07/12/2021 4:10 PM SHOE PATTERNMAKER ED Assessment Entered On: 07/12/2021 17:32 EST [...] Communication Barrier : None Primary Language : Samoan Any Spiritual/Cultural Needs or Requests : No [...] Symmetric Gait Assistance Level : Independent, complete Patrick Coma Scale Link : Open GCS Current/Recent Head Injury : No DOMENICO SUMMERS RN - 07/12/2021 17:29 EST [place] Coma Patrick Best Motor Response : Obey commands [place] Best Verbal Response : Oriented Patrick Eye Opening Response : Spontaneous [place] Coma Score : 15 DOMENICO SUMMERS RN - 07/12/2021 17:29 EST Electronically signed by [facility], [facility] Conversion Supervisor Pole Yard Cerner at 10/24/2022 1:15 PM CDT documented in this encounter Plan of Treatment Not on file documented as of this encounter Visit Diagnoses Not on filedocumented in this encounter Care Teams Automated Cutting Machine Operator Relationship Specialty Start Date End Date Nitin Jerez MD [address] [place] [id number] PCP - General Family Medicine 10/06/22 documented as of this encounter
--- OUTSIDE RECORDS SUMMARY | 2025-03-06 08:14 | XMS_ITS | Encounter Summary ---
Author Organization [employer] ([place], [place], [place]) Address [address] [place] [address] Care Team Providers Care Receiver Bulk System Name Role Phone Nitin Jerez MD Primary Care Provider [phone] Encounter Details Date Type Department Care Team (Late st Contact Info) Description 07/29/2021 Transcribed Document [facility] Family Medicine [address] [place] [address] ProviderYamila MD [address] [place] [address] Social History Tobacco Use Types Packs/Day Years Used Date Smoking Tobacco: Never Assessed Family and Community Support Answer Lalo e Recorded Help with Day to Day Activities Not on file 07/27/2023 Feeling Lonely or Isolated Not on file 07/27 Educational Attainment Answer Date Marcos rded Speak language other than Somali at home Not on file 07/27/2023 Want [...] - Historical Provider, - 07/29/2021 9:42 AM NATIONAL SALES MANAGER [facility] [address] [place] [address] LENNY ABAD :1985 Visit Time:07/29/2021 [...] follow up appointment Where: [address] [place] [id number]- Medications Take your medications faithfully. Do NOT [...] including vitamins, herbs, eye drops, creams, and alia-ldk-kwtmneg medicines. ??? Any surgeries you have had. [...] provider. Document Revised: 02/28/2019 Document Reviewed: 02/28/2019 [employer] Patient Education ?? 2020 [employer] Syncope Syncope is when you pass [...] (urine) pale yellow. General instructions ??? Take wwbk-pyz-hgrydap and prescription medicines only as told by [...] provider. Document Revised: 08/04/2020 Document Reviewed: 08/07/2018 [employer] Patient Education ?? 2020 [employer] Near-Syncope Near-syncope is when you suddenly [...] these instructions at home: Medicines ??? Take ighc-oxi-repqloq and prescription medicines only as told by [...] provider. Document Revised: 10/17/2019 Document Reviewed: 05/14/2019 [employer] Patient Education ?? 2020 [employer]. It???s Cold and Flu Season ??? How [...] to thoroughly wash your hands, use hand epic kaleidoscope analyst. While handwashing is best, hand epic kaleidoscope analyst helps to reduce the spread of germs when you are out and about. Have hand epic kaleidoscope analyst in several locations so you can [...] people from also getting sick. Don???t [place] It! Sneezing this time of year is [...] Assistance with quitting is available by contacting 5-814-KQZS-NOW. This is a free resource providing counseling, [...] was given the opportunity to ask questions. Patient/Marine Engineering Consultant Name: Patient/Marine Engineering Consultant Signature: Relationship to Patient: Clinician/Hospital Marine Engineering Consultant Signature: Date: documented in this encounter Plan of Treatment Not on file documented as of this encounter Visit Diagnoses Not on filedocumented in this encounter Care Teams Receiver Bulk System Relationship Specialty Start Date End Date Nitin Jerez MD [address] [place] [id number] PCP - General Family Medicine 10/06/22 documented as of this encounter
--- OUTSIDE RECORDS SUMMARY | 2025-03-06 08:14 | XMS_ITS | Encounter Summary ---
Author Organization [employer] ([place], [place], [place], [place]) Address [address] [place] [address] Care Team Providers Care Shelter Supervisor Name Role Phone Nitin Jerez MD Primary Care Provider [phone]- [phone] Encounter Details Date Type Department Care Team (Late st Contact Info) Description 07/12/[address] [facility] Family Medicine [facility] [place] [address] ProviderYamila MD [address] [place] [address] Social History Tobacco Use Types [...] - Historical ProviderMD - 07/12/2021 9:13 PM EDUCATION TEACHER Electronically signed by [facility], [facility] Conversion Mother Baby Rn Cerner at 10/24/2022 1:13 PM CDT documented in this encounter Plan of Treatment Not on file documented as of this encounter Visit Diagnoses Not on filedocumented in this encounter Care Teams Shelter Supervisor Relationship Specialty Start Date End Date Nitin Jerez MD [address] [place] [id number] PCP - General Family Medicine 10/06/22 documented as of this encounter
--- OUTSIDE RECORDS SUMMARY | 2025-03-06 08:14 | XMS_ITS | Encounter Summary ---
Author Organization [employer] ([place], [place], [place], [place]) Address [address] [place] [address] Care Team Providers Care Wood Polisher Name Role Phone Nitin Jerez MD Primary Care Provider [phone]- [phone] Encounter Details Date Type Department Care Team (Late st Contact Info) Description 07/14/2021 Transcribed Document [facility] [place] Family Medicine [facility] [address] ProviderYamila MD [address] [place] [address] Social History Tobacco Use Types [...] - Historical ProviderMD - 07/14/2021 11:05 AM POSSUM TRAPPER CR Chest 1 Vw Portable Ordered: 07/12/2021 Modified Reason for Exam: dizziness 07/13/2021 10:23 07/14/2021 11:05 (LOLA CALDERÓN PA-C) Reviewed by Provider, No further action required documented in this encounter Plan of Treatment Not on file documented as of this encounter Visit Diagnoses Not on filedocumented in this encounter Care Teams Wood Polisher Relationship Specialty Start Date End Date Nitin Jerez MD [address] [place] [id number] PCP - General Family Medicine 10/06/22 documented as of this encounter
--- OUTSIDE RECORDS SUMMARY | 2025-03-06 08:14 | XMS_ITS | Encounter Summary ---
Author Organization [employer] ([place], [place], [place], [place]) Address [address] [place] [address] Care Team Providers Care Zipper Cutter Name Role Phone Nitin Jerez MD Primary Care Provider [phone]- [phone] Encounter Details Date Type Department Care Team (Late st Contact Info) Description 07/29/2021 Transcribed Document [facility] [place] Family Medicine [address] [place] [address] ProviderYamila MD [address] [place] [address] Social History Tobacco Use Types Packs/Day Years Used Date Smoking Tobacco: Never Assessed Family and Community Support Answer Lalo e Recorded Help with Day to Day Activities Not on file 07/27/2023 Feeling Lonely or Isolated Not on file 07/27 Educational Attainment Answer Date Marcos rded Speak language other than Eritrean at home Not on file 07/27/2023 Want [...] - Historical Provider, - 07/29/2021 7:55 AM SERVICE MANAGER Outpatient Visit History Entered On: 07/29/2021 8:04 [...] Source : Chart Height Entry Format : [place] Height, Feet : 5 ft(Converted to: 152 cm, 60 Inch) Height, Inches : 2 Inch(Converted to: 0 ft 2 Inch, 5.08 cm) Clinical Height : 157.48 cm Weight Source : Standing scale Weight Entry Format : [place] Clinical Dosing Weight : 90.91 kg Weight, Pounds : 200 lb Body Surface Area (BSA) : 1.91 m2 Body Mass Index : 36.7 kg/m2 (HI) [place] Body Weight : 50 kg MERVAT MATHUR [...] MERVAT MATHUR RN - 07/29/2021 7:55 EST [place] Suicide Severity Rating Scale (C-SSRS) CSSRS Past [...] Scale Risk Level : 0-24 Low Risk [place] Fall Interventions : Adequate lighting, Call device [...] on filedocumented in this encounter Care Teams Zipper Cutter Relationship Specialty Start Date End Date Nitin Jerez MD [address] [place] [id number] PCP - General Family Medicine 10/06/22 documented as of this encounter
--- OUTSIDE RECORDS SUMMARY | 2025-03-06 08:14 | XMS_ITS | Clinical Summary ---
Author Organization Healthcare Address [address] [place] [address] Care Team Providers Care Analysis Tester Name Role Phone Unavailable Primary Care Provider [...] of 2 - 13+ 2-dose series) 1998 [facility]- SDOH Screenings 2003 [facility]-Adult SDOH Screenings 2003 [facility]-DTaP,Tdap,and Td Vaccine s (1 - Tdap) 2004 [facility]-Hepatitis B Vaccines (1 of 3 - 19+ 3-dose series) 2004 [facility]-Pap Smear 2006 HPV Vaccines (1 - 3-dose SCD M series) 2012 [facility]-Cervical Cancer Screening 2015 [facility]-HPV/Cotest 2015 [facility]U-FGUKA-03 Vaccine (1 - 20 24-25 season) 2024 [...]
--- OUTSIDE RECORDS SUMMARY | 2025-03-06 08:15 | XMS_ITS | Referral Summary ---
Author Organization [employer] ([place], [place], [place], [place]) Address [address] [place] [address] Care Team Providers Care Legislative Correspondent Name Role Phone Nitin Jerez MD Primary Care Provider +1- [phone] Allergies Active Allergy Reactions Criticality Noted Date [...] of cervical dysplasia 01/23/2014 Overview (09/27/2022): Per CABIN CLEANER Per CABIN CLEANER Neurological dysfunction 01/23/2014 Overview (09/27/2022): Gag and [...] 12/31/2012 Overview (09/27/2022): 2013: LGSIL. Colpo at [place] n[place]. PP colpo with ECC and Bx [...] Date Marcos rded Speak language other than Hungarian at home Not on file 07/27/2023 Want [...] Treatment Not on file Insurance [place] [id number] [facility] Advance Directives For more information, please contact: [phone] * Full Code (Latest Code Status on File) Date Activated Date Inactivated Comments 10/06/2022 10:00 AM 10/08/2022 3:01 PM Care Teams Legislative Correspondent Relationship Specialty Start Date End Date Nitin Jerez MD [address] [place] [address] PCP - General Family Medicine 10/06/22
--- OUTSIDE RECORDS SUMMARY | 2025-03-06 08:15 | XMS_ITS | Encounter Summary ---
Author Organization [employer] ([place], [place], [place], [place]) Address [address] [place] [address] Care Team Providers Care Thermometer Tester Name Role Phone Nitin Jerez MD Primary Care Provider +1- [phone] Encounter Details Date Type Department Care Team (Late st Contact Info) Description 07/12/2021 Transcribed Document [facility] [place] [facility] [place] [address] ProviderYamila MD [address] [place] [address] Social History Tobacco Use Types [...] - Yamila ProviderMD - 07/12/2021 9:17 PM WOOD CUTTER [place] [id number] IDALMIS ABAD :1985 Visit Time:07/12/2021 Your Visit [...] Where: [address] [place] [id number] Business (1) Follow Up with IQRA BAIN [...] range between ( 1.0 and 7.0 ) [place] #: 0.75 K/uL -- Normal range between ( 0.24 and 0.82 ) Eos #: 0.16 K/uL -- Normal range between ( 0.04 and 0.54 ) Island %: 8.5 % -- Normal range between [...] ) Urine Bilirubin Dipstick: Negative Urine Specific [place]: 1.006 -- Normal range between ( 1.005 [...] Education Materials Ambulatory Cardiac Monitoring An ambulatory cardiac sonographer is a small recording device that is [...] period is complete. How to use your cardiac sonographer ??? Follow directions about how long to [...] monitor. Where to find more information ??? [place] [employer]: www.heart.org Get help right away [...] to the hospital. Summary ??? An ambulatory cardiac sonographer is a small recording device that is [...] provider. Document Revised: 04/21/2020 Document Reviewed: 04/21/2020 ElseArkmicro Patient Education ?? 2020 [employer] Syncope Syncope refers to a condition [...] urine pale yellow. General instructions ??? Take ajrb-qof-utyzdks and prescription medicines only as told by [...] provider. Document Revised: 11/04/2020 Document Reviewed: 11/04/2020 ElseArkmicro Patient Education ?? 2020 [employer] Vertigo Vertigo is the feeling that [...] you feel dizzy. General instructions ??? Take upbg-dur-pqsxifa and prescription medicines only as told by [...] Reviewed: 05/19/2019 Elsevier Patient Education ?? 2021 [employer] Near-Syncope Near-syncope is when you suddenly [...] these instructions at home: Medicines ??? Take igml-pii-xedjwys and prescription medicines only as told by [...] provider. Document Revised: 10/17/2019 Document Reviewed: 05/14/2019 5 Minutes Patient Education ?? 2020 [employer]. Emergency Awareness and Preventative Care STROKE is [...] Assistance with quitting is available by contacting 2-625-MWLU-NOW. This is a free resource providing counseling, [...] was given the opportunity to ask questions. Patient/Vulcanizer Operator Name: Patient/Vulcanizer Operator Signature: Relationship to Patient: Clinician/Hospital Vulcanizer Operator Signature: Please Provide a Telephone Number Where You Can Be Reached: Is it Permissible To Leave a Message? Date: Electronically signed by Olimpia [facility] Conversion Sdc Teacher Cerner at 10/24/2022 1:24 PM CDT documented in this encounter Plan of Treatment Not on file documented as of this encounter Visit Diagnoses Not on filedocumented in this encounter Care Teams Thermometer Tester Relationship Specialty Start Date End Date Nitin Jerez MD [address] [place] [address] PCP - General Family Medicine 10/06/22 documented as of this encounter
--- OUTSIDE RECORDS SUMMARY | 2025-03-06 08:15 | XMS_ITS | Encounter Summary ---
Author Organization [employer] ([place], [place]) Address [address] [place] [address] Care Team Providers Care Atomizer Assembler Name Role Phone Nitin Jerez MD Primary Care Provider +1- [phone] Encounter Details Date Type Department Care Team (Late st Contact Info) Description 07/12/2021 Transcribed Document [facility] [place] [address] [place] [address] ProviderYamila MD [address] [place] [address] Social History Tobacco Use Types [...] - Historical ProviderMD - 07/12/2021 4:10 PM ALMOND SORTER Broset Violence Assessment Entered On: 07/12/2021 16:27 EST Performed On: 07/12/2021 16:27 EST by MARQUEZ CASTANEDA RN Broset Violence Assessment Broset Violence Checklist of Symptoms : None Broset Violence Symptoms Subtotal : 0 Broset Violence Symptoms Indicator : Low risk (0) MARQUEZ CASTANEDA RN - 07/12/2021 16:27 EST Electronically signed by Olimpia [facility] Conversion Email Marketing Executive Cerner at 10/24/2022 1:26 PM CDT documented in this encounter Plan of Treatment Not on file documented as of this encounter Visit Diagnoses Not on filedocumented in this encounter Care Teams Atomizer Assembler Relationship Specialty Start Date End Date Nitin Jerez MD [address] [place] [address] PCP - General Family Medicine 10/06/22 documented as of this encounter
--- OUTSIDE RECORDS SUMMARY | 2025-03-06 08:15 | XMS_ITS | Encounter Summary ---
Author Organization [employer] ([place], [place], [place], [place]) Address [address] [place] [address] Care Team Providers Care Mash Preparatory Operator Name Role Phone Nitin Jerez MD Primary Care Provider +1- [phone] Encounter Details Date Type Department Care Team (Late st Contact Info) Description 07/12/2021 Transcribed Document [facility] [place] Family Medicine [address] [place] [address] ProviderYamila MD [address] [place] [address] Social History Tobacco Use Types [...] - Yamila ProviderMD - 07/12/2021 4:10 PM RN OCCUPATIONAL [place] Suicide Severity Rating Scale (C-SSRS) Entered On: 07/12/2021 16:27 EST Performed On: 07/12/2021 16:27 EST by MARQUEZ CASTANEDA RN [place] Suicide Severity Rating Scale (C-SSRS) CSSRS Past Month Wish to be : No CSSRS Past Month Suicidal Thoughts : No CSSRS Lifetime Suicide Behavior : No Suicide Severity Rating Score : 0 Suicide Severity Rating : No Additional Care Required at this time Thoughts of Harming/Killing Others : No MARQUEZ CASTANEDA RN - 07/12/2021 16:27 EST Electronically signed by Olimpia [facility] Conversion Sales Assistant Entertainment And Media Cerner at 10/24/2022 1:21 PM CDT documented in this encounter Plan of Treatment Not on file documented as of this encounter Visit Diagnoses Not on filedocumented in this encounter Care Teams Mash Preparatory Operator Relationship Specialty Start Date End Date Nitin Jerez MD [address] [place] [address] PCP - General Family Medicine 10/06/22 documented as of this encounter
--- OUTSIDE RECORDS SUMMARY | 2025-03-06 08:15 | XMS_ITS | Encounter Summary ---
Author Organization [employer] ([place], [place], [place], [place]) Address [address] [place] [address] Care Team Providers Care Director Corporate Security Name Role Phone Nitin Jerez MD Primary Care Provider +1- [phone] Encounter Details Date Type Department Care Team (Late st Contact Info) Description 07/12/[address] [facility] [place] Medicine [facility] [place] [address] ProviderYamila MD [address] [place] [address] Social History Tobacco Use Types [...] - Yamila ProviderMD - 07/12/2021 9:29 PM CUSTOMER SERVICE SALES CONSULTANT ED Event Note Entered On: 07/12/2021 21:29 EST Performed On: 07/12/2021 21:29 EST by Melba Baptiste RN ED Event Note ED Event Date/Time : 07/12/2021 21:29 EST ED Description of Event : Patient discharged with instructions to follow up with Pin Ball Machine Mechanic in the morning. NAD noted. IV dc'd before discharge. All of aptient belongings sent with patient. Patient verbalized understanding to all discharge instructions. Melba Baptiste RN - 07/12/2021 21:29 EST Electronically signed by Olimpia [facility] Conversion Tower Watchman Cerner at 10/24/2022 1:26 PM CDT documented in this encounter Plan of Treatment Not on file documented as of this encounter Visit Diagnoses Not on filedocumented in this encounter Care Teams Director Corporate Security Relationship Specialty Start Date End Date Nitin Jerez MD [address] [place] [id number] PCP - General Family Medicine 10/06/22 documented as of this encounter
--- OUTSIDE RECORDS SUMMARY | 2025-03-06 08:15 | XMS_ITS | Encounter Summary ---
Author Organization [employer] ([place], [place], [place], [place]) Address [address] [place] [address] Care Team Providers Care Supervisor Buffing And Pasting Name Role Phone Nitin Jerez MD Primary Care Provider +1- [phone] Encounter Details Date Type Department Care Team (Late st Contact Info) Description 07/12/2021 Transcribed Document [facility] [place] Medicine [facility] [place] [address] ProviderYamila MD [address] [place] [address] Social History Tobacco Use Types [...] Yamila George MD - 07/12/2021 9:30 PM SIMULATION TECH ED Discharge Entered On: 07/12/2021 21:30 EST [...] 07/12/2021 21:30 EST Electronically signed by Olimpia, [facility] Conversion Electric Mule Driver Cerner at 10/24/2022 1:31 PM CDT documented in this encounter Plan of Treatment Not on file documented as of this encounter Visit Diagnoses Not on filedocumented in this encounter Care Teams Supervisor Buffing And Pasting Relationship Specialty Start Date End Date Nitin Jerez MD [address] [place] [address] PCP - General Family Medicine 10/06/22 documented as of this encounter
--- OUTSIDE RECORDS SUMMARY | 2025-03-06 08:16 | XMS_ITS | Encounter Summary ---
Author Organization [employer] ([place], [place], [place], [place]) Address [address] [place] [address] Care Team Providers Care Quick Mixer Operator Name Role Phone Nitin Jerez MD Primary Care Provider +1- [phone] Encounter Details Date Type Department Care Team (Late st Contact Info) Description 07/12/2021 Transcribed Document [facility] [place] Family Medicine [address] [place] [address] ProviderYamila MD [address] [place] [address] Social History Tobacco Use Types [...] - Yamila ProviderMD - 07/12/2021 4:10 PM MONEY MARKET DEALER ED Triage Entered On: 07/12/2021 16:27 EST Performed On: 07/12/2021 16:25 EST by MARQUEZ CASTANEDA, JEWELRY DIPPER Triage Across the Room Chief Complaint : near 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 pt states that she was on a conference call and got very light headed and dizzy. Triage Date/Time : 07/12/2021 16:25 EST MARQUEZ CASTANEDA, RN - 07/12/2021 16:25 EST MARQUEZ CASTANEDA RN - 07/12/2021 16:25 EST DCP GENERIC CODE Tracking Group : [facility] ED [place] MARQUEZ CASTANEDA RN - 07/12/2021 16:25 EST Tracking Acuity : 2 - Emergent DOMENICO SUMMERSSHERYL - 07/12/2021 17:17 EST Mode of Arrival : Stretcher Transported to ED by : Ambulance/ALS EMS Service : [facility] To Room Via : Stretcher Accompanied By : Unaccompanied ED Vital Signs : Document Height & Weight : Document ED Allergies : Document ED Reason for Visit : Document Tetanus Immunization : Unknown Spa Supervisor Needed : No MARQUEZ CASTANEDA RN - [...] PNED ; Probability: 0 ; Diagnosis Code: [id number] ED Height and Weight Height Source : Stated Height Entry Format : [place] Height, Feet : 5 ft(Converted to: 152 cm, 60 Inch) Height, Inches : 2 Inch(Converted to: 0 ft 2 Inch, 5.08 cm) Clinical Height : 157.48 cm Weight Source, ED : Critical estimated dosing weight Weight Entry Format : [place] Weight, Pounds : 200 lb Clinical Dosing Weight : 90.91 kg Body Surface Area (BSA) : 1.91 m2 Body Mass Index : 36.7 kg/m2 (HI) Loyal Body Weight (IBW) : 49.73 kg MARQUEZ CASTANEDA RN - 07/12/2021 16:25 EST Patient/Family Spa Supervisor Communication Primary Language : Malagasy MARQUEZ CASTANEDA RN - 07/12/2021 16:25 EST Electronically signed by Olimpia [facility] Conversion Cash Surrender Calculator Cerner at 10/24/2022 1:30 PM CDT documented in this encounter Plan of Treatment Not on file documented as of this encounter Visit Diagnoses Not on filedocumented in this encounter Care Teams Quick Mixer Operator Relationship Specialty Start Date End Date Nitin Jerez MD [address] [place] [address] PCP - General Family Medicine 10/06/22 documented as of this encounter
[2025-03-06 08:53] LABS: Uric Acid 4.9 mg/dl (2.5-6.2)
--- NOTE | 2025-03-06 11:08 | XR_ITS ---
FINAL REPORT CLINICAL HISTORY: R foot pain COMPARISON: None FINDINGS: RIGHT FOOT 3 views of the right foot were obtained. There is no acute fracture or dislocation. The joint spaces are intact. There is no soft tissue abnormality. IMPRESSION: No acute fracture Reviewed, Interpreted and Dictated by Wilmer Garcia MD Transcribed by Johana Magana Authenticated and [facility]
== END 2025-03-06 23:59 | disposition home or self-care (01) ==
LOC: LAB 08:04
PROVIDERS: PCP Internal Medicine Adolescent Medicine; Visit Provider Student in an Organized Health Care Education/Training Program
DX: M79.671 Pain in right foot (principal)
CPT/HCPCS: 36415; 73630; 84550

== ENCOUNTER 2025-03-30 12:30 | Outpatient (CLI) | payer MEDICAID, SELFPAY ==
--- OUTSIDE RECORDS SUMMARY | 2024-03-27 06:30 | XMS_ITS ---
Author Organization [facility] Address [address] [facility] [address] [place] [address] Care Team Providers Care Spanish Professor Name Role Phone Mp Sanza Unavailable [phone] Emperatriz Garcia Unavailable [phone] REASON FOR VISIT NOB Social History Sex Assigned At : Social History Observation Description Sex Assigned At Female Encounters Encounter Location Date Provider Diagnosis [facility] [address] [facility] [address] [place] [address] 03/27/2024 Emperatriz Garcia Plan Of Treatment No Information Progress Notes * JENNIFFERBradley HARRISie PDOB:[birth year] (39 yo F)Acc No.[id number]:03/27/2024 Patient: Idalmis Aguirre Provider: Aaron Garcia CNM :1985 A ge:38 Y S ex:Female Date:03/27/2024 Address:[address] [place], [place] [phone] Subjective: * Chief Complaints: * N OB * Electronic signature of Jeanette Garcia CNM on 03/30/2025 at 12:34 PM EDT Sign off status: Pending Visit Status: C ANC-PNF (Cancelled Patient No Fault) * Provider: Aaron Garcia CNM Date: 03/27/2024 Generated for Printi ng/Faxing/eTransmitting on: 0 03/30/2025 12:34 PM EDT
--- OUTSIDE RECORDS SUMMARY | 2024-10-11 17:30 | XMS_ITS ---
Author Organization [facility] Address [address] [facility] [address] [place] [address] Care Team Providers Care Charting Clerk Name Role Phone Helen Nj Primary Care Provider HELEN NJ Unavailable Unavaila ble Migration, Provider Unavailable Unavailable Allergies Allergen (clinical drug ingredient) Drug/Non Drug Allergy documented on EMR Reaction Allergy Type Onset Date Status Penicillin rash Drug Allergy Active REASON FOR VISIT [facility] To [facility] Conversion Encounter Medications Medication SIG (Take, Route, [address] [place] [address] 10/11/2024 Provider Migration Plan Of Treatment Medication Medication Name Sig Start Date Stop Date Notes Gentamicin Sulfate 0.3 % 1 gtt in each e ye 4 times a day; Duration: 7 days 08/19/2024 Cefdinir 300 MG 1 cap(s) orally ever y 12 hours; Duration: 7 days 04/10/2024 Next Appt Details Provider Name:Caitie Kenney 03/31/2025 12:00:00 PM, [address], [place], [address], Progress Notes * Roberto Carlos ABADOB: [birth year] (39 yo F)Acc No.[id number]:10/11/2024 Patient: Idalmis ACOSTA Provider: Mounika Jones :1985 A ge:39 Y S ex:Female Date:10/11/2024 Address:[address] [place] [address], [place], [phone] Pcp:Helen Nj Subjective: * Chief Complaints: * [...] Electronic signature of Prov ider Migration on 03/30/2025 at 12:34 PM EDT Sign off status: Pending * Provider: Mounika Jones Date: 10/11/2024 Generated for Hector hernandez/Aman/Dalyitting on: 0 03/30/2025 12:34 PM EDT
--- OUTSIDE RECORDS SUMMARY | 2025-03-25 12:14 | XMS_ITS ---
Author Organization [facility] Address [address] [facility] [address] [place] [address] Care Team Providers Care Insurance Sales Supervisor Name Role Phone Heeln Nj Primary Care Provider [place] Unavailable UnavailCaitie Neely Unavailable [phone] REASON FOR VISIT Lab Order Encounters Encounter Location Date Provider Diagnosis [facility] [address] [facility] [address] [place] [address] 03/25/2025 Caitie Jimenez Routine medical exam Z00.00 and Fatigue, unspecified type R53.83 Assessments Encounter Date Diagnosis (ICD Code) Assessment Notes Treatment Notes Treatment Clinical Notes Section Notes 03/25/2025 Routine medical exam (ICD-10 - Z00.00) 03/25/2025 Fatigue, unspecified type (ICD-10 - R53.83) Plan Of Treatment Pending Test Test Name Order Date LIPID PANEL, STANDARD (7600) 03/25/2025 COMPREHENSIVE METABOLIC PANEL (46617) CBC (INCLUDES DIFF/PLT) (6399) VITAMIN B12 (927) 03/25/2025 TSH (899) 03/25/2025 VITAMIN D,25-OH,TOTAL,IA (96996) 025 Next Appt Details Provider Name:Caitie Kenney, 03/31/2025 12:00:00 PM, [address] [facility], [address], [place], [address], Progress Notes * Roberto Carlos ABADOB: [birth year] (39 yo F)Acc No.[id number]:03/25/2025 Patient: Idalmis ACOSTA :1985 A ge:39 Y S ex:Female Address:[address] [place] [address] [place] [address] Subjective: * Chief Complaints: * L ab Order * Medical History: * Surgical History: * Hospitalization/Major Diagno stic Procedure: * Medications: Objective: * Vitals: * Physical Examination: Assessment: * Assessment: 1. R outine medical exam - Z00.00 (Primary) 2 . F atigue, unspecified type - R53.83 Plan: * Treatment: 2. F atigue, unspecified type L AB: CBC (INCLUDES DIFF/PLT) (6399) L AB: VITAMIN B12 (927) L AB: TSH (899) L AB: VITAMIN D,25-OH,TOTAL,IA (57090) * Procedure Codes: * true * Date: Generated for Hector hernandez/Aman/eTbelasmitting on: 0 03/30/2025 12:35 PM EDT
--- OUTSIDE RECORDS SUMMARY | 2025-03-30 12:34 | XMS_ITS | Encounter Summary ---
Author Organization [facility] Address [address] [facility], [address] [place] [address] Care Team Providers Care Battery Test Engineer Name Role Phone Carolina Ahuja MD Primary Care Provider [phone] Encounter Details Date Type Department Care Team (Late st Contact Info) Description 11/27/2017 FollowUp Telephone Encounter [facility] [address] [facility] [place] [address] Jordyn Love RN Social History Tobacco Use [...] on filedocumented in this encounter Care Teams Battery Test Engineer Relationship Specialty Start Date End Date Carolina Ahuja MD [address] [facility] [address] [place] [address] PCP - General Family Medicine 05/19/14 documented as of this encounter
--- OUTSIDE RECORDS SUMMARY | 2025-03-30 12:34 | XMS_ITS | Patient Health Record ---
Author Organization [facility] Address [address] [place] [id number] Care Team Providers Care Nipping Machine Operator Name Role Phone John Jerez Primary Care Provider [phone] Allergies Allergen (clinical drug ingredient) Drug/Non Drug Allergy documented on EMR Reaction Allergy Type Onset Date Status Penicillin Unknown Drug Allergy Active Reason For Referral No Information Medications Medication SIG (Take, Route, Fr equency, Duration) Notes Start Date End Date Status Mirena (52 MG) 20 MCG/DAY 1 ea by intrauterine administration once; Duration: 1 dose(s) Active Immunizations Vaccine Route Administration Date Status Comme nts Tetanus Tdap-Adacel (over 7yrs) IM Intramuscular 09/06/2021 Administered Problems Problem Type SNOMED Code ICD Code Onset Dates Problem Status W/U Status Risk Notes Problem Chronic maxillary sinusitis (00896592) Chronic maxillary sinusitis (J32.0) Active confirmed Problem Thyroid nodule (921867139) Thyroid nodule (E04.1) Active confirmed Problem Chronic mixed headache syndrome (32247990) Chronic mixed headache syndrome (G44.89) Active confirmed Plan Of Treatment No Information Medical (General) History Medical History History ICD Code allergic rhinitis dysphagia Surgical History Surgery Date(Month/Year) Carpal tunnel release esophagus stretched in december 2018 Hospitalization History Reason Date(Month/Year) [facility] ER- Seizure 05/02/2022
--- OUTSIDE RECORDS SUMMARY | 2025-03-30 12:34 | XMS_ITS | Encounter Summary ---
Author Organization [facility] Address [address] [facility], [address] [place] [address] Care Team Providers Care Livestock Trucker Name Role Phone Carolina Ahuja MD Primary Care Provider [phone] Encounter Details Date Type Department Care Team (Late st Contact Info) Description 06/01/2014 PAT Telephone [facility] Pre-Admit Testing [address] [place] [address] Jia Rhoades, RN Social History Tobacco Use [...] of this encounter Progress Notes * Jia Rhoades RN - 06/01/2014 10:04 AM EST Attempted to contact patient. No answer. Message left at 10:04 AM on 06/01/2014. documented in this encounter Plan of Treatment Not on file documented as of this encounter Visit Diagnoses Not on filedocumented in this encounter Care Teams Livestock Trucker Relationship Specialty Start Date End Date Carolina Ahuja MD [address] [place] [address] [address] [place] [address] PCP - General Family Medicine 05/19/14 documented as of this encounter
--- OUTSIDE RECORDS SUMMARY | 2025-03-30 12:34 | XMS_ITS | Patient Health Record ---
Author Organization [facility] Address [address] [facility] [address] [place] [address] Care Team Providers Care Container Maker Name Role Phone Martha Sanz Unavailable [phone] Allergies Allergen (clinical drug ingredient) Drug/Non Drug Allergy documented on EMR Reaction Allergy Type Onset Date Status PENICILLIN V POTASSIUM (PENICILLIN V POTASSIUM TAB Unspecified Drug Allergy 08/21/2018 Active Reason For Referral No Information Social History Sex Assigned At : Social History Observation Description Sex Assigned At Female Problems Problem Type SNOMED Code ICD Code Onset Dates Problem Status W/U Status Risk Notes Problem Surveillance of intrauterine device contraception (587938430) Checking of intrauterine device (Z30.431) 021 Active confirmed IUD surveillance Problem Awaiting removal of contraceptive intrauterine device (IUD) (Z30.432) 021 Active confirmed IUD removal Problem Gynecological examination normal (95126990485414 4) Cervical smear, as part of routine gynecological examination (Z01.419) 019 Active confirmed Annual without abnormal findings Problem Insertion of intrauterine contraceptive device (90001821) Encounter for initial insertion of intrauterine contraceptive device (Z30.430) 021 Active confirmed IUD insertion Plan Of Treatment No Information Insurance Providers Payer Name Payer Address Payer Phone Subscriber Number Group Number Insured Name Patient Relationship to Insured Coverage Start Date Coverage End Date [employer] [address] [address] [place], [place] [id number] Idalmis Frances Self - patient is the insured Medical (General) History Medical History History ICD Code abnormal paps HPV varicose veins yeast infections genital HSV Breast Issues Autoimmune Disorder Surgical History Surgery Date(Month/Year) Carpal Tunnel C/S Thyroid Biopsy Breast Biopsy Hospitalization History Reason Date(Month/Year) C/S
--- OUTSIDE RECORDS SUMMARY | 2025-03-30 12:34 | XMS_ITS | Clinical Summary ---
Author Organization [facility] Address [address], [address] [place] [address] Care Team Providers Care Track Repairer Name Role Phone Carolina Ahuja MD Primary Care Provider [phone] Allergies Active Allergy Reactions Criticality Noted Date Comments Cephalosporins 06/24/2014 Penicillins Rash Low 01/23/2014 Avoid cephalosporins Medications levonorgestrel (MIRENA) 20 MCG/24HR IUD 1 each by Intrauterine route once. CHIEF SECURITY AND SAFETY OFFICER 4 Active lactobacillus (CULTURELLE) capsuleIndicati ons:Generalized abdominal [...] dysplasia- pos HPV 4 Overview (01/23/2014): Per LAY OUT TECHNICIAN Plantar fasciitis, bilateral 01/23/2014 Anemia 01/23/2014 Neurological [...] on file Medical Devices Implanted Type Area Outboard System Operator Device Identifier Shelf Expiration Date Model / Serial / Lot Iud Care Teams Track Repairer Relationship Specialty Start Date End Date Carolina Ahuja MD [address] [place] [address] [address] [place] [address] PCP - General Family Medicine 05/19/14
--- OUTSIDE RECORDS SUMMARY | 2025-03-30 12:35 | XMS_ITS | Patient Health Record ---
Author Organization [facility] Address [address] [place] [address] Care Team Providers Care Fuel System Maintenance Worker Name Role Phone Helen Nj Primary Care Provider HELEN [place] Unavailable Unavaila Caitie Neil Unavailable [phone] Migration, Provider Unavailable Unavailable Allergies Allergen (clinical drug ingredient) Drug/Non Drug Allergy documented on EMR Reaction Allergy Type Onset Date Status Penicillin rash Drug Allergy Active Reason For Referral No Information Medications Medication SIG (Take, Route, Frequency, Duration) [...] W/U Status Risk Notes Problem Seasonal allergy (784051551) Seasonal allergies (J30.2) Active confirmed Problem Obstructive sleep apnea syndrome (93671157) FRANKIE (obstructive sleep apnea) (G47.33) Active confirmed Problem Morbid obesity (622414764) Severe obesity (BMI >= 40) (E66.01) Active confirmed Problem Daytime somnolence (194835343675) Daytime somnolence (R40.0) Active confirmed Problem Dysphagia (37613167) Dysphagia, unspecified type (R13.10) Active confirmed Problem Obstructive sleep apnea syndrome (20590016) FRANKIE on CPAP (G47.33) Active confirmed Problem Gastroesophageal reflux disease (572920660) Gastroesophageal reflux disease, unspecified whether esophagitis present (K21.9) Active confirmed Vital Signs Heart Rate 74 /min 04/01/2024 Temperature 98.4 degrees Fahrenheit 04/01/2024 Blood pressure diastolic 84 mm Hg 04/01/2024 Height 62 in 04/01/2024 Blood pressure systolic 120 mm Hg 04/01/2024 Weight 211 lbs 04/01/2024 BMI 38.59 kg/m2 04/01/2024 Encounters Encounter Location Date Provider Diagnosis [facility] [address] [facility] [address] [place], [place] [address] 10/11/2024 Provider Migration [facility] [address] [facility] [address] [place], [place] [address] 04/01/2024 Caitielucy Jimenez Skin irritation R23.8 [facility] [address] [facility] [address] [place] [address] 04/10/2024 Helen Nj [facility] [address] [place] [address] 08/19/2024 Helen Nj [facility] [address] [facility] [address] [place] [address] 12/26/2024 Helen Nj Breast mass, left N63.20 [facility] [address] [facility] [address] [place], [place] [address] 03/25/2025 Caitielucy Jimenez Routine medical exam Z00.00 and Fatigue, unspecified type R53.83 Assessments Encounter Date Diagnosis (ICD Code) Assessment Notes Treatment Notes Treatment Clinical Notes Section Notes 04/01/2024 Skin irritation (ICD-10 - R23.8) Reassurance, sites are not infected. Irritation likely related to skin prep or bandage. Apply OTC hydrocortisone cream BID x 3 days. Return precautions discussed. 12/26/2024 Breast mass, left (ICD-10 - N63.20) 03/25/2025 Routine medical exam (ICD-10 - Z00.00) 03/25/2025 Fatigue, unspecified type (ICD-10 - R53.83) Plan Of Treatment Pending Test Test Name Order Date Mammogram : Bilateral 02/12/2024 Pulmonary Function Test- Complete 2023 Ultrasound : Breast, bilateral if indica moo 02/12/2024 MRI : Breast 12/26/2024 Mammogram : Diagnostic, Left 12/26/2024 LIPID PANEL, STANDARD (7600) 03/25/2025 COMPREHENSIVE METABOLIC PANEL (29299) CBC (INCLUDES DIFF/PLT) (6399) VITAMIN B12 (927) 03/25/2025 TSH (899) 03/25/2025 VITAMIN D,25-OH,TOTAL,IA (94324) 025 MISCELLANEOUS LAB TEST 02/11/2024 Next Appt Details Provider Name:Caitie Kenney, 03/31/2025 12:00:00 PM, [address], [place], [address], Insurance Providers Payer Name Payer Address Payer Phone Subscriber Number Group Number Insured Name Patient Relationship to Insured Coverage Start Date Coverage End Date [employer] [address] [address] [place] [address] [id number] Idalmis Frances Self - patient is the insured Medical (General) History Surgical History Surgery Date(Month/Year) carpal tunnel release c- section Hospitalization History Reason Date(Month/Year) [facility] December 2022, no seiz ure activity. child
--- OUTSIDE RECORDS SUMMARY | 2025-03-30 12:35 | XMS_ITS | Clinical Summary ---
Author Organization [facility] Address [address] [place] [address] Care Team Providers Care Pediatric Dental Hygienist Name Role Phone Helen Womack Primary Care Provider [phone] Allergies Active Allergy Reactions Criticality Noted Date Comments Cephalexin Rash Low 02/17/2013 noted Cephalosporins Rash Low 02/17/2013 Penicillins Hives,Itching,Rash Low 01/23/2014 Avoid cephalosporins Medications Vit-Fe Fumarate-FA ( 27-1) 27-1 MG tablet tablet Take by mouth Daily. Active Ergocalciferol (VITAMIN D2 PO) Take 1 tablet by mouth Daily. Active Methylcobalamin (T93-TGUJSU PO) Take 1 tablet by mouth Daily. Active CHOLINE PO Take 350 mg by mouth Daily. Active Magnesium Glycinate 100 MG capsule Take 500 mg by mouth 3 times a day. Active Goldsmith-3 Fatty Acids (fish oil) 1000 MG capsule [...] of cervical dysplasia 01/23/2014 Overview (10/15/2019): Per CYTOTECHNOLOGIST SUPERVISOR Neurological dysfunction 01/23/2014 Overview (10/15/2019): Gag and throat with noxious stimul Encounters Date Type Department Care Team Description 01/21/2025 10:17 AM EDT - 01/21/2025 11:59 PM EDT Hospital Encounter [facility] [place] [address] [place] [address] Helen Nj APRN Mass of left breast, unspecified quadrant Discharge Disposition: Home or Self Care 01/21/2025 Travel from Last 3 Months Family History [...] or training? Not on file Preferred Language Ugandan 06/04/2024 Comments No Sex and Gender Information [...] ANNUAL PHYSICAL 10/15/2019 HEPATITIS C SCREENING 10/15/2019 INFLUENZA VACCINE 02/06/2025 TDAP/TD VACCINES (3 - Td or Tdap) 09/26/2034 09/26/2024, 09/06/2021 Pneumococcal Vaccine 0-49 Aged Out No longer eligible based on patient's age to complete this topic Procedures Procedure Name Priority Date/Time Associated Diagnosis Comments MRI BREAST BILATERAL SCREENING W WO CONTRAST Routine 01/21/2025 12:16 PM EDT Mass of left breast, unspecified quadrant from Last 3 Months Results * MRI [...] images were also obtained. A CAD system ([employer]) was utilized for data analysis. COMPARISON: Diagnostic mammogram and left breast ultrasound dated 12/19/2024. FINDINGS: Contrast is noted in the heart and great vessels. Heterogeneous breast tissue is noted bilaterally. Moderate background parenchymal enhancement is noted bilaterally. No suspicious masslike or dco-crzj-nmua enhancement is noted in the right breast. No suspicious masslike nor llh-ccjb-cuuk enhancement is noted in the left breast. Post excisional biopsy changes are noted in the left breast. Additionally, signal void artifact is noted in the upper outer quadrant of the left breast, posterior one third depth, consistent with a biopsy tissue marker. No suspicious axillary nor internal mammary adenopathy is noted bilaterally. Helen Nj APRN IMG MRI ORDERABLES F inal Result from Last 3 Months Insurance [place] [id number] [employer] [place] Care Teams Pediatric Dental Hygienist Relationship Specialty Start Date End Date Helen Womack PA [address] [facility] [address] [place] [address] PCP - General Physician Neon Sign Mechanic 02/28/24
--- OUTSIDE RECORDS SUMMARY | 2025-03-30 12:35 | XMS_ITS | Clinical Summary ---
Author Organization [facility] Address [address] [place] [address] Care Team Providers Care Senior Product Engineer Name Role Phone Unavailable Primary Care Provider [...] 2012 [facility]-Cervical Cancer Screening 2015 [facility]-HPV/Cotest 2015 [id number] Vaccine (1 - 20 24-25 season) 2025 [facility]-Influenza Vaccine (#1) 2025 [facility]-Zoster Vaccines (1 [...]
[2025-03-30 13:39] LABS: Hematocrit 43.7 % (37.0-47.0); Hemoglobin 13.8 g/dL (12.2-16.2); Immature Granulocytes % 0.3 %; Mean Corpuscular HGB Conc 31.6 g/dL (31.8-35.4); Mean Corpuscular Hemoglobin 27.8 pg (27.0-31.2); Mean Corpuscular Volume 88.1 fl (81-99); Nucleated Red Blood Cells % 0 %; Platelet Count 349 K/mm3 (142-424); Red Blood Count 4.96 M/mm3 (4.20-5.40); Red Cell Distribution Width-SD 43.3 fL; White Blood Count 8.7 K/mm3 (4.8-10.8)
[2025-03-30 14:35] LABS: Albumin Level 4.8 g/dl (3.5-5.0); Chloride 101 mmol/L (98-107); Potassium 4.6 mmoL/L (3.5-5.1); Sodium 140 mmol/L (136-145)
[2025-03-30 14:37] LABS: Blood Urea Nitrogen 16 mg/dl (7-17); Creatinine,Serum 0.80 mg/dl (0.52-1.04); Estimated Glomerular Filt Rate 80 ml/min (>60); GFR (African American) 97 ML/MIN (>60)
[2025-03-30 14:38] LABS: Alanine Aminotransferase 47 U/L (12-78); Albumin/Globulin Ratio 1.7 (1.1-1.8); Alkaline Phosphatase 77 U/L (38-126); Anion Gap 16.6 mEq/L (5-15); Aspartate Amino Transferase 32 U/L (14-36); Bilirubin,Total 0.4 mg/dl (0.2-1.3); Calcium 9.9 mg/dl (8.4-10.2); Carbon Dioxide 27 mmol/L (22.0-30.0); Cholesterol 186 mg/dl (140-200); Globulin 2.8 g/dL (1.3-3.2); Glucose 84 mg/dl (74-100); HDL Cholesterol 60 mg/dl (40-60); Total Protein,Serum 7.6 g/dl (6.3-8.2); Triglycerides 148 mg/dl (30-150)
[2025-03-30 14:41] LABS: 25-OH Vitamin D, Total 40.4 ng/mL (30-100)
[2025-03-30 15:07] LABS: Thyroid Stimulating Hormone 1.28 uIU/mL (0.465-4.68)
[2025-03-30 18:26] LABS: Vitamin B12 606 pg/mL (239-931)
== END 2025-03-30 23:59 | disposition home or self-care (01) ==
LOC: LAB 12:31
PROVIDERS: PCP Nurse Practitioner Family; Visit Provider Nurse Practitioner Family
DX: Z00.00 Encounter for general adult medical examination without abnormal findings (principal); R53.83 Other fatigue
CPT/HCPCS: 36415; 80053; 80061; 82306; 82607; 84443; 85025

== ENCOUNTER 2025-03-31 14:10 | Outpatient (CLI) | payer MEDICAID, SELFPAY ==
--- OUTSIDE RECORDS SUMMARY | 2025-03-31 08:00 | XMS_ITS ---
Author Organization [facility] Address [address] [place] [address] Care Team Providers Care Residential Director Name Role Phone Helen Nj Primary Care Provider HELEN NJ Unavailable UnavailCaitie Neely Unavailable [phone] Allergies Allergen (clinical drug ingredient) Drug/Non Drug Allergy documented on EMR Reaction Allergy Type Onset Date Status Penicillin rash Drug Allergy Active REASON FOR VISIT Annual wellness, Discuss concerns after , when she sits up, her stomach protrudes out, discusslabs Social History Tobacco Use: Social History Observation Description Date Details (start date - stop date) Never Smoker NA - NA Smoking: Question Answer Notes Are you a: nonsmoker Vital Signs Temperature 97.6 degrees Fahrenheit 03/31/20 25 Heart Rate 92 /min 03/31/2025 Blood pressure systolic 126 mm Hg 03/31/20 25 Blood pressure diastolic 70 mm Hg 025 Height 62 in 03/31/2025 Weight 244.6 lbs 03/31/2025 BMI 44.73 kg/m2 03/31/2025 Encounters Encounter Location Date Provider Diagnosis [facility] [address] [place] [address] 03/31/2025 Caitielucy Jimenez Diastasis recti M62.08 ; Routine medical exam Z00.00 ; Severe obesity (BMI >= 40) E66.01 ; Chest discomfort R07.89 and Pelvic pressure in female R10.2 Assessments Encounter Date Diagnosis (ICD Code) Assessment Notes Treatment Notes Treatment Clinical Notes Section Notes 03/31/2025 Diastasis recti (ICD-10 - M62.08) Pt was encouraged to incorporate core strengthening exercises for strengthening of her abdomen. Pt was encouraged this is a very benign issue that can arise after and with obesity. Pt was encouraged to pursue a caloric deficit for weight loss that may also decrease her abdominal pressure. 03/31/2025 Routine medical exam (ICD-10 - Z00.00) Pap UTD Does not take flu shot Routine labs from earlier this week reviewed and look good 03/31/2025 Severe obesity (BMI >= 40) (ICD-10 - E66.01) Labs were reviewed with the pt and had no concerning findings. Pt was advised to restrict her caloric intake to 1200 calories per day and increase her daily water intake. Pt was advised to incorporate daily physical activity into her routine for added benefit. Pt was advised to look into calorie counting/tracknig apps and food weight scales for more accurate measurements. Pt was advised to take her weight weekly to assess weight changes with lifestyle modifications. Pt was advised to f/u in 2-3 weeks to assess efficacy of these modifications. 03/31/2025 Chest discomfort (ICD-10 - R07.89) No exertional or cardiac in nature. Possibly MS, or maybe even some anxiety. Pt denies any major concerns with this. Pt has previously utilized natural remedies for circulation including red cayenne pepper. Pt was encouraged to re-start her natural remedies or other supportive care measures for comfort. Pt was advised to f/u as needed. 03/31/2025 Pelvic pressure in female (ICD-10 - R10.2) Pt was encouraged in her weight loss efforts and advised this may help relieve her pressure complaints. Pt was given advice on weight loss strategies and core strengthening exercises for abdominal complaints. Pt was encouraged to f/u with her MIDDLEWARE DEVELOPER if her symptoms persist or worsen. Plan Of Treatment Treatment Notes Assessment Notes Diastasis recti Pt was encouraged to incorporate core strengthening exercises for strengthening of her abdomen. Pt was encouraged this is a very benign issue that can arise after and with obesity. Pt was encouraged to pursue a caloric deficit for weight loss that may also decrease her abdominal pressure. Routine medical exam Pap UTD Does not take flu shot Routine labs from earlier this week reviewed and look good Severe obesity (BMI >= 40) Labs were rev iewed with the pt and had no concerning findings. Pt was advised to restrict her caloric intake to 1200 calories per day and increase her daily water intake. Pt was advised to incorporate daily physical activity into her routine for added benefit. Pt was advised to look into calorie counting/tracknig apps and food weight scales for more accurate measurements. Pt was advised to take her weight weekly to assess weight changes with lifestyle modifications. Pt was advised to f/u in 2-3 weeks to assess efficacy of these modifications. Chest discomfort No exertional or car diac in nature. Possibly MS, or maybe even some anxiety. Pt denies any major concerns with this. Pt has previously utilized natural remedies for circulation including red cayenne pepper. Pt was encouraged to re-start her natural remedies or other supportive care measures for comfort. Pt was advised to f/u as needed. Pelvic pressure in female Pt was encoura ged in her weight loss efforts and advised this may help relieve her pressure complaints. Pt was given advice on weight loss strategies and core strengthening exercises for abdominal complaints. Pt was encouraged to f/u with her MIDDLEWARE DEVELOPER if her symptoms persist or worsen. Next Appt Details Follow Up: 3 Weeks, Reason: Provider Name:Caitie Kenney, 04/23/2025 04:30:00 PM, [address] [facility] [facility] [address], [place], [address], Progress Notes * Roberto Carlos ABADOB: [birth year] (39 yo F)Acc No.[id number]:03/31/2025 Progress Notes Patient: Idalmis ACOSTA Provider: Brenda Jimenez APRN :1985 A ge:39 Y S ex:Female Date:03/31/2025 Address:[address] [place] [address] [id number] Pcp:Helen Nj Subjective: * Chief Complaints: * 1 . Annual wellness, Discuss concerns after . 2. When she sits up, her stomach protrudes out. 3. Discuss labs. * HPI: g en: Gen [age]yo female comes in for annual wellness and to discuss other concerns. Pt does have a history of abnormal findings on breast imaging and is following up with [facility] for monitoring. Pt reports giving on November 14 via to her fourth child. Pt explains she had an elevated blood pressure while and her OB wanted her to keep an eye on it. Today, BP is 126/70. Pt denies dizziness, headaches, or changes to vision/hearing. Pt does report chest pain the past few days. Pt described it as heart squeezing type of pressure that she notices when in a seated position intermittently. Pt denies any pain with positional changes or exertion. Pt also comes in with complaints of a protrusion in her abdomen that arises when she sits up from laying position. Pt explains she has been struggling to recover after her compared to previous pregnancies. Pt has noticed weakness in her abdomen along with struggling to lose the weight she gained during . Pt explains she has been trying to eat well and incorporate exercise into her routine but is frustrated with lack of progress. Pt also reports a throbbing type pain/pressure along her pelvic bone near her vagina. Pt explains the throbbing sensation comes in clusters for 10 minutes then goes away. Pt denies any changes in her bowel or bladder habits. Pt has no other concerns today.. * ROS: A LLERGY: no R unny nose. R ESPIRATORY: no C hest congestion. n o C ough. C ARDIOLOGY: no D izziness. n o P alpitations. n o L eg edema. n o S hortness of breath. C ONSTITUTIONAL: no L oss of appetite. n o F ever. D ERMATOLOGY: no R imani. G ASTROENTEROLOGY: Reviewed, No Symptoms Reported: Y es. H EMATOLOGY/LYMPH: no S wollen glands. n o E asy bruising. ? N EUROLOGY: no H eadache. P SYCHOLOGY: no D epression. n o A nxiety. U ROLOGY: no D ifficulty urinating. n o B lood in urine. * Medical History: M edical History Verified. * Surgical History: c arpal tunnel release , c- section , 11/2024. * Hospitalization/Major Diagno stic Procedure: c hild , EEG [facility] December 2022, no seizure activity. , Child 11/2024. * Family History: F ather: alive, diagnosed with Hypertension. M other: alive, diagnosed with Cancer. P aternal Grand Father: . P aternal Grand Mother: . M aternal Grand Father: . M aternal Grand Mother: . P aternal uncle: alive. P aternal aunt: alive.?Maternal uncle: , diagnosed with Cancer. M aternal aunt: alive, diagnosed with Cancer. S iblings: alive, auto immune disease. C hildren: alive. 2 brother(s) , 1 sister(s) . 2 son(s) , 1 daughter(s) - healthy. . Father: Alive, HTN, angina. Mother: Alive, breast cancer in remission. One daughter has fatigue on iron undergoing work-up currently. * Social History: S moking A re you a: n onsmoker. R ecreational drug use: no. Home smoke detector use: yes. Caffeine: yes, frequency:. Living Will: No. Alcohol: no. Sexually active: yes. Travel outside [place]: no. * Medications: D iscontinued Famotidine 20 MG Tablet 1 tab(s) orally 2 times a day , Discontinued Cetirizine HCl 10 MG Tablet 1 tab(s) orally at bedtime , Discontinued Cefdinir 300 MG Capsule 1 cap(s) orally every 12 hours , Discontinued Gentamicin Sulfate 0.3 % Solution 1 gtt in each eye 4 times a day , Medication List reviewed and reconciled with the patient * Allergies: P enicillin: rash - Allergy. Objective: * Vitals: N urse: jl, Pain: 3, Temp: 97.6, RR: 18, HR: 92, BP: 126/70, Ht: 62, Wt: 244.6, BMI:44.73. * Examination: G eneral Examination: General P leasant and Cooperative, NAD on RA,. Chest: n ormal shape and expansion. Heart: R egular Rate and Rhythm, no murmur, rubs or gallops. Lungs: L CTAB, No wheezes, crackles or rhonchi, Good air movement,. Abdomen: D iastasis recti noted when pt sits up from laying down. S oft, non-tender, normal bowel sounds, no guarding, no rebound tenderness. No organomegaly or peritoneal signs. . Skin: w ithout acute rashes. Peripheral pulses: n ormal (2+) bilaterally. Extremities: n ormal ROM,, no clubbing, no edema,, no foot lesions,. General Appearance: N AD, pleasant. Assessment: * Assessment: 1. R outine medical exam - Z00.00 (Primary) 2 . D iastasis recti - M62.08? 3. S evere obesity (BMI >= 40) - E66.01 4 . C hest discomfort - R07.89 5 . P elvic pressure in female - R10.2 Plan: * Treatment: 2. D iastasis recti Notes: Pt was encouraged to incorporate core strengthening exercises for strengthening of her abdomen. Pt was encouraged this is a very benign issue that can arise after and with obesity. Pt was encouraged to pursue a caloric deficit for weight loss that may also decrease her abdominal pressure. 3. S evere obesity (BMI >= 40) Notes: Labs were reviewed with the pt and had no concerning findings. Pt was advised to restrict her caloric intake to 1200 calories per day and increase her daily water intake. Pt was advised to incorporate daily physical activity into her routine for added benefit. Pt was advised to look into calorie counting/tracknig apps and food weight scales for more accurate measurements. Pt was advised to take her weight weekly to assess weight changes with lifestyle modifications. Pt was advised to f/u in 2-3 weeks to assess efficacy of these modifications. 4. C hest discomfort Notes: No exertional or cardiac in nature. Possibly MS, or maybe even some anxiety. Pt denies any major concerns with this. Pt has previously utilized natural remedies for circulation including red cayenne pepper. Pt was encouraged to re-start her natural remedies or other supportive care measures for comfort. Pt was advised to f/u as needed. 5. P elvic pressure in female Notes: Pt was encouraged in her weight loss efforts and advised this may help relieve her pressure complaints. Pt was given advice on weight loss strategies and core strengthening exercises for abdominal complaints. Pt was encouraged to f/u with her MIDDLEWARE DEVELOPER if her symptoms persist or worsen. ? * Follow Up: 3 Weeks * * Sign off status: Completed true * Provider: Brenda Jimenez APRN Date: 0 03/31/2025 Generated for Printi ng/Aman/Dalyitting on: 0 03/31/2025 02:16 PM EDT History and Physical Notes * HPI (History of Present Illness) Category Sub-Category Detail Notes Category Not es gen Gen 39yo female come s in for annual wellness and to discuss other concerns. Pt does have a history of abnormal findings on breast imaging and is following up with [facility] for monitoring. Pt reports giving on November 14 via to her fourth child. Pt explains she had an elevated blood pressure while and her OB wanted her to keep an eye on it. Today, BP is 126/70. Pt denies dizziness, headaches, or changes to vision/hearing. Pt does report chest pain the past few days. Pt described it as heart squeezing type of pressure that she notices when in a seated position intermittently. Pt denies any pain with positional changes or exertion. Pt also comes in with complaints of a protrusion in her abdomen that arises when she sits up from laying position. Pt explains she has been struggling to recover after her compared to previous pregnancies. Pt has noticed weakness in her abdomen along with struggling to lose the weight she gained during . Pt explains she has been trying to eat well and incorporate exercise into her routine but is frustrated with lack of progress. Pt also reports a throbbing type pain/pressure along her pelvic bone near her vagina. Pt explains the throbbing sensation comes in clusters for 10 minutes then goes away. Pt denies any changes in her bowel or bladder habits. Pt has no other concerns today. Examination Category Sub-Category Detail Notes Category Not es General Examination Heart: Regular Rate and Rhythm, no murmur, rubs or gallops Lungs: LCTAB, No wheezes, c rackles or rhonchi, Good air movement, Abdomen: Diastasis recti note d when pt sits up from laying down. Soft, non- tender, normal bowel sounds, no guarding, no rebound tenderness. No organomegaly or peritoneal signs. Extremities: normal ROM,, no club camille, no edema,, no foot lesions, General Appearance: NAD, pleasant Skin: without acute rashes Peripheral pulses: normal (2+) bilatera lly Chest: normal shape and exp ansion General Pleasant and Coopera tive, NAD on RA,
--- OUTSIDE RECORDS SUMMARY | 2025-03-31 14:16 | XMS_ITS | Encounter Summary ---
Author Organization [facility] Address [address], [address] [place] [address] Care Team Providers Care Assembly Machine Tender Name Role Phone Carolina Ahuja MD Primary Care Provider [phone] Encounter Details Date Type Department Care Team (Late st Contact Info) Description 06/01/2014 PAT Telephone [facility] Pre-Admit Testing [address] [place] [address] Jia Rhoades, RN Social History Tobacco Use [...] on filedocumented in this encounter Care Teams Assembly Machine Tender Relationship Specialty Start Date End Date Carolina Ahuja MD [facility] [place] [address] PCP - General Family Medicine 05/19/14 documented as of this encounter
--- OUTSIDE RECORDS SUMMARY | 2025-03-31 14:16 | XMS_ITS | Clinical Summary ---
Author Organization [facility] Address [address] [place] [address] Care Team Providers Care Saw Sharpener Name Role Phone Helen Womack Primary Care Provider [phone] Allergies Active Allergy Reactions Criticality Noted Date Comments Cephalexin Rash Low 02/17/2013 noted Cephalosporins Rash Low 02/17/2013 Penicillins Hives,Itching,Rash Low 01/23/2014 Avoid cephalosporins Medications Vit-Fe Fumarate-FA ( 27-1) 27-1 MG tablet tablet Take by mouth Daily. Active Ergocalciferol (VITAMIN D2 PO) Take 1 tablet by mouth Daily. Active Methylcobalamin (E03-NKNEUJ PO) Take 1 tablet by mouth Daily. Active CHOLINE PO Take 350 mg by mouth Daily. Active Magnesium Glycinate 100 MG capsule Take 500 mg by mouth 3 times a day. Active Paulina-3 Fatty Acids (fish oil) 1000 MG capsule [...] of cervical dysplasia 01/23/2014 Overview (10/15/2019): Per CEMENT MASON APPRENTICE Neurological dysfunction 01/23/2014 Overview (10/15/2019): Gag and throat with noxious stimul Encounters Date Type Department Care Team Description 01/21/2025 10:17 AM EDT - 01/21/2025 11:59 PM EDT Hospital Encounter [facility] [place] [address] [place] [address] Helen Nj APRN [place] [...] or training? Not on file Preferred Language Central African 06/04/2024 Comments No Sex and Gender Information [...] images were also obtained. A CAD system (1calendar) was utilized for data analysis. COMPARISON: Diagnostic mammogram and left breast ultrasound dated 12/19/2024. FINDINGS: Contrast is noted in the heart and great vessels. Heterogeneous breast tissue is noted bilaterally. Moderate background parenchymal enhancement is noted bilaterally. No suspicious masslike or mvy-zoiu-[id number] enhancement is noted in the right breast. No suspicious masslike nor llp-uhfh-hjog enhancement is noted in the left breast. [...] from Last 3 Months Insurance [place] [address] [employer] [place] Care Teams Saw Sharpener Relationship Specialty Start Date End Date Helen Womack PA [address] [facility] [address] [place] [address] PCP - General Physician Nsh Teacher 02/28/24
--- OUTSIDE RECORDS SUMMARY | 2025-03-31 14:16 | XMS_ITS | Clinical Summary ---
Author Organization [facility] Address [address], [address] [place] [address] Care Team Providers Care Photographers' Model Name Role Phone Carolina Ahuja MD Primary Care Provider [phone] Allergies Active Allergy Reactions Criticality Noted Date Comments Cephalosporins 06/24/2014 Penicillins Rash Low 01/23/2014 Avoid cephalosporins Medications levonorgestrel (MIRENA) 20 MCG/24HR IUD 1 each by Intrauterine route once. PROCESS CONTROL TECHNICIAN 4 Active lactobacillus (CULTURELLE) capsuleIndicati ons:Generalized abdominal [...] dysplasia- pos HPV 4 Overview (01/23/2014): Per PERSONNEL GENERALIST MANAGER Plantar fasciitis, bilateral 01/23/2014 Anemia 01/23/2014 Neurological [...] on file Medical Devices Implanted Type Area Shoemaker Custom Device Identifier Shelf Expiration Date Model / Serial / Lot Iud Care Teams Photographers' Model Relationship Specialty Start Date End Date Carolina Ahuja MD [address] [place] [address] [address] [place] [address] PCP - General Family Medicine 05/19/14
--- OUTSIDE RECORDS SUMMARY | 2025-03-31 14:16 | XMS_ITS | Encounter Summary ---
Author Organization [facility] Address [address] [place] [address] Care Team Providers Care Cyber Policy And Strategy Planner Name Role Phone Carolina Ahuja MD Primary Care Provider [phone] Encounter Details Date Type Department Care Team (Late st Contact Info) Description 11/27/2017 FollowUp Telephone Encounter [facility] [address] [facility] [place] [address] Jordyn Love RN Social History Tobacco Use [...] on filedocumented in this encounter Care Teams Cyber Policy And Strategy Planner Relationship Specialty Start Date End Date Carolina Ahuja MD [address] [facility] [address] [place] [address] PCP - General Family Medicine 05/19/14 documented as of this encounter
--- OUTSIDE RECORDS SUMMARY | 2025-03-31 14:16 | XMS_ITS | Clinical Summary ---
Author Organization [facility] Address [address] [place] [address] Care Team Providers Care Supervisor Maintenance And Custodians Name Role Phone Unavailable Primary Care Provider [...] 2012 [facility]-Cervical Cancer Screening 2015 [facility]-HPV/Cotest 2015 [facility]-SELBE-70 Vaccine (1 - 20 24-25 season) 2025 [...]
--- NOTE | 2025-03-31 14:35 | XR_ITS ---
FINAL REPORT CLINICAL HISTORY: FOOT PAIN FINDINGS: AP, oblique and lateral views of the right foot were obtained. There is no prior exam for comparison. There is no acute fracture or dislocation. The joint spaces are preserved. Soft tissues are unremarkable. IMPRESSION: No acute osseous abnormality of the right foot. Reviewed, Interpreted and Dictated by Inge Felipe MD Transcribed by Beverly Macdonald Authenticated and [facility]
== END 2025-03-31 23:59 | disposition home or self-care (01) ==
LOC: RAD 14:11
PROVIDERS: PCP Nurse Practitioner Family; Visit Provider Podiatrist
DX: M79.673 Pain in unspecified foot (principal)
CPT/HCPCS: 73630

== ENCOUNTER 2025-04-22 12:29 | Outpatient (CLI) | payer MEDICAID, SELFPAY ==
--- OUTSIDE RECORDS SUMMARY | 2024-03-27 06:30 | XMS_ITS ---
Author Organization [facility] Address [address] [facility] [address] [place] [address] Care Team Providers Care Plastic Press Operator Name Role Phone Mp Sanza Unavailable [phone] Emperatriz Garcia Unavailable [phone] REASON FOR VISIT NOB Social History Sex Assigned At : Social History Observation Description Sex Assigned At Female Encounters Encounter Location Date Provider Diagnosis [facility] [address] [facility] [address] [place] [address] 03/27/2024 Emperatriz Garcia Plan Of Treatment No Information Progress Notes * Idalmis ABAD PDOB:[birth year] (39 yo F)Acc No.[id number]:03/27/2024 Patient: Idalmis Aguirre Provider: Aaron Garcia CNM :1985 A ge:38 Y S ex:Female Date:03/27/2024 Address:[address] [place], [place] [id number] Subjective: * Chief Complaints: * N OB * Electronic signature of Jeanette Garcia CNM on 04/22/2025 at 12:33 PM EDT Sign off status: Pending Visit Status: C ANC-PNF (Cancelled Patient No Fault) * Provider: Aaron Garcia CNM Date: 0 03/27/2024 Generated for Printi ng/Faxing/eTransmitting on: 1 12:33 PM EDT
--- OUTSIDE RECORDS SUMMARY | 2024-10-11 17:30 | XMS_ITS ---
Author Organization [facility] Address [address] [facility] [address] [place] [address] Care Team Providers Care Frame Fixer Name Role Phone Helen Nj Primary Care Provider HELEN [place] Unavailable Unavaila ble Migration, Provider Unavailable Unavailable Allergies Allergen (clinical drug ingredient) Drug/Non Drug Allergy documented on EMR Reaction Allergy Type Onset Date Status Penicillin rash Drug Allergy Active REASON FOR VISIT [facility] To [facility] Conversion Encounter Medications Medication SIG (Take, Route, Frequency, Duration) Notes Start Date End Date Status Gentamicin Sulfate 0.3 % 1 gtt in each e ye 4 times a day; Duration: 7 days 08/19/2024 Active Cetirizine HCl 10 MG 1 tab(s) orally at bedtime; Duration: 30 days 12/13/2023 Active Cefdinir 300 MG 1 cap(s) orally ever y 12 hours; Duration: 7 days 04/10/2024 Active Famotidine 20 MG 1 tab(s) orally 2 ti mes a day; Duration: 30 days 12/19/2023 Active Encounters Encounter Location Date Provider Diagnosis [facility] [address] [place] [address] 10/11/2024 Provider Migration Plan Of Treatment Medication Medication Name Sig Start Date Stop Date Notes Gentamicin Sulfate 0.3 % 1 gtt in each e ye 4 times a day; Duration: 7 days 08/19/2024 Cefdinir 300 MG 1 cap(s) orally ever y 12 hours; Duration: 7 days 04/10/2024 Progress Notes * Roberto Carlos ABADOB: [birth year] (39 yo F)Acc No.[id number]:10/11/2024 Patient: Idalmis ACOSTA Provider: Mounika Jones :1985 A ge:39 Y S ex:Female Date:10/11/2024 Address:[address] [place] [address] [place], [id number] Pcp:Helen Nj Subjective: * Chief Complaints: * 1 . [facility] To [facility] Conversion Encounter. * Medical History: * Medications: T aking Famotidine 20 MG Tablet 1 tab(s) orally 2 times a day , Taking Cetirizine HCl 10 MG Tablet 1 tab(s) orally at bedtime * Allergies: P enicillin: rash - Allergy. Objective: * Vitals: Assessment: Plan: * Treatment: * * Electronic signature of Prov ider Migration on 04/22/2025 at 12:33 PM EDT Sign off status: Pending * Provider: Mounika Jones Date: 0 10/11/2024 Generated for Hector hernandez/Aman/Dalyitting on: 1 12:33 PM EDT
--- OUTSIDE RECORDS SUMMARY | 2025-03-25 12:14 | XMS_ITS ---
Author Organization [facility] Address [address] [facility] [address] [facility] [address] [place] [address] Care Team Providers Care Packing Machine Feeder Name Role Phone Rosalva Nj Primary Care Provider [phone] [place] Unavailable UnavailCaitie Neely Unavailable [phone] REASON FOR VISIT Lab Order Encounters Encounter Location Date Provider Diagnosis [facility] [address] [facility] [address] [place], [place] [address] 03/25/2025 Caitie Jimenez Routine medical exam Z00.00 and Fatigue, unspecified type R53.83 Assessments Encounter Date Diagnosis (ICD Code) Assessment Notes Treatment Notes Treatment Clinical Notes Section Notes 03/25/2025 Routine medical exam (ICD-10 - Z00.00) 03/25/2025 Fatigue, unspecified type (ICD-10 - R53.83) Plan Of Treatment Pending Test Test Name Order Date LIPID PANEL, STANDARD (7600) 03/25/2025 COMPREHENSIVE METABOLIC PANEL (90446) CBC (INCLUDES DIFF/PLT) (6399) VITAMIN B12 (927) 03/25/2025 TSH (899) 03/25/2025 VITAMIN D,25-OH,TOTAL,IA (56106) 025 Progress Notes * Roberto Carlos ABADOB: [birth year] (39 yo F)Acc No.[id number]:03/25/2025 Patient: Анна LEONIDESJAYASHREE Idalmis :1985 A ge:39 Y S ex:Female Address:[address] [place] [address] , [place] [address] Subjective: * Chief Complaints: * L ab Order * Medical History: * Surgical History: * Hospitalization/Major Diagno stic Procedure: * Medications: Objective: * Vitals: * Physical Examination: Assessment: * Assessment: 1. [facility] - Z00.00 (Primary) 2 . F atigue, unspecified type - R53.83 Plan: * Treatment: 2. F atigue, unspecified type L AB: CBC (INCLUDES DIFF/PLT) (6399) L AB: VITAMIN B12 (927) L AB: TSH (899) L AB: VITAMIN D,25-OH,TOTAL,IA (51223) * Procedure Codes: * true * Date: Generated for Hector hernandez/Aman/Miguel Angel on: 1 12:34 PM EDT
--- OUTSIDE RECORDS SUMMARY | 2025-03-31 08:00 | XMS_ITS ---
Author Organization [facility] Address [address] [place] [address] Care Team Providers Care Retarder Operator Name Role Phone Rosalva Nj Primary Care Provider ROSALVA NJ Unavailable UnavailCaitie Neely Unavailable [phone] Allergies Allergen (clinical drug ingredient) Drug/Non Drug [address] [place] [address] 03/31/2025 Caitielucy Jimenez Diastasis recti M62.08 ; [...] Pt was encouraged to f/u with her HEAD ATHLETIC TRAINER if her symptoms persist or worsen. Plan [...] Pt was encouraged to f/u with her HEAD ATHLETIC TRAINER if her symptoms persist or worsen. Next Appt Details Follow Up: 3 Weeks, Reason: Progress Notes * Roberto Carlos ABADOB: [birth year] (39 yo F)Acc No.[id number]:03/31/2025 Progress Notes Patient: Idalmis ACOSTA Provider: Brenda Jimenez APRN :1985 A ge:39 Y S ex:Female Date:03/31/2025 Address:[address] [place] [address] [id number] Pcp:Rosalva Nj Subjective: * Chief Complaints: * 1 . Annual wellness, Discuss concerns after . 2. When she sits up, her stomach protrudes out. 3. Discuss labs. * HPI: g en: Gen 3 9yo female comes in for annual wellness and to discuss other concerns. Pt does have a history of abnormal findings on breast imaging and is following up with [facility] for monitoring. Pt reports giving on November [...] Diagno stic Procedure: c hild , EEG [facility] December 2022, no seizure activity. , [...] Pt was encouraged to f/u with her HEAD ATHLETIC TRAINER if her symptoms persist or worsen. ? * Follow Up: 3 Weeks * * Sign off status: Completed true * Provider: Brenda Jimenez APRN Date: 0 03/31/2025 Generated for Hector hernandez/Aman/Dalyitting on: 12:31 PM EDT History and Physical Notes * HPI (History of Present Illness) Category Sub-Category Detail Notes Category Not es gen Gen 39yo female come s in for annual wellness and to discuss other concerns. Pt does have a history of abnormal findings on breast imaging and is following up with [facility] for monitoring. Pt reports giving on November [...]
--- NOTE | 2025-04-22 12:31 | XR_ITS ---
FINAL REPORT CLINICAL HISTORY: evaluate left foot pain FINDINGS: AP, oblique and lateral views of the left foot were obtained. There is no acute fracture or dislocation. The joint spaces are preserved. Soft tissues are unremarkable. IMPRESSION: No acute osseous abnormality of the left foot. Reviewed, Interpreted and Dictated by Inge Felipe MD Transcribed by Viktoria Birmingham Authenticated and [facility] [place] [place]
--- OUTSIDE RECORDS SUMMARY | 2025-04-22 12:32 | XMS_ITS | Clinical Summary ---
Author Organization [facility] ([place], [place], [place], [place]) Address [address] [place] [address] Care Team Providers Care Garage Door Installer Name Role Phone Nitin Jerez MD Primary Care Provider [phone] Allergies Active Allergy Reactions Criticality Noted Date [...] of cervical dysplasia 01/23/2014 Overview (09/27/2022): Per ALTERATIONS WORKROOM CLERK Per ALTERATIONS WORKROOM CLERK Neurological dysfunction 01/23/2014 Overview (09/27/2022): Gag and [...] 12/31/2012 Overview (09/27/2022): 2013: LGSIL. Colpo at hoyt nml. PP colpo with ECC and Bx pending (03/04) Immunizations Immunization Administration Dates Next Due Tdap 09/06/2021 Family [...] Date Marcos rded Speak language other than Rwandan at home Not on file 07/27/2023 Want [...] COVID-19 VACCINE ( - 2023-2 5 season) 2025 Influenza Vaccine (#1) 2025 DTAP/TDAP/TD VACCINES (2 - T d or Tdap) 09/07/2031 09/06/2021 Pneumococcal Vaccine: 0-49 Years Aged Out No longer eligible based on patient's age to [place] [address] [facility] Advance Directives For more information, please contact: [phone] * Full Code (Latest Code Status on File) Date Activated Date Inactivated Comments 10/06/2022 10:00 AM 10/08/2022 3:01 PM Care Teams Garage Door Installer Relationship Specialty Start Date End Date Nitin Jerez MD [address] [place] [address] PCP - General Family Medicine 10/06/22
--- OUTSIDE RECORDS SUMMARY | 2025-04-22 12:32 | XMS_ITS | Patient Health Record ---
[facility] Address [address] [place] [id number] Care Team Providers Care Director Of Sustainable Design Name Role Phone John Jerez Primary Care Provider Allergies Allergen (clinical drug ingredient) Drug/Non Drug [...] Status Risk Notes Problem Chronic maxillary sinusitis (62083765) Chronic maxillary sinusitis (J32.0) Active confirmed Problem Thyroid nodule (409406718) Thyroid nodule (E04.1) Active confirmed Problem Chronic mixed headache syndrome (09554445) Chronic mixed headache syndrome (G44.89) Active confirmed Plan Of Treatment No Information Medical (General) History Medical History History ICD Code allergic rhinitis dysphagia Surgical History Surgery Date(Month/Year) Carpal tunnel release esophagus stretched in december 2018 Hospitalization History Reason Date(Month/Year) [facility] ER- Seizure 05/02/2022
--- OUTSIDE RECORDS SUMMARY | 2025-04-22 12:33 | XMS_ITS | Patient Health Record ---
Author Organization [facility] Address [address] [place] [address] Care Team Providers Care Epic Stork Specialists Name Role Phone Martha Sanz Unavailable [phone] Allergies Allergen (clinical drug ingredient) Drug/Non Drug [...] Notes Problem Surveillance of intrauterine device contraception (936224508) Checking of intrauterine device (Z30.431) 021 Active confirmed IUD surveillance Problem Awaiting removal of contraceptive intrauterine device (IUD) (Z30.432) 021 Active confirmed IUD removal Problem Gynecological examination normal (95793665287849 4) Cervical smear, as part of routine gynecological examination (Z01.419) 019 Active confirmed Annual without abnormal findings Problem Insertion of intrauterine contraceptive device (52402566) Encounter for initial insertion of intrauterine contraceptive device (Z30.430) 021 Active confirmed IUD insertion Plan Of Treatment No Information Insurance Providers Payer Name Payer Address Payer Phone Subscriber Number Group Number Insured Name Patient Relationship to Insured Coverage Start Date Coverage End Date [employer] Medicaid [address] [address] [place], [place] [id number] Idalmis Frances Self - patient is the insured Medical (General) History Medical History History ICD Code abnormal paps HPV varicose veins yeast infections genital HSV Breast Issues Autoimmune Disorder Surgical History Surgery Date(Month/Year) Carpal Tunnel C/S Thyroid Biopsy Breast Biopsy Hospitalization History Reason Date(Month/Year) C/S
--- OUTSIDE RECORDS SUMMARY | 2025-04-22 12:33 | XMS_ITS | Clinical Summary ---
Author Organization [facility] Address [address], [address] [place] [address] Care Team Providers Care Gauger Chief Name Role Phone Carolina Ahuja MD Primary Care Provider [phone] Allergies Active Allergy Reactions Criticality Noted Date Comments Cephalosporins 06/24/2014 Penicillins Rash Low 01/23/2014 Avoid cephalosporins Medications levonorgestrel (MIRENA) 20 MCG/24HR IUD 1 each by Intrauterine route once. WASTE REMOVALIST 4 Active lactobacillus (CULTURELLE) capsuleIndicati ons:Generalized abdominal [...] dysplasia- pos HPV 4 Overview (01/23/2014): Per WINE AND SPIRITS CLERK Plantar fasciitis, bilateral 01/23/2014 Anemia 01/23/2014 Neurological [...] on file Medical Devices Implanted Type Area Blockman Device Identifier Shelf Expiration Date Model / Serial / Lot Iud Care Teams Gauger Chief Relationship Specialty Start Date End Date Carolina Ahuja MD [address] [place] [address] [address] [place] [address] PCP - General Family Medicine 05/19/14
--- OUTSIDE RECORDS SUMMARY | 2025-04-22 12:33 | XMS_ITS | Encounter Summary ---
Author Organization [facility] Address [address], [address] [place] [address] Care Team Providers Care Cnc Lathe Machinist Name Role Phone Carolina Ahuja MD Primary Care Provider [phone] Encounter Details Date Type Department Care Team (Late st Contact Info) Description 06/01/2014 PAT Telephone [facility] [place] [address] [place] [address] Jia Rhoades, RN Social History Tobacco Use [...] on filedocumented in this encounter Care Teams Cnc Lathe Machinist Relationship Specialty Start Date End Date Carolina Ahuja MD [address] [place] [address] [address] [place] [address] PCP - General Family Medicine 05/19/14 documented as of this encounter
--- OUTSIDE RECORDS SUMMARY | 2025-04-22 12:34 | XMS_ITS | Encounter Summary ---
Author Organization [employer] ([place], [place], [place], [place]) Address [address] [place] [address] Care Team Providers Care Pediatric Intensive Physician Name Role Phone Nitin Jerez MD Primary Care Provider [phone] Encounter Details Date Type Department Care Team (Late st Contact Info) Description 07/14/2021 Transcribed Document [facility] [place] [facility] [place] [address] ProviderYamila MD [address] [place] [address] Social History Tobacco Use Types [...] - Historical ProviderMD - 07/14/2021 11:05 AM OPTOMETRIC AIDE CR Chest 1 Vw Portable Ordered: 07/12/2021 Modified Reason for Exam: dizziness 07/13/2021 10:23 07/14/2021 11:05 (LOLA CALDERÓN PA-C) Reviewed by Provider, No further action required documented in this encounter Plan of Treatment Not on file documented as of this encounter Visit Diagnoses Not on filedocumented in this encounter Care Teams Pediatric Intensive Physician Relationship Specialty Start Date End Date Nitin Jerez MD [address] [place] [address] PCP - General Family Medicine 10/06/22 documented as of this encounter
--- OUTSIDE RECORDS SUMMARY | 2025-04-22 12:34 | XMS_ITS | Encounter Summary ---
Author Organization [employer] ([place], [place], [place], [place]) Address [address] [place] [address] Care Team Providers Care Pump Runner Name Role Phone Nitin Jerez MD Primary Care Provider [phone] Encounter Details Date Type Department Care Team (Late st Contact Info) Description 07/12/2021 Transcribed Document [facility] Family Medicine [address] [place] [address] ProviderYamila MD [address] [place] [address] Social History Tobacco Use Types [...] - Yamila ProviderMD - 07/12/2021 4:10 PM HORSE DOCTOR ED Triage Entered On: 07/12/2021 16:27 EST Performed On: 07/12/2021 16:25 EST by MARQUEZ CASTANEDA, INSTRUMENTAL MUSIC TEACHER Triage Across the Room Chief Complaint : near syncope/dizziness starting one hour group captain. pt states that she was on a conference call and got very light headed and dizzy. Triage Date/Time : 07/12/2021 16:25 EST MARQUEZ CASTANEDA, RN - 07/12/2021 16:25 EST MARQUEZ CASTANEDA RN - 07/12/2021 16:25 EST DCP GENERIC CODE Tracking Group : [facility] ED [place] MARQUEZ CASTANEDA RN - 07/12/2021 16:25 EST Tracking Acuity : 2 - Emergent DOMENICO SUMMERSSHERYL - 07/12/2021 17:17 EST Mode of Arrival : Stretcher Transported to ED by : Ambulance/ALS EMS Service : [facility] To Room Via : Stretcher Accompanied By : Unaccompanied ED Vital Signs : Document Height & Weight : Document ED Allergies : Document ED Reason for Visit : Document Tetanus Immunization : Unknown Janitor Cleaner Needed : No MARQUEZ CASTANEDA RN - [...] PNED ; Probability: 0 ; Diagnosis Code: [id number] ED Height and Weight Height Source : Stated Height Entry Format : [place] Height, Feet : 5 ft(Converted to: 152 cm, 60 Inch) Height, Inches : 2 Inch(Converted to: 0 ft 2 Inch, 5.08 cm) Clinical Height : 157.48 cm Weight Source, ED : Critical estimated dosing weight Weight Entry Format : [place] Weight, Pounds : 200 lb Clinical Dosing Weight : 90.91 kg Body Surface Area (BSA) : 1.91 m2 Body Mass Index : 36.7 kg/m2 (HI) [place] Body Weight (IBW) : 49.73 kg MARQUEZ CASTANEDA RN - 07/12/2021 16:25 EST Patient/Family Janitor Cleaner Communication Primary Language : Lithuanian MARQUEZ CASTANEDA RN - 07/12/2021 16:25 EST Electronically signed by Olimpia [facility] Conversion Parts Lister Cerner at 10/24/2022 1:30 PM CDT documented in this encounter Plan of Treatment Not on file documented as of this encounter Visit Diagnoses Not on filedocumented in this encounter Care Teams Pump Runner Relationship Specialty Start Date End Date Nitin Jerez MD [address] [place] [address] PCP - General Family Medicine 10/06/22 documented as of this encounter
--- OUTSIDE RECORDS SUMMARY | 2025-04-22 12:34 | XMS_ITS | Encounter Summary ---
Author Organization [facility] Address [address] [place] [address] Care Team Providers Care Transportation Project Manager Name Role Phone Carolina Ahuja MD Primary Care Provider [phone] Encounter Details Date Type Department Care Team (Late st Contact Info) Description 11/27/2017 FollowUp Telephone Encounter [facility] [address] [facility] [place] [address] Jordyn Love RN Social History Tobacco Use [...] on filedocumented in this encounter Care Teams Transportation Project Manager Relationship Specialty Start Date End Date Carolina Ahuja MD [address] [facility] [facility] [address] [place] [address] PCP - General Family Medicine 05/19/14 documented as of this encounter
--- OUTSIDE RECORDS SUMMARY | 2025-04-22 12:34 | XMS_ITS | Clinical Summary ---
Author Organization [facility] Address [address] [place] [address] Care Team Providers Care Metal Room Dental Technician Name Role Phone Helen Womack Primary Care Provider [phone] Allergies Active Allergy Reactions Criticality Noted Date Comments Cephalexin Rash Low 02/17/2013 noted Cephalosporins Rash Low 02/17/2013 Penicillins Hives,Itching,Rash Low 01/23/2014 Avoid cephalosporins Medications Vit-Fe Fumarate-FA ( 27-1) 27-1 MG tablet tablet Take by mouth Daily. Active Ergocalciferol (VITAMIN D2 PO) Take 1 tablet by mouth Daily. Active Methylcobalamin (W60-FAPYOO PO) Take 1 tablet by mouth Daily. Active CHOLINE PO Take 350 mg by mouth Daily. Active Magnesium Glycinate 100 MG capsule Take 500 mg by mouth 3 times a day. Active Homer-3 Fatty Acids (fish oil) 1000 MG capsule [...] of cervical dysplasia 01/23/2014 Overview (10/15/2019): Per GATE ATTENDANT Neurological dysfunction 01/23/2014 Overview (10/15/2019): Gag and throat with noxious stimul Encounters Date Type Department Care Team Description 01/21/2025 10:17 AM EDT - 01/21/2025 11:59 PM EDT Hospital Encounter [facility] [place] [address] [place] [address] Helen Nj APRN [place] [...] or training? Not on file Preferred Language Ukrainian 06/04/2024 Comments No Sex and Gender Information [...] images were also obtained. A CAD system ([employer]) was utilized for data analysis. COMPARISON: Diagnostic mammogram and left breast ultrasound dated 12/19/2024. FINDINGS: Contrast is noted in the heart and great vessels. Heterogeneous breast tissue is noted bilaterally. Moderate background parenchymal enhancement is noted bilaterally. No suspicious masslike or pgc-phcr-zmkm enhancement is noted in the right breast. No suspicious masslike nor xte-amvv-ppbd enhancement is noted in the left breast. [...] from Last 3 Months Insurance [place] [id number] [employer] [place] Care Teams Metal Room Dental Technician Relationship Specialty Start Date End Date Helen Womack PA [address] [place] [address] PCP - General Physician Services Host 02/28/24
--- OUTSIDE RECORDS SUMMARY | 2025-04-22 12:34 | XMS_ITS | Encounter Summary ---
Author Organization [employer] ([place], [place], [place], [place]) Address [address] [place] [address] Care Team Providers Care Freight Loading Supervisor Name Role Phone Nitin Jerez MD Primary Care Provider [phone] Encounter Details Date Type Department Care Team (Late st Contact Info) Description 07/12/2021 Transcribed Document [facility] [place] [facility] [place] [address] ProviderYamila MD [address] [place] [address] Social History Tobacco Use Types [...] - Historical ProviderMD - 07/12/2021 9:13 PM PICK OUT HAND Electronically signed by Maria F[facility] Conversion Ink Grinder Cerner at 10/24/2022 1:13 PM CDT documented in this encounter Plan of Treatment Not on file documented as of this encounter Visit Diagnoses Not on filedocumented in this encounter Care Teams Freight Loading Supervisor Relationship Specialty Start Date End Date Nitin Jerez MD [address] [place] [address] PCP - General Family Medicine 10/06/22 documented as of this encounter
--- OUTSIDE RECORDS SUMMARY | 2025-04-22 12:34 | XMS_ITS | Encounter Summary ---
Author Organization [employer] ([place], [place], [place], [place]) Address [address] [place] [address] Care Team Providers Care Binder Folder Operator Name Role Phone Nitin Jerez MD Primary Care Provider [phone] Encounter Details Date Type Department Care Team (Late st Contact Info) Description 07/12/[address] [facility] [place] [facility] [place] [address] ProviderYamila MD [address] [place] [address] Social History Tobacco Use Types [...] - Yamila ProviderMD - 07/12/2021 9:17 PM INFORMATICS APPLICATION ANALYST [place] [id number] IDALMIS ABAD :1985 Visit Time:07/12/2021 Your Visit [...] Where: [address] [place] [id number] Business (1) Follow Up with [facility] [...] range between ( 1.0 and 7.0 ) [place] #: 0.75 K/uL -- Normal range between ( 0.24 and 0.82 ) [place] #: 0.16 K/uL -- Normal range between ( 0.04 and 0.54 ) [place] %: 8.5 % -- Normal range between [...] ) Urine Bilirubin Dipstick: Negative Urine Specific [address]: 1.006 -- Normal range between ( 1.005 [...] Education Materials Ambulatory Cardiac Monitoring An ambulatory pigment supplier is a small recording device that is [...] period is complete. How to use your pigment supplier ??? Follow directions about how long to [...] monitor. Where to find more information ??? [place] [employer]: www.heart.org Get help right away [...] to the hospital. Summary ??? An ambulatory pigment supplier is a small recording device that is [...] provider. Document Revised: 04/21/2020 Document Reviewed: 04/21/2020 [employer] Daily Patient Education ?? 2020 [employer] Syncope Syncope refers to a condition [...] urine pale yellow. General instructions ??? Take fkfo-bjq-igalfrr and prescription medicines only as told by [...] provider. Document Revised: 11/04/2020 Document Reviewed: 11/04/2020 [employer] Daily Patient Education ?? 2020 [employer] Vertigo Vertigo is the feeling that [...] you feel dizzy. General instructions ??? Take vcgo-mbi-idqjbbq and prescription medicines only as told by [...] Reviewed: 05/19/2019 Elsevier Patient Education ?? 2021 [employer] Near-Syncope Near-syncope is when you suddenly [...] these instructions at home: Medicines ??? Take otps-bmy-bztnqfs and prescription medicines only as told by [...] provider. Document Revised: 10/17/2019 Document Reviewed: 05/14/2019 [employer] Patient Education ?? 2020 [employer]. Emergency Awareness and Preventative Care STROKE is [...] Assistance with quitting is available by contacting 6-839-IRGC-NOW. This is a free resource providing counseling, [...] was given the opportunity to ask questions. Patient/Blue Line Hanger Name: Patient/Blue Line Hanger Signature: Relationship to Patient: Clinician/Hospital Blue Line Hanger Signature: Please Provide a Telephone Number Where You Can Be Reached: Is it Permissible To Leave a Message? Date: Electronically signed by Olimpia [facility] Conversion Clam Shucking Machine Tender Cerner at 10/24/2022 1:24 PM CDT documented in this encounter Plan of Treatment Not on file documented as of this encounter Visit Diagnoses Not on filedocumented in this encounter Care Teams Binder Folder Operator Relationship Specialty Start Date End Date Nitin Jerez MD [address] [place] [address] PCP - General Family Medicine 10/06/22 documented as of this encounter
--- OUTSIDE RECORDS SUMMARY | 2025-04-22 12:34 | XMS_ITS | Encounter Summary ---
Author Organization [employer] ([place], [place], [place], [place]) Address [address] [place] [address] Care Team Providers Care Applications Sales Representative Name Role Phone Nitin Jerez MD Primary Care Provider [phone] Encounter Details Date Type Department Care Team (Late st Contact Info) Description 07/12/2021 Transcribed Document [facility] [place] [facility] [place] [address] ProviderYamila MD [address] [place] [address] Social History Tobacco Use Types [...] Yamila George MD - 07/12/2021 9:30 PM HOUSEKEEPER ED Discharge Entered On: 07/12/2021 21:30 EST [...] 07/12/2021 21:30 EST Electronically signed by Olimpia, [facility] Conversion Recording Engineer Cerner at 10/24/2022 1:31 PM CDT documented in this encounter Plan of Treatment Not on file documented as of this encounter Visit Diagnoses Not on filedocumented in this encounter Care Teams Applications Sales Representative Relationship Specialty Start Date End Date Nitin Jerez MD [address] [place] [address] PCP - General Family Medicine 10/06/22 documented as of this encounter
--- OUTSIDE RECORDS SUMMARY | 2025-04-22 12:34 | XMS_ITS | Patient Health Record ---
Author Organization [facility] Address [address] [place] [address] Care Team Providers Care Sales Attendant Building Materials Name Role Phone Helen Nj Primary Care Provider HELEN [place] Unavailable Unavaila ble Caitie Jimenez Unavailable [phone] Migration, Provider Unavailable Unavailable Allergies Allergen (clinical drug ingredient) Drug/Non Drug Allergy documented on EMR Reaction Allergy Type Onset Date Status Penicillin rash Drug Allergy Active Results Component Value Reference Range Notes M-Complete Blood Count Auto Diff Reviewed date:03/30/2025 04:01:31 PM Interpretation: Performing Lab: Notes/Report: WBC 8.7 4.8-10.8 K/mm3 RBC 4.96 4.20-5.40 M/mm3 HGB 13.8 12.2-16.2 g/dL HCT 43.7 37.0-47.0 % MCV 88.1 81-99 fl MCH 27.8 27.0-31.2 pg MCHC 31.6 31.8-35.4 g/dL RDW 13.4 11.5-17.5 % PLT 349 142-424 K/mm3 MPV 9.7 7.4-10.4 fl NE% 61.3 37.0-80.0 % LY% 28.4 10-50 % MO% 7.5 1.7-9.3 % EO% 2.0 0.1-12.0 % BA% 0.5 0.1-2.0 % NE# 5.3 1.8-7.8 K/mm3 LY# 2.5 0.7-4.5 K/mm3 MO# 0.7 0.1-1.0 K/mm3 EO# 0.2 0.0-0.4 Kmm3 BA# 0.0 0-0.2 K/mm3 RDW-SD 43.3 NRBC% 0 IG% 0.3 NRBC# 0 IG# 0.03 H-TVITD Reviewed date:03/30/2025 04:01:31 PM Interpretation: Performing Lab: Notes/Report: TVITD 40.4 30-100 ng/mL Deficient <20 ng/mL Insufficient 20-30 ng/mL Sufficient 30-100 ng/mL Potential Toxicity >100 ng/mL M-Comprehensive Metabolic Pa praveen Reviewed date:04/01/2025 07:46:55 AM Interpretation: Performing Lab: Notes/Report: NA 140 136-145 mmol/L K 4.6 3.5-5.1 mmoL/L CL 101 98-107 mmol/L CO2 27 22.0-30.0 mmol/L GAP 16.6 5-15 mEq/L BUN 16 7-17 mg/dl CREATT 0.80 0.52-1.04 mg/dl GFRAA 97 >60 ML/MIN EGFR 80 >60 ml/min GLU 84 74-100 mg/dl CA 9.9 8.4-10.2 mg/dl BILIT 0.4 0.2-1.3 mg/dl AST 32 14-36 U/L ALT 47 12-78 U/L TP 7.6 6.3-8.2 g/dl Delta: 5.9 on 0 11/16/24-1500 ALB 4.8 3.5-5.0 g/dl GLOB 2.8 1.3-3.2 g/dL AGRATIO 1.7 1.1-1.8 ALP 77 38-126 U/L M-Lipid Panel Reviewed date:04/01/2025 07:46:55 AM Interpretation: Performing Lab: Notes/Report: Patient Fasting? N TRIG 148 30-150 mg/dl CHOL 186 140-200 mg/dl DLDL 89.55 100-129 mg/dL VLDL 30 0-40 mg/dL HDL 60 40-60 mg/dl CHLHDL 3.1 1-3.5 M-Thyroid Stimulating Hormon e Reviewed date:04/01/2025 07:46:55 AM Interpretation: Performing Lab: Notes/Report: TSH 1.28 0.465-4.68 uIU/mL H-VITB12 Reviewed date:04/01/2025 07:46:55 AM Interpretation: Performing Lab: Notes/Report: VITB12 606 239-931 pg/mL Reason For Referral No Information Social History Tobacco Use: Social History Observation Description Date Details (start date - stop date) Never Smoker NA - NA Smoking: Question Answer Notes Are you a: nonsmoker Problems Problem Type SNOMED Code ICD Code Onset Dates Problem Status W/U Status Risk Notes Problem Seasonal allergy (445978847) Seasonal allergies (J30.2) Active confirmed Problem Obstructive sleep apnea syndrome (43445812) FRANKIE (obstructive sleep apnea) (G47.33) Active confirmed Problem Morbid obesity (323008205) Severe obesity (BMI >= 40) (E66.01) Active confirmed Problem Daytime somnolence (776160005678) Daytime somnolence (R40.0) Active confirmed Problem Dysphagia (20741931) Dysphagia, unspecified type (R13.10) Active confirmed Problem Obstructive sleep apnea syndrome (70624076) FRANKIE on CPAP (G47.33) Active confirmed Problem Gastroesophageal reflux disease (004069640) Gastroesophageal reflux disease, unspecified whether esophagitis present (K21.9) Active confirmed Vital Signs Heart Rate 92 /min 03/31/2025 Temperature 97.6 degrees Fahrenheit 03/31/2025 Blood pressure diastolic 70 mm Hg 03/31/2025 Height 62 in 03/31/2025 Blood pressure systolic 126 mm Hg 03/31/2025 Weight 244.6 lbs 03/31/2025 BMI 44.73 kg/m2 03/31/2025 Encounters Encounter Location Date Provider Diagnosis [facility] [address] [place] [address] 10/11/2024 Provider Migration [facility] [address] [facility] [address] [place] [address] 03/31/2025 Caitie McNees Diastasis recti M62.08 ; Routine medical exam Z00.00 ; Severe obesity (BMI >= 40) E66.01 ; Chest discomfort R07.89 and Pelvic pressure in female R10.2 [facility] [address] [place] [address] 08/19/2024 Helen Nj [facility] [address] [place] [address] 12/26/2024 Helen Nj Breast mass, left N63.20 [facility] [address] [place] [address] 03/25/2025 Caitie McNees Routine medical exam Z00.00 and Fatigue, unspecified type R53.83 Assessments Encounter Date Diagnosis (ICD Code) Assessment Notes Treatment Notes Treatment Clinical Notes Section Notes 12/26/2024 Breast mass, left (ICD-10 - N63.20) 03/25/2025 Routine medical exam (ICD-10 - Z00.00) 03/25/2025 Fatigue, unspecified type (ICD-10 - R53.83) 03/31/2025 Routine medical exam (ICD-10 - Z00.00) Pap UTD Does not take flu shot Routine labs from earlier this week reviewed and look good 03/31/2025 Diastasis recti (ICD-10 - M62.08) Pt was encouraged to incorporate core strengthening exercises for strengthening of her abdomen. Pt was encouraged this is a very benign issue that can arise after and with obesity. Pt was encouraged to pursue a caloric deficit for weight loss that may also decrease her abdominal pressure. 03/31/2025 Severe obesity (BMI >= 40) (ICD-10 [...] Pt was encouraged to f/u with her SKIP MINER if her symptoms persist or worsen. Plan Of Treatment Pending Test Test Name Order Date Mammogram : Bilateral 02/12/2024 Pulmonary Function Test- Complete 2023 Ultrasound : Breast, bilateral if indica moo 02/12/2024 MRI : Breast 12/26/2024 Mammogram : Diagnostic, Left 12/26/2024 LIPID PANEL, STANDARD (7600) 03/25/2025 COMPREHENSIVE METABOLIC PANEL (45550) CBC (INCLUDES DIFF/PLT) (6399) VITAMIN B12 (927) 03/25/2025 TSH (899) 03/25/2025 VITAMIN D,25-OH,TOTAL,IA (04464) 025 MISCELLANEOUS LAB TEST 02/11/2024 Insurance Providers Payer Name Payer Address Payer Phone Subscriber Number Group Number Insured Name Patient Relationship to Insured Coverage Start Date Coverage End Date [facility] MED[facility] [address] [address] [place] [address] [phone] [id number] Idalmis Frances Self - patient is the insured Medical (General) History Surgical History Surgery Date(Month/Year) carpal tunnel release c- section 11/2024 Hospitalization History Reason Date(Month/Year) EEG [facility] December 2022, no seiz ure activity. child Child 11/2024
--- OUTSIDE RECORDS SUMMARY | 2025-04-22 12:34 | XMS_ITS | Encounter Summary ---
Author Organization [employer] ([place], [place], [place], [place]) Address [address] [place] [address] Care Team Providers Care Tree Deadener Name Role Phone Nitin Jerez MD Primary Care Provider +1- [phone] Encounter Details Date Type Department Care Team (Late st Contact Info) Description 07/12/2021 Transcribed Document [facility] Radiology [address] [place] [address] Cruz Mcpherson MD [address] [place] [address] Dept. 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 pt states that she was on [...] EST Height Source Stated Height Entry Format Regina Height/Length, ARABIC (ft) 5 ft Height/Length ARABIC 2 Inch CLINICALHEIGHT 157.48 cm [place] Body Weight 49.73 kg Weight Source, ED Critical estimated dosing weight Weight Entry Format Regina Weight Ghanaian lb 200 lb CLINICALWEIGHT 90.91 kg Body [...] normal sinus rhythm, No ST changes, normal RI & QRS intervals, EKG was also reviewed [...] % 22.4 % Lymph # 1.97 K/uL [place] % 8.5 % [place] # 0.75 K/uL Eos % 1.8 % Eos # 0.16 K/uL Baso % 0.5 % Baso # 0.04 K/uL Slide Review No IG# 0 x10(3)/uL IG% 0 % 07/12/2021 16:25 EST Urine Type. U CleanCatch Urine Color Yellow Urine Appearance Clear Urine Specific [place] 1.006 Urine pH Dipstick *7.5 Urine Leukocyte [...] on filedocumented in this encounter Care Teams Tree Deadener Relationship Specialty Start Date End Date Nitin Jerez MD [address] [place] [address] PCP - General Family Medicine 10/06/22 documented as of this encounter
--- OUTSIDE RECORDS SUMMARY | 2025-04-22 12:34 | XMS_ITS | Encounter Summary ---
Author Organization [employer] ([place]) Address [address] [place] [address] Care Team Providers Care Facility Engineer Name Role Phone Nitin Jerez MD Primary Care Provider +1- [phone] Encounter Details Date Type Department Care Team (Late st Contact Info) Description 07/12/[address] [facility] Family Medicine [address] [place] [address] ProviderYamila MD [address] [place] [address] Social History Tobacco Use Types [...] - Yamila ProviderMD - 07/12/2021 4:10 PM MARINE FITTER [place] Suicide Severity Rating Scale (C-SSRS) Entered On: 07/12/2021 16:27 EST Performed On: 07/12/2021 16:27 EST by MARQUEZ CASTANEDA RN [place] Suicide Severity Rating Scale (C-SSRS) CSSRS Past Month Wish to be : No CSSRS Past Month Suicidal Thoughts : No CSSRS Lifetime Suicide Behavior : No Suicide Severity Rating Score : 0 Suicide Severity Rating : No Additional Care Required at this time Thoughts of Harming/Killing Others : No MARQUEZ CASTANEDA RN - 07/12/2021 16:27 EST Electronically signed by Olimpia [facility] Conversion Clinical Educator Cerner at 10/24/2022 1:21 PM CDT documented in this encounter Plan of Treatment Not on file documented as of this encounter Visit Diagnoses Not on filedocumented in this encounter Care Teams Facility Engineer Relationship Specialty Start Date End Date Nitin Jerez MD [address] [place] [address] PCP - General Family Medicine 10/06/22 documented as of this encounter
--- OUTSIDE RECORDS SUMMARY | 2025-04-22 12:34 | XMS_ITS | Encounter Summary ---
Author Organization [employer] ([place]) Address [address] [place] [address] Care Team Providers Care Ditch Tender Name Role Phone Nitin Jerez MD Primary Care Provider +1- [phone] Encounter Details Date Type Department Care Team (Late st Contact Info) Description 07/12/2021 Transcribed Document [facility] Family Medicine [address] [place] [address] ProviderYamila MD [address] [place] [address] Social History Tobacco Use Types [...] - Yamila ProviderMD - 07/12/2021 4:10 PM LANGUAGE SPECIALIST ED Assessment Entered On: 07/12/2021 17:32 [...] Communication Barrier : None Primary Language : Nigerian Any Spiritual/Cultural Needs or Requests : No [...] DOMENICO SUMMERS RN - 07/12/2021 17:29 EST Continental Coma Patrick Best Motor Response : Obey commands Patrick Best Verbal Response : Oriented Continental Eye Opening Response : Spontaneous Continental Coma Score : 15 DOMENICO SUMMERS RN - 07/12/2021 17:29 EST Electronically signed by Olimpia, [facility] Conversion Patent Legal Assistant Cerner at 10/24/2022 1:15 PM CDT documented in this encounter Plan of Treatment Not on file documented as of this encounter Visit Diagnoses Not on filedocumented in this encounter Care Teams Ditch Tender Relationship Specialty Start Date End Date Nitin Jerez MD [address] [place] [address] PCP - General Family Medicine 10/06/22 documented as of this encounter
--- OUTSIDE RECORDS SUMMARY | 2025-04-22 12:34 | XMS_ITS | Encounter Summary ---
Author Organization [employer] ([place]) Address [address] [address] Care Team Providers Care Floral Clerk Name Role Phone Nitin Jerez MD Primary Care Provider +1- [phone] Encounter Details Date Type Department Care Team (Late st Contact Info) Description 07/12/2021 Transcribed Document [facility] [place] [address] [place] [address] ProviderYamila MD [address] [place] [address] Social History Tobacco Use Types [...] - Historical ProviderMD - 07/12/2021 4:10 PM HARVEST WORKER FIELD CROP Broset Violence Assessment Entered On: 07/12/2021 16:27 EST Performed On: 07/12/2021 16:27 EST by MARQUEZ CASTANEDA RN Broset Violence Assessment Broset Violence Checklist of Symptoms : None Broset Violence Symptoms Subtotal : 0 Broset Violence Symptoms Indicator : Low risk (0) MARQUEZ CASTANEDA RN - 07/12/2021 16:27 EST Electronically signed by Olimpia [facility] Conversion Cardiovascular Operating Room Nurse Cerner at 10/24/2022 1:26 PM CDT documented in this encounter Plan of Treatment Not on file documented as of this encounter Visit Diagnoses Not on filedocumented in this encounter Care Teams Floral Clerk Relationship Specialty Start Date End Date Nitin Jerez MD [address] [place] [address] PCP - General Family Medicine 10/06/22 documented as of this encounter
--- OUTSIDE RECORDS SUMMARY | 2025-04-22 12:34 | XMS_ITS | Referral Summary ---
Author Organization [employer] ([place]) Address [address] [place] [address] Care Team Providers Care Assistant Property Manager Name Role Phone Nitin Jerez MD Primary Care Provider +1- [phone] Allergies Active Allergy Reactions Criticality Noted Date [...] of cervical dysplasia 01/23/2014 Overview (09/27/2022): Per SUPERVISOR PHOSPHATIC FERTILIZER Per SUPERVISOR PHOSPHATIC FERTILIZER Neurological dysfunction 01/23/2014 Overview (09/27/2022): Gag and [...] 12/31/2012 Overview (09/27/2022): 2013: LGSIL. Colpo at [facility] nml. PP colpo with ECC and Bx pending (03/04) Immunizations Immunization Administration Dates Next Due Tdap 09/06/2021 Social History Tobacco Use Types Packs/Day Years Used Date Smoking Tobacco: Never Smokeless Tobacco: Never Tobacco Cessation:Counseling Given: Not Answered Family and Community Support Answer Lalo e Recorded Help with Day to Day Activities Not on file 07/27/2023 Feeling Lonely or Isolated Not on file 07/27 Educational Attainment Answer Date Marcos rded Speak language other than Omani at home Not on file 07/27/2023 Want [...] Treatment Not on file Insurance [place] [id number] [facility] Advance Directives For more information, please contact: [phone] * Full Code (Latest Code Status on File) Date Activated Date Inactivated Comments 10/06/2022 10:00 AM 10/08/2022 3:01 PM Care Teams Assistant Property Manager Relationship Specialty Start Date End Date Nitin Jerez MD [address] [place] [address] PCP - General Family Medicine 10/06/22
--- OUTSIDE RECORDS SUMMARY | 2025-04-22 12:34 | XMS_ITS | Clinical Summary ---
Author Organization [facility] Address [address] [place] [address] Care Team Providers Care Sewing Machine Bobbin Winder Name Role Phone Unavailable Primary Care Provider [...] 2012 [facility]-Cervical Cancer Screening 2015 [facility]-HPV/Cotest 2015 [id number] Vaccine (1 - 20 24-25 season) 2025 [...]
--- OUTSIDE RECORDS SUMMARY | 2025-04-22 12:34 | XMS_ITS | Encounter Summary ---
Author Organization [employer] ([place]) Address [address] [place] [address] Care Team Providers Care Deicer Inspector Electric Name Role Phone Nitin Jerez MD Primary Care Provider +1- [phone] Encounter Details Date Type Department Care Team (Late st Contact Info) Description 07/12/2021 Transcribed Document [facility] [place] [address] ProviderYamila MD [address] [place] [address] Social History Tobacco Use Types [...] - Yamila ProviderMD - 07/12/2021 9:29 PM FOOTWEAR SALES LEADER ED Event Note Entered On: 07/12/2021 21:29 EST Performed On: 07/12/2021 21:29 EST by Melba Baptiste RN ED Event Note ED Event Date/Time : 07/12/2021 21:29 EST ED Description of Event : Patient discharged with instructions to follow up with Folder Seamer Automatic in the morning. NAD noted. IV dc'd before discharge. All of aptient belongings sent with patient. Patient verbalized understanding to all discharge instructions. Melba Baptiste RN - 07/12/2021 21:29 EST Electronically signed by Olimpia [facility] Conversion Bilingual Medical Receptionist Cerner at 10/24/2022 1:26 PM CDT documented in this encounter Plan of Treatment Not on file documented as of this encounter Visit Diagnoses Not on filedocumented in this encounter Care Teams Deicer Inspector Electric Relationship Specialty Start Date End Date Nitin Jerez MD [address] [place] [id number] PCP - General Family Medicine 10/06/22 documented as of this encounter
== END 2025-04-22 23:59 | disposition home or self-care (01) ==
LOC: RAD 12:29
PROVIDERS: PCP Internal Medicine Adolescent Medicine; Visit Provider Podiatrist
DX: M79.672 Pain in left foot (principal)
CPT/HCPCS: 73630

== ENCOUNTER 2025-04-28 06:48 | Outpatient (CLI) | payer MEDICAID, SELFPAY ==
--- OUTSIDE RECORDS SUMMARY | 2024-03-27 06:30 | XMS_ITS ---
Author Organization [facility] Address [address] [facility] [address] [place] [address] Care Team Providers Care Qa Analyst Name Role Phone Mp Sanza Unavailable [phone] Emperatriz Garcia Unavailable [phone] REASON FOR VISIT NOB Social History Sex Assigned At : Social History Observation Description Sex Assigned At Female Encounters Encounter Location Date Provider Diagnosis [facility] [address] [facility] [address] [place] [address] 03/27/2024 Emperatriz Garcia Plan Of Treatment No Information Progress Notes * Idalmis ABAD PDOB:[birth year] (39 yo F)Acc No.[id number]:03/27/2024 Patient: Idalmis Aguirre Provider: Aaron Garcia CNM :1985 A ge:38 Y S ex:Female Date:03/27/2024 Address:[address] [place], [place] [phone] Subjective: * Chief Complaints: * N OB * Electronic signature of Jeanette Garcia CNM on 04/28/2025 at 06:51 AM EDT Sign off status: Pending Visit Status: C ANC-PNF (Cancelled Patient No Fault) * Provider: Aaron Garcia CNM Date: 0 03/27/2024 Generated for Printi ng/Faxing/eTransmitting on: 1 06:51 AM EDT
--- OUTSIDE RECORDS SUMMARY | 2024-10-11 17:30 | XMS_ITS ---
Author Organization [facility] Address [address] [facility] [address] [place] [address] Care Team Providers Care Site Auditor Name Role Phone Helen Nj Primary Care Provider [phone] HELEN [place] Unavailable Unavaila ble Migration, Provider Unavailable Unavailable Allergies Allergen (clinical drug ingredient) Drug/Non Drug Allergy documented on EMR Reaction Allergy Type Onset Date Status Penicillin rash Drug Allergy Active REASON FOR VISIT [facility] To [facility] Conversion Encounter Medications Medication SIG (Take, Route, [...] [address] [place] [address] 10/11/2024 Provider Migration Plan Of Treatment Medication Medication Name Sig Start Date Stop Date Notes Gentamicin Sulfate 0.3 % 1 gtt in each e ye 4 times a day; Duration: 7 days 08/19/2024 Cefdinir 300 MG 1 cap(s) orally ever y 12 hours; Duration: 7 days 04/10/2024 Progress Notes * Roberto Carlos ABADOB: [birth year] (39 yo F)Acc No.[id number]:10/11/2024 Patient: Idalmis ACOSTA Provider: Mounika Jones :1985 A ge:39 Y S ex:Female Date:10/11/2024 Address:[address] [place] [address] [place], [id number] Pcp:Helen Nj Subjective: * Chief Complaints: * [...] Electronic signature of Prov ider Migration on 04/28/2025 at 06:51 AM EDT Sign off status: Pending * Provider: Muonika Jones Date: 0 10/11/2024 Generated for Hector hernandez/Aman/Dalyitting on: 1 06:51 AM EDT
--- OUTSIDE RECORDS SUMMARY | 2025-03-25 12:14 | XMS_ITS ---
Author Organization [facility] Address [address] [facility] [facility] [address] [place] [address] Care Team Providers Care Dirt Bike Mechanic Name Role Phone Rosalva Nj Primary Care Provider [phone] [place] Unavailable UnavailCaitie Neely Unavailable [phone] REASON FOR VISIT Lab Order Encounters Encounter Location Date Provider Diagnosis [facility] [address] [facility] [address] [place], [place] [address] 03/25/2025 Caitie Jimenez Routine medical exam Z00.00 and Fatigue, unspecified type R53.83 Assessments Encounter Date Diagnosis (ICD Code) Assessment Notes Treatment Notes Treatment Clinical Notes Section Notes 03/25/2025 Routine medical exam (ICD-10 - Z00.00) 03/25/2025 Fatigue, unspecified type (ICD-10 - R53.83) Plan Of Treatment Pending Test Test Name Order Date LIPID PANEL, STANDARD (7600) 03/25/2025 COMPREHENSIVE METABOLIC PANEL (49856) CBC (INCLUDES DIFF/PLT) (6399) VITAMIN B12 (927) 03/25/2025 TSH (899) 03/25/2025 VITAMIN D,25-OH,TOTAL,IA (07504) 025 Progress Notes * Roberto Carlos ABADOB: [birth year] (39 yo F)Acc No.[id number]:03/25/2025 Patient: Анна LEONIDESJAYASHREE Idalmis :1985 A ge:39 Y S ex:Female Address:[address] [place] [address] , [place] [address] Subjective: * Chief Complaints: * L ab Order * Medical History: * Surgical History: * Hospitalization/Major Diagno stic Procedure: * Medications: Objective: * Vitals: * Physical Examination: Assessment: * Assessment: 1. R [facility] medical exam - Z00.00 (Primary) 2 . F atigue, unspecified type - R53.83 Plan: * Treatment: 2. F atigue, unspecified type L AB: CBC (INCLUDES DIFF/PLT) (6399) L AB: VITAMIN B12 (927) L AB: TSH (899) L AB: VITAMIN D,25-OH,TOTAL,IA (17953) * Procedure Codes: * true * Date: Generated for Hector hernandez/Aman/Miguel Angel on: 1 06:52 AM EDT
--- OUTSIDE RECORDS SUMMARY | 2025-03-31 08:00 | XMS_ITS ---
Author Organization [facility] Address [address] [facility] [address] [place] [address] Care Team Providers Care Meter And Service Line Inspector Name Role Phone Rosalva Nj Primary Care Provider ROSALVA NJ Unavailable UnavailCaitie Neely Unavailable [phone] Allergies Allergen (clinical drug ingredient) Drug/Non Drug Allergy documented on EMR Reaction Allergy Type Onset Date Status Information temporarily unavailable Penicillin rash Drug Allergy Active REASON FOR [address] [place] [address] 03/31/2025 Caitie Barbara Diastasis recti M62.08 ; Routine medical exam [...] Pt was encouraged to f/u with her DIRECTOR OF MARKETING COMMUNICATIONS if her symptoms persist or worsen. Plan [...] Pt was encouraged to f/u with her DIRECTOR OF MARKETING COMMUNICATIONS if her symptoms persist or worsen. Next Appt Details Follow Up: 3 Weeks, Reason: Progress Notes * Roberto Carlos ABADOB: [birth year] (39 yo F)Acc No.[id number]:03/31/2025 Progress Notes Patient: Idalmis ACOSTA Provider: Brenda Jimenez APRN :1985 A ge:39 Y S ex:Female Date:03/31/2025 Address:[address] [place] [address] [place], [id number] Pcp:Rosalva Nj Subjective: * Chief Complaints: * 1 . Annual wellness, Discuss concerns after . 2. When she sits up, her stomach protrudes out. 3. Discuss labs. * HPI: g en: Gen [age]yo female comes in for annual wellness and to discuss other concerns. Pt does have a history of abnormal findings on breast imaging and is following up with [facility] for monitoring. Pt reports giving on November [...] Diagno stic Procedure: c hild , EEG [facility] December 2022, no seizure activity. , Child [...] S iblings: alive, auto immune disease. C cb: alive. 2 brother(s) , 1 sister(s) . [...] Pt was encouraged to f/u with her DIRECTOR OF MARKETING COMMUNICATIONS if her symptoms persist or worsen. ? * Follow Up: 3 Weeks * * Sign off status: Completed true * Provider: Brenda Jimenez APRN Date: 0 03/31/2025 Generated for Hector hernandez/Aman/Miguel Angel on: 06:51 AM EDT History and Physical Notes * HPI (History of Present Illness) Category Sub-Category Detail Notes Category Not es gen Gen 39yo female come s in for annual wellness and to discuss other concerns. Pt does have a history of abnormal findings on breast imaging and is following up with [facility] for monitoring. Pt reports giving on November [...]
--- OUTSIDE RECORDS SUMMARY | 2025-04-23 12:30 | XMS_ITS ---
Author Organization [facility] Address [address] [place] [address] Care Team Providers Care Supervisor Paper Coating Name Role Phone Helen Nj Primary Care Provider HELEN NJ Unavailable UnavailCaitie Neely Unavailable [phone] REASON FOR VISIT 3 Week F/U Encounters Encounter Location Date Provider Diagnosis [facility] [address] [place] [address] 04/23/2025 Caitie Jimenez Plan Of Treatment No Information Progress Notes * Roberto Carlos ABADOB: [birth year] (39 yo F)Acc No.[id number]:04/23/2025 Progress Notes Patient: Idalmis ACOSTA Provider: Brenda Jimenez APRN :1985 A ge:39 Y S ex:Female Date:04/23/2025 Address:[address] [place] [address] [place], [id number] Pcp:Helen Nj Subjective: * Chief Complaints: * 1 . 3 Week F/U. * Medical History: Objective: * Vitals: Assessment: Plan: * Treatment: * * Electronic signature of Sreekanth Jimenez APRN on 04/28/2025 at 06:52 AM EDT Sign off status: Pending * Provider: Brenda Jimenez APRN Date: 1 Generated for Hector hernandez/mAan/Miguel Angel on: 1 06:52 AM EDT
--- OUTSIDE RECORDS SUMMARY | 2025-04-28 06:51 | XMS_ITS | Patient Health Record ---
[facility] Address [address] [place] [id number] Care Team Providers Care Director Enterprise Data Architecture Name Role Phone John Jerez Primary Care [...] Status Risk Notes Problem Chronic maxillary sinusitis (28324881) Chronic maxillary sinusitis (J32.0) Active confirmed Problem Thyroid nodule (465368267) Thyroid nodule (E04.1) Active confirmed Problem Chronic mixed headache syndrome (46532491) Chronic mixed headache syndrome (G44.89) Active confirmed Plan Of Treatment No Information Medical (General) History Medical History History ICD Code allergic rhinitis dysphagia Surgical History Surgery Date(Month/Year) Carpal tunnel release esophagus stretched in december 2018 Hospitalization History Reason Date(Month/Year) [facility] ER- Seizure 05/02/2022
--- OUTSIDE RECORDS SUMMARY | 2025-04-28 06:51 | XMS_ITS | Encounter Summary ---
Author Organization [facility] Address [address], [address] [place] [address] Care Team Providers Care Colorist Photography Name Role Phone Carolina Ahuja MD Primary Care Provider [phone] Encounter Details Date Type Department Care Team (Late st Contact Info) Description 06/01/2014 PAT Telephone [facility] Pre-Admit Testing [address] [place] [address] Jia Rhoades, RN Social History Tobacco Use [...] on filedocumented in this encounter Care Teams Colorist Photography Relationship Specialty Start Date End Date Carolina Ahuja MD [address] [place] [address] [address] [place] [address] PCP - General Family Medicine 05/19/14 documented as of this encounter
--- OUTSIDE RECORDS SUMMARY | 2025-04-28 06:51 | XMS_ITS | Clinical Summary ---
Author Organization [employer] ([place]) Address [address] [place] [address] Care Team Providers Care Interface Engineer Name Role Phone Nitin Jerez MD Primary Care Provider +1- [phone] Allergies Active Allergy Reactions Criticality Noted Date [...] of cervical dysplasia 01/23/2014 Overview (09/27/2022): Per HIGH SCHOOL TEACHER Per HIGH SCHOOL TEACHER Neurological dysfunction 01/23/2014 Overview (09/27/2022): Gag and [...] 12/31/2012 Overview (09/27/2022): 2013: LGSIL. Colpo at [place] nml. PP colpo with ECC and Bx [...] Date Marcos rded Speak language other than Malaysian at home Not on file 07/27/2023 Want [...] [place] [address] [facility] Advance Directives For more information, please contact: [phone] * Full Code (Latest Code Status on File) Date Activated Date Inactivated Comments 10/06/2022 10:00 AM 10/08/2022 3:01 PM Care Teams Interface Engineer Relationship Specialty Start Date End Date Nitin Jerez MD [address] [place] [address] PCP - General Family Medicine 10/06/22
--- OUTSIDE RECORDS SUMMARY | 2025-04-28 06:51 | XMS_ITS | Data Portability ---
Author Organization [facility] FRANK Medina HUBBELL CLOSED Address [address] [facility] [address] [place] [address] Care Team Providers Care Plaster Machine Operator Name Role Phone ANIA FERNANDEZ Primary Care Provider [phone] Assessment No assessment recorded. Plan of Treatment Reminders Order Date Submit Date Provider Last Modified By Organization Details Last Modified Time Details Appointments None recorded. Lab TSH, serum or plasma 2020 [email or web address] [facility], [address] [place] [address], [id number], 08:08:53 T3, total, serum 2020 021 [email or web address] [facility], [address] [place] [address], [address], 08:08:54 T4, total, serum 2020 021 [email or web address] [facility], [address] [place] [address], [address], 08:08:54 thyroid panel, serum 2020 021 [email or web address] [facility], [address] [place] [address], [address], 08:08:54 GEORGES (antinuclea r antibodies) panel, serum 2020 021 SULY [facility], [address] [place] [address], [id number], 22:18:36 Referral None recorded. Procedures None recorded. Surgeries None recorded. Imaging None recorded. Medication Orders omeprazole 20 mg capsule,del ayed release 2020 [facility] 5[facility], [address], [address], 15:17:05 Patient TargetsNo targets recorded. Patient Instructions Encounter Date Encounter Id Patient Instructions Last Modified By Organization Details Last Modified Time 05/10/2021 [id number] 1. Flexible laryngoscopy performed today - Full [...] lab results or sooner if concerns arise. roberts chapelistjudie Not available 05/10/2021 09:27:49 06/16/2021 [id number] 1. Reviewed patients labwork, FNA and EGD biopsy. 2. Recommended the patient follow up with endocrinology; patient will set this up herself. 3. Follow up visit PRN or sooner if concerns arise. roberts chapelariela Not available 06/16/2021 15:40:40 Reason for Referral [...] 14:25 Page 1 of 1 Not Available [facility] [address] [facility], [place], [address], 05/27/2021 14:26:47 06/06/20 21 06/06/2021 SURGI ALL [...] 14:54 Page 1 of 1 Not Available [facility] [address] [place] [address], [address], 06/07/2021 14:55:20 05/13/20 21 03/04/2019 fine needl [...] [email or web address] [address] [facility], [place], [address], 05/17/2021 11:48:32 05/26/20 21 05/26/2021 US thyro id nodul e fna only [address] [address] Patiiva t Name: FRANCISCO JAVIER DYSON ON [...] Agatha Stone MD on 2020 5:[address] [facility] [address], [place], [address], 06/08/2021 08:46:21 05/26/20 21 05/26/2021 US, neck, soft tissu e [address] [place] [address] Patien t Name: FRANCISCO JAVIER DYSON ON [...] Agatha Stone MD on 2020 5:[address] [facility]iology [facility] [address] [place], [address], 06/08/2021 08:46:20 Result Notes None recorded. Problems No Known Problems Procedures Surgical History Date Name Laterality Status Provider Name and Address Organization Details Recorded Time 05/10/20 21 Laryngoscopy Flex completed Kitty Matias [facility] 05/10/2021 09:25:22 07/09/19 13 section completed Odalis Barbour [facility] 05/10/2021 08:32:02 01/01/20 10 Carpal tunnel surgery completed Odalis Reichn [facility] 05/10/2021 08:32:17 07/09/19 04 Oral Surgery completed Odalis Reichn [facility] 05/10/2021 08:32:27 Imaging Results None recorded. Procedure Notes None recorded. Medical Equipment None Reported. Allergies Allergen ID Allergen Name Allergen Category Reaction Reaction Severity Criticality Documentation Date Start Date Code Code System Note Provider Name and Address Organization Details Recorded Time 971190 Product containin g penicilli n (product) medicatio n rash Not available Not available 05/10/2021 24611 8001 SNOMED Odalisphilly Barbour [facility] 08:31:01 Medications Name Sig Start Date Stop [...] Pulse oximetry Heart rate Body temperature Systolic And Diastolic Provider Name and Address Organization Details Last Updated DateTime 1 160.02 cm 98 % 98 % 85 /min 98.4 [degF] 141/103 mm[Hg] Odalis Reichn [facility] 08:36:34 Date Recorded Body height Body mass index (BMI) Body weight Body temperature Heart rate Systolic And Diastolic Provider Name and Address Organization Details Last Updated DateTime 1 160.02 cm 36.9 kg/m2 06040.3 1 g 98.7 [degF] 81 /min 137/86 mm[Hg] Tara Khan [facility] 15:20:57 Social History Question Answer Notes LastModified by Organizat ion Details LastModified Time Tobacco Smoking Status Never Smoker Odalis Km [facility] 05/10/2021 08:31:47 Has Tobacco Cessation Counseling Been Provided? No [email or web address] Information not available 05/10/2021 Have You Recently Traveled Abroad? No Information not available 05/10/2021 Sex: Unknown Functional Status Question Answer Note LastModified by Organizat ion Details LastModified Time Do you use any illicit or recreational drugs? No [email or web address] Information not available 05/10/2021 Do you or have you ever used any other forms of tobacco or nicotine? No [email or web address] Information not available 05/10/2021 What is your level of alcohol consumption? None Information not available 05/10/2021 Mental Status None recorded. Family History Relationship Description Onset Age of this Age Resolved Age Notes LastModified by Organization Details LastModified Time Mother Family history of malignant neoplasm Not available 2020 08:31:27 Father Hypertensive disorder [email or web address] Not available 2020 08:31:37 Medical History Condition [...] Diagnosis SNOMED-CT Code Diagnosis ICD10 Code Diagnosis IMO Codes Diagnosis Note [id number] JESÚS POST MD [place] [facility] [address] [place] [address] 05/10/2021 08:13:18 05/10/2021 10:21:22 Thyroid nodule 648498270 E04.1 Choking sensation 453974 009 R09.89 Difficulty swallowing 28 2115823 R13.10 Chronic hoarseness 45334 98858 105 R49.0 Weight gain 3934662 R63. 5 Laryngopha ryngeal reflux 476931648 K21.9 R > L Laryngeal spasm 98759248 2 J38.5 [id number] MARTHA ROJAS MD SURGERY SCHEDULE [address] [place] [address] 06/06/2021 07:10:09 06/06/2021 07:11:28 [id number] JESÚS POST MD [place] [facility] [address] [place] [address] 06/16/2021 15:06:03 06/16/2021 16:03:06 Thyroid nodule 183278226 E04.1 Choking sensation 431643 009 R09.89 Difficulty swallowing 28 4977771 R13.10 Chronic hoarseness 67580 32755 105 R49.0 Weight gain 6371746 R63. 5 Laryngopha ryngeal reflux 123773596 K21.9 R > L Laryngeal spasm 01788930 2 J38.5 Marylin thyroiditis 21 852637 E06.3 Health Concerns Section Related Observation LastModified by Organization Detai ls LastModified Time None Recorded Concern Status LastModified by Organization Details LastModified Time None Recorded Advance Directives Directive None Recorded Payers Insurance Date Sequence Insurance Name Policy Number Policy Yang Covered Member ID Yang Member ID Guarantor Name 03/19/2025 1 [employer] (MEDICAID [place]PLACEMENT - HMO) Idalmis Mounika Frances [id number] Idalmis Juan Daniel 03/23/2025 2 [employer] (POS) Dk Juan Daniel [id number] Idalmis Frances Notes Date Note Type Note [...] has an autoimmune disorder. JESÚS POST MD [facility] [place], [address], [facility] 05/11/2021 13:22:07 06/16/2021 text/html Idalmis [...] few weeks ago. MD [place]t [place], [address], [facility] 06/16/2021 17:00:04 OBGyn Episode No OBEpisode recorded.
--- OUTSIDE RECORDS SUMMARY | 2025-04-28 06:51 | XMS_ITS | Clinical Summary ---
Author Organization [facility] Address [address] [facility], [address] [place] [address] Care Team Providers Care Chief Contract Officer Name Role Phone Carolina Ahuja MD Primary Care Provider Allergies Active Allergy Reactions Criticality Noted Date Comments Cephalosporins 06/24/2014 Penicillins Rash Low 01/23/2014 Avoid cephalosporins Medications levonorgestrel (MIRENA) 20 MCG/24HR IUD 1 each by Intrauterine route once. MARKETING PRODUCTION SPECIALIST 4 Active lactobacillus (CULTURELLE) capsuleIndicati ons:Generalized abdominal [...] dysplasia- pos HPV 4 Overview (01/23/2014): Per MAINTENANCE OF WAY SUPERINTENDENT Plantar fasciitis, bilateral 01/23/2014 Anemia 01/23/2014 Neurological [...] on file Medical Devices Implanted Type Area Prep Room Supervisor Device Identifier Shelf Expiration Date Model / Serial / Lot Iud Care Teams Chief Contract Officer Relationship Specialty Start Date End Date Carolina Ahuja MD [address] [place] [address] [address] [place] [address] PCP - General Family Medicine 05/19/14
--- OUTSIDE RECORDS SUMMARY | 2025-04-28 06:52 | XMS_ITS | Encounter Summary ---
Author Organization [facility] Address [address] [facility], [address] [place] [address] Care Team Providers Care [employer] Assistant Manager Name Role Phone Carolina Ahuja MD Primary Care Provider [phone] Encounter Details Date Type Department Care Team (Late st Contact Info) Description 11/27/2017 FollowUp Telephone Encounter [facility] [address] [facility]. [address], [address] [place] [address] Jordyn Love RN Social History Tobacco Use [...] on filedocumented in this encounter Care Teams [employer] Assistant Manager Relationship Specialty Start Date End Date Carolina Ahuja MD [address] [facility] [address] [place] [address] PCP - General Family Medicine 05/19/14 documented as of this encounter
--- OUTSIDE RECORDS SUMMARY | 2025-04-28 06:52 | XMS_ITS | Encounter Summary ---
Author Organization [facility] ([place], [place], [place], [place]) Address [address] [place] [address] Care Team Providers Care Relations Manager Name Role Phone Nitin Jerez MD Primary Care Provider [phone] Encounter Details Date Type Department Care Team (Late st Contact Info) Description 07/12/2021 Transcribed Document [facility] Family Medicine [address] [place] [address] ProviderYamila MD [address] [place] [address] Social History Tobacco Use Types [...] - Yamila ProviderMD - 07/12/2021 4:10 PM WOOD CAR BUILDER ED Assessment Entered On: 07/12/2021 17:32 EST [...] Communication Barrier : None Primary Language : Cape Verdean Any Spiritual/Cultural Needs or Requests : No [...] DOMENICO SUMMERS RN - 07/12/2021 17:29 EST [place] Coma Patrick Best Motor Response : Obey commands Patrick Best Verbal Response : Oriented [place] Eye Opening Response : Spontaneous [place] Coma Score : 15 DOMENICO SUMMERS RN - 07/12/2021 17:29 EST Electronically signed by Olimpia, [facility] Conversion Progressive Care Manager Cerner at 10/24/2022 1:15 PM CDT documented in this encounter Plan of Treatment Not on file documented as of this encounter Visit Diagnoses Not on filedocumented in this encounter Care Teams Relations Manager Relationship Specialty Start Date End Date Nitin Jerez MD [address] [place] [address] PCP - General Family Medicine 10/06/22 documented as of this encounter
--- OUTSIDE RECORDS SUMMARY | 2025-04-28 06:52 | XMS_ITS | Encounter Summary ---
Author Organization [employer] ([place], [place], [place], [place]) Address [address] [place] [address] Care Team Providers Care Instructor Dancing Name Role Phone Nitin Jerez MD Primary Care Provider [phone] Encounter Details Date Type Department Care Team (Late st Contact Info) Description 07/12/2021 Transcribed Document [facility] Radiology [address] [place] [address] Cruz Mcpherson MD [address] [place] [address] Dept[place] [address] Social History Tobacco Use Types Packs/Day Years [...] Chief Complaint near syncope/dizziness starting one hour captain assistant. pt states that she was on [...] EST Height Source Stated Height Entry Format [place] Height/Length, TURKISH (ft) 5 ft Height/Length TURKISH 2 Inch CLINICALHEIGHT 157.48 cm [place] Body Weight 49.73 kg Weight Source, ED Critical estimated dosing weight Weight Entry Format [place] Weight Tuvaluan lb 200 lb CLINICALWEIGHT 90.91 kg Body [...] normal sinus rhythm, No ST changes, normal ND & QRS intervals, EKG was also reviewed [...] % 22.4 % Lymph # 1.97 K/uL [place] % 8.5 % [place] # 0.75 K/uL Eos % 1.8 % Eos # 0.16 K/uL Baso % 0.5 % Baso # 0.04 K/uL Slide Review No IG# 0 x10(3)/uL IG% 0 % 07/12/2021 16:25 EST Urine Type. U CleanCatch Urine Color Yellow Urine Appearance Clear Urine Specific [place] 1.006 Urine pH Dipstick *7.5 Urine Leukocyte [...] on filedocumented in this encounter Care Teams Instructor Dancing Relationship Specialty Start Date End Date Nitin Jerez MD [address] [place] [address] PCP - General Family Medicine 10/06/22 documented as of this encounter
--- OUTSIDE RECORDS SUMMARY | 2025-04-28 06:52 | XMS_ITS | Encounter Summary ---
Author Organization [employer] ([place], [place], [place], [place]) Address [address] [place] [address] Care Team Providers Care Lens Grinding Machine Operator Name Role Phone Nitin Jerez MD Primary Care Provider [phone]- [phone] Encounter Details Date Type Department Care Team (Late st Contact Info) Description 07/14/2021 Transcribed Document [facility] [place] [facility] [place] [address] ProviderYamila MD [address] [place] [address] Social History Tobacco Use Types [...] - Historical ProviderMD - 07/14/2021 11:05 AM INSET CUTTER CR Chest 1 Vw Portable Ordered: 07/12/2021 Modified Reason for Exam: dizziness 07/13/2021 10:23 07/14/2021 11:05 (LOLA CALDERÓN PA-C) Reviewed by Provider, No further action required documented in this encounter Plan of Treatment Not on file documented as of this encounter Visit Diagnoses Not on filedocumented in this encounter Care Teams Lens Grinding Machine Operator Relationship Specialty Start Date End Date Nitin Jerez MD [address] [place] [address] PCP - General Family Medicine 10/06/22 documented as of this encounter
--- OUTSIDE RECORDS SUMMARY | 2025-04-28 06:52 | XMS_ITS | Referral Summary ---
Author Organization [employer] ([place], [place], [place], [place]) Address [address] [place] [address] Care Team Providers Care Corrugator Machine Operator Name Role Phone Nitin Jerez MD Primary Care Provider [phone] Allergies Active Allergy Reactions Criticality Noted Date [...] of cervical dysplasia 01/23/2014 Overview (09/27/2022): Per WELL SERVICE DERRICK WORKER Per WELL SERVICE DERRICK WORKER Neurological dysfunction 01/23/2014 Overview (09/27/2022): Gag and [...] 12/31/2012 Overview (09/27/2022): 2013: LGSIL. Colpo at [facility]. PP colpo with ECC and Bx [...] Treatment Not on file Insurance [place] [id number] [facility] Advance Directives For more information, please contact: [phone] * Full Code (Latest Code Status on File) Date Activated Date Inactivated Comments 10/06/2022 10:00 AM 10/08/2022 3:01 PM Care Teams Corrugator Machine Operator Relationship Specialty Start Date End Date Nitin Jerez MD [address] [place] [address] PCP - General Family Medicine 10/06/22
--- OUTSIDE RECORDS SUMMARY | 2025-04-28 06:52 | XMS_ITS | Encounter Summary ---
Author Organization [employer] ([place], [place], [place], [place]) Address [address] [place] [address] Care Team Providers Care Piece Maker Name Role Phone Nitin Jerez MD Primary Care Provider [phone]- [phone] Encounter Details Date Type Department Care Team (Late st Contact Info) Description 07/12/2021 Transcribed Document [facility] [place] [facility] [place] [address] ProviderYamila MD [address] [place] [address] Social History Tobacco Use Types [...] - Historical ProviderMD - 07/12/2021 9:13 PM BONDING EQUIPMENT OPERATOR Electronically signed by [facility] Conversion Back Facer Cerner at 10/24/2022 1:13 PM CDT documented in this encounter Plan of Treatment Not on file documented as of this encounter Visit Diagnoses Not on filedocumented in this encounter Care Teams Piece Maker Relationship Specialty Start Date End Date Nitin Jerez MD [address] [place] [address] PCP - General Family Medicine 10/06/22 documented as of this encounter
--- OUTSIDE RECORDS SUMMARY | 2025-04-28 06:52 | XMS_ITS | Patient Health Record ---
Author Organization [facility] Address [address] [place] [address] Care Team Providers Care Gum Rolling Machine Operator Name Role Phone Helen Nj Primary Care Provider [phone] [place]EN [place] Unavailable Unavaila ble Caitie Jimenez Unavailable [phone] Migration, Provider Unavailable Unavailable Allergies Allergen (clinical drug ingredient) Drug/Non Drug Allergy documented on EMR Reaction Allergy Type Onset Date Status Penicillin rash Drug Allergy Active Results Component Value Reference Range Notes H-TVITD Reviewed date:03/30/2025 04:01:31 PM Interpretation: Performing [...] HDL 60 40-60 mg/dl CHLHDL 3.1 1-3.5 M-Complete Blood Count Auto Diff Reviewed date:03/30/2025 [...] 0 IG% 0.3 NRBC# 0 IG# 0.03 H-VITB12 Reviewed date:04/01/2025 07:46:55 AM Interpretation: Performing Lab: Notes/Report: VITB12 606 239-931 pg/mL M-Thyroid Stimulating Hormon e Reviewed date:04/01/2025 07:46:55 AM Interpretation: Performing Lab: Notes/Report: TSH 1.28 0.465-4.68 uIU/mL Reason For Referral No Information Social History Tobacco Use: Social History Observation Description Date Details (start date - stop date) Never Smoker NA - NA Smoking: Question Answer Notes Are you a: nonsmoker Problems Problem Type SNOMED Code ICD Code Onset Dates Problem Status W/U Status Risk Notes Problem Seasonal allergy (937898348) Seasonal allergies (J30.2) Active confirmed Problem Obstructive sleep apnea syndrome (34186698) FRANKIE (obstructive sleep apnea) (G47.33) Active confirmed Problem Morbid obesity (545854116) Severe obesity (BMI >= 40) (E66.01) Active confirmed Problem Daytime somnolence (227509064543) Daytime somnolence (R40.0) Active confirmed Problem Dysphagia (71789672) Dysphagia, unspecified type (R13.10) Active confirmed Problem Obstructive sleep apnea syndrome (84884278) FRANKIE on CPAP (G47.33) Active confirmed Problem Gastroesophageal reflux disease (353024984) Gastroesophageal reflux disease, unspecified whether esophagitis present (K21.9) Active confirmed Vital Signs Heart Rate 92 /min 03/31/2025 Temperature 97.6 degrees Fahrenheit 03/31/2025 Blood pressure diastolic 70 mm Hg 03/31/2025 Height 62 in 03/31/2025 Blood pressure systolic 126 mm Hg 03/31/2025 Weight 244.6 lbs 03/31/2025 BMI 44.73 kg/m2 03/31/2025 Encounters Encounter Location Date Provider Diagnosis [facility] [address] [facility] [address] [place] [address] 10/11/2024 Provider Migration [facility] [address] [facility] [address] [place] [address] 03/31/2025 Caitie McNees Diastasis recti M62.08 ; Routine medical exam Z00.00 ; Severe obesity (BMI >= 40) E66.01 ; Chest discomfort R07.89 and Pelvic pressure in female R10.2 [facility] [address] [place] [address] 08/19/2024 Helen Nj [facility] [address] [place] [address] 12/26/2024 Helen Nj Breast mass, left N63.20 [facility] [address] [place] [address] 03/25/2025 Caitie McNees Routine medical exam Z00.00 [...] Pt was encouraged to f/u with her THROUGH FREIGHT ENGINEER if her symptoms persist or worsen. Plan Of Treatment Pending Test Test Name Order Date Mammogram : Bilateral 02/12/2024 Pulmonary Function Test- Complete 2023 Ultrasound : Breast, bilateral if indica moo 02/12/2024 MRI : Breast 12/26/2024 Mammogram : Diagnostic, Left 12/26/2024 LIPID PANEL, STANDARD (7600) 03/25/2025 COMPREHENSIVE METABOLIC PANEL (68969) CBC (INCLUDES DIFF/PLT) (6399) VITAMIN B12 (927) 03/25/2025 TSH (899) 03/25/2025 VITAMIN D,25-OH,TOTAL,IA (72681) 025 MISCELLANEOUS LAB TEST 02/11/2024 Insurance Providers Payer Name Payer Address Payer Phone Subscriber Number Group Number Insured Name Patient Relationship to Insured Coverage Start Date Coverage End Date [facility] MEDICAID [address] [address] [place] [address] [phone] [id number] Idalmis Frances Self - patient is the insured Medical (General) History Surgical History Surgery Date(Month/Year) carpal tunnel release c- section 11/2024 Hospitalization History Reason Date(Month/Year) EEG [facility] December 2022, no seiz ure activity. child Child 11/2024
--- OUTSIDE RECORDS SUMMARY | 2025-04-28 06:52 | XMS_ITS | Clinical Summary ---
Author Organization [facility] Address [address] [place] [address] Care Team Providers Care Supervisor Electronics Processing Name Role Phone Helen Womack Primary Care Provider [phone] Allergies Active Allergy Reactions Criticality Noted Date Comments Cephalexin Rash Low 02/17/2013 noted Cephalosporins Rash Low 02/17/2013 Penicillins Hives,Itching,Rash Low 01/23/2014 Avoid cephalosporins Medications Vit-Fe Fumarate-FA ( 27-1) 27-1 MG tablet tablet Take by mouth Daily. Active Ergocalciferol (VITAMIN D2 PO) Take 1 tablet by mouth Daily. Active Methylcobalamin (H89-XWYTPU PO) Take 1 tablet by mouth Daily. Active CHOLINE PO Take 350 mg by mouth Daily. Active Magnesium Glycinate 100 MG capsule Take 500 mg by mouth 3 times a day. Active [place]-3 Fatty Acids (fish oil) 1000 MG capsule [...] of cervical dysplasia 01/23/2014 Overview (10/15/2019): Per MOTOR ASSEMBLER Neurological dysfunction 01/23/2014 Overview (10/15/2019): Gag and throat with noxious stimul Family [...] or training? Not on file Preferred Language Cymro 06/04/2024 Comments No Sex and Gender Information [...] to complete this topic Insurance [place] [id number] [employer] [place] Care Teams Supervisor Electronics Processing Relationship Specialty Start Date End Date Helen Womack PA [address] [place] [address] PCP - General Physician Exchange Mechanic 02/28/24
--- OUTSIDE RECORDS SUMMARY | 2025-04-28 06:52 | XMS_ITS | Clinical Summary ---
Author Organization [facility] Address [address] [place] [address] Care Team Providers Care Commercial Airplane Pilot Name Role Phone Unavailable Primary Care Provider [...] 2012 [facility]-Cervical Cancer Screening 2015 [facility]-HPV/Cotest 2015 CLL-TDULE-57 Vaccine (1 - 20 24-25 season) 2025 [...]
--- OUTSIDE RECORDS SUMMARY | 2025-04-28 06:52 | XMS_ITS | Patient Health Record ---
Author Organization [facility] Address [address] [facility] [address] [place] [address] Care Team Providers Care Floor Plan Adjuster Name Role Phone Martha Sanz Unavailable [phone] Allergies Allergen (clinical drug ingredient) Drug/Non Drug [...] Notes Problem Surveillance of intrauterine device contraception (363740977) Checking of intrauterine device (Z30.431) 021 Active confirmed IUD surveillance Problem Awaiting removal of contraceptive intrauterine device (IUD) (Z30.432) 021 Active confirmed IUD removal Problem Gynecological examination normal ([id number] 4) Cervical smear, as part of routine gynecological examination (Z01.419) 019 Active confirmed Annual without abnormal findings Problem Insertion of intrauterine contraceptive device (27581288) Encounter for initial insertion of intrauterine contraceptive device (Z30.430) 021 Active confirmed IUD insertion Plan Of Treatment No Information Insurance Providers Payer Name Payer Address Payer Phone Subscriber Number Group Number Insured Name Patient Relationship to Insured Coverage Start Date Coverage End Date [employer] [address] [address] [place], [place] [id number] Idalmis Frances Self - patient is the insured Medical (General) History Medical History History ICD Code abnormal paps HPV varicose veins yeast infections genital HSV Breast Issues Autoimmune Disorder Surgical History Surgery Date(Month/Year) Carpal Tunnel C/S Thyroid Biopsy Breast Biopsy Hospitalization History Reason Date(Month/Year) C/S
--- OUTSIDE RECORDS SUMMARY | 2025-04-28 06:53 | XMS_ITS | Encounter Summary ---
Author Organization [employer] ([place], [place], [place], [place]) Address [address] 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 DEVELOPER Bro[place] Violence Assessment Entered On: 07/12/2021 16:27 EST Performed On: 07/12/2021 16:27 EST by MARQUEZ CASTANEDA RN Broset Violence Assessment Broset Violence Checklist of Symptoms : None Broset Violence Symptoms Subtotal : 0 Broset Violence Symptoms Indicator : Low risk (0) MARQUEZ CASTANEDA RN - 07/12/2021 16:27 EST documented in this encounter Plan of Treatment Not on file documented as of this encounter Visit Diagnoses Not on filedocumented in this encounter Care Teams Carpenter/Labor Relationship Specialty Start Date End Date Nitin Jerez MD [address] [place] [id number] PCP - General Family Medicine 10/06/22 documented as of this encounter
--- OUTSIDE RECORDS SUMMARY | 2025-04-28 06:53 | XMS_ITS | Encounter Summary ---
Author Organization [employer] ([place], [place], [place], [place]) Address [address] [place] [address] Care Team Providers Care Sort Line Name Role Phone Nitin Jerez MD Primary Care Provider +1- [phone] Encounter Details Date Type Department Care Team (Late st Contact Info) Description 07/12/2021 Transcribed Document [facility] [place] Family Medicine [address] [place] [address] ProviderYamila MD [address] [place] [address] Social History Tobacco Use Types [...] - Yamila ProviderMD - 07/12/2021 4:10 PM SPIRAL RUNNER [place] Suicide Severity Rating Scale (C-SSRS) Entered On: 07/12/2021 16:27 EST Performed On: 07/12/2021 16:27 EST by MARQUEZ CASTANEDA RN [place] Suicide Severity Rating Scale (C-SSRS) CSSRS Past [...] on filedocumented in this encounter Care Teams Sort Line Relationship Specialty Start Date End Date Nitin Jerez MD [address] [place] [id number] PCP - General Family Medicine 10/06/22 documented as of this encounter
--- OUTSIDE RECORDS SUMMARY | 2025-04-28 06:53 | XMS_ITS | Encounter Summary ---
Author Organization [employer] ([place], [place]) Address [address] [place] [address] Care Team Providers Care Mold Release Worker Name Role Phone Nitin Jerez MD Primary Care Provider +1- [phone] Encounter Details Date Type Department Care Team (Late st Contact Info) Description 07/12/2021 Transcribed Document [facility] [place] Family Medicine [facility] [place] [address] ProviderYamila MD [address] [place] [address] Social History Tobacco Use Types [...] Yamila George MD - 07/12/2021 9:30 PM HOLLOW HANDLE KNIFE ASSEMBLER ED Discharge Entered On: 07/12/2021 21:30 EST [...] 07/12/2021 21:30 EST Electronically signed by Olimpia, [facility] Conversion Senior Lead Software Engineer Cerner at 10/24/2022 1:31 PM CDT documented in this encounter Plan of Treatment Not on file documented as of this encounter Visit Diagnoses Not on filedocumented in this encounter Care Teams Mold Release Worker Relationship Specialty Start Date End Date Nitin Jerez MD [address] [place] [id number] PCP - General Family Medicine 10/06/22 documented as of this encounter
--- OUTSIDE RECORDS SUMMARY | 2025-04-28 06:53 | XMS_ITS | Encounter Summary ---
Author Organization [employer] ([place]) Address [address] [place] [address] Care Team Providers Care Small Business Director Name Role Phone Nitin Jerez MD Primary Care Provider +1- [phone] Encounter Details Date Type Department Care Team (Late st Contact Info) Description 07/12/2021 Transcribed Document [facility] [place] Family Medicine [address] [place] [address] ProviderYamila MD [address] [place] [address] Social History Tobacco Use Types [...] - Yamila ProviderMD - 07/12/2021 4:10 PM LOADER SEMICONDUCTOR DIES ED Triage Entered On: 07/12/2021 16:27 EST Performed On: 07/12/2021 16:25 EST by MARQUEZ CASTANEDA, MEAT COUNTER CLERK Triage Across the Room Chief Complaint : near syncope/dizziness starting one hour door captain. pt states that she was on a conference call and got very light headed and dizzy. Triage Date/Time : 07/12/2021 16:25 EST MARQUEZ CASTANEDA, RN - 07/12/2021 16:25 EST MARQUEZ CASTANEDA RN - 07/12/2021 16:25 EST DCP GENERIC CODE Tracking Group : [facility] MARQUEZ CASTANEDA RN - 07/12/2021 16:25 EST Tracking Acuity : 2 - Emergent DOMENICO SUMMERSSHERYL - 07/12/2021 17:17 EST Mode of Arrival : Stretcher Transported to ED by : Ambulance/ALS EMS Service : [facility] To Room Via : Stretcher Accompanied By : Unaccompanied ED Vital Signs : Document Height & Weight : Document ED Allergies : Document ED Reason for Visit : Document Tetanus Immunization : Unknown Esl Instructional Assistant Needed : No MARQUEZ CASTANEDA RN [...] PNED ; Probability: 0 ; Diagnosis Code: [id number] ED Height and Weight Height Source : Stated Height Entry Format : [place] Height, Feet : 5 ft(Converted to: 152 cm, 60 Inch) Height, Inches : 2 Inch(Converted to: 0 ft 2 Inch, 5.08 cm) Clinical Height : 157.48 cm Weight Source, ED : Critical estimated dosing weight Weight Entry Format : [place] Weight, Pounds : 200 lb Clinical Dosing Weight : 90.91 kg Body Surface Area (BSA) : 1.91 m2 Body Mass Index : 36.7 kg/m2 (HI) [place] Body Weight (IBW) : 49.73 kg MARQUEZ CASTANEDA RN - 07/12/2021 16:25 EST Patient/Family Esl Instructional Assistant Communication Primary Language : Croatian MARQUEZ CASTANEDA RN - 07/12/2021 16:25 EST Electronically signed by Olimpia [facility] Conversion Sox Analyst Cerner at 10/24/2022 1:30 PM CDT documented in this encounter Plan of Treatment Not on file documented as of this encounter Visit Diagnoses Not on filedocumented in this encounter Care Teams Small Business Director Relationship Specialty Start Date End Date Nitin Jerez MD [address] [place] [id number] PCP - General Family Medicine 10/06/22 documented as of this encounter
--- OUTSIDE RECORDS SUMMARY | 2025-04-28 06:53 | XMS_ITS | Encounter Summary ---
Author Organization [employer] ([place], [place], [place], [place]) Address [address] [place] [address] Care Team Providers Care Tea Taster Name Role Phone Nitin Jerez MD Primary Care Provider +1- [phone] Encounter Details Date Type Department Care Team (Late st Contact Info) Description 07/12/2021 Transcribed Document [facility] [place] Family [place] [facility] [place] [address] ProviderYamila MD [address] [place] [address] Social History Tobacco Use [...] - Yamila ProviderMD - 07/12/2021 9:29 PM PRODUCT DEVELOPMENT COORDINATOR ED Event Note Entered On: 07/12/2021 21:29 EST Performed On: 07/12/2021 21:29 EST by Melba Baptiste RN ED Event Note ED Event Date/Time : 07/12/2021 21:29 EST ED Description of Event : Patient discharged with instructions to follow up with Housecleaner Floor in the morning. NAD noted. IV dc'd before discharge. All of aptient belongings sent with patient. Patient verbalized understanding to all discharge instructions. Melba Baptiste RN - 07/12/2021 21:29 EST Electronically signed by Olimpia [facility] Conversion Booster Pump Oiler Cerner at 10/24/2022 1:26 PM CDT documented in this encounter Plan of Treatment Not on file documented as of this encounter Visit Diagnoses Not on filedocumented in this encounter Care Teams Tea Taster Relationship Specialty Start Date End Date Nitin Jerez MD [address] [place] [id number] PCP - General Family Medicine 10/06/22 documented as of this encounter
--- OUTSIDE RECORDS SUMMARY | 2025-04-28 06:53 | XMS_ITS | Encounter Summary ---
Author Organization [employer] ([place], [place], [place], [place]) Address [address] [facility] [place] [address] Care Team Providers Care Contact Lens Edge Buffer Name Role Phone Nitin Jerez MD Primary Care Provider +1- [phone] Encounter Details Date Type Department Care Team (Late st Contact Info) Description 07/12/2021 Transcribed Document [facility] Family Medicine [place] [address] ProviderYamila MD [address] [place] [address] Social History Tobacco Use Types [...] - Yamila ProviderMD - 07/12/2021 9:17 PM INBOUND CUSTOMER SERVICE REPRESENTATIVE [place] [id number] IDALMIS ABAD :1985 Visit Time:07/12/2021 Your Visit [...] Where: [address] [place] [id number] Business (1) Follow Up with [facility] [...] range between ( 1.0 and 7.0 ) [place] #: 0.75 K/uL -- Normal range between ( 0.24 and 0.82 ) [place] #: 0.16 K/uL -- Normal range between ( 0.04 and 0.54 ) [place] %: 8.5 % -- Normal range between [...] ) Urine Bilirubin Dipstick: Negative Urine Specific [place]: 1.006 -- Normal range between ( 1.005 [...] Education Materials Ambulatory Cardiac Monitoring An ambulatory registered nurse cardiac is a small recording device that is [...] period is complete. How to use your registered nurse cardiac ??? Follow directions about how long to [...] monitor. Where to find more information ??? [place] [employer]: www.heart.org Get help right away [...] to the hospital. Summary ??? An ambulatory registered nurse cardiac is a small recording device that is [...] provider. Document Revised: 04/21/2020 Document Reviewed: 04/21/2020 [employer] Patient Education ?? 2020 [employer] Syncope Syncope refers to a condition [...] urine pale yellow. General instructions ??? Take bsan-fzg-uofgyjn and prescription medicines only as told by [...] provider. Document Revised: 11/04/2020 Document Reviewed: 11/04/2020 [employer] Patient Education ?? 2020 [employer] Vertigo Vertigo is the feeling that [...] you feel dizzy. General instructions ??? Take dobj-dls-jwuibgq and prescription medicines only as told by [...] Reviewed: 05/19/2019 Elsevier Patient Education ?? 2021 [employer] Near-Syncope Near-syncope is when you suddenly [...] these instructions at home: Medicines ??? Take rvjg-epq-zplgpiv and prescription medicines only as told by [...] provider. Document Revised: 10/17/2019 Document Reviewed: 05/14/2019 [employer] Patient Education ?? 2020 [employer]. Emergency Awareness and Preventative Care STROKE is [...] Assistance with quitting is available by contacting 8-586-QQBT-NOW. This is a free resource providing counseling, [...] was given the opportunity to ask questions. Patient/Licensed Nuclear Control Room Operator Name: Patient/Licensed Nuclear Control Room Operator Signature: Relationship to Patient: Clinician/Hospital Licensed Nuclear Control Room Operator Signature: Please Provide a Telephone Number Where You Can Be Reached: Is it Permissible To Leave a Message? Date: Electronically signed by Olimpia [facility] Conversion Materials Scheduler Cerner at 10/24/2022 1:24 PM CDT documented in this encounter Plan of Treatment Not on file documented as of this encounter Visit Diagnoses Not on filedocumented in this encounter Care Teams Contact Lens Edge Buffer Relationship Specialty Start Date End Date Nitin Jerez MD [address] [place] [phone] PCP - General Family Medicine 10/06/22 documented as of this encounter
--- NOTE | 2025-04-28 07:00 | MR_ITS ---
FINAL REPORT TECHNIQUE: Multiplanar MR of the foot without gadolinium enhancement. CLINICAL HISTORY: Evaluation for stress fracture. lateral sided foot pain. no injury or trauma COMPARISON: None FINDINGS: Marrow signal: There is bone marrow edema in the proximal one third of the second metatarsal shaft, that may be secondary to stress reaction. Joints: Unremarkable Tendons:Visualized tendons are unremarkable Ligaments:Major ligaments intact Plantar Fascia:No evidence of tear No cystic or soft tissue mass. IMPRESSION: Bone marrow edema in the proximal third of the second metatarsal shaft, that may be secondary to stress reaction. Reviewed, Interpreted and Dictated by Leighton Boyd MD Transcribed by Johana Magana Authenticated and [facility]
== END 2025-04-28 23:59 | disposition home or self-care (01) ==
LOC: RAD 06:49
PROVIDERS: PCP Internal Medicine Adolescent Medicine; Visit Provider Podiatrist
DX: M84.374A Stress fracture, right foot, initial encounter for fracture (principal); S96.811A Strain of other specified muscles and tendons at ankle and foot level, right foot, initial encounter; R93.6 Abnormal findings on diagnostic imaging of limbs
CPT/HCPCS: 73718